=== PATIENT | male | born 1950 | race Caucasian/White ===

== ENCOUNTER → 2017-04-10 | Outpatient (CLI) | payer MEDICARE, OTHER ==
[~2017-04-10] MED LIST: APIX5TAB PO; ATOR10TA66 PO; DILT120T PO; ENAL5TAB PO; IBP200T; LORA-714 PO; LORA10TA7 PO; MONT10TA24 PO; SINUS; Sotalol Hcl PO; [UNRECOGNIZED DRUG - REMARK]
== END ==
LOC: CARD 07:27
PROVIDERS: ATTEND Physician Assistant
DX: I25.10 Atherosclerotic heart disease of native coronary artery without angina pectoris (principal); I10 Essential (primary) hypertension; E78.2 Mixed hyperlipidemia; I48.0 Paroxysmal atrial fibrillation
CPT/HCPCS: 93306

== ENCOUNTER 2017-04-26 15:09 | Inpatient (IN) | payer MEDICARE, OTHER ==
[~2017-04-26] VITALS: Ht 167.6 cm; Wt 113.5 kg
[2017-04-26] MEDS ORDERED: NS IV 500 ML 500 ML ONE (15:15)
[2017-04-26] MEDS ORDERED: ADENOSINE 6 MG/2 ML (ADENOCARD) VIAL IV ONE ×3 (15:15→15:30)
[2017-04-26] MEDS ORDERED: ASPIRIN 81 MG CHEW (CHILDREN'S ASA) PO ONE (15:15)
[2017-04-26] MEDS ORDERED: DILTIAZEM 25 MG/5 ML INJ (CARDIZEM) VIAL ONE (15:24)
[2017-04-26] MEDS ORDERED: SODIUM CHLORIDE (ADD-VANTAGE) 100 ML IV ONE (15:25)
[2017-04-26] MEDS ORDERED: DILTIAZEM 100 MG/VIAL (CARDIZEM) ADD-VANTAGE IV ONE (15:25)
[2017-04-26] MEDS ORDERED: DILTIAZEM DRIP 100 MG in SODIUM CHLORIDE (ADD-VANTAGE) 100 ML IV SCH (15:30)
[2017-04-26] MEDS ORDERED: DILTIAZEM 25 MG/5 ML INJ (CARDIZEM) VIAL IVP ONE (15:30)
[2017-04-26 15:49] LABS: BASOPHILS # (AUTO) 0.1 10^3/uL (0.0-0.1); BASOPHILS % (AUTO) 0 % (0-10); EOSINOPHILS # (AUTO) 0.3 10^3/uL (0.0-0.3); EOSINOPHILS % (AUTO) 3 % (0-10); LYMPHOCYTES # (AUTO) 2.7 X 10^3 (1.0-4.0); LYMPHOCYTES % (AUTO) 23 % (12-44); MEAN CORPUSCULAR HEMOGLOBIN 29 PG (25-34); MEAN CORPUSCULAR HGB CONC 33 G/DL (32-36); MEAN CORPUSCULAR VOLUME 87 FL (80-99); MEAN PLATELET VOLUME 10.4 FL (7.4-10.4); MONOCYTES % (AUTO) 9 % (0-12); NEUTROPHILS # (AUTO) 7.5 X 10^3 (1.8-7.8); NEUTROPHILS % (AUTO) 65 % (42-75); PLATELET COUNT 251 10^3/uL (130-400); RED BLOOD COUNT 5.58 10^6/uL (4.35-5.85); RED CELL DISTRIBUTION WIDTH 14.9 % (10.0-14.5); WHITE BLOOD COUNT 11.5 10^3/uL (4.3-11.0)
--- NOTE | 2017-04-26 15:49 | Diagnostic Imaging Report ---
EXAMINATION: Portable upright radiograph of the chest. INDICATION: Chest pain. FINDINGS: There is marked cardiomegaly. Indeterminate opacity in the left lung base could be artifactual from superimposition on this portable radiograph. The right lung is clear. There is no effusion or pneumothorax. The mediastinum and keyla appear unremarkable. IMPRESSION: Marked cardiomegaly. Indeterminate opacity along the left lower lobe could be superimposition artifact on this portable radiograph. Better evaluation could be obtained with PA and lateral views if needed. Dictated by: Dictated on workstation # [id number]
--- NOTE | 2017-04-26 16:01 | ED Chest Pain ---
General Chief Complaint: Cardiac/General Problems Stated Complaint: CHEST PAIN,SOA Nursing Triage Note: PT CO OF SOA FOR 4-5 DAYS AND C/P THIS AFTERNOON Nursing Sepsis Screen: No Definite Risk Source: patient Exam Limitations: no limitations History of Present Illness Time seen by provider: 15:11 Initial Comments This 66-year-old gentleman presents to emergency room with chest pain. He reports he occasionally has intermittent chest pain and shortness of air. Today however he has had a prolonged episode of pain in the chest radiating through to the back and dyspnea on exertion. He was extremely winded just going to the mailbox. He has a history of atrial flutter and has been evaluated by Dr. Layne. He also has had a heart catheterization in 2014 demonstrating mild coronary artery disease with 40-50 percent proximal stenosis of the LAD. He is noted to be tachycardic with a heart rate in the 160s on assessment. Patient reports compliance with his medications including Pradaxa. Allergies and Home Medications Allergies Coded Allergies: NKANo Known Allergies (Verified Allergy, Unknown, 12/13/08) Tetanus Vaccines & Toxoid (Verified Allergy, Unknown, 07/10/15) EDEMA Uncoded Allergies: IVP DYE FOR HEART CATHS (Allergy, Severe, HIVES, 07/10/15) WAS TREATED TODAY WITH BENADRYL AND SOLUMEDROL PRE CARDIAC CATH Home Medications Atorvastatin Calcium 10 Mg Tablet, 10 MG PO DAILY, (Reported) Dabigatran Etexilate Mesylate 75 Mg Capsule, 75 MG PO DAILY, (Reported) Diltiazem HCl 120 Mg Tab.er.24h, 120 MG PO DAILY, (Reported) Loratadine 10 Mg Tablet, 10 MG PO DAILY, (Reported) Montelukast Sodium 10 Mg Tablet, 10 MG PO HS, (Reported) [Sotalol Hcl] 80 MG TAB, 80 MG PO BID, #60 Ref 4 Prescribed by: JASVIR LAYNE on 07/13/15 1020 Review of Systems Constitutional: no symptoms reported EENTM: No Symptoms Reported Respiratory: See HPI Cardiovascular: See HPI Gastrointestinal: No Symptoms Reported Genitourinary: No Symptoms Reported Musculoskeletal: no symptoms reported Skin: no symptoms reported Psychiatric/Neurological: No Symptoms Reported Endocrine: No Symptoms Reported Past Ilcfpgk-Kvuvhl-Safbpd Hx Patient Social History Recent Foreign Travel: No Contact w/Someone Who Travel: No Recent Infectious Disease Expo: No Surgeries HX Surgeries: Yes (HEMORRHOIDS X3) Surgeries: Cardiac (cardiac catheter without intervention 2014) Respiratory Hx Respiratory Disorders: No Cardiovascular Hx Cardiac Disorders: Yes Cardiac Disorders: Atrial Fibrillation (atrial flutter on chronic anticoagulation), Coronary Artery Disease (mild coronary artery disease with nonobstructive disease by heart catheter 2014) Neurological Hx Neurological Disorders: No Reproductive System Hx Reproductive Disorders: No Genitourinary Hx Genitourinary Disorders: No Gastrointestinal Hx Gastrointestinal Disorders: No Musculoskeletal Hx Musculoskeletal Disorders: Yes (12/13/08-TRANSFER PROCESS FX.,LOWER BACKPAIN) Endocrine Hx Endocrine Disorders: No HEENT HX ENT Disorders: No Cancer Hx Cancer: No Psychosocial Hx Psychiatric Problems: No Integumentary HX Skin/Integumentary Disorder: No Blood Transfusions Hx Blood Disorders: No Physical Exam Vital Signs Vital Sign - Last 12Hours 04/26/17 15:10 Temp 97.1 Pulse 160 Resp 18 B/P (MAP) 162/122 Pulse Ox 86 O2 Delivery Room Air O2 Flow Rate 2.00 Capillary Refill : Less Than 3 Seconds General Appearance: No Apparent Distress, WD/WN, Obese HEENT: PERRL/EOMI, Normal ENT Inspection Neck: Normal Inspection, No JVD Respiratory: Lungs Clear, Normal Breath Sounds, No Accessory Muscle Use, No Respiratory Distress Cardiovascular: No Edema, No Murmur, Tachycardia Gastrointestinal: Normal Bowel Sounds, Non Tender, Soft Extremity: Normal Inspection, No Pedal Edema Neurologic/Psychiatric: Alert, Oriented x3, No Motor/Sensory Deficits, Normal Mood/Affect, educational consultant II-XII Norm as Tested Skin: Normal Color, Warm/Dry Progress/Results/Core Measures Results/Orders Lab Results Laboratory Tests Test 04/26/17 15:10 04/26/17 16:10 Range/Units White Blood Count 11.5 H 4.3-11.0 10^3/uL Red Blood Count 5.58 4.35-5.85 10^6/uL Hemoglobin 16.0 13.3-17.7 G/DL Hematocrit 48 40-54 % Mean Corpuscular Volume 87 80-99 FL Mean Corpuscular Hemoglobin 29 25-34 PG Mean Corpuscular Hemoglobin Concent 33 32-36 G/DL Red Cell Distribution Width 14.9 H 10.0-14.5 % Platelet Count 251 130-400 10^3/uL Mean Platelet Volume 10.4 7.4-10.4 FL Neutrophils (%) (Auto) 65 42-75 % Lymphocytes (%) (Auto) 23 12-44 % Monocytes (%) (Auto) 9 0-12 % Eosinophils (%) (Auto) 3 0-10 % Basophils (%) (Auto) 0 0-10 % Neutrophils # (Auto) 7.5 1.8-7.8 X 10^3 Lymphocytes # (Auto) 2.7 1.0-4.0 X 10^3 Monocytes # (Auto) 1.0 0.0-1.0 X 10^3 Eosinophils # (Auto) 0.3 0.0-0.3 10^3/uL Basophils # (Auto) 0.1 0.0-0.1 10^3/uL Prothrombin Time 18.0 H 12.2-14.7 SEC INR Comment 1.5 H 0.8-1.4 Activated Partial Thromboplast Time 47 H 24-35 SEC Sodium Level 139 135-145 MMOL/L Potassium Level 3.4 L 3.6-5.0 MMOL/L Chloride Level 102 98-107 MMOL/L Carbon Dioxide Level 25 21-32 MMOL/L Anion Gap 12 5-14 MMOL/L Blood Urea Nitrogen 25 H 7-18 MG/DL Creatinine 0.95 0.60-1.30 MG/DL Estimat Glomerular Filtration Rate > 60 BUN/Creatinine Ratio 26 Glucose Level 174 H 70-105 MG/DL Calcium Level 8.8 8.5-10.1 MG/DL Magnesium Level 1.7 L 1.8-2.4 MG/DL Total Bilirubin 0.5 0.1-1.0 MG/DL Aspartate Amino Transf (AST/SGOT) 37 H 5-34 U/L Alanine Aminotransferase (ALT/SGPT) 77 H 0-55 U/L Alkaline Phosphatase 83 40-136 U/L Myoglobin 76.8 10.0-92.0 NG/ML Troponin I < 0.30 <0.30 NG/ML Total Protein 6.0 L 6.4-8.2 GM/DL Albumin 3.5 3.2-4.5 GM/DL TSH Arab Testing 1.15 0.35-4.94 UIU/ML My Orders Orders - JUDE TOWNSEND MD Adenosine Injection (Adenocard Injection (04/26/17 15:30) Adenosine Injection (Adenocard Injection (04/26/17 15:30) Thyroid Analyzer (04/26/17 15:19) Diltiazem Injection (Cardizem Injection) (04/26/17 15:24) Diltiazem Injection (Cardizem Injection) (04/26/17 15:30) Sodium Chloride (Ad... W/Diltiazem Drip (04/26/17 15:30) Sodium Chloride (Add-Hudson) (Ns (Add-V (04/26/17 15:25) Diltiazem Drip (Cardizem Drip) (04/26/17 15:25) Medications Given in ED Current Medications Medications Dose Ordered Sig/Kailash Route Start Time Stop Time Status Last Admin Dose Admin Adenosine 6 mg ONCE ONCE IV 04/26/17 15:30 04/26/17 15:31 DC 04/26/17 15:23 6 MG Adenosine 12 mg ONCE ONCE IV 04/26/17 15:30 04/26/17 15:31 DC 04/26/17 15:26 12 MG Aspirin 324 mg ONCE ONCE PO 04/26/17 15:15 04/26/17 15:16 DC 04/26/17 15:30 324 MG Diltiazem HCl 10 mg ONCE ONCE IVP 04/26/17 15:30 04/26/17 15:32 DC 04/26/17 15:35 10 MG Sodium Chloride 500 ml @ ud STK-MED ONCE .ROUTE 04/26/17 15:15 04/26/17 15:21 DC 04/26/17 15:20 500 MLS/HR Vital Signs/I&O Vital Sign - Last 12Hours 04/26/17 04/26/17 04/26/17 15:10 15:10 15:36 Temp 97.1 Pulse 160 122 Resp 18 18 B/P (MAP) 162/122 136/108 Pulse Ox 86 86 97 O2 Delivery Room Air Nasal Cannula O2 Flow Rate 2.00 2.00 Blood Pressure Mean: 135 Progress Note #1: Time: 16:02 Progress Note Patient had a regular rhythm with a heart rate of 160 suspicious for SVT versus atrial flutter with 2 to one conduction. Adenosine 6 mg followed by adenosine 12 mg was administered. This unmasked the atrial flutter which became plainly evident on the EKGs. Cardizem drip was initiated. 500 mL of normal saline was administered an IV bolus as well. Progress Note #2: Time: 17:00 Progress Note Heart rate improved to the 80s with stable blood pressure on Cardizem drip. Patient feels better. ECG Initial ECG Impression Date: Apr 26, 2017 Initial ECG Impression Time: 15:16 Initial ECG Rate: 160 Initial ECG Rhythm: A Fib/Flutter Comment Narrow complex tachycardia with a consistent rate of 160. Probable atrial flutter with rapid ventricular rate (2:1 conduction). EKG : EKG Time: 15:26 Rate: 125 Rhythm: A Fib/Flutter Comment Atrial flutter with heart rate of 125. No ST elevation or depression. Atrial flutter was unmasked by adenosine 12 mg push. Diagnostic Imaging Diagonstic Imaging: Xray Plain Films/CT/US/NM/MRI: chest Comments Chest x-ray viewed by me and report reviewed. See report below: NAME: MARIXA UREÑA MED REC#: [id number] PT STATUS: REG ER : 1950 PHYSICIAN: MOISE VIRAMONTES APRN ADMIT DATE: 04/26/17/ER Draft Date of Exam:04/26/17 CHEST 1 VIEW, AP/PA ONLY EXAMINATION: Portable upright radiograph of the chest. INDICATION: Chest pain. FINDINGS: There is marked cardiomegaly. Indeterminate opacity in the left lung base could be artifactual from superimposition on this portable radiograph. The right lung is clear. There is no effusion or pneumothorax. The mediastinum and keyla appear unremarkable. IMPRESSION: Marked cardiomegaly. Indeterminate opacity along the left lower lobe could be superimposition artifact on this portable radiograph. Better evaluation could be obtained with PA and lateral views if needed. Dictated on workstation # [id number] Dict: 04/26/17 1540 Trans: 04/26/17 1548 [id number] Interpreted by: REED CHAUDHARI MD Departure Communication Time/Spoke to Admitting Phy: 17:[address] Nunez Time/Spoke to Consulting Physi: 16:58 Communication/Consulting Dr. Weiss Impression Impression: Primary Impression: Atrial flutter with rapid ventricular response Additional Impression: Chest pain Qualified Codes: R07.9 - Chest pain, unspecified Disposition: 09 ADMITTED INPATIENT Condition: Improved Decision to Admit Reason: Admit from ER (General) Decision to Admit/Date: Apr 26, 2017 Time/Decision to Admit Time: 15:16 Departure-Patient Inst. Referrals: JEANNE NUNEZ MD (PCP/Family) Primary Care Physician JUDE TOWNSEND MD Apr 26, 2017 16:01
[2017-04-26 16:05] LABS: INR 1.5 (0.8-1.4)
[2017-04-26] MEDS ORDERED: DABI75CA3 PO (16:12)
[2017-04-26 16:41] LABS: ALANINE AMINOTRANSFERASE 77 U/L (0-55); ALBUMIN 3.5 GM/DL (3.2-4.5); ANION GAP 12 MMOL/L (5-14); ASPARTATE AMINO TRANSFERASE 37 U/L (5-34); BILIRUBIN,TOTAL 0.5 MG/DL (0.1-1.0); BLOOD UREA NITROGEN 25 MG/DL (7-18); BUN/CREATININE RATIO 26; CALCIUM 8.8 MG/DL (8.5-10.1); CARBON DIOXIDE 25 MMOL/L (21-32); CHLORIDE 102 MMOL/L (98-107); CREATININE SERUM 0.95 MG/DL (0.60-1.30); GFR ESTIMATED > 60; GLUCOSE 174 MG/DL (70-105); MAGNESIUM 1.7 MG/DL (1.8-2.4); POTASSIUM 3.4 MMOL/L (3.6-5.0); SODIUM 139 MMOL/L (135-145)
[2017-04-26 17:01] LABS: MYOGLOBIN SERUM 76.8 NG/ML (10.0-92.0)
[2017-04-26] MEDS ORDERED: CATHETER FLUSH 10 ML SYR IV PRN (18:45)
[2017-04-26 19:00] VITALS: BP 98/67
[2017-04-26 19:30] VITALS: BP 99/79
[2017-04-26 20:00] VITALS: BP 110/76
[2017-04-26 21:00] VITALS: BP 96/64
[2017-04-26 22:00] VITALS: BP 103/67
[2017-04-26] MEDS: DABIGATRAN 150 MG (PRADAXA) CAPSULE PO SCH (22:30)
[2017-04-26] MEDS: NS IV 1000 ML 1,000 ML IV SCH (22:30)
[2017-04-26 23:00] VITALS: BP 123/82
[2017-04-27] VITALS (13 sets, daily range): BP systolic 95–136; BP diastolic 64–96
[2017-04-27] MEDS: SOTALOL 80 MG (BETAPACE) TAB PO SCH ×3 (00:12→22:02)
[2017-04-27] MEDS: DILTIAZEM DRIP 100 MG/NS 100 ML IV SCH ×4 (02:55→14:45)
[2017-04-27 03:39] LABS: BASOPHILS % (AUTO) 0 % (0-10); EOSINOPHILS # (AUTO) 0.2 10^3/uL (0.0-0.3); EOSINOPHILS % (AUTO) 2 % (0-10); LYMPHOCYTES # (AUTO) 2.1 X 10^3 (1.0-4.0); LYMPHOCYTES % (AUTO) 27 % (12-44); MEAN CORPUSCULAR HEMOGLOBIN 29 PG (25-34); MEAN CORPUSCULAR HGB CONC 33 G/DL (32-36); MEAN CORPUSCULAR VOLUME 88 FL (80-99); MEAN PLATELET VOLUME 10.1 FL (7.4-10.4); MONOCYTES # (AUTO) 0.5 X 10^3 (0.0-1.0); MONOCYTES % (AUTO) 7 % (0-12); NEUTROPHILS # (AUTO) 4.9 X 10^3 (1.8-7.8); NEUTROPHILS % (AUTO) 63 % (42-75); PLATELET COUNT 196 10^3/uL (130-400); RED BLOOD COUNT 4.81 10^6/uL (4.35-5.85); RED CELL DISTRIBUTION WIDTH 14.6 % (10.0-14.5); WHITE BLOOD COUNT 7.7 10^3/uL (4.3-11.0)
[2017-04-27 04:03] LABS: ANION GAP 10 MMOL/L (5-14); BLOOD UREA NITROGEN 28 MG/DL (7-18); BUN/CREATININE RATIO 34; CALCIUM 8.9 MG/DL (8.5-10.1); CARBON DIOXIDE 25 MMOL/L (21-32); CHLORIDE 103 MMOL/L (98-107); CREATININE SERUM 0.83 MG/DL (0.60-1.30); GFR ESTIMATED > 60; GLUCOSE 111 MG/DL (70-105); MAGNESIUM 1.8 MG/DL (1.8-2.4); POTASSIUM 3.9 MMOL/L (3.6-5.0); SODIUM 138 MMOL/L (135-145)
[2017-04-27 04:27] LABS: CHOLESTEROL 120 MG/DL (< 200); DIRECT LDL 75 MG/DL (1-129); TRIGLYCERIDES 93 MG/DL (<150); VLDL CHOLESTEROL 19 MG/DL (5-40)
[2017-04-27] MEDS: POTASSIUM CL 10MEQ/50ML IVPB 50 ML IV SCH (04:30)
[2017-04-27] MEDS: KCL 20 MEQ TAB (K-DUR) PO SCH (04:30)
[2017-04-27] MEDS: MAGNESIUM 1 GM/100 ML IVPB 100 ML IV SCH (04:30)
[2017-04-27] MEDS: NS IV 1000 ML 1,000 ML IV SCH ×2 (08:05→11:03)
--- NOTE | 2017-04-27 08:08 | History & Physicial ---
History of Present Illness History of Present Illness Reason for visit/HPI 66-year-old male admitted through the emergency room during the late afternoon of April 26, 2017 with shortness of breath primarily with also occasional chest discomfort. Apparently he was having difficulty even walking to his mailbox from his front porch which she usually has no problem at all. 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 Patient is on pradaxa as prescribed by cardiology. He did not notice that his heart rate was elevated during the afternoon of April 26, 2017. With the symptoms not improving he decided to proceed to via [facility] emergency department. Date of Admission Apr 26, 2017 at 17:52 Date Seen by Provider: Apr 27, 2017 Time Seen by Provider: 07:45 I consulted on this patient on 04/27/17 08:03 Attending Physician Oc Nunez MD Admitting Physician Oc Nunez MD Consult Allergies and Home Medications Allergies Coded Allergies: NKANo Known Allergies (Verified Allergy, Unknown, 12/13/08) Tetanus Vaccines and Toxoid (Verified Allergy, Unknown, 07/10/15) EDEMA Uncoded Allergies: IVP DYE FOR HEART CATHS (Allergy, Severe, HIVES, 07/10/15) WAS TREATED TODAY WITH BENADRYL AND SOLUMEDROL PRE CARDIAC CATH Home Medications Atorvastatin Calcium 10 Mg Tablet, 10 MG PO DAILY, (Reported) Dabigatran Etexilate Mesylate 150 Mg Capsule, 150 MG PO BID, (Reported) Enalapril Maleate 10 Mg Tablet, 10 MG PO DAILY, (Reported) Hydrochlorothiazide 25 Mg Tablet, 25 MG PO DAILY, (Reported) Loratadine 10 Mg Tablet, 10 MG PO DAILY, (Reported) Montelukast Sodium 10 Mg Tablet, 10 MG PO HS, (Reported) Naproxen Sodium 220 Mg Tablet, 220-440 MG PO Q8H PRN for PAIN-MILD, (Reported) Sotalol HCl 80 Mg Tablet, 80 MG PO BID, (Reported) Past Ivbrkhn-Wcbzwm-Ybkipc Hx Patient Social History Alcohol Use: Denies Use Recreational Drug Use: No Smoking Status: Never a Smoker Physical Abuse Screen: No Sexual Abuse: No Recent Foreign Travel: Yes ([place] FEBRUARY/MARCH ) Contact w/other who traveled: No Recent Hopitalizations: No Recent Infectious Disease Expo: No Seasonal Allergies Seasonal Allergies: No Surgeries HX Surgeries: Yes (HEMORRHOIDS X3) Surgeries: Cardiac (cardiac catheter without intervention 2014) Respiratory Hx Respiratory Disorders: No Cardiovascular Hx Cardiovascular Disorders: Yes Cardiac Disorders: Atrial Fibrillation (atrial flutter on chronic anticoagulation), Coronary Artery Disease (mild coronary artery disease with nonobstructive disease by heart catheter 2014) Neurological Hx Neurological Disorders: No Reproductive System Hx Reproductive Disorders: No Genitourinary Hx Genitourinary Disorders: No Gastrointestinal Hx Gastrointestinal Disorders: No Musculoskeletal Hx Musculoskeletal Disorders: Yes (12/13/08-TRANSFER PROCESS FX.,LOWER BACKPAIN) Endocrine Hx Endocrine Disorders: No HEENT HX ENT Disorders: No Cancer Hx Cancer: No Psychosocial Hx Psychiatric Problems: No Integumentary HX Skin/Integumentary Disorder: No Blood Transfusions Hx Blood Disorders: No Family Medical History Family Hx: Completed stroke 19 MOTHER Myocardial infarction 19 FATHER Constitutional: see HPI Physical Exam Vital Signs Vital Sign - Last 12Hours 04/26/17 15:10 Temp 97.1 Pulse 160 Resp 18 B/P (MAP) 162/122 Pulse Ox 86 O2 Delivery Room Air O2 Flow Rate 2.00 Capillary Refill : Less Than 3 Seconds General Appearance: Anxious (slight) Eyes: Bilateral Eye Normal Inspection HEENT: Normal ENT Inspection Neck: Supple Respiratory: Lungs Clear Cardiovascular: Other (rhythm appears to be regular currently in the rate of 88 ) Gastrointestinal: Soft Rectal: Deferred Back: Normal Inspection Extremity: Swelling (minimal at the ankle) Skin: Normal Color, Warm/Dry Comments NAME: MARIXA UREÑA MED REC#: [id number] PT STATUS: ADM IN : 1950 PHYSICIAN: MOISE VIRAMONTES APRN ADMIT DATE: 04/26/17/ICU Signed Date of Exam: 04/26/17 CHEST 1 VIEW, AP/PA ONLY EXAMINATION: Portable upright radiograph of the chest. INDICATION: Chest pain. FINDINGS: There is marked cardiomegaly. Indeterminate opacity in the left lung base could be artifactual from superimposition on this portable radiograph. The right lung is clear. There is no effusion or pneumothorax. The mediastinum and keyla appear unremarkable. IMPRESSION: Marked cardiomegaly. Indeterminate opacity along the left lower lobe could be superimposition artifact on this portable radiograph. Better evaluation could be obtained with PA and lateral views if needed. Dictated by: Dictated on workstation # [id number] Dict: 04/26/17 1540 Trans: 04/26/17 1845 Interpreted by: REED CHAUDHARI MD Electronically signed by: REED CHAUDHARI MD 04/26/17 1845 Assessment/Plan Assessment and Plan 1. Atrial flutter with rapid ventricular response on admission -patient to be admitted to intensive care unit for heart rate control with Cardizem drip -Cardiology consultation 2. Chest pain with history of coronary artery disease -troponin series ordered Problems: Admission Diagnosis 1. Atrial flutter with rapid ventricular response on admission 2. Chest pain with history of coronary artery disease Clinical Quality Measures DVT/VTE Risk/Contraindication: RFS Level Per Nursing on Admit: 0=No Risk/No VTE PPX OC NUNEZ MD Apr 27, 2017 08:08
--- NOTE | 2017-04-27 08:33 | Consultation-Cardiology ---
HPI-Cardiology Cardiology Consultation: Date of Consultation 04/27/17 Time Seen by Provider: 08:26 Date of Admission 04-26-17 Attending Physician Oc Dixon MD Admitting Physician Oc Dixon MD Consulting Physician Radha Weiss MD, [place] [facility] Primary die maker bench stamping: Dr Layne HPI: Chief Complaint: A-fib with RVR Mr. Ureña is a 66 year old male admitted to ICU 9 from the ED. He reports he has a h/o a-fib. His primary die maker bench stamping is Dr. Layne. He states over the course of the last 2 weeks he has been having episodes of palpitations which have been increasing in frequency and duration. He states he has been having dyspnea on exertion, which has been progressive. He states he can not even walk to his mailbox without feeling short of breath, which a month ago he could. He states he has been having chest pressure which radiates across his chest. It comes on with activity. He has shortness of breath with the episodes. No diaphoresis. The episodes resolve with rest. He reports yesterday he began to have dizziness and lightheadedness with exertion. No reports of syncope or near syncope. Chronic mild bilat LE edema which is unchanged. He reports he has CHLOE and wears CPAP. He is currently not reporting any chest discomfort. Review of Systems-Cardiology Review of Systems Constitutional: As described under HPI, No As described under HPI, No no symptoms reported, No chills, No fever, No lightheadedness Eyes: No As described under HPI, No no symptoms reported, No blindness, No blurred vision, No contact lenses, No drainage, No decreased acuity, No foreign body sensation, No pain, No vision change Ears/Nose/Throat: No As described under HPI, No no symptoms reported, No chronic hearing loss, No ear discharge, No ear pain, No nasal drainage, No ulcerations Respiratory: No no symptoms reported, As described under HPI, No As described under HPI, No cough, No orthopnea, No shortness of breath, No SOB with excertion Cardiovascular: No no symptoms reported, As described under HPI, No As described under HPI, No chest pain, No edema, No irregular heart rate, No lightheadedness, No palpitations Gastrointestinal: No no symptoms reported, No As described under HPI, No abdomen distended, No abdominal pain, No blood streaked bowels, No constipation , No diarrhea, No nausea, No vomiting, No stool coloration changes Genitourinary: No As described under HPI, No burning, No dysuria, No discharge , No frequency, No flank pain, No hematuria, No urgency Skin: No rash, No skin related problems, No ulcerations Psychiatric/Neurological: No anxiety, No depression, No focal weakness, No seizure, No syncope Hematologic: No bleeding abnormalities MUF-[id number]-Ocankd Hx Patient Social History Alcohol Use: Denies Use Recreational Drug Use: No Smoking Status: Never a Smoker Recent Foreign Travel: Yes ([place] ) Recent Infectious Disease Expo: No Hospitalization with Isolation: Denies Physical Abuse Screen: No Sexual Abuse: No Past Medical History PMH As described under Assessment. Family Medical History Family History: Completed stroke 19 MOTHER Myocardial infarction 19 FATHER Allergies and Home Medications Allergies Coded Allergies: NKANo Known Allergies (Verified Allergy, Unknown, 12/13/08) Tetanus Vaccines and Toxoid (Verified Allergy, Unknown, 07/10/15) EDEMA Uncoded Allergies: IVP DYE FOR HEART CATHS (Allergy, Severe, HIVES, 07/10/15) WAS TREATED TODAY WITH BENADRYL AND SOLUMEDROL PRE CARDIAC CATH Home Medications Atorvastatin Calcium 10 Mg Tablet, 10 MG PO DAILY, (Reported) Dabigatran Etexilate Mesylate 150 Mg Capsule, 150 MG PO BID, (Reported) Enalapril Maleate 10 Mg Tablet, 10 MG PO DAILY, (Reported) Hydrochlorothiazide 25 Mg Tablet, 25 MG PO DAILY, (Reported) Loratadine 10 Mg Tablet, 10 MG PO DAILY, (Reported) Montelukast Sodium 10 Mg Tablet, 10 MG PO HS, (Reported) Naproxen Sodium 220 Mg Tablet, 220-440 MG PO Q8H PRN for PAIN-MILD, (Reported) Sotalol HCl 80 Mg Tablet, 80 MG PO BID, (Reported) Physical Exam-Cardiology Physical Exam Vital Signs/I&O Vital Sign - Last 12Hours 04/26/17 04/26/17 04/27/17 04/27/17 22:00 23:00 00:00 00:00 Pulse 55 67 68 Resp 22 21 25 B/P (MAP) 103/67 123/82 119/78 Pulse Ox 96 94 94 94 O2 Delivery Room Air Room Air Room Air Room Air 04/27/17 04/27/17 04/27/17 04/27/17 01:00 01:00 02:00 03:00 Pulse 69 73 64 63 Resp 26 28 29 B/P (MAP) 116/80 106/64 112/79 Pulse Ox 94 95 93 O2 Delivery Room Air Room Air Room Air 04/27/17 04/27/17 04/27/17 04/27/17 04:00 04:00 05:00 06:00 Pulse 69 68 70 Resp 29 26 26 B/P (MAP) 95/80 136/94 133/93 Pulse Ox 96 95 93 96 O2 Delivery Room Air Room Air Room Air Room Air 04/27/17 04/27/17 04/27/17 04/27/17 07:00 07:00 08:00 08:53 Temp 98.6 Pulse 78 78 80 Resp 12 10 B/P (MAP) 131/77 125/96 Pulse Ox 96 96 O2 Delivery Room Air Room Air 04/27/17 09:00 Pulse 86 Resp 16 B/P (MAP) 136/93 Pulse Ox 97 O2 Delivery Room Air Intake and Output 04/27/17 00:00 Intake Total 150 ml Balance 150 ml Capillary Refill : Less Than 3 Seconds Constitutional: appears stated age, No apparent distress, well-developed, well- nourished HEENT: PERRL, No discharge, hearing is well preserved, oral hygience is good, No ulceration, No xanthelasmas are seen Neck: No carotid bruit, carotid pulses are 2 + bilaterally Respiratory: chest expansion is symmetric, chest is bilaterally symmetric, lungs clear to auscultation Cardiovascular: regular rate-rhythm, No JVD, S1 and S2 Gastrointestinal: No tender, soft, audible bowel sounds, No spleenomegaly Rectal: deferred Extremities: No clubbing, No cyanosis, No significant edema Neurologic/Psychiatric: alert, oriented x 3, power is 5/5 both on sides Skin: No rash, No ulcerations Data Review Labs Laboratory Tests 04/26/17 15:10: White Blood Count 11.5H, Red Blood Count 5.58, Hemoglobin 16.0, Hematocrit 48, Mean Corpuscular Volume 87, Mean Corpuscular Hemoglobin 29, Mean Corpuscular Hemoglobin Concent 33, Red Cell Distribution Width 14.9H, Platelet Count 251, Mean Platelet Volume 10.4, Neutrophils (%) (Auto) 65, Lymphocytes (%) (Auto) 23 , Monocytes (%) (Auto) 9, Eosinophils (%) (Auto) 3, Basophils (%) (Auto) 0, Neutrophils # (Auto) 7.5, Lymphocytes # (Auto) 2.7, Monocytes # (Auto) 1.0, Eosinophils # (Auto) 0.3, Basophils # (Auto) 0.1, Prothrombin Time 18.0H, INR Comment 1.5H, Activated Partial Thromboplast Time 47H 04/26/17 16:10: Sodium Level 139, Potassium Level 3.4L, Chloride Level 102, Carbon Dioxide Level 25, Anion Gap 12, Blood Urea Nitrogen 25H, Creatinine 0.95, Estimat Glomerular Filtration Rate > 60, BUN/Creatinine Ratio 26, Glucose Level 174H, Calcium Level 8.8, Magnesium Level 1.7L, Total Bilirubin 0.5, Aspartate Amino Transf (AST/SGOT) 37H, Alanine Aminotransferase (ALT/SGPT) 77H, Alkaline Phosphatase 83, Myoglobin 76.8, Troponin I < 0.30, Total Protein 6.0L, Albumin 3.5, TSH [place] Testing 1.15 04/27/17 03:04: White Blood Count 7.7, Red Blood Count 4.81, Hemoglobin 13.9, Hematocrit 42, Mean Corpuscular Volume 88, Mean Corpuscular Hemoglobin 29, Mean Corpuscular Hemoglobin Concent 33, Red Cell Distribution Width 14.6H, Platelet Count 196, Mean Platelet Volume 10.1, Neutrophils (%) (Auto) 63, Lymphocytes (%) (Auto) 27 , Monocytes (%) (Auto) 7, Eosinophils (%) (Auto) 2, Basophils (%) (Auto) 0, Neutrophils # (Auto) 4.9, Lymphocytes # (Auto) 2.1, Monocytes # (Auto) 0.5, Eosinophils # (Auto) 0.2, Basophils # (Auto) 0.0, Sodium Level 138, Potassium Level 3.9, Chloride Level 103, Carbon Dioxide Level 25, Anion Gap 10, Blood Urea Nitrogen 28H, Creatinine 0.83, Estimat Glomerular Filtration Rate > 60, BUN /Creatinine Ratio 34, Glucose Level 111H, Calcium Level 8.9, Magnesium Level 1.8 , Troponin I < 0.30, Phosphorus Level 4.0, Triglycerides Level 93, Cholesterol Level 120, LDL Cholesterol Direct 75, VLDL Cholesterol 19, HDL Cholesterol 32L 04/27/17 08:00: Troponin I < 0.30 Radiology NAME: MARIXA UREÑA [facility] REC#: [id number] PT STATUS: ADM IN : 1950 PHYSICIAN: MOISE VIRAMONTES APRN ADMIT DATE: 04/26/17/ICU Signed Date of Exam: 04/26/17 CHEST 1 VIEW, AP/PA ONLY EXAMINATION: Portable upright radiograph of the chest. INDICATION: Chest pain. FINDINGS: There is marked cardiomegaly. Indeterminate opacity in the left lung base could be artifactual from superimposition on this portable radiograph. The right lung is clear. There is no effusion or pneumothorax. The mediastinum and keyla appear unremarkable. IMPRESSION: Marked cardiomegaly. Indeterminate opacity along the left lower lobe could be superimposition artifact on this portable radiograph. Better evaluation could be obtained with PA and lateral views if needed. Dictated by: Dictated on workstation # [id number] Dict: 04/26/17 1540 Trans: 04/26/17 1845 Interpreted by: REED CHAUDHARI MD Electronically signed by: REED CHAUDHARI MD 04/26/17 1844 ECG Impression ECG Initial ECG Impression: Atrial Fibrillation w/RVR A/P-Cardiology Assessment/Admission Diagnosis New onset of symptoms of chest discomfort and exertional shortness of breath, probably multifactorial, see below Chest pain of undetermined etiology with associated dyspnea, progressive A-fib with RVR - h/o PAF - converted to SR with controlled rate Electrolyte abnormalities likely d/t chronic diuretic use Coronary artery disease, status post cardiac catheterization done in June 2015 showing 40-50 percent proximal LAD stenosis otherwise nonobstructive disease Paroxysmal atrial fibrillation/flutter, maintained on sotalol [id number] score is 2, yearly risk of stroke without oral anticoagulation is 2.2 percent. He is maintained on Pradaxa. Hypertension Peripheral edema Pulmonary hypertension, obstructive sleep apnea COPD/obstructive sleep apnea - CPAP tx Morbid obesity, BMI is 40 Seasonal allergy. Allergy to IV contrast, tetanus Discussion and Recomendations Paroxysmal a-fib with RVR which has now converted to SR with a controlled rate. H/O CAD per cardiac cath of 2014. Based on his symptoms, h/o and risk factors as listed above we advise further cardiac work up. We have discussed both invasive and non-invasive work up. He would like to discuss with Dr. Weiss. We will keep him NPO until he has made a decision. He reports he had an echocardiogram approx 2 weeks ago. We will review. Continue sotalol, CCB, statin, ASA and Pradaxa. Further recommendations will be based on his hospital course. We would like to thank Dr. Dixon for this consult. This consult is being scribed by Leeann Chamorro APRN on behalf of Dr. Weiss after discussion regarding plan of care. Clinical Quality Measures DVT/VTE Risk/Contraindication: RFS Level Per Nursing on Admit: 0=No Risk/No VTE PPX Physician Assessment Physician Assessment Lungs: good air entry; somewhat diminished a the bases Cor: reg Ext: no c/c/e A&R * As documented in our note above that I updated (italics) and as noted below * Increase sotalol and monitor serial QT intervals * Add long-acting dilt * Continue dabigatran stroke prophylaxis * Consider card cath for symptoms of increasing exertional shortness of breath and chest discomfort (in a setting of known CAD) * I discussed with him the rationale, procedure, risks, benefits, potential complications, and alternatives of card cath and possible ad hoc cor intervention. He understands and provides informed consent BENNY CHAMORRO MARINE GEOLOGIST Apr 27, 2017 08:33 RADHA WEISS MD [facility] Apr 27, 2017 09:46
[2017-04-27] MEDS: MONTELUKAST 10 MG (SINGULAIR) TAB PO SCH (08:49)
[2017-04-27] MEDS: ATORVASTATIN 10 MG (LIPITOR) TABLET PO SCH (08:49)
[2017-04-27] MEDS: ENALAPRIL 10 MG (VASOTEC) TAB PO SCH (08:49)
[2017-04-27] MEDS: DABIGATRAN 150 MG (PRADAXA) CAPSULE PO SCH ×3 (08:53→22:01)
[2017-04-27] MEDS ORDERED: HYDROCHLOROTHIAZIDE 25 MG (HCTZ) TAB PO SCH (09:00)
[2017-04-27] MEDS ORDERED: DILTIAZEM 180 MG (CARDIZEM CD) CAP PO NR (09:15)
[2017-04-27] MEDS ORDERED: DABI150C5 PO (09:18)
[2017-04-27] MEDS ORDERED: ENAL10TA PO (09:18)
[2017-04-27] MEDS ORDERED: SOTA80TA PO (09:18)
[2017-04-27] MEDS ORDERED: HYDR25TA4 PO (09:18)
[2017-04-27] MEDS ORDERED: NAPR220T66 PO (09:25)
[2017-04-27] MEDS ORDERED: ASPIRIN 325 MG (5 GR) TABLET PO NR (10:15)
--- NOTE | 2017-04-27 10:44 | Diagnostic Imaging Report ---
INDICATION: Dyspnea. TECHNIQUE: Single view chest 4:34 AM. CORRELATION STUDY: 04/26/2017 FINDINGS: Heart size is enlarged, mediastinum prominent. The findings are stable to perhaps slightly increased from prior study. Vasculature is somewhat obscured but appears generally stable. The lungs are clear with no consolidating infiltrate. There is no significant effusion or pneumothorax. IMPRESSION: Marked cardiac enlargement. Prominent mediastinum, stable to perhaps slightly increased. Features could be reflective of underlying cardiomyopathy or perhaps pericardial effusion. Vasculature however appears relatively stable. Dictated by: Dictated on workstation # [id number]
[2017-04-27] MEDS ORDERED: ASPIRIN 81 MG CHEW (CHILDREN'S ASA) PO NR (10:53)
[2017-04-28] VITALS (12 sets, daily range): BP systolic 93–117; BP diastolic 51–86
[2017-04-28] MEDS: NS IV 1000 ML 1,000 ML IV SCH ×2 (00:23→14:10)
[2017-04-28 03:44] LABS: BASOPHILS % (AUTO) 0 % (0-10); EOSINOPHILS # (AUTO) 0.3 10^3/uL (0.0-0.3); EOSINOPHILS % (AUTO) 3 % (0-10); LYMPHOCYTES # (AUTO) 1.9 X 10^3 (1.0-4.0); LYMPHOCYTES % (AUTO) 22 % (12-44); MEAN CORPUSCULAR HEMOGLOBIN 29 PG (25-34); MEAN CORPUSCULAR HGB CONC 33 G/DL (32-36); MEAN CORPUSCULAR VOLUME 88 FL (80-99); MONOCYTES # (AUTO) 0.5 X 10^3 (0.0-1.0); MONOCYTES % (AUTO) 6 % (0-12); NEUTROPHILS # (AUTO) 6.1 X 10^3 (1.8-7.8); NEUTROPHILS % (AUTO) 69 % (42-75); PLATELET COUNT 207 10^3/uL (130-400); RED BLOOD COUNT 4.64 10^6/uL (4.35-5.85); RED CELL DISTRIBUTION WIDTH 14.6 % (10.0-14.5); WHITE BLOOD COUNT 8.8 10^3/uL (4.3-11.0)
[2017-04-28 04:04] LABS: ANION GAP 13 MMOL/L (5-14); BLOOD UREA NITROGEN 21 MG/DL (7-18); BUN/CREATININE RATIO 27; CALCIUM 8.6 MG/DL (8.5-10.1); CARBON DIOXIDE 21 MMOL/L (21-32); CHLORIDE 105 MMOL/L (98-107); CREATININE SERUM 0.78 MG/DL (0.60-1.30); GFR ESTIMATED > 60; GLUCOSE 111 MG/DL (70-105); MAGNESIUM 1.7 MG/DL (1.8-2.4); PHOSPHORUS 3.2 MG/DL (2.3-4.7); POTASSIUM 3.9 MMOL/L (3.6-5.0); SODIUM 139 MMOL/L (135-145)
[2017-04-28] MEDS: MAGNESIUM 1 GM/100 ML IVPB 100 ML IV SCH (04:05)
[2017-04-28] MEDS: POTASSIUM CL 10MEQ/50ML IVPB 50 ML IV SCH (04:05)
[2017-04-28] MEDS: KCL 20 MEQ TAB (K-DUR) PO SCH (04:06)
[2017-04-28 04:28] LABS: THYROID STIMULATING HORMONE 1.43 UIU/ML (0.35-4.94)
--- NOTE | 2017-04-28 07:33 | Progress Note (SOAP) ---
Subjective Date Seen by Provider: Apr 28, 2017 Time Seen by Provider: 07:20 Subjective/Events-last exam No chest pain or palpitations overnight. Objective Exam Vital Signs Date Time Temp Pulse Resp B/P (MAP) Pulse Ox O2 Delivery O2 Flow Rate FiO2 04/28/17 06:00 98.8 50 16 113/74 93 Room Air 04/28/17 02:00 98.0 48 18 93/60 99 Room Air 04/28/17 01:00 44 04/27/17 21:00 96 Room Air 04/27/17 20:18 98.1 68 16 112/67 96 Room Air 04/27/17 19:00 57 04/27/17 16:35 97.8 52 16 99/68 99 Room Air 04/27/17 13:00 60 04/27/17 12:09 98.0 57 18 113/71 93 Room Air 04/27/17 09:00 86 16 136/93 97 Room Air 04/27/17 08:53 98.6 04/27/17 08:15 Room Air 04/27/17 08:00 80 10 125/96 96 Room Air I & O 04/28/17 07:00 Intake Total 2700 ml Balance 2700 ml Capillary Refill : Less Than 3 Seconds General Appearance: No Apparent Distress Neck: Supple Respiratory: Lungs Clear Cardiovascular: No Murmur, Other (rate controlled at 55 currently) Gastrointestinal: soft Skin: Normal Color Results Lab Laboratory Tests 04/27/17 08:00: Troponin I < 0.30 04/28/17 03:22: White Blood Count 8.8, Red Blood Count 4.64, Hemoglobin 13.4, Hematocrit 41, Mean Corpuscular Volume 88, Mean Corpuscular Hemoglobin 29, Mean Corpuscular Hemoglobin Concent 33, Red Cell Distribution Width 14.6H, Platelet Count 207, Mean Platelet Volume 10.0, Neutrophils (%) (Auto) 69, Lymphocytes (%) (Auto) 22 , Monocytes (%) (Auto) 6, Eosinophils (%) (Auto) 3, Basophils (%) (Auto) 0, Neutrophils # (Auto) 6.1, Lymphocytes # (Auto) 1.9, Monocytes # (Auto) 0.5, Eosinophils # (Auto) 0.3, Basophils # (Auto) 0.0, Sodium Level 139, Potassium Level 3.9, Chloride Level 105, Carbon Dioxide Level 21, Anion Gap 13, Blood Urea Nitrogen 21H, Creatinine 0.78, Estimat Glomerular Filtration Rate > 60, BUN /Creatinine Ratio 27, Glucose Level 111H, Calcium Level 8.6, Phosphorus Level 3.2, Magnesium Level 1.7L, Thyroid Stimulating Hormone (TSH) 1.43 Assessment/Plan Assessment/Plan Assess & Plan/Chief Complaint 1. Atrial flutter with rapid ventricular response on admission -patient to be admitted to intensive care unit for heart rate control with Cardizem drip -Cardiology consultation 04/28 Rate controlled and patient awaiting Cardiac cath this afternoon -Labs reviewed with patient today. 2. Chest pain with history of coronary artery disease -troponin series ordered Clinical Quality Measures DVT/VTE Risk/Contraindication: RFS Level Per Nursing on Admit: 0=No Risk/No VTE PPX JEANNE NUNEZ MD Apr 28, 2017 07:33
--- NOTE | 2017-04-28 08:42 | Progress Note-Cardiology ---
Cardiology SOAP Progress Note Subjective: Sitting up in bed. Reports he has continued to have episodes of chest tightness which have only lasted a few seconds. Feels SOB is better today. No c/o palpitations, syncope or near syncope. Objective: I&O/Vital Signs Vital Sign - Last 12Hours 04/28/17 04/28/17 04/28/17 04/28/17 06:00 07:00 08:00 09:46 Temp 98.8 97.2 Pulse 50 50 52 Resp 16 18 B/P (MAP) 113/74 117/77 Pulse Ox 93 96 96 O2 Delivery Room Air Room Air Room Air 04/28/17 11:33 Temp 96.3 Pulse 58 Resp 18 B/P (MAP) 108/72 Pulse Ox 96 O2 Delivery Room Air Intake and Output 04/28/17 00:00 Intake Total 360 ml Balance 360 ml Weight (Pounds): 250 Weight (Ounces): 2.0 Weight (Calculated Kilograms): 113.749245 Constitutional: appears stated age, No apparent distress, well-developed, well- nourished Respiratory: chest expansion is symmetric, chest is bilaterally symmetric, lungs clear to auscultation Cardiovascular: regular rate-rhythm, No JVD, S1 and S2 Gastrointestional: No tender, soft, audible bowel sounds, No spleenomegaly Extremities: No clubbing, No cyanosis, No significant edema Neurologic/Psychiatric: alert, oriented x 3, power is 5/5 both on sides Skin: No rash, No ulcerations Results/Procedures: Labs Laboratory Tests 04/28/17 03:22: White Blood Count 8.8, Red Blood Count 4.64, Hemoglobin 13.4, Hematocrit 41, Mean Corpuscular Volume 88, Mean Corpuscular Hemoglobin 29, Mean Corpuscular Hemoglobin Concent 33, Red Cell Distribution Width 14.6H, Platelet Count 207, Mean Platelet Volume 10.0, Neutrophils (%) (Auto) 69, Lymphocytes (%) (Auto) 22 , Monocytes (%) (Auto) 6, Eosinophils (%) (Auto) 3, Basophils (%) (Auto) 0, Neutrophils # (Auto) 6.1, Lymphocytes # (Auto) 1.9, Monocytes # (Auto) 0.5, Eosinophils # (Auto) 0.3, Basophils # (Auto) 0.0, Sodium Level 139, Potassium Level 3.9, Chloride Level 105, Carbon Dioxide Level 21, Anion Gap 13, Blood Urea Nitrogen 21H, Creatinine 0.78, Estimat Glomerular Filtration Rate > 60, BUN /Creatinine Ratio 27, Glucose Level 111H, Calcium Level 8.6, Phosphorus Level 3.2, Magnesium Level 1.7L, Thyroid Stimulating Hormone (TSH) 1.43 Laboratory Tests 04/26/17 16:10 04/27/17 03:04 04/28/17 03:22 Procedures EKG of 04-28-17: QTc 458, QT 512, SB 48 EKG of 04-27-17: QTc 448, QT 412, SR 71 A/P: Assessment: New onset of symptoms of chest discomfort and exertional shortness of breath, etiology unestablished Cardiac cath of 04/28/17 shows 40-50% LAD stenosis, no other CAD, unchanged form a study of June 2015; LVEF 50%; LVEDP 28 mmHg A-fib with RVR - h/o PAF - converted to SR Electrolyte abnormalities likely d/t chronic diuretic use, resolved Paroxysmal atrial fibrillation/flutter, maintained on sotalol; sotalol increased during this hospitalization [id number] score is 2, yearly risk of stroke without oral anticoagulation is 2.2 percent. He is maintained on Pradaxa. Hypertension Peripheral edema Pulmonary hypertension, obstructive sleep apnea COPD/obstructive sleep apnea - CPAP tx Morbid obesity, BMI is 40 Seasonal allergy. Allergy to IV contrast, tetanus Plan: Paroxysmal a-fib with RVR which has now converted to SR with a controlled rate. Continues to have episodes of chest discomfort with a h/o CAD - cardiac planned for later today Continue current medications Further recommendations following cardiac cath Hypomag - replace Physician Assessment Physician Assessment Lungs: good bilat air entry Cor: reg Ext: no c/c/e A&R * As documented in our note above that I updated (italics) and as noted below * Increased sotalol for a fib control; tolerated well * Continue stroke prophylaxis with Pradaxa * Outpatient f/u with Dr Layne * I spoke with Mr Menendez and answered his questions BENNY SERRANO HARBOR ENGINEER Apr 28, 2017 08:42 SHELLEY ALVARADO MD FACP FAC CCDS Apr 28, 2017 15:16
[2017-04-28] MEDS ORDERED: ASPIRIN 81 MG CHEW (CHILDREN'S ASA) PO SCH (09:00)
[2017-04-28] MEDS ORDERED: DILTIAZEM 180 MG (CARDIZEM CD) CAP PO SCH (09:00)
[2017-04-28] MEDS: ATORVASTATIN 10 MG (LIPITOR) TABLET PO SCH (09:26)
[2017-04-28] MEDS: SOTALOL 80 MG (BETAPACE) TAB PO SCH (09:26)
[2017-04-28] MEDS: ENALAPRIL 10 MG (VASOTEC) TAB PO SCH (09:26)
[2017-04-28] MEDS: MONTELUKAST 10 MG (SINGULAIR) TAB PO SCH (09:26)
[2017-04-28] MEDS: DABIGATRAN 150 MG (PRADAXA) CAPSULE PO SCH (09:28)
[2017-04-28] MEDS: DILTIAZEM DRIP 100 MG/NS 100 ML IV SCH ×2 (11:32)
[2017-04-28] MEDS ORDERED: NS IV 1000 ML 1,000 ML IV SCH ×2 (13:00→15:16)
[2017-04-28] MEDS ORDERED: diphenhydrAMINE 25 MG TAB (BENADRYL) PO SCH (13:00)
[2017-04-28] MEDS ORDERED: FAMOTIDINE 20 MG (PEPCID) TABLET PO SCH (13:00)
[2017-04-28] MEDS ORDERED: methylPREDNISolone 125 MG (Solu-MEDROL) VIAL IV SCH (13:00)
[2017-04-28] MEDS ORDERED: NS IV 1000 ML 1,000 ML ONE (13:02)
[2017-04-28] MEDS ORDERED: methylPREDNISolone 125 MG (Solu-MEDROL) VIAL ONE (13:38)
[2017-04-28] MEDS ORDERED: fentaNYL INJECTION 100 MCG/2 ML AMP ONE (13:38)
[2017-04-28] MEDS ORDERED: diphenhydrAMINE 50 MG/ML INJ (BENADRYL) ONE (13:38)
[2017-04-28] MEDS ORDERED: MIDAZOLAM 5 MG/5 ML (VERSED) VIAL ONE (13:38)
--- NOTE | 2017-04-28 15:18 | CARDIAC CATHETERIZATION ---
DATE OF SERVICE: 04/28/2017 PRIMARY PHYSICIAN: Dr. Noe Layne. HISTORY: The patient is a 66-year-old male with a history of coronary artery disease who was hospitalized with atrial fibrillation/flutter and symptoms of unstable angina. Cardiac catheterization was carried out today after having obtained an informed consent. PROCEDURE: He was brought to the cardiac catheterization laboratory in a fasting state. Right groin was prepared and draped in the usual sterile fashion. Lidocaine 1% local anesthesia. Modified Seldinger technique was used to advance a [place] sheath in the right femoral artery, [place] JL4, JR4 catheter, right coronary angiography, [place] pigtail catheter was used for left heart catheterization and left ventricular angiography. Pigtail was pulled back to the aortic arch and aortic arch angiography was performed. The catheter was removed. Angiography of the right femoral artery had been carried out at the beginning of the procedure through the sheath. At the end of the procedure, Mynx was used to achieve hemostasis. He tolerated the procedure well. HEMODYNAMICS: Left ventricular end-diastolic pressure following coronary angiography was 28 mmHg. There was no significant pressure gradient on pullback across the aortic valve. Ascending aortic pressure is 104/62 with a mean of 80 mmHg. CORONARY ANGIOGRAPHY: 1. Left main coronary artery appears short or nonexistent. There does not appear to be any significant left main coronary artery disease. 2. Left anterior descending artery has 40% to 50% proximal and mid vessel stenosis. 3. The left circumflex artery is large and dominant and does not exhibit significant stenosis. 4. Right coronary artery is small and nondominant and has mild plaques. LEFT VENTRICULAR ANGIOGRAPHY: Left ventricular angiography was carried out in the right anterior oblique projection. Global left ventricular systolic function appears well preserved. Left ventricular ejection fraction approximately 50%. There does not appear to be significant mitral regurgitation. There does not appear to be significant mitral regurgitation. AORTIC ARCH ANGIOGRAPHY: Aortic arch angiography did not indicate any significant thoracic aortic aneurysm or dissection. Aortic arch atherosclerosis and calcification is seen. CONCLUSION: 1. Angiographically mild coronary artery disease. 2. Well preserved global left ventricular systolic function with ejection fraction approximately 50%. 3. Elevated left ventricular end-diastolic pressure. 4. No significant mitral regurgitation. DISCUSSION AND RECOMMENDATIONS: Based on results of the study, it appears appropriate to continue a conservative regimen. Outpatient cardiology followup is advised. Job ID: [id number] DocumentID: [id number] Dictated Date: 04/28/2017 14:55:29 Cna Gna Date: 04/28/2017 15:17:58 Dictated By: SHELLEY ALVARADO MD, MA, FACP, FACC, MTDD
[2017-04-28] MEDS ORDERED: POTA10TA PO (15:24)
[2017-04-28] MEDS ORDERED: DILT360C26 PO (15:24)
[2017-04-28] MEDS ORDERED: SOTA120T PO (15:24)
[2017-04-28] MEDS ORDERED: PATIENT MAY USE OWN MEDS, ALL PO SCH (15:30)
== END 2017-04-28 18:35 | disposition home or self-care (01) | DRG 287 ==
LOC: EDUNIT# 15:09 → ER 15:11 → ICU 17:52
PROVIDERS: ADMIT Family Medicine; ATTEND Family Medicine
PROC: 4A023N7 Measurement of Cardiac Sampling and Pressure, Left Heart, Percutaneous Approach (ICD-10-PCS; principal; 2017-04-28)
PROC: B2111ZZ Fluoroscopy of Multiple Coronary Arteries using Low Osmolar Contrast (ICD-10-PCS; 2017-04-28)
PROC: B2151ZZ Fluoroscopy of Left Heart using Low Osmolar Contrast (ICD-10-PCS; 2017-04-28)
PROC: B3101ZZ Fluoroscopy of Thoracic Aorta using Low Osmolar Contrast (ICD-10-PCS; 2017-04-28)
DX: I48.92 Unspecified atrial flutter (principal); I48.0 Paroxysmal atrial fibrillation; R07.89 Other chest pain; Z68.41 Body mass index [BMI] 40.0-44.9, adult; I25.10 Atherosclerotic heart disease of native coronary artery without angina pectoris; J44.9 Chronic obstructive pulmonary disease, unspecified; E83.42 Hypomagnesemia; I10 Essential (primary) hypertension; G47.33 Obstructive sleep apnea (adult) (pediatric); R60.0 Localized edema; I27.2 Other secondary pulmonary hypertension; E87.8 Other disorders of electrolyte and fluid balance, not elsewhere classified; J30.2 Other seasonal allergic rhinitis; T50.2X5A Adverse effect of carbonic-anhydrase inhibitors, benzothiadiazides and other diuretics, initial encounter; E66.01 Morbid (severe) obesity due to excess calories; Z79.01 Long term (current) use of anticoagulants
CPT/HCPCS: 36221; 36415; 71010; 80048; 80053; 80061; 83735; 83874; 84100; 84443; 84484; 85025; 85610; 85730; 93005; 93041; 93306; 93458; 96365; 96366; 96375

== ENCOUNTER 2017-05-02 10:48 | Emergency (ER) | payer MEDICARE, OTHER ==
[~2017-05-02] VITALS: Ht 167.6 cm; Wt 110.7 kg
[~2017-05-02 10:48] MED LIST changes: +DABI150C5 PO; +DABI75CA3 PO; +DILT360C26 PO; +ENAL10TA PO; +HYDR25TA4 PO; +NAPR220T66 PO; +POTA10TA PO; +SOTA120T PO; +SOTA80TA PO
[2017-05-02 11:22] LABS: BASOPHILS % (AUTO) 0 % (0-10); EOSINOPHILS # (AUTO) 0.3 10^3/uL (0.0-0.3); EOSINOPHILS % (AUTO) 3 % (0-10); LYMPHOCYTES # (AUTO) 1.8 X 10^3 (1.0-4.0); LYMPHOCYTES % (AUTO) 17 % (12-44); MEAN CORPUSCULAR HEMOGLOBIN 29 PG (25-34); MEAN CORPUSCULAR HGB CONC 33 G/DL (32-36); MEAN CORPUSCULAR VOLUME 86 FL (80-99); MEAN PLATELET VOLUME 9.9 FL (7.4-10.4); MONOCYTES % (AUTO) 9 % (0-12); NEUTROPHILS # (AUTO) 7.9 X 10^3 (1.8-7.8); NEUTROPHILS % (AUTO) 72 % (42-75); PLATELET COUNT 246 10^3/uL (130-400); RED BLOOD COUNT 5.41 10^6/uL (4.35-5.85); RED CELL DISTRIBUTION WIDTH 14.9 % (10.0-14.5)
[2017-05-02 11:25] LABS: INR 1.4 (0.8-1.4); PROTHROMBIN TIME PATIENT 16.7 SEC (12.2-14.7)
--- NOTE | 2017-05-02 11:34 | ED Cardiac General ---
History of Present Illness General Chief Complaint: Chest Pain Stated Complaint: IRR HEART RATE/SOA Nursing Triage Note: ARRIVED VIA AMB TO ROOM 08. COMPLAINTS OF CHEST PAIN AND SOA SINCE HAVING HEART CATH ON MONDAY AND STATES HE STARTED COUGHING UP BLOOD AND HAVING A WHEEZE IN HIS LUNGS THEN ALSO. PT IS DIAPHORETIC. History of Present Illness Time seen by provider: 11:10 Initial Comments Patient presents with hemoptysis 2 days. States it was worse yesterday. He has had a cough for approximately 7 weeks and long-standing seasonal rhinitis. He sees Dr. Dixon for allergy injections and sees Dr. Jackson for recurrent cerumen impactions. He denies chest pain today does report slight SOA, but states it is not worse than baseline for him. He denies any pain or paresthesias in his upper or lower extremities. He was admitted on 04-26-17 for atrial fibrillation- flutter with RVR. He had a heart cath by Dr. Young on 04/28/17 and was discharged to home. He is on Pradaxa. He normally sees Dr. Layne, and presented to his office this morning for an appointment. The appointment had been changed and he had not been notified, office staff felt he was diaphoretic and referred him to the emergency department. Patient monitors his blood pressure at home 3-4 times daily. At 6 AM this morning was 146/99 at 9:15 this morning was 147/102, is very labile ranging from 86/62 as a low with most being in the 110-130s/70-90. Timing/Duration: 12-24 hours Severity: mild Activities at Onset: none Prior CP/Workup: cardiac cath Modifying Factors: improves with coughing NTG SL NETWORKING ADMINISTRATOR: No ASA po NETWORKING ADMINISTRATOR: No Associated Systoms: Cough (with hemoptysis), No Diaphoresis, No Fever/Chills, No Headaches, Loss of Appetite, Malaise, Shortness of Air, Weakness Allergies and Home Medications Allergies Coded Allergies: Tetanus Vaccines and Toxoid (Verified Allergy, Unknown, 07/10/15) EDEMA Uncoded Allergies: IVP DYE FOR HEART CATHS (Allergy, Severe, HIVES, 07/10/15) WAS TREATED TODAY WITH BENADRYL AND SOLUMEDROL PRE CARDIAC CATH Home Medications Atorvastatin Calcium 10 Mg Tablet, 10 MG PO DAILY, (Reported) Dabigatran Etexilate Mesylate 150 Mg Capsule, 150 MG PO BID, (Reported) Diltiazem HCl 360 Mg Cap.er.24h, 360 MG PO DAILY for 30 Days, #30 Ref 2 Prescribed by: SHELLEY ALVARADO on 04/28/174 Enalapril Maleate 10 Mg Tablet, 10 MG PO DAILY, (Reported) Hydrochlorothiazide 25 Mg Tablet, 25 MG PO DAILY, (Reported) Loratadine 10 Mg Tablet, 10 MG PO DAILY, (Reported) Montelukast Sodium 10 Mg Tablet, 10 MG PO HS, (Reported) Potassium Chloride 10 Meq Tablet.er, 10 MEQ PO DAILY, #30 Ref 3 Prescribed by: SHELLEY ALVARADO on 04/28/17 1524 Sotalol HCl 120 Mg Tablet, 120 MG PO BID, #60 Ref 2 Prescribed by: SHELLEY ALVARADO on 04/28/174 Review of Systems Constitutional: no symptoms reported, see HPI EENTM: See HPI, No Blurred Vision, No Double Vision, No Eye Pain, No Mouth Pain , No Mouth Swelling, Nose Congestion (mild, with postnasal drainage) Respiratory: See HPI, Cough (with trace pain, hemoptysis, no frothing) Cardiovascular: See HPI, Denies Edema, Irregular Heart Rate, Denies Palpitations, Denies Syncope Gastrointestinal: See HPI, Denies Constipated, Denies Diarrhea, Denies Difficulty Swallowing, Poor Appetite, Denies Poor Fluid Intake, Denies Vomiting Genitourinary: No Symptoms Reported, See HPI Musculoskeletal: no symptoms reported, see HPI Skin: no symptoms reported, see HPI Psychiatric/Neurological: No Symptoms Reported, See HPI Endocrine: No Symptoms Reported, See HPI Hematologic/Lymphatic: No Symptoms Reported, See HPI All Other Systems Reviewed Negative Unless Noted: Yes Past Amkdsmt-Havxjt-Zrjgmy Hx Patient Social History Alcohol Use: Denies Use Recreational Drug Use: No Smoking Status: Never a Smoker Recent Foreign Travel: No Contact w/Someone Who Travel: No Recent Infectious Disease Expo: No Recent Hopitalizations: No Seasonal Allergies Seasonal Allergies: No Surgeries HX Surgeries: Yes (HEMORRHOIDS X3) Surgeries: Cardiac Respiratory Hx Respiratory Disorders: No Cardiovascular Hx Cardiac Disorders: Yes Cardiac Disorders: Angina, Atrial Fibrillation, Coronary Artery Disease, Hypertension Neurological Hx Neurological Disorders: No Reproductive System Hx Reproductive Disorders: No Genitourinary Hx Genitourinary Disorders: No Gastrointestinal Hx Gastrointestinal Disorders: No Musculoskeletal Hx Musculoskeletal Disorders: Yes (12/13/08-TRANSFER PROCESS FX.,LOWER BACKPAIN) Endocrine Hx Endocrine Disorders: No HEENT HX ENT Disorders: No Cancer Hx Cancer: No Psychosocial Hx Psychiatric Problems: No Integumentary HX Skin/Integumentary Disorder: No Blood Transfusions Hx Blood Disorders: No Reviewed Nursing Assessment Reviewed/Agree w Nursing PMH: Yes Family Medical History Family Medial History: Completed stroke 19 MOTHER Myocardial infarction 19 FATHER Physical Exam Vital Signs Vital Sign - Last 12Hours 05/02/17 05/02/17 10:48 13:06 Temp 98.0 Pulse 51 Resp 16 B/P (MAP) 143/104 Pulse Ox 91 O2 Delivery Room Air Capillary Refill : Less Than 3 Seconds General Appearance: WD/WN, Obese, Other (no shortness of breath through exam and while answering questions.) HEENT: PERRL/EOMI, TMs Normal (mild amount of cerumen left ear), Normal ENT Inspection, Pharynx Normal, Other (trace clear postnasal drainage) Neck: Full Range of Motion, Normal Inspection, Non Tender, Supple Respiratory: Chest Non Tender, Lungs Clear, Normal Breath Sounds, No Accessory Muscle Use, No Respiratory Distress Cardiovascular: Regular Rate, Rhythm, No Edema, No JVD, No Murmur, Normal Peripheral Pulses Gastrointestinal: Normal Bowel Sounds, Non Tender, Abnormal Bowel Sounds ( hypoactive), Distended Extremity: Normal Capillary Refill, Normal Inspection, Normal Range of Motion, Non Tender, No Calf Tenderness, No Pedal Edema Neurologic/Psychiatric: Alert, Oriented x3, No Motor/Sensory Deficits, Normal Mood/Affect Skin: Normal Color, Warm/Dry, No Cyanosis, No Diaphoresis Lymphatic: No Adenopathy Progress/Results/Core Measures Results/Orders Lab Results Laboratory Tests Test 05/02/17 11:05 Range/Units White Blood Count 11.0 4.3-11.0 10^3/uL Red Blood Count 5.41 4.35-5.85 10^6/uL Hemoglobin 15.4 13.3-17.7 G/DL Hematocrit 47 40-54 % Mean Corpuscular Volume 86 80-99 FL Mean Corpuscular Hemoglobin 29 25-34 PG Mean Corpuscular Hemoglobin Concent 33 32-36 G/DL Red Cell Distribution Width 14.9 H 10.0-14.5 % Platelet Count 246 130-400 10^3/uL Mean Platelet Volume 9.9 7.4-10.4 FL Neutrophils (%) (Auto) 72 42-75 % Lymphocytes (%) (Auto) 17 12-44 % Monocytes (%) (Auto) 9 0-12 % Eosinophils (%) (Auto) 3 0-10 % Basophils (%) (Auto) 0 0-10 % Neutrophils # (Auto) 7.9 H 1.8-7.8 X 10^3 Lymphocytes # (Auto) 1.8 1.0-4.0 X 10^3 Monocytes # (Auto) 1.0 0.0-1.0 X 10^3 Eosinophils # (Auto) 0.3 0.0-0.3 10^3/uL Basophils # (Auto) 0.0 0.0-0.1 10^3/uL Prothrombin Time 16.7 H 12.2-14.7 SEC INR Comment 1.4 0.8-1.4 Activated Partial Thromboplast Time 47 H 24-35 SEC Sodium Level 138 135-145 MMOL/L Potassium Level 4.0 3.6-5.0 MMOL/L Chloride Level 102 98-107 MMOL/L Carbon Dioxide Level 24 21-32 MMOL/L Anion Gap 12 5-14 MMOL/L Blood Urea Nitrogen 17 7-18 MG/DL Creatinine 0.91 0.60-1.30 MG/DL Estimat Glomerular Filtration Rate > 60 BUN/Creatinine Ratio 19 Glucose Level 126 H 70-105 MG/DL Calcium Level 9.7 8.5-10.1 MG/DL Magnesium Level 2.1 1.8-2.4 MG/DL Total Bilirubin 1.2 H 0.1-1.0 MG/DL Aspartate Amino Transf (AST/SGOT) 28 5-34 U/L Alanine Aminotransferase (ALT/SGPT) 83 H 0-55 U/L Alkaline Phosphatase 82 40-136 U/L Myoglobin 95.5 H 10.0-92.0 NG/ML Troponin I < 0.30 <0.30 NG/ML B-Type Natriuretic Peptide 577.1 H <100.0 PG/ML Total Protein 6.8 6.4-8.2 GM/DL Albumin 3.8 3.2-4.5 GM/DL My Orders Orders - LEROY VILLARREAL BNP (05/02/17 11:57) Vital Signs/I&O Vital Sign - Last 12Hours 05/02/17 05/02/17 10:48 13:06 Temp 98.0 98.0 Pulse 51 49 Resp 16 16 B/P (MAP) 143/104 Pulse Ox 91 97 O2 Delivery Room Air Blood Pressure Mean: 117 Progress Note : Time: 11:10 Progress Note Initial evaluation completed, reviewed assessment and history with Dr. Joseph agreed with plan of care. Labs, EKG, chest x-ray to be completed. Reviewed Heart Cath summary: 1. Angiographically mild coronary artery disease. 2. Well preserved global left ventricular systolic function with ejection fraction approximately 50%. 3. Elevated left ventricular end-diastolic pressure. 4. No significant mitral regurgitation. DISCUSSION AND RECOMMENDATIONS: Based on results of the study, it appears appropriate to continue a conservative regimen. Outpatient cardiology followup is advised. 1200 reviewed labs EKG, chest x-ray and reevaluate patient, all essentially stable for normal. Added BNP to labs. Reviewed assessment, diagnostic studies and plan of care with Dr. Joseph, he agreed with this treatment plan and discharged home with follow-up. 1230 BNP 577 discussed findings with the patient agreed with plan for discharge to home, he would like to resume his walking at the gym. Discussed to start out very slowly and progressed back to his previous activity level. He understands precautions to return to emergency department. ECG Initial ECG Impression Date: May 02, 2017 Initial ECG Impression Time: 10:58 Initial ECG Rate: 61 Initial ECG Rhythm: Normal Sinus Initial ECG Intervals AK 176, QRS D1 10, QT 472, QTc 476. [place] P 75, QRS 71, T105. Initial ECG Impression: Normal Initial ECG Comparisson: Unchanged Comment Reviewed EKG with Dr. Joseph, concurred with interpretation Diagnostic Imaging Diagonstic Imaging: Xray Plain Films/CT/US/NM/MRI: chest Comments NAME: MARIXA UREÑA MED REC#: [id number] PT STATUS: REG ER : 1950 PHYSICIAN: AYDEN JOSEPH MD ADMIT DATE: 05/02/17/ER Draft Date of Exam:05/02/17 CHEST 1 VIEW, AP/PA ONLY Portable upright radiograph of the chest. INDICATION: Shortness of breath. COMPARISON: 04/27/2017. FINDINGS: The heart size is markedly enlarged. There is no active vascular congestion or edema. There is suggestion of minimal bibasilar atelectasis. Opacity in the left lung base is probably in part related to superimposition of soft tissues on this portable radiograph. No effusion or pneumothorax. The mediastinum and keyla appear unremarkable. IMPRESSION: Marked cardiomegaly with no overt edema. Suggestion of mild bibasilar atelectasis. Dictated on workstation # [id number] Dict: 05/02/17 1149 Trans: 05/02/17 1156 [id number] Interpreted by: REED CHAUDHARI MD Electronically signed by: Reviewed: Reviewed by Me Departure Impression Impression: Primary Impression: Atrial fibrillation Qualified Codes: I48.2 - Chronic atrial fibrillation Additional Impressions: Coronary artery disease Qualified Codes: I25.118 - Atherosclerotic heart disease of [place] coronary artery with other forms of angina pectoris Obesity (BMI 30-39.9) Hemoptysis, unspecified Disposition: HOME, SELF-CARE Condition: Stable Departure-Patient Inst. Decision time for Depature: 12:30 Referrals: JEANNE DIXON MD (PCP/Family) Primary Care Physician Patient Instructions: Atrial Fibrillation (DC), Angina (DC) Add. Discharge Instructions: Keep follow-up with Dr. Layne. Continue home medication and monitoring of blood pressure. Progress activity as tolerated. Maintain adequate hydration. Return to emergency department for increased productive cough with blood, frothy sputum, chest pain, increased shortness of breath, temperature greater than 101, swelling in hands or feet, or new problems. All discharge instructions reviewed with patient and/or family. Voiced understanding. Copy Copies To 1: JEANNE DIXON MD Copies To 2: JASVIR LAYNE MD, AMY ARNP May 02, 2017 11:34
[2017-05-02 11:35] LABS: ALANINE AMINOTRANSFERASE 83 U/L (0-55); ALBUMIN 3.8 GM/DL (3.2-4.5); ANION GAP 12 MMOL/L (5-14); ASPARTATE AMINO TRANSFERASE 28 U/L (5-34); BILIRUBIN,TOTAL 1.2 MG/DL (0.1-1.0); BLOOD UREA NITROGEN 17 MG/DL (7-18); BUN/CREATININE RATIO 19; CALCIUM 9.7 MG/DL (8.5-10.1); CARBON DIOXIDE 24 MMOL/L (21-32); CHLORIDE 102 MMOL/L (98-107); CREATININE SERUM 0.91 MG/DL (0.60-1.30); GFR ESTIMATED > 60; GLUCOSE 126 MG/DL (70-105); MAGNESIUM 2.1 MG/DL (1.8-2.4); SODIUM 138 MMOL/L (135-145); TOTAL PROTEIN 6.8 GM/DL (6.4-8.2)
[2017-05-02 11:42] LABS: MYOGLOBIN SERUM 95.5 NG/ML (10.0-92.0)
--- NOTE | 2017-05-02 11:56 | Diagnostic Imaging Report ---
Portable upright radiograph of the chest. INDICATION: Shortness of breath. COMPARISON: 04/27/2017. FINDINGS: The heart size is markedly enlarged. There is no active vascular congestion or edema. There is suggestion of minimal bibasilar atelectasis. Opacity in the left lung base is probably in part related to superimposition of soft tissues on this portable radiograph. No effusion or pneumothorax. The mediastinum and keyla appear unremarkable. IMPRESSION: Marked cardiomegaly with no overt edema. Suggestion of mild bibasilar atelectasis. Dictated by: Dictated on workstation # [id number]
[2017-05-02 13:06] VITALS: BP 109/71
== END 2017-05-02 13:06 | disposition home or self-care (01) ==
LOC: EDUNIT# 10:48 → ER 10:50
DX: I48.91 Unspecified atrial fibrillation (principal); I25.10 Atherosclerotic heart disease of native coronary artery without angina pectoris; E66.9 Obesity, unspecified; I10 Essential (primary) hypertension; Z79.01 Long term (current) use of anticoagulants; Z98.890 Other specified postprocedural states; Z86.69 Personal history of other diseases of the nervous system and sense organs; Z87.81 Personal history of (healed) traumatic fracture; Z68.39 Body mass index [BMI] 39.0-39.9, adult
CPT/HCPCS: 36415; 71010; 80053; 83735; 83874; 83880; 84484; 85025; 85610; 85730; 93041

== ENCOUNTER → 2017-05-03 | Outpatient (CLI) | payer MEDICARE, OTHER | LOC: LAB 09:46 | PROVIDERS: ATTEND Family Medicine | DX: R06.00 Dyspnea, unspecified (principal) | CPT/HCPCS: 36415; 85379 ==

== ENCOUNTER → 2018-02-07 | Outpatient (CLI) | payer MEDICARE, OTHER ==
--- NOTE | 2018-02-07 14:08 | Diagnostic Imaging Report ---
INDICATION: Right knee pain. TIME OF EXAM: 1:05 p.m. FINDINGS: Three views of the right knee demonstrate normal alignment. There is medial compartmental degenerative change with mild joint space narrowing and marginal spurring. Mild spurring of the tibial spines is also seen. No fracture, dislocation, or effusion is detected. IMPRESSION: Medial compartmental degenerative change. No acute bony abnormality is detected. Dictated by: Dictated on workstation # [id number]
== END ==
LOC: RAD 12:03
PROVIDERS: ATTEND Family Medicine
DX: M17.11 Unilateral primary osteoarthritis, right knee (principal)
CPT/HCPCS: 73562

== ENCOUNTER 2018-08-24 06:40 | Day surgery (SDC) | payer MEDICARE, OTHER ==
[2018-08-24] VITALS (17 sets, daily range): BP systolic 89–137; BP diastolic 56–87
[~2018-08-24] VITALS: Ht 170.2 cm; Wt 113.0 kg
[2018-08-24] MEDS ORDERED: NS IV 1000 ML 1,000 ML IV ONE (06:42)
[2018-08-24] MEDS ORDERED: NS IV 1000 ML 1,000 ML ONE (06:44)
[2018-08-24] MEDS ORDERED: HEParin (CATH LAB) 1,000 ML IV ONE (06:44)
[2018-08-24] MEDS ORDERED: LIDOCAINE 1% INJ 20 ML 20 ML VIAL ONE (06:44)
[2018-08-24] MEDS ORDERED: ceFAZolin 1,000 MG/10 ML (ANCEF) VIAL IV ONE (06:45)
[2018-08-24] MEDS ORDERED: ceFAZolin 1,000 MG/10 ML (ANCEF) VIAL ONE (06:45)
[2018-08-24] MEDS ORDERED: BACITRACIN INJECTION 50,000 UNIT, SODIUM CHLORIDE 0.9% IRRIGATIO 500 ML IR ONE ×2 (06:45)
[2018-08-24] MEDS ORDERED: POTA10TA36 PO (07:05)
[2018-08-24] MEDS ORDERED: DABI150C5 PO (07:05)
[2018-08-24] MEDS ORDERED: SOTA80TA PO (07:05)
[2018-08-24] MEDS ORDERED: NAPR220T66 PO (07:07)
[2018-08-24 07:18] LABS: HEMOGLOBIN 15.9 G/DL (13.3-17.7); RED BLOOD COUNT 5.56 10^6/uL (4.35-5.85); WHITE BLOOD COUNT 7.1 10^3/uL (4.3-11.0)
[2018-08-24 07:31] LABS: INR 1.1 (0.8-1.4); PROTHROMBIN TIME PATIENT 14.4 SEC (12.2-14.7)
[2018-08-24 07:38] LABS: ALANINE AMINOTRANSFERASE 41 U/L (0-55); ALBUMIN 4.2 GM/DL (3.2-4.5); ALKALINE PHOSPHATASE 106 U/L (40-136); BILIRUBIN,TOTAL 0.9 MG/DL (0.1-1.0); BUN/CREATININE RATIO 21; CALCIUM 9.8 MG/DL (8.5-10.1); CARBON DIOXIDE 27 MMOL/L (21-32); CHLORIDE 100 MMOL/L (98-107); CREATININE SERUM 1.03 MG/DL (0.60-1.30); GFR ESTIMATED > 60; GLUCOSE 119 MG/DL (70-105); POTASSIUM 3.9 MMOL/L (3.6-5.0); SODIUM 138 MMOL/L (135-145); TOTAL PROTEIN 7.3 GM/DL (6.4-8.2)
[2018-08-24] MEDS ORDERED: fentaNYL INJECTION 100 MCG/2 ML AMP ONE ×2 (08:26→09:29)
[2018-08-24] MEDS ORDERED: MIDAZOLAM 5 MG/5 ML (VERSED) VIAL ONE ×2 (08:26→09:29)
[2018-08-24] MEDS ORDERED: NS (IVPB) 50 ML ONE (08:26)
--- NOTE | 2018-08-24 09:23 | Cardiac Procedure Note-CS/ASA ---
Pre-Procedure Note Pre-Op Procedure Note H&P Reviewed The H&P was reviewed, patient examined and no changes noted. Date H&P Reviewed: Aug 24, 2018 Time H&P Reviewed: 09:23 Conscious Sedation Pre-Proced Time 09:23 ASA Score 3 For ASA 3 and 4: Consider anesthesia and medical clearance. Also, for patients with a history of failed moderate sedation consider anesthesia. Airway Lungs Heart ASA score ASA 1: a normal healthy patient ASA 2: a patient with a mild systemic disease (mid diabetes, controlled hypertension, obesity ASA 3: a patient with a severe systemic disease that limits activity (angina , COPD, prior Myocardial infarction) ASA 4: a patient with an incapacitating disease that is a constant threat to life (CHF, renal failure) ASA 5: a moribund patient not expected to survive 24 hrs. (ruptured aneurysm) ASA 6: a declared brain patient whose organs are being harvested. For emergent operations, add the letter E after the classification Mallampati Classification Grade 1 Sedation Plan Analgesia, Amnesia, Plan communicated to team members, Discussed options with patient/fam, Discussed risks with patient/fam The patient is an appropriate candidate to undergo the planned procedure, sedation, and anesthesia. The patient immediately re-assessed prior to indication. Miguel NAYAK MD Aug 24, 2018 9:23 am
[2018-08-24] MEDS ORDERED: proPOfol 200 MG/20 ML (DIPRIVAN) VIAL IV ONE (10:16)
[2018-08-24] MEDS ORDERED: NEO/POLY/BAC (NEOSPORIN) OINT 15 GM TUBE ONE (10:51)
[2018-08-24] MEDS ORDERED: NS IV 1000 ML 1,000 ML IV SCH ×2 (11:03→14:30)
--- NOTE | 2018-08-24 11:03 | Permanent Pacemaker Implant ---
Dual Chamber Pacemaker Implant PROCEDURE PHYSICIAN: Scarlett Bourgeois MD DUAL CHAMBER PACEMAKER IMPLANTATION: DATE OF PROCEDURE: 08/24/18 REFERRING PHYSICIAN: Dr. Layne ATTENDING PHYSICIAN: Dr. Bourgeois INDICATION: Severe sinus node dysfunction, complete AV block. PREOPERATIVE DIAGNOSIS: Severe sinus node dysfunction, complete AV block. POSTOPERATIVE DIAGNOSIS: Successful dual-chamber permanent pacemaker implantation. HISTORY: This is a 68-year-old gentleman who is a patient of Dr. Layne. He has history of possible paroxysmal atrial fibrillation and an implantable loop recorder was placed. The patient had a 12 second flutter waves with no ventricular beats due to complete AV block for 12 seconds. Dual-chamber permanent pacemaker was recommended. PROCEDURE PERFORMED: 1. Dual-chamber permanent pacemaker implantation. 2. Fluoroscopy. 3. Central venous access. ANESTHESIA: Local anesthesia, conscious sedation. COMPLICATIONS: None. ESTIMATED BLOOD LOSS:20 mL. SPECIMENS: None. ORAL ANTICOAGULATION: None. FLUOROSCOPY TIME: 6.3 minutes. FLUOROSCOPY DOSE: 96 mgy. CONTRAST DOSE: 0. PROCEDURE DETAILS: The patient is a 68 male and after all of the patients questions were answered, the patient was brought to the EP Lab. The patient's left chest was prepped and draped in sterile fashion. A 2 inch horizontal incision was made 1 cm below the clavicle and dissection carried down to the pectoralis fascia. Using the modified Seldinger technique and under fluoroscopy guidance, the anterior aspect of the left axillary vein was accessed 2 times. The J wires were secured to the drapes with a mosquito clamp. A 7-Ethiopian sheath was introduced over one of the J-wires. The RV lead was then inserted. The RV lead was directed across the tricuspid valve to the apical septal portion of the right ventricle. The position was checked in MAORI and ROSS views. The screw was deployed and the lead connected to the data programmer. Close sensing and pacing thresholds were obtained. Diaphragmatic pacing was ruled out. The lead was secured with 2-0 silk ties to the underlying muscle and fascia. Next, a 7-[place] sheath was introduced through the remaining J-wire. An atrial lead was then introduced and guided to the level of the right appendage. The screw was deployed and the lead was connected to the interrogator. Good sensing and pacing thresholds were obtained. Diaphragmatic pacing was ruled out. The leads were secured with 2-0 silk ties to the underlying muscle and fascia. The leads were connected to the device in a hermetic fashion. The device and leads were placed in the pocket. Aggressive irrigation with saline solution was done. The device was secured to the underlying muscle and fascia with a 2-0 silk tie. interrogation of the device revealed good integrity of all the leads and good connections. The wound was then closed using 2 layers. The first layer was interrupted 2-0 absorbable Vicryl suture. The last layer was a single subcuticular layer with 4- 0 Vicryl suture. Half inch Steri-Strips and a small dressing were then applied to the wound. The patient tolerated the procedure well and was returned to the recovery room in stable condition with stable vital signs. DEVICE INFORMATION: [employer] IPG [id number] TRACEY Deutsch DR MRI, model number W3 DR 01 , serial number [id number]. RA LEAD: Model number [id number], length 52, serial number BB [id number]. RV LEAD: Model number [id number], length 58, serial number [id number] in [id number] PER-OPERATIVE DEVICE INTERROGATION: RA. Capture threshold 0.4 V at 0.5 ms. Impedance 929 ohms. P wave 3.1-year-old. RV capture threshold 0.4 V at 0.5 ms. Impedance 1019. R-wave 4.8 mV. PLAN: The patient transferred to the ICU. We will continue with two more doses of IV antibiotics. We will check a chest x-ray and interrogate the device in the morning. The patient will continue on oral antibiotics for 5 days. Scarlett Bourgeois MD, RS, CCDS Cardiac Electrophysiology Miguel BOURGEOIS MD Aug 24, 2018 11:03
--- NOTE | 2018-08-24 11:08 | Discharge Inst-Post Device ---
Discharge Inst-Post Device Follow up/Plan Follow up with Dr Bourgeois's office for wound check in one week. EP follow up in three - four weeks. Heart Healthy Diet Do not lift arm on side of device placement above head for 4 weeks. Do not push and pull heavy objects for 4 weeks. Activity as tolerated. Leave dressing on until follow up at the office. Miguel BOURGEOIS MD Aug 24, 2018 11:08
--- NOTE | 2018-08-24 11:11 | Anesthesia-Procedure Note ---
Procedures/Interventions Procedure Start/Stop/Diagnosis Date of Procedure: Aug 24, 2018 Start Time: 10:20 Referring Physician: Christelle Preprocedural Diagnosis: Sinus Node Dysfuction Brief History Called to labor delivery rn for rescue sedation on pt not tolerating RN sedation with Versed/Fentanyl. on arrival pt had O2 per mask flowing and had received aprox 200 mcg Fent and 8 mg Versed. Propofol infusion started at 100 mcg/kg/min receiving a total of 150mg. Oral airway placed. ETCO2 VSS. Left pt in care of RN with report, pt spont opening eyes after procedure end. ASA3 Stop Time: 11:00 Postprocedural Diagnosis: Sinus Node Dysfuction JOSE J TANNER CRNA Aug 24, 2018 11:11
--- NOTE | 2018-08-24 11:11 | Cardiology Discharge Summary ---
Diagnosis/Chief Complaint Date of Admission 08/24/2018 Date of Discharge 08/25/2018 Admission Diagnosis Third degree AV block, severe sinus node dysfunction, 12 second pause. Final/Discharge Diagnosis Status post-successful dual-chamber permanent pacemaker implantation. Chief Complaint/HPI Chief Complaint/HPI This is a 68-year-old gentleman who is a patient of Dr. Layne. He has history of possible paroxysmal atrial fibrillation and an implantable loop recorder was placed. The patient had a 12 second flutter waves with no ventricular beats due to complete AV block for 12 seconds. Dual-chamber permanent pacemaker was recommended. Discharge Summary Procedures Dual-chamber permanent pacemaker implantation. Discharge Physical Examination Stable Hospital Course Stable Pending Labs Discussion & Recommendations Discussion Wound check in one week. EP follow-up in 2-3 weeks. Atrial flutter ablation in 4-6 weeks. Follow up appt.: Wound check in one week, EP follow-up in 2-3 weeks. Dicharge Diet: No Restrictions Activity as Tolerated: Yes Home Medications Reviewed patient Home Medication Reconciliation performed by pharmacy medication reconciliations centrifugal chiller technician and/or nursing. Patients Allergies have been reviewed. Discharge Home Medications: Reviewed and agree with Discharge Medication list on patient's Discharge Instruction sheet Condition at discharge Stable. Instructions to patient/family Follow up with Dr Bourgeois's office for wound check in one week. EP follow up in three - four weeks. Miguel BOURGEOIS MD Aug 24, 2018 11:11
[2018-08-24] MEDS ORDERED: PATIENT MAY USE OWN MEDS, ALL PO SCH (11:15)
--- NOTE | 2018-08-24 12:02 | Diagnostic Imaging Report ---
INDICATION: Post pacemaker placement.. TECHNIQUE: Single view chest 11:23 AM. CORRELATION STUDY: 05/02/2017 FINDINGS: Left-sided pacemaker has been placed. Loop recorder device over the cardiac apex. Cardiac enlargement perhaps slightly increased. There is presence of pulmonary vascular congestion and perihilar edema, adversely changed. Limited depth of inspiration. No appreciable pneumothorax. IMPRESSION: 1. A left-sided pacemaker. 2. Cardiac enlargement with pulmonary vascular congestion and perihilar edema. Dictated by: Dictated on workstation # [id number]
[2018-08-24] MEDS: ceFAZolin INJECTION 1,000 MG in NS (IVPB) 50 ML IV SCH ×2 (14:52→21:53)
[2018-08-24] MEDS: SOTALOL 80 MG (BETAPACE) TAB PO SCH (19:44)
[2018-08-24] MEDS: DABIGATRAN 150 MG (PRADAXA) CAPSULE PO SCH (19:44)
[2018-08-24] MEDS ORDERED: NON-FORMULARY MEDICATION 1 EA EA (Dabigatran Etexilate Mesylate (Pradaxa) 150 MG) PO SCH (21:00)
[2018-08-24] MEDS ORDERED: NON-FORMULARY MEDICATION 1 EA EA (Sotalol HCl (Sotalol) 80 MG) PO SCH (21:00)
[2018-08-25] VITALS (7 sets, daily range): BP systolic 80–123; BP diastolic 66–85
[2018-08-25 03:52] LABS: HEMOGLOBIN 15.2 G/DL (13.3-17.7); RED BLOOD COUNT 5.37 10^6/uL (4.35-5.85); RED CELL DISTRIBUTION WIDTH 14.9 % (10.0-14.5); WHITE BLOOD COUNT 7.9 10^3/uL (4.3-11.0)
[2018-08-25 04:08] LABS: ALANINE AMINOTRANSFERASE 33 U/L (0-55); ALBUMIN 3.7 GM/DL (3.2-4.5); ALKALINE PHOSPHATASE 94 U/L (40-136); BILIRUBIN,TOTAL 0.8 MG/DL (0.1-1.0); BUN/CREATININE RATIO 25; CALCIUM 9.1 MG/DL (8.5-10.1); CARBON DIOXIDE 20 MMOL/L (21-32); CHLORIDE 105 MMOL/L (98-107); CREATININE SERUM 0.87 MG/DL (0.60-1.30); GFR ESTIMATED > 60; GLUCOSE 139 MG/DL (70-105); POTASSIUM 4.1 MMOL/L (3.6-5.0); SODIUM 137 MMOL/L (135-145); TOTAL PROTEIN 6.4 GM/DL (6.4-8.2)
[2018-08-25] MEDS: ceFAZolin INJECTION 1,000 MG in NS (IVPB) 50 ML IV SCH (06:08)
[2018-08-25] MEDS: SOTALOL 80 MG (BETAPACE) TAB PO SCH (09:48)
[2018-08-25] MEDS: DABIGATRAN 150 MG (PRADAXA) CAPSULE PO SCH (09:48)
[2018-08-25] MEDS ORDERED: DILTIAZEM INJECTION 125 MG in NS (IVPB) 100 ML IV SCH (11:30)
[2018-08-25] MEDS ORDERED: DILTIAZEM 25 MG/5 ML INJ (CARDIZEM) VIAL IVP ONE (11:30)
--- NOTE | 2018-08-25 11:39 | Cardiology Progress Note ---
Subjective Date Seen by Provider: Aug 25, 2018 Time Seen by Provider: 11:34 Subjective/Events-last exam Patient is sitting in a chair. He denied any chest pain. Has been tachycardic. No palpitation. Review of Systems General: No Chills, No Night Sweats, No Fatigue, No Malaise, No Appetite, No Other HEENT: No Head Aches, No Visual Changes, No Eye Pain, No Ear Pain, No Dysphasia , No Sinus Congestion, No Post Nasal Drip, No Sore Throat, No Other Pulmonary: No Dyspnea, No Cough, No Pleuritic Chest Pain, No Other Cardiovascular: No: Chest Pain, Palpitations, Orthopnea, Paroxysmal Noc. Dyspnea, Edema, Lt Headedness, Other Objective-Cardiology Exam Last Set of Vital Signs Vital Signs 08/25/18 08/25/18 08:00 12:00 Temp 98.0 Pulse 84 Resp 11 B/P (MAP) 107/67 (80) Pulse Ox 99 O2 Delivery Room Air Capillary Refill : Less Than 3 Seconds I&O Intake and Output 08/25/18 00:00 Intake Total 2760 ml Output Total 750 ml Balance 2010 ml Intake Oral 700 ml IV Total 2060 ml Output Urine Total 750 ml Daily Weight Change No General: Alert, Oriented X3, Cooperative HEENT: Atraumatic, PERRLA Neck: Supple, No JVD, No Thyromegaly Lungs: Clear to Auscultation, Normal Air Movement Heart: Normal S1, Normal S2, No Murmurs, Other (Irregular) Abdomen: Normal Bowel Sounds, Soft, No Tenderness, No Hepatosplenomegaly, No Masses Extremities: No Clubbing, No Cyanosis, No Edema, Normal Pulses, No Tenderness/ Swelling Skin: No Rashes, No Breakdown, No Significant Lesion Neuro: Normal Gait, Normal Speech, Strength at 5/5 X4 Ext, Normal Tone, Sensation Intact Psych/Mental Status: Mental Status NL, Mood NL Results Lab Laboratory Tests 08/25/18 03:16 A/P-Cardiology Admission Diagnosis Paroxysmal atrial fibrillation Paroxysmal atrial flutter Sick sinus syndrome Coronary artery disease Hypertension Assessment/Plan Paroxysmal atrial fibrillation/flutter, maintained on sotalol which was decreased to 80 mg twice daily due to borderline QT prolongation. Was noted to have multiple pauses and had a pacemaker implanted yesterday. Currently tachycardic, I will add Cardizem and evaluate tolerance and response. Status post dual-chamber pacemaker implantation with no complication, done by Dr. Bourgeois. Continue to monitor Coronary artery disease, status post cardiac catheterization done April 28, 2017 revealing LAD with 40-50 percent proximal and mid vessel stenosis, nonobstructive disease. Continue to monitor. Chest pain nonspecific etiology, no further episodes were reported. Continue to monitor Dizziness, lightheadedness, mainly orthostatic, questionable related to his bradycardia with a paroxysmal atrial flutter, continue to monitor [id number] score is 2, yearly risk of stroke without oral anticoagulation is 2.2 percent. He is maintained on Pradaxa. Hypertension, controlled. Continue to monitor blood pressure/heart rate. Peripheral edema-discussed limiting salt and fluid. Discussed weight loss. Continue Lasix as needed. Pulmonary hypertension, obstructive sleep apnea. Last 2-D echocardiogram March 2017 revealed EF 50-60 percent. Mildly dilated left atrium. PA pressure 10-15 mmHg. Significant improvement compared to 2015 2-D echocardiogram. COPD/obstructive sleep apnea, maintained on C Pap machine. Patient has not been using machine recently. Discussed importance of compliance Dyspnea on exertion, secondary to his comorbid condition. No change from baseline. Continue to monitor Morbid obesity, BMI is 41, patient was educated on weight loss. Seasonal allergy. Allergy to IV contrast, tetanus Nonobstructive carotid artery stenosis-most recent carotid duplex done April 2017. I will reevaluate carotid duplex today. Addendum on August 25, 2018 1330 Patient was started on Cardizem drip, heart rate became better. I will switch him to Cardizem CD 120 and discharge him home and follow-up as an outpatient Clinical Quality Measures DVT/VTE Risk/Contraindication: Risk Factor Score Per Nursin RFS Level Per Nursing on Admit: 4+=Very High JASVIR MELGOZA MD Aug 25, 2018 11:39
[2018-08-25] MEDS ORDERED: DILT120C82 PO (13:24)
[2018-08-25] MEDS ORDERED: DILTIAZEM 120 MG (CARDIZEM CD) CAP PO SCH (13:30)
[2018-08-25] MEDS ORDERED: MONTELUKAST 10 MG (SINGULAIR) TAB PO SCH (21:00)
[2018-08-26] MEDS ORDERED: KCL 10 MEQ TAB (MICRO K) PO SCH (07:00)
[2018-08-26] MEDS ORDERED: HYDROCHLOROTHIAZIDE 25 MG (HCTZ) TAB PO SCH (09:00)
[2018-08-26] MEDS ORDERED: ENALAPRIL 10 MG (VASOTEC) TAB PO SCH (09:00)
[2018-08-26] MEDS ORDERED: ATORVASTATIN 10 MG (LIPITOR) TABLET PO SCH (09:00)
[2018-08-26] MEDS ORDERED: LORATADINE (CLARITIN) 10 MG TAB PO SCH (09:00)
== END 2018-08-25 16:05 | disposition home or self-care (01) ==
LOC: CATH 06:40 → ICU 11:27 → CATH 08-25 16:05
PROVIDERS: ATTEND Internal Medicine Interventional Cardiology
DX: I48.0 Paroxysmal atrial fibrillation (principal); I48.3 Typical atrial flutter; I49.5 Sick sinus syndrome; I25.10 Atherosclerotic heart disease of native coronary artery without angina pectoris; I10 Essential (primary) hypertension; G47.33 Obstructive sleep apnea (adult) (pediatric); J44.9 Chronic obstructive pulmonary disease, unspecified; E66.01 Morbid (severe) obesity due to excess calories; J30.2 Other seasonal allergic rhinitis; Z68.41 Body mass index [BMI] 40.0-44.9, adult; I27.20 Pulmonary hypertension, unspecified; Z79.899 Other long term (current) drug therapy
CPT/HCPCS: 33208; 36415; 71045; 80053; 85027; 85610; 85730; 87081; 93005

== ENCOUNTER → 2018-09-26 | Outpatient (CLI) | payer MEDICARE, OTHER ==
[~2018-09-26] MED LIST changes: +DILT120C82 PO; +POTA10TA36 PO
== END | disposition home or self-care (01) ==
LOC: PREOP 05:36
PROVIDERS: ATTEND Internal Medicine Interventional Cardiology
DX: Z01.818 Encounter for other preprocedural examination (principal)

== ENCOUNTER → 2018-10-29 | Outpatient (CLI) | payer MEDICARE | END | disposition home or self-care (01) | LOC: PREOP 06:25 | PROVIDERS: ATTEND Internal Medicine Interventional Cardiology | DX: Z01.818 Encounter for other preprocedural examination (principal) ==

== ENCOUNTER → 2018-12-05 | Outpatient (CLI) | payer MEDICARE ==
[~2018-12-05] MED LIST changes: +FURO40TA4 PO
== END | disposition home or self-care (01) ==
LOC: PREOP 05:33
PROVIDERS: ATTEND Internal Medicine Interventional Cardiology
DX: Z01.818 Encounter for other preprocedural examination (principal)

== ENCOUNTER 2018-12-10 07:02 | Day surgery (SDC) | payer MEDICARE, OTHER ==
[2018-12-10] VITALS (8 sets, daily range): BP systolic 93–148; BP diastolic 61–98
[~2018-12-10] VITALS: Ht 170.2 cm; Wt 113.0 kg
[2018-12-10] MEDS ORDERED: HEParin 1000 UNIT/ML (10ML VIAL) FOR BOLUS ONE (07:03)
[2018-12-10] MEDS ORDERED: LIDOCAINE 1% INJ 20 ML 20 ML VIAL ONE (07:03)
[2018-12-10] MEDS ORDERED: NS IV 1000 ML 3,000 ML ONE (07:03)
[2018-12-10] MEDS ORDERED: NS IV 1000 ML 1,000 ML IV SCH ×2 (07:05→09:42)
[2018-12-10] MEDS ORDERED: ISOPROTERENOL 0.2 MG/100 ML D5W IV ONE (07:15)
[2018-12-10 07:26] LABS: HEMOGLOBIN 15.2 G/DL (13.3-17.7); MEAN PLATELET VOLUME 9.7 FL (7.4-10.4); RED CELL DISTRIBUTION WIDTH 14.5 % (10.0-14.5); WHITE BLOOD COUNT 6.3 10^3/uL (4.3-11.0)
[2018-12-10] MEDS ORDERED: ONDANSETRON 4 MG/2 ML (SDV) Z0FRAN ONE (07:32)
[2018-12-10] MEDS ORDERED: proPOfol 200 MG/20 ML (DIPRIVAN) VIAL IV ONE (07:32)
[2018-12-10] MEDS ORDERED: LIDOCAINE 2% 20 ML (XYLOCAINE) VIAL ONE (07:32)
[2018-12-10] MEDS ORDERED: MIDAZOLAM 2 MG/2 ML (VERSED) VIAL ONE (07:32)
[2018-12-10] MEDS ORDERED: SEVOFLURANE (ULTANE) 15 ML INHAL SOLN ONE ×2 (07:32→10:00)
[2018-12-10] MEDS ORDERED: DEXAMETHASONE 10 MG/ML (DECADRON) 1 ML VIAL ONE (07:32)
[2018-12-10 07:38] LABS: INR 1.1 (0.8-1.4); PROTHROMBIN TIME PATIENT 13.9 SEC (12.2-14.7)
[2018-12-10 07:46] LABS: ALANINE AMINOTRANSFERASE 42 U/L (0-55); ALBUMIN 3.9 GM/DL (3.2-4.5); ALKALINE PHOSPHATASE 102 U/L (40-136); BILIRUBIN,TOTAL 0.5 MG/DL (0.1-1.0); BUN/CREATININE RATIO 18; CALCIUM 9.4 MG/DL (8.5-10.1); CARBON DIOXIDE 25 MMOL/L (21-32); CHLORIDE 102 MMOL/L (98-107); CREATININE SERUM 0.94 MG/DL (0.60-1.30); GFR ESTIMATED > 60; GLUCOSE 143 MG/DL (70-105); POTASSIUM 3.8 MMOL/L (3.6-5.0); SODIUM 137 MMOL/L (135-145); TOTAL PROTEIN 6.7 GM/DL (6.4-8.2)
--- NOTE | 2018-12-10 09:41 | Electrophysiology Procedure ---
EP Procedure DATE OF SERVICE:12/10/18 REFERRING PAPER BALING MACHINE OPERATOR: Noe Layne MD CARDIAC ASSISTANT DIRECTOR: Scarlett Bourgeois MD INDICATION: Typical atrial flutter. PREOPERATIVE DIAGNOSIS: Typical atrial flutter. POSTOPERATIVE DIAGNOSES: Successful typical atrial flutter ablation. HISTORY: This is a 68 year old patient of Dr Layne who has typical atrial flutter. He also has a dual chamber permanent pacemaker. The patient is planned for comprehensive EP study and ablation. PROCEDURE PERFORMED: 1. Comprehensive EP study with induction. 2. Fluoroscopy. 3. CS pacing. 4. Drug infusion. 5. Ablation of typical atrial flutter. 6. Comprehensive 3D mapping with the carto system. COMPLICATION: None. ESTIMATED BLOOD LOSS: 10 mL. CONTRAST USED: None. FLUOROSCOPY TIME: 12.6 minutes. FLUOROSCOPY DOSE: 631 mgy. SPECIMENS: None. ANESTHESIA: Done by our anesthesia colleagues. ANTICOAGULATION: On Pradaxa. PROCEDURE IN DETAIL: After informed consent was taken, the patient was brought to the EP lab. Anesthesia was provided by our anesthesia colleagues. The patient was draped and prepped in the usual sterile fashion. The patient presented to the EP lab in sinus rhythm. Access was gained in the right femoral vein with a 6-Togolese and an 8-Togolese sheath. Left access in left femoral vein was gained with 5-Togolese and 6-Togolese sheath respectively. High right atrial catheter was an ablation catheter, right ventricular catheter was placed, his catheter and the CS catheter were also placed. A comprehensive EP study was done including a CS pacing. Typical atrial flutter was not induced with rapid atrial pacing with and without Isuprel infusion. A 3D electroanatomic mapping was donewith the carto system. EP study did not demonstrate Dual AV josee physiology. Prolonged HV interval was noted. Ablation was performed in the cavotricuspid isthmus.CS pacing and pacing from the ablation catheter at different positions on the lateral side of the ablation line were used to verify bidirectional block. We then waited for 30 minutes and rechecked and confirmed bidirectional block.Isuprel was given post-procedure, however, we could not induce atrial flutter.The patienttolerated the procedure well and did not have any complication. The patientleft the lab in sinus rhythm. Total ablation time was 6 minutes and 25 seconds. MEASUREMENTS/EP STUDY: AH interval 51 ms, HV interval 89 ms, AH interval 1005, AZ interval 56 ms, QRS duration 69 ms, QT interval 299 ms. Pre-ablation: AV Wenckebach at pacing cycle length 450 ms, Retrograde Wenckebach when pacing at 550 ms. Atrial ERP was 600/240 ms. Post-ablation: AV Wenckebach was pacing at 390 ms Atrial ERP was 600/260 ms. PLAN: The patient will be observed overnight and will be discharged home tomorrow with precise followup instructions. Scarlett Bourgeois MD, RS, CCDS Cardiac Electrophysiology Miguel BOURGEOIS MD Dec 10, 2018 09:41
--- NOTE | 2018-12-10 09:41 | Cardiac Procedure Note-CS/ASA ---
Pre-Procedure Note Pre-Op Procedure Note H&P Reviewed The H&P was reviewed, patient examined and no changes noted. Date H&P Reviewed: Dec 10, 2018 Time H&P Reviewed: 07:30 Conscious Sedation Pre-Proced Time 07:30 ASA Score 3 For ASA 3 and 4: Consider anesthesia and medical clearance. Also, for patients with a history of failed moderate sedation consider anesthesia. Airway Lungs Heart ASA score ASA 1: a normal healthy patient ASA 2: a patient with a mild systemic disease (mid diabetes, controlled hypertension, obesity ASA 3: a patient with a severe systemic disease that limits activity (angina , COPD, prior Myocardial infarction) ASA 4: a patient with an incapacitating disease that is a constant threat to life (CHF, renal failure) ASA 5: a moribund patient not expected to survive 24 hrs. (ruptured aneurysm) ASA 6: a declared brain- patient whose organs are being harvested. For emergent operations, add the letter E after the classification Mallampati Classification Grade 1 Sedation Plan Analgesia, Amnesia, Plan communicated to team members, Discussed options with patient/fam, Discussed risks with patient/fam The patient is an appropriate candidate to undergo the planned procedure, sedation, and anesthesia. The patient immediately re-assessed prior to indication. Miguel NAYAK MD Dec 10, 2018 09:41
[2018-12-10] MEDS ORDERED: PATIENT MAY USE OWN MEDS, ALL PO SCH (09:45)
--- NOTE | 2018-12-10 09:54 | Discharge Inst-Post CATH ---
Discharge Inst-CATH/EP Post Cardiac Cath/EP D/C Inst Follow Up/Plan Dr Layne for Cardiology. Dr Bourgeois for EP in three to four weeks. CARDIAC CATH DISCHARGE INSTRUCTIONS *Hold Metformin for 48 hours post heart cath. ACTIVITY * Go Home directly and rest. * Limit activity of the leg (or wrist if it was used) for 7 days including aerobics, swimming, jogging, bicycling, etc. * Restrict stair-climbing for 7 days if possible, if not, climb up with your non -cath leg, then bring together on the same step. * Avoid lifting, pushing, pulling or excessive movement of the affected extremity for 7 days. * Customary sexual activity may be resumed after 2 days-use caution not to use a position that strains or causes pain to the affected extremity. * No driving for 24 hours. * NO SMOKING. * Avoid straining for bowel movements for 7 days. * Gentle walking on level ground is allowed. * Returning to work will depend on the type of procedure and the results. Your doctor will discuss this with you. CALL YOUR DOCTOR FOR ANY OF THE FOLLOWING: *If bleeding from the puncture site occurs- Apply gentle pressure to site with clean cloth and call your doctor or EMS. * If a knot or lump forms under the skin, increases in size, or causes pain. * If bruising appears to be worsening or moving further down your leg instead of disappearing. * Temperature above 101 F. CARE OF YOUR GROIN INCISION; * Bruising or purple discoloration of the skin near the puncture site is common. * You may shower only, no bathtub bathing for 5 days. Be careful to avoid slipping as your leg may feel stiff. * If a closure device was used on your femoral artery, please see the attached guide regarding care of the device and your leg. * Leave the dressing on, until removed by office staff. CARE OF YOUR WRIST INCISION; * Bruising or purple discoloration of the skin near the puncture site is common. * You may shower. * DO NOT submerge wrist. * Leave dressing on, until removed by office staff.. Miguel BOURGEOIS MD Dec 10, 2018 09:54
--- NOTE | 2018-12-10 13:11 | Anesthesia-General Post-Op ---
General Patient Condition Mental Status/LOC: Same as Preop Cardiovascular: Satisfactory Nausea/Vomiting: Absent Respiratory: Satisfactory Pain: Controlled Complications: Absent Post Op Complications Complications None Follow Up Care/Instructions Patient Instructions None needed. Anesthesia/Patient Condition Patient Condition Patient is doing well, no complaints, stable vital signs, no apparent adverse anesthesia problems. No complications reported per nursing. SANTIAGO YOUNG CRNA Dec 10, 2018 13:11
--- NOTE | 2018-12-10 13:41 | NUR ---
1120- PT. IN CU12 WITH [employer] TEST TECHNICIAN AT BEDSIDE. REPORT GIVEN TO THIS RN AT THIS TIME. PT. DENIES NEEDS. GROIN SITE ASSESSED BILAT. SMALL AMOUNT BLOOD NOTED ON R-GROIN DRESSING. PT. DENIES TENDERNESS ON PALPATION. NS WITH 50 ML REMAINING INFUSING KVO. PT. PLACED ON MONITOR ET ORIENTED TO CALL LIGHT ET ROOM 1140- REPORT GIVEN TO MALA KENNEDY.
[2018-12-10] MEDS ORDERED: FURO20TA4 PO (14:25)
[2018-12-10] MEDS ORDERED: DILT120C53 PO (14:25)
[2018-12-10] MEDS ORDERED: ATOR10TA PO (14:25)
[2018-12-10] MEDS ORDERED: NAPR220T66 PO (14:27)
[2018-12-10] MEDS ORDERED: IBUP-30 PO (14:27)
--- NOTE | 2018-12-10 14:28 | NUR ---
HAD A LIST FAXED OVER FROM THE [facility], PATIENT ALSO HAD HIS BOTTLES WITH HIM. HE VERIFIED HOW HE TAKES EACH MEDICATION. THE [facility] FILLED: 11-09-18 LIPITOR 10MG DAILY #30 11-09-18 SOTALOL 80MG BID #60 11-09-18 SINGULAIR 10MG HS #30 11-09-18 PRADAXA 150MG BID #60 11-09-18 CARTIA XT 120MG BID #60 11-09-18 POTASSIUM CHLORIDE 10MEQ DAILY #30 11-08-18 LORATADINE 10MG DAILY #30 11-08-18 FUROSEMIDE 20MG DAILY #30 10-16-18 AMLODIPINE 5MG #30 (STATES THIS WAS STOPPED) 09-03-18 ENALAPRIL 10MG DAILY #90 09-03-19 HCTZ 25MG DAILY #90 HE STATES HE ALSO ALTERNATES BETWEEN IBU AND ALEVE OTC PRN PAIN.
[2018-12-10] MEDS ORDERED: NON-FORMULARY MEDICATION 1 EA EA (Ibuprofen (Advil) 400 MG) PO PRN (16:45)
[2018-12-10] MEDS ORDERED: NON-FORMULARY MEDICATION 1 EA EA (Naproxen Sodium (Aleve) 440 MG) PO PRN (16:45)
[2018-12-10] MEDS ORDERED: NON-FORMULARY MEDICATION 1 EA EA (Dabigatran Etexilate Mesylate (Pradaxa) 150 MG) PO SCH (21:00)
[2018-12-10] MEDS ORDERED: DILTIAZEM 120 MG (CARDIZEM CD) CAP PO SCH (21:00)
[2018-12-10] MEDS ORDERED: NON-FORMULARY MEDICATION 1 EA EA (Sotalol HCl (Sotalol) 80 MG) PO SCH (21:00)
[2018-12-10] MEDS ORDERED: NON-FORMULARY MEDICATION 1 EA EA (Diltiazem HCl (Cartia Xt) 120 MG) PO SCH (21:00)
[2018-12-10] MEDS ORDERED: MONTELUKAST 10 MG (SINGULAIR) TAB PO SCH (21:00)
[2018-12-10] MEDS ORDERED: DABIGATRAN 150 MG (PRADAXA) CAPSULE PO SCH (21:00)
[2018-12-10] MEDS ORDERED: SOTALOL 80 MG (BETAPACE) TAB PO SCH (21:00)
[2018-12-11] VITALS: BP 104/65
[2018-12-11 04:00] VITALS: BP 108/64
[2018-12-11 04:25] LABS: HEMOGLOBIN 13.2 G/DL (13.3-17.7); MEAN PLATELET VOLUME 10.1 FL (7.4-10.4); RED CELL DISTRIBUTION WIDTH 14.1 % (10.0-14.5)
[2018-12-11 04:42] LABS: BUN/CREATININE RATIO 21; CALCIUM 8.7 MG/DL (8.5-10.1); CARBON DIOXIDE 21 MMOL/L (21-32); CHLORIDE 102 MMOL/L (98-107); GFR ESTIMATED > 60; GLUCOSE 224 MG/DL (70-105); POTASSIUM 4.4 MMOL/L (3.6-5.0); SODIUM 133 MMOL/L (135-145)
--- NOTE | 2018-12-11 06:56 | Cardiology Progress Note ---
Subjective Date Seen by Provider: Dec 11, 2018 Time Seen by Provider: 06:55 Subjective/Events-last exam patient is sitting in bed, feeling better, denied and chest pain or shortness of breath Review of Systems General: No Chills, No Night Sweats, No Fatigue, No Malaise, No Appetite, No Other HEENT: No Head Aches, No Visual Changes, No Eye Pain, No Ear Pain, No Dysphasia , No Sinus Congestion, No Post Nasal Drip, No Sore Throat, No Other Pulmonary: No Dyspnea, No Cough, No Pleuritic Chest Pain, No Other Cardiovascular: No: Chest Pain, Palpitations, Orthopnea, Paroxysmal Noc. Dyspnea, Edema, Lt Headedness, Other Objective-Cardiology Exam Last Set of Vital Signs Vital Signs 12/10/18 12/11/18 15:00 04:00 Temp 98.4 Pulse 61 Resp 20 B/P (MAP) 108/64 (79) Pulse Ox 96 O2 Delivery Room Air O2 Flow Rate 3.00 Capillary Refill : Less Than 3 Seconds General: Alert, Oriented X3, Cooperative HEENT: Atraumatic, PERRLA Neck: Supple, No JVD, No Thyromegaly Lungs: Clear to Auscultation, Normal Air Movement Heart: Regular Rate, Normal S1, Normal S2, No Murmurs Abdomen: Normal Bowel Sounds, Soft, No Tenderness, No Hepatosplenomegaly, No Masses Extremities: No Clubbing, No Cyanosis, No Edema, Normal Pulses, No Tenderness/ Swelling Skin: No Rashes, No Breakdown, No Significant Lesion Neuro: Normal Gait, Normal Speech, Strength at 5/5 X4 Ext, Normal Tone, Sensation Intact Psych/Mental Status: Mental Status NL, Mood NL Results Lab Laboratory Tests 12/10/18 07:17 12/11/18 04:15 A/P-Cardiology Admission Diagnosis Paroxysmal atrial flutter Hypertension COPD Assessment/Plan Atrial flutter, status post ablation, doing better Hypertension, controlled, continue to monitor COPD. Stable. Continue to monitor as an outpatient, rowing is healed well. Will discharge home JASVIR MELGOZA MD Dec 11, 2018 06:56
[2018-12-11] MEDS ORDERED: KCL 10 MEQ TAB (MICRO K) PO SCH (07:00)
[2018-12-11] MEDS ORDERED: NON-FORMULARY MEDICATION 1 EA EA (Potassium Chloride 10 MEQ) PO SCH (09:00)
[2018-12-11] MEDS ORDERED: ENALAPRIL 10 MG (VASOTEC) TAB PO SCH (09:00)
[2018-12-11] MEDS ORDERED: NON-FORMULARY MEDICATION 1 EA EA (Hydrochlorothiazide 25 MG) PO SCH (09:00)
[2018-12-11] MEDS ORDERED: FUROSEMIDE 20 MG (LASIX) TAB PO SCH (09:00)
[2018-12-11] MEDS ORDERED: HYDROCHLOROTHIAZIDE 25 MG (HCTZ) TAB PO SCH (09:00)
[2018-12-11] MEDS ORDERED: ATORVASTATIN 10 MG (LIPITOR) TABLET PO SCH (09:00)
[2018-12-11] MEDS ORDERED: LORATADINE (CLARITIN) 10 MG TAB PO SCH (09:00)
== END 2018-12-11 08:15 | disposition home or self-care (01) ==
LOC: CATH 07:02 → ICU 11:48 → CATH 12-11 08:15
PROVIDERS: ATTEND Internal Medicine Interventional Cardiology
DX: I48.3 Typical atrial flutter (principal); Z11.2 Encounter for screening for other bacterial diseases; I10 Essential (primary) hypertension; J44.9 Chronic obstructive pulmonary disease, unspecified; Z79.899 Other long term (current) drug therapy; Z88.7 Allergy status to serum and vaccine; I48.0 Paroxysmal atrial fibrillation; E78.5 Hyperlipidemia, unspecified; Z95.0 Presence of cardiac pacemaker
CPT/HCPCS: 36415; 80048; 80053; 85027; 85610; 85730; 87081; 93005; 93613; 93623; 93653

== ENCOUNTER 2019-01-02 06:43 | Day surgery (SDC) | payer MEDICARE, OTHER ==
[~2019-01-02] VITALS: Ht 170.2 cm; Wt 115.7 kg
[2019-01-02] VITALS (10 sets, daily range): BP systolic 118–134; BP diastolic 78–104
[~2019-01-02 06:43] MED LIST changes: +ATOR10TA PO; +DILT120C53 PO; +FURO20TA4 PO; +IBUP-30 PO
--- OUTSIDE RECORDS SUMMARY | 2019-01-02 06:48 | XMS REPORT | Continuity of Care Document ---
Author Organization Unknown Address Unknown Allergies Active Description Code Type Severity Reaction Onset Reported/Identified Relationship to Patient Clinical Status Yes NKANo Known Allergies NKA Miscellaneous Allergy Unknown N/A 12/13/2008 Yes IVP DYE FOR HEART CATHS IVP DYE FOR HEART CATHS Severe HIVES 07/10/2015 Yes Tetanus Vaccines Toxoid [id number] Drug Allergy Unknown N/A 07/10/2015 Yes Tetanus Vaccines and Toxoid [id number] Drug Allergy Unknown N/A 2018 Medications There is no data. Problems Date Dx Coded Attending Type Code Diagnosis Diagnosed By 08/24/1201 MAYRA BAILEY, JEANNE Odonnell Ot M17.11 UNILATERAL PRIMARY OSTEOARTHRITIS, RIGHT 06/17/2015 IRVIN MACIAS MD Ot V72.84 06/17/2015 IRVIN MACIAS MD Ot 211.3 BENIGN NEOPLASM LG BOWEL 06/17/2015 IRVIN MACIAS MD Ot 455.0 INT HEMORRHOID W/O COMPL 06/17/2015 IRVIN MACIAS MD Ot 455.3 EXT HEMORRHOID W/O COMPL 06/17/2015 IRVIN MACIAS MD, Ot V76.51 SCREEN MAL NEOP-COLON 07/13/2015 JASVIR MELGOZA MD, Ot E66.01 MORBID (SEVERE) OBESITY DUE TO EXCESS CA 07/13/2015 JASVIR MELGOZA MD Ot I10 ESSENTIAL (PRIMARY) HYPERTENSION 07/13/2015 JASVIR MELGOZA MD, Ot I25.10 ATHSCL HEART DISEASE OF [place] CORONARY 07/13/2015 JASVIR MELGOZA MD, Ot I27.2 OTHER SECONDARY PULMONARY HYPERTENSION 07/13/2015 JASVIR MELGOZA MD, Ot I47.2 VENTRICULAR TACHYCARDIA 07/13/2015 JASVIR MELGOZA MD, Ot I48.0 PAROXYSMAL ATRIAL FIBRILLATION 07/13/2015 JASVIR MELGOZA MD, Ot J44.9 CHRONIC OBSTRUCTIVE PULMONARY DISEASE, U 07/13/2015 ABAD MD, BASHAR J Ot R06.02 SHORTNESS OF BREATH 07/13/2015 ABAD BAILEY, JASVIR Odonnell Ot Z23 ENCOUNTER FOR IMMUNIZATION 07/13/2015 JASVIR MELGOZA MD, Ot Z68.37 BODY MASS INDEX (BMI) 37.0-37.9, ADULT 07/16/2015 JASVIR MELGOZA MD Ot G47.33 OBSTRUCTIVE SLEEP APNEA (ADULT) (PEDIATR 07/16/2015 JASVIR MELGOZA MD Ot I10 ESSENTIAL (PRIMARY) HYPERTENSION 07/21/2015 JEANNE NUNEZ MD, Ot I10 08/29/2015 LEONORA VENTURA Ot G47.33 OBSTRUCTIVE SLEEP APNEA (ADULT) (PEDIATR 09/24/2015 JASVIR MELGOZA MD Ot E78.5 09/24/2015 JASVIR MELGOZA MD Ot I10 09/24/2015 JASVIR MELGOZA MD Ot I25.10 09/24/2015 JASVIR MELGOZA MD Ot I48.3 10/16/2015 ANGUS MARINELLI DO Ot E66.9 10/16/2015 ANGUS MARINELLI DO Ot I10 10/16/2015 ANGUS MARINELLI DO Ot I48.3 04/11/2017 LEONORA VENTURA Ot E78.2 MIXED HYPERLIPIDEMIA 04/11/2017 LEONORA VENTURA Ot I10 ESSENTIAL (PRIMARY) HYPERTENSION 04/11/2017 LEONORA VENTURA Ot I25.10 ATHSCL HEART DISEASE OF [place] CORONARY 04/11/2017 LEONORA VENTURA Ot I48.0 PAROXYSMAL ATRIAL FIBRILLATION 04/28/2017 JEANNE NUNEZ MD Ot E66.01 MORBID (SEVERE) OBESITY DUE TO EXCESS CA 04/28/2017 JEANNE NUNEZ MD Ot E87.8 OTH DISORDERS OF ELECTROLYTE AND FLUID B 04/28/2017 JEANNE NUNEZ MD, Ot G47.33 OBSTRUCTIVE SLEEP APNEA (ADULT) (PEDIATR 04/28/2017 JEANNE NUNEZ MD Ot I10 ESSENTIAL (PRIMARY) HYPERTENSION 04/28/2017 JEANNE NUNEZ MD Ot I25.10 ATHSCL HEART DISEASE OF [place] CORONARY 04/28/2017 MAYRA MD, JEANNE J Ot I27.2 OTHER SECONDARY PULMONARY HYPERTENSION 04/28/2017 JEANNE NUNEZ MD, Ot I48.0 PAROXYSMAL ATRIAL FIBRILLATION 04/28/2017 JEANNE NUNEZ MD, Ot I48.92 UNSPECIFIED ATRIAL FLUTTER 04/28/2017 JEANNE NUNEZ MD, Ot J30.2 OTHER SEASONAL ALLERGIC RHINITIS 04/28/2017 JEANNE NUNEZ MD, Ot J44.9 CHRONIC OBSTRUCTIVE PULMONARY DISEASE, U 04/28/2017 JEANNE NUNEZ MD, Ot R07.89 OTHER CHEST PAIN 04/28/2017 JEANNE NUNEZ MD, Ot R60.0 LOCALIZED EDEMA 04/28/2017 JEANNE NUNEZ MD, Ot T50.2X5A ADVRS EFF OF CRBNC-ANHYDR INHIBTR, BENZO 04/28/2017 JEANNE NUNEZ MD, Ot Z68.39 BODY MASS INDEX (BMI) 39.0-39.9, ADULT 04/28/2017 JEANNE NUNEZ MD, Ot Z79.01 THREAD GRINDER TOOL (CURRENT) USE OF ANTICOAGULANT 04/28/2017 JEANNE NUNEZ MD, Ot E66.01 MORBID (SEVERE) OBESITY DUE TO EXCESS CA 04/28/2017 JEANNE NUNEZ MD, Ot E87.8 OTH DISORDERS OF ELECTROLYTE AND FLUID B 04/28/2017 JEANNE NUNEZ MD, Ot G47.33 OBSTRUCTIVE SLEEP APNEA (ADULT) (PEDIATR 04/28/2017 JEANNE NUNEZ MD, Ot I10 ESSENTIAL (PRIMARY) HYPERTENSION 04/28/2017 JEANNE NUNEZ MD, Ot I25.10 ATHSCL HEART DISEASE OF [place] CORONARY 04/28/2017 JEANNE NUNEZ MD, Ot I27.2 OTHER SECONDARY PULMONARY HYPERTENSION 04/28/2017 JEANNE NUNEZ MD, Ot I48.0 PAROXYSMAL ATRIAL FIBRILLATION 04/28/2017 JEANNE NUNEZ MD, Ot I48.92 UNSPECIFIED ATRIAL FLUTTER 04/28/2017 JEANNE NUNEZ MD, Ot J30.2 OTHER SEASONAL ALLERGIC RHINITIS 04/28/2017 JEANNE NUNEZ MD, Ot J44.9 CHRONIC OBSTRUCTIVE PULMONARY DISEASE, U 04/28/2017 JEANNE NUNEZ MD, Ot R07.89 OTHER CHEST PAIN 04/28/2017 JEANNE NUNEZ MD, Ot R60.0 LOCALIZED EDEMA 04/28/2017 JEANNE NUNEZ MD, Ot T50.2X5A ADVRS EFF OF CRBNC-ANHYDR INHIBTR, BENZO 04/28/2017 JEANNE NUNZE MD, Ot Z68.39 BODY MASS INDEX (BMI) 39.0-39.9, ADULT 04/28/2017 JEANNE NUNEZ MD, Ot Z79.01 THREAD GRINDER TOOL (CURRENT) USE OF ANTICOAGULANT 04/28/2017 JEANNE NUNEZ MD, Ot E66.01 MORBID (SEVERE) OBESITY DUE TO EXCESS CA 04/28/2017 JEANNE NUNEZ MD, Ot E87.8 OTH DISORDERS OF ELECTROLYTE AND FLUID B 04/28/2017 JEANNE NUNEZ MD, Ot G47.33 OBSTRUCTIVE SLEEP APNEA (ADULT) (PEDIATR 04/28/2017 JEANNE NUNEZ MD, Ot I10 ESSENTIAL (PRIMARY) HYPERTENSION 04/28/2017 JEANNE NUNEZ MD, Ot I25.10 ATHSCL HEART DISEASE OF [place] CORONARY 04/28/2017 JEANNE NUNEZ MD, Ot I27.2 OTHER SECONDARY PULMONARY HYPERTENSION 04/28/2017 JEANNE NUNEZ MD, Ot I48.0 PAROXYSMAL ATRIAL FIBRILLATION 04/28/2017 JEANNE NUNEZ MD, Ot I48.92 UNSPECIFIED ATRIAL FLUTTER 04/28/2017 JEANNE NUNEZ MD, Ot J30.2 OTHER SEASONAL ALLERGIC RHINITIS 04/28/2017 JEANNE NUNEZ MD, Ot J44.9 CHRONIC OBSTRUCTIVE PULMONARY DISEASE, U 04/28/2017 JEANNE NUNEZ MD, Ot R07.89 OTHER CHEST PAIN 04/28/2017 JEANNE NUNEZ MD, Ot R60.0 LOCALIZED EDEMA 04/28/2017 JEANNE NUNEZ MD, Ot T50.2X5A ADVRS EFF OF CRBNC-ANHYDR INHIBTR, BENZO 04/28/2017 JEANNE NUNEZ MD, Ot Z68.39 BODY MASS INDEX (BMI) 39.0-39.9, ADULT 04/28/2017 JEANNE NUNEZ MD, Ot Z79.01 THREAD GRINDER TOOL (CURRENT) USE OF ANTICOAGULANT 04/28/2017 JEANNE NUNEZ MD, Ot E66.01 MORBID (SEVERE) OBESITY DUE TO EXCESS CA 04/28/2017 JEANNE NUNEZ MD, Ot E83.42 HYPOMAGNESEMIA 04/28/2017 JEANNE NUNEZ MD, Ot E87.8 OT DISORDERS OF ELECTROLYTE AND FLUID B 04/28/2017 JEANNE NUNEZ MD, Ot G47.33 OBSTRUCTIVE SLEEP APNEA (ADULT) (PEDIATR 04/28/2017 JEANNE NUNEZ MD, Ot I10 ESSENTIAL (PRIMARY) HYPERTENSION 04/28/2017 JEANNE NUNEZ MD, Ot I25.10 ATHSCL HEART DISEASE OF [place] CORONARY 04/28/2017 JEANNE NUNEZ MD, Ot I27.2 OTHER SECONDARY PULMONARY HYPERTENSION 04/28/2017 JEANNE NUNEZ MD, Ot I48.0 PAROXYSMAL ATRIAL FIBRILLATION 04/28/2017 JEANNE NUNEZ MD, Ot I48.92 UNSPECIFIED ATRIAL FLUTTER 04/28/2017 JEANNE NUNEZ MD, Ot J30.2 OTHER SEASONAL ALLERGIC RHINITIS 04/28/2017 JEANNE NUNEZ MD, Ot J44.9 CHRONIC OBSTRUCTIVE PULMONARY DISEASE, U 04/28/2017 JEANNE NUNEZ MD, Ot R07.89 OTHER CHEST PAIN 04/28/2017 JEANNE NUNEZ MD, Ot R60.0 LOCALIZED EDEMA 04/28/2017 JEANNE NUNEZ MD, Ot T50.2X5A ADVRS EFF OF CRBNC-ANHYDR INHIBTR, BENZO 04/28/2017 JEANNE NUNEZ MD, Ot Z68.41 BODY MASS INDEX (BMI) 40.0-44.9, ADULT 04/28/2017 JEANNE NUNEZ MD, Ot Z79.01 THREAD GRINDER TOOL (CURRENT) USE OF ANTICOAGULANT 05/02/2017 IRVIN MACIAS MD Ot V72.84 EXAM PRE-OPERATIVE NOS 05/02/2017 JEANNE NUNEZ MD, Ot I10 ESSENTIAL (PRIMARY) HYPERTENSION 05/02/2017 JASVIR MELGOZA MD, Ot E78.5 HYPERLIPIDEMIA, UNSPECIFIED 05/02/2017 JASVIR MELGOZA MD, Ot I10 ESSENTIAL (PRIMARY) HYPERTENSION 05/02/2017 JASVIR MELGOZA MD, Ot I25.10 ATHSCL HEART DISEASE OF [place] CORONARY 05/02/2017 JASVIR MELGOZA MD, Ot I48.3 TYPICAL ATRIAL FLUTTER 05/02/2017 JASVIR MELGOZA MD Ot E78.5 HYPERLIPIDEMIA, UNSPECIFIED 05/02/2017 JASVIR MELGOZA MD Ot I10 ESSENTIAL (PRIMARY) HYPERTENSION 05/02/2017 JASVIR MELGOZA MD Ot I25.10 ATHSCL HEART DISEASE OF [place] CORONARY 05/02/2017 JASVIR MELGOZA MD Ot I48.3 TYPICAL ATRIAL FLUTTER 05/02/2017 JASVIR MELGOZA MD Ot E78.5 HYPERLIPIDEMIA, UNSPECIFIED 05/02/2017 JASVIR MELGOZA MD Ot I10 ESSENTIAL (PRIMARY) HYPERTENSION 05/02/2017 JASVIR MELGOZA MD Ot I25.10 ATHSCL HEART DISEASE OF [place] CORONARY 05/02/2017 JASVIR MELGOZA MD Ot I48.3 TYPICAL ATRIAL FLUTTER 05/02/2017 ANGUS MARINELLI DO Ot E66.9 OBESITY, UNSPECIFIED 05/02/2017 ANGUS MARINELLI DO Ot I10 ESSENTIAL (PRIMARY) HYPERTENSION 05/02/2017 ANGUS MARINELLI DO Ot I48.3 TYPICAL ATRIAL FLUTTER 05/02/2017 LEONORA VENTURA Ot E78.2 MIXED HYPERLIPIDEMIA 05/02/2017 LEONORA VENTURA Ot I10 ESSENTIAL (PRIMARY) HYPERTENSION 05/02/2017 LEONORA VENTURA Ot I25.10 ATHSCL HEART DISEASE OF [place] CORONARY 05/02/2017 LEONORA VENTURA Ot I48.0 PAROXYSMAL ATRIAL FIBRILLATION 05/02/2017 LEROY VILLARREAL Ot E66.9 OBESITY, UNSPECIFIED 05/02/2017 LEROY VILLARREAL Ot I10 ESSENTIAL (PRIMARY) HYPERTENSION 05/02/2017 LEROY VILLARREAL Ot I25.10 ATHSCL HEART DISEASE OF [place] CORONARY 05/02/2017 LEROY VILLARREAL Ot I48.91 UNSPECIFIED ATRIAL FIBRILLATION 05/02/2017 LEROY VILLARREAL Ot Z68.39 BODY MASS INDEX (BMI) 39.0-39.9, ADULT 05/02/2017 LEROY VILLARREAL Ot Z79.01 THREAD GRINDER TOOL (CURRENT) USE OF ANTICOAGULANT 05/02/2017 LEROY VILLARREAL Ot Z86.69 PERSONAL HISTORY OF DIS OF THE NERVOUS S 05/02/2017 PHIL, LEROY FURNITURE ASSEMBLER Ot Z87.81 PERSONAL HISTORY OF (HEALED) TRAUMATIC F 05/02/2017 PHIL, LEROY FURNITURE ASSEMBLER Ot Z98.890 OTHER SPECIFIED POSTPROCEDURAL STATES 05/03/2017 MAYRA BAILEY, JEANNE Odonnell Ot R06.00 DYSPNEA, UNSPECIFIED 05/04/2017 LEONORA VENTURA Ot E78.2 MIXED HYPERLIPIDEMIA 05/04/2017 LEONORA VENTURA Ot I10 ESSENTIAL (PRIMARY) HYPERTENSION 05/04/2017 LEONORA VENTURA Ot I25.10 ATHSCL HEART DISEASE OF [place] CORONARY 05/04/2017 LEONORA VENTURA Ot I48.0 PAROXYSMAL ATRIAL FIBRILLATION 05/08/2017 PHIL, LEROY FURNITURE ASSEMBLER Ot E66.9 OBESITY, UNSPECIFIED 05/08/2017 PHIL, LEROY FURNITURE ASSEMBLER Ot I10 ESSENTIAL (PRIMARY) HYPERTENSION 05/08/2017 PHIL, LEROY FURNITURE ASSEMBLER Ot I25.10 ATHSCL HEART DISEASE OF [place] CORONARY 05/08/2017 PHIL, LEROY FURNITURE ASSEMBLER Ot I48.91 UNSPECIFIED ATRIAL FIBRILLATION 05/08/2017 PHIL, LEROY FURNITURE ASSEMBLER Ot Z68.39 BODY MASS INDEX (BMI) 39.0-39.9, ADULT 05/08/2017 PHIL, LEROY FURNITURE ASSEMBLER Ot Z79.01 FDC (CURRENT) USE OF ANTICOAGULANT 05/08/2017 PHIL, LEROY FURNITURE ASSEMBLER Ot Z86.69 PERSONAL HISTORY OF DIS OF THE NERVOUS S 05/08/2017 PHIL, LEROY FURNITURE ASSEMBLER Ot Z87.81 PERSONAL HISTORY OF (HEALED) TRAUMATIC F 05/08/2017 PHIL, LEROY FURNITURE ASSEMBLER Ot Z98.890 OTHER SPECIFIED POSTPROCEDURAL STATES 05/20/2017 PHIL, LEROY FURNITURE ASSEMBLER Ot E66.9 OBESITY, UNSPECIFIED 05/20/2017 PHIL, LEROY FURNITURE ASSEMBLER Ot I10 ESSENTIAL (PRIMARY) HYPERTENSION 05/20/2017 PHIL, LEROY FURNITURE ASSEMBLER Ot I25.10 ATHSCL HEART DISEASE OF [place] CORONARY 05/20/2017 PHIL, LEROY FURNITURE ASSEMBLER Ot I48.91 UNSPECIFIED ATRIAL FIBRILLATION 05/20/2017 PHIL, LEROY FURNITURE ASSEMBLER Ot Z68.39 BODY MASS INDEX (BMI) 39.0-39.9, ADULT 05/20/2017 PHIL, LEROY FURNITURE ASSEMBLER Ot Z79.01 THREAD GRINDER TOOL (CURRENT) USE OF ANTICOAGULANT 05/20/2017 LEROY VILLARREALP Ot Z86.69 PERSONAL HISTORY OF DIS OF THE NERVOUS S 05/20/2017 LEROY VILLARREALP Ot Z87.81 PERSONAL HISTORY OF (HEALED) TRAUMATIC F 05/20/2017 LERYO VILLARREALP Ot Z98.890 OTHER SPECIFIED POSTPROCEDURAL STATES 05/24/2017 MAYRA BAILEY, JEANNE Odonnell Ot R06.00 DYSPNEA, UNSPECIFIED 11/28/2017 GILBERTO BAILEY, IRVIN Ot V72.84 EXAM PRE-OPERATIVE NOS 11/28/2017 JEANNE NUNEZ MD Ot I10 ESSENTIAL (PRIMARY) HYPERTENSION 11/28/2017 JASVIR MELGOZA MD Ot E78.5 HYPERLIPIDEMIA, UNSPECIFIED 11/28/2017 JASVIR MELGOZA MD Ot I10 ESSENTIAL (PRIMARY) HYPERTENSION 11/28/2017 JASVIR MELGOZA MD Ot I25.10 ATHSCL HEART DISEASE OF [place] CORONARY 11/28/2017 JASVIR MELGOZA MD Ot I48.3 TYPICAL ATRIAL FLUTTER 11/28/2017 JASVIR MELGOZA MD Ot E78.5 HYPERLIPIDEMIA, UNSPECIFIED 11/28/2017 JASVIR MELGOZA MD Ot I10 ESSENTIAL (PRIMARY) HYPERTENSION 11/28/2017 JASVIR MELGOZA MD Ot I25.10 ATHSCL HEART DISEASE OF [place] CORONARY 11/28/2017 JASVIR MELGOZA MD Ot I48.3 TYPICAL ATRIAL FLUTTER 11/28/2017 JASVIR MELGOZA MD Ot E78.5 HYPERLIPIDEMIA, UNSPECIFIED 11/28/2017 JASVIR MELGOZA MD Ot I10 ESSENTIAL (PRIMARY) HYPERTENSION 11/28/2017 JASVIR MELGOZA MD Ot I25.10 ATHSCL HEART DISEASE OF [place] CORONARY 11/28/2017 JASVIR MELGOZA MD Ot I48.3 TYPICAL ATRIAL FLUTTER 11/28/2017 ANGUS MARINELLI DO Ot E66.9 OBESITY, UNSPECIFIED 11/28/2017 ANGUS MARINELLI DO Ot I10 ESSENTIAL (PRIMARY) HYPERTENSION 11/28/2017 ANGUS MARINELLI DO Ot I48.3 TYPICAL ATRIAL FLUTTER 11/28/2017 LEONORA VENTURA Ot E78.2 MIXED HYPERLIPIDEMIA 11/28/2017 LEONORA VENTURA Ot I10 ESSENTIAL (PRIMARY) HYPERTENSION 11/28/2017 LEONORA VENTURA Ot I25.10 ATHSCL HEART DISEASE OF [place] CORONARY 11/28/2017 LEONORA VENTURA Ot I48.0 PAROXYSMAL ATRIAL FIBRILLATION 11/28/2017 JEANNE NUNEZ MD Ot R06.00 DYSPNEA, UNSPECIFIED 11/29/2017 JASVIR MELGOZA MD Ot E66.01 MORBID (SEVERE) OBESITY DUE TO EXCESS CA 11/29/2017 JASVIR MELGOZA MD Ot E78.5 HYPERLIPIDEMIA, UNSPECIFIED 11/29/2017 JASVIR MELGOZA MD Ot G47.33 OBSTRUCTIVE SLEEP APNEA (ADULT) (PEDIATR 11/29/2017 JASVIR MELGOZA MD Ot I10 ESSENTIAL (PRIMARY) HYPERTENSION 11/29/2017 JASVIR MELGOZA MD Ot I25.10 ATHSCL HEART DISEASE OF [place] CORONARY 11/29/2017 JASVIR MELGOZA MD Ot I27.20 PULMONARY HYPERTENSION, UNSPECIFIED 11/29/2017 JASVIR MELGOZA MD Ot I48.0 PAROXYSMAL ATRIAL FIBRILLATION 11/29/2017 JASVIR MELGOZA MD Ot I49.5 SICK SINUS SYNDROME 11/29/2017 JASVIR MELGOZA MD Ot I73.9 PERIPHERAL VASCULAR DISEASE, UNSPECIFIED 11/29/2017 JASVIR MELGOZA MD Ot J44.9 CHRONIC OBSTRUCTIVE PULMONARY DISEASE, U 11/29/2017 JASVIR MELGOZA MD Ot N40.0 BENIGN PROSTATIC HYPERPLASIA WITHOUT LOW 11/29/2017 JASVIR MELGOZA MD Ot R00.1 BRADYCARDIA, UNSPECIFIED 11/29/2017 JASVIR MELGOZA MD Ot Z68.38 BODY MASS INDEX (BMI) 38.0-38.9, ADULT 11/29/2017 JASVIR MELGOZA MD Ot Z79.899 OTHER FDC (CURRENT) DRUG THERAPY 11/29/2017 JASVIR MELGOZA MD Ot Z88.7 ALLERGY STATUS TO SERUM AND VACCINE STAT 11/29/2017 JASVIR MELGOZA MD Ot Z91.041 RADIOGRAPHIC DYE ALLERGY STATUS 12/04/2017 JASVIR MELGOZA MD Ot E66.01 MORBID (SEVERE) OBESITY DUE TO EXCESS CA 12/04/2017 JASVIR MELGOZA MD Ot E78.5 HYPERLIPIDEMIA, UNSPECIFIED 12/04/2017 JASVIR MELGOZA MD Ot G47.33 OBSTRUCTIVE SLEEP APNEA (ADULT) (PEDIATR 12/04/2017 JASVIR MELGOZA MD Ot I10 ESSENTIAL (PRIMARY) HYPERTENSION 12/04/2017 JASVIR MELGOZA MD Ot I25.10 ATHSCL HEART DISEASE OF [place] CORONARY 12/04/2017 JASVIR MELGOZA MD Ot I27.20 PULMONARY HYPERTENSION, UNSPECIFIED 12/04/2017 JASVIR MELGOZA MD Ot I48.0 PAROXYSMAL ATRIAL FIBRILLATION 12/04/2017 JASVIR MELGOZA MD Ot I49.5 SICK SINUS SYNDROME 12/04/2017 JASVIR MELGOZA MD Ot I73.9 PERIPHERAL VASCULAR DISEASE, UNSPECIFIED 12/04/2017 JASVIR MELGOZA MD Ot J44.9 CHRONIC OBSTRUCTIVE PULMONARY DISEASE, U 12/04/2017 JASVIR MELGOZA MD Ot N40.0 BENIGN PROSTATIC HYPERPLASIA WITHOUT LOW 12/04/2017 JASVIR MELGOZA MD Ot R00.1 BRADYCARDIA, UNSPECIFIED 12/04/2017 JASVIR MELGOZA MD Ot Z68.38 BODY MASS INDEX (BMI) 38.0-38.9, ADULT 12/04/2017 JASVIR MELGOZA MD Ot Z79.899 OTHER FDC (CURRENT) DRUG THERAPY 12/04/2017 JASVIR MELGOZA MD Ot Z88.7 ALLERGY STATUS TO SERUM AND VACCINE STAT 12/04/2017 JASVIR MELGOZA MD Ot Z91.041 RADIOGRAPHIC DYE ALLERGY STATUS 02/08/2018 JEANNE NUNEZ MD Ot M17.11 UNILATERAL PRIMARY OSTEOARTHRITIS, RIGHT 02/08/2018 JEANNE NUNEZ MD Ot M17.11 UNILATERAL PRIMARY OSTEOARTHRITIS, RIGHT 02/26/2018 JEANNE NUNEZ MD Ot M17.11 UNILATERAL PRIMARY OSTEOARTHRITIS, RIGHT 02/27/2018 JEANNE NUNEZ MD Ot M17.11 UNILATERAL PRIMARY OSTEOARTHRITIS, RIGHT 03/16/2018 JEANNE NUNEZ MD, Ot M17.11 UNILATERAL PRIMARY OSTEOARTHRITIS, RIGHT 03/21/2018 JEANNE NUNEZ MD, Ot M17.11 UNILATERAL PRIMARY OSTEOARTHRITIS, RIGHT 08/25/2018 Miguel NAYAK MD Ot E66.01 MORBID (SEVERE) OBESITY DUE TO EXCESS CA 08/25/2018 Miguel NAYAK MD Ot G47.33 OBSTRUCTIVE SLEEP APNEA (ADULT) (PEDIATR 08/25/2018 Miguel NAYAK MD Ot I10 ESSENTIAL (PRIMARY) HYPERTENSION 08/25/2018 Miguel NAYAK MD Ot I25.10 ATHSCL HEART DISEASE OF [place] CORONARY 08/25/2018 Miguel NAYAK MD Ot I27.20 PULMONARY HYPERTENSION, UNSPECIFIED 08/25/2018 Miguel NAYAK MD Ot I48.0 PAROXYSMAL ATRIAL FIBRILLATION 08/25/2018 Miguel NAYAK MD Ot I48.3 TYPICAL ATRIAL FLUTTER 08/25/2018 Miguel NAYAK MD Ot I49.5 SICK SINUS SYNDROME 08/25/2018 Miguel NAYAK MD Ot J30.2 OTHER SEASONAL ALLERGIC RHINITIS 08/25/2018 Miguel NAYAK MD Ot J44.9 CHRONIC OBSTRUCTIVE PULMONARY DISEASE, U 08/25/2018 Miguel NAYAK MD Ot Z68.41 BODY MASS INDEX (BMI) 40.0-44.9, ADULT 08/25/2018 Miguel NAYAK MD Ot Z79.899 OTHER FDC (CURRENT) DRUG THERAPY 08/28/2018 Miguel NAYAK MD Ot E66.01 MORBID (SEVERE) OBESITY DUE TO EXCESS CA 08/28/2018 Miguel NAYAK MD Ot G47.33 OBSTRUCTIVE SLEEP APNEA (ADULT) (PEDIATR 08/28/2018 Miguel ANYAK MD Ot I10 ESSENTIAL (PRIMARY) HYPERTENSION 08/28/2018 Miguel NAYAK MD Ot I25.10 ATHSCL HEART DISEASE OF [place] CORONARY 08/28/2018 Miguel NAYAK MD Ot I27.20 PULMONARY HYPERTENSION, UNSPECIFIED 08/28/2018 Miguel NAYAK MD Ot I48.0 PAROXYSMAL ATRIAL FIBRILLATION 08/28/2018 Miguel NAYAK MD Ot I48.3 TYPICAL ATRIAL FLUTTER 08/28/2018 Miguel NAYAK MD Ot I49.5 SICK SINUS SYNDROME 08/28/2018 Miguel NAYAK MD Ot J30.2 OTHER SEASONAL ALLERGIC RHINITIS 08/28/2018 MALINI BAILEY, Miguel CUELLO Ot J44.9 CHRONIC OBSTRUCTIVE PULMONARY DISEASE, U 08/28/2018 MALINI BAILEY, Miguel CUELLO Ot Z68.41 BODY MASS INDEX (BMI) 40.0-44.9, ADULT 08/28/2018 Miguel NAYAK MD Ot Z79.899 OTHER FDC (CURRENT) DRUG THERAPY 09/27/2018 Miguel NAYAK MD Ot Z01.818 ENCOUNTER FOR OTHER PREPROCEDURAL EXAMIN 10/30/2018 Miguel NAYAK MD Ot Z01.818 ENCOUNTER FOR OTHER PREPROCEDURAL EXAMIN 11/01/2018 Miguel NAYAK MD Ot Z01.818 ENCOUNTER FOR OTHER PREPROCEDURAL EXAMIN 12/06/2018 Miguel NAYAK MD Ot Z01.818 ENCOUNTER FOR OTHER PREPROCEDURAL EXAMIN 12/10/2018 GILBERTO BAILEY, IRVIN Ot V72.84 EXAM PRE-OPERATIVE NOS 12/10/2018 MAYRA BAILEY, JEANNE Odonnell Ot I10 ESSENTIAL (PRIMARY) HYPERTENSION 12/10/2018 JASVIR MELGOZA MD Ot E78.5 HYPERLIPIDEMIA, UNSPECIFIED 12/10/2018 JASVIR MELGOZA MD Ot I10 ESSENTIAL (PRIMARY) HYPERTENSION 12/10/2018 JASVIR MELGOZA MD Ot I25.10 ATHSCL HEART DISEASE OF [place] CORONARY 12/10/2018 JASVIR MELGOZA MD Ot I48.3 TYPICAL ATRIAL FLUTTER 12/10/2018 JASVIR MELGOZA MD Ot E78.5 HYPERLIPIDEMIA, UNSPECIFIED 12/10/2018 JASVIR MELGOZA MD Ot I10 ESSENTIAL (PRIMARY) HYPERTENSION 12/10/2018 JASVIR MELGOZA MD Ot I25.10 ATHSCL HEART DISEASE OF [place] CORONARY 12/10/2018 JASVIR MELGOZA MD Ot I48.3 TYPICAL ATRIAL FLUTTER 12/10/2018 JASVIR MELGOZA MD Ot E78.5 HYPERLIPIDEMIA, UNSPECIFIED 12/10/2018 JASVIR MELGOZA MD Ot I10 ESSENTIAL (PRIMARY) HYPERTENSION 12/10/2018 JASVIR MELGOZA MD Ot I25.10 ATHSCL HEART DISEASE OF [place] CORONARY 12/10/2018 ABAD BAILEY, JASVIR Odonnell Ot I48.3 TYPICAL ATRIAL FLUTTER 12/10/2018 ANGUS MARINELLI DO Ot E66.9 OBESITY, UNSPECIFIED 12/10/2018 ANGUS MARINELLI DO Ot I10 ESSENTIAL (PRIMARY) HYPERTENSION 12/10/2018 ANGUS MARINELLI DO Ot I48.3 TYPICAL ATRIAL FLUTTER 12/10/2018 LEONORA VENTURA Ot E78.2 MIXED HYPERLIPIDEMIA 12/10/2018 LEONORA VENTURA Ot I10 ESSENTIAL (PRIMARY) HYPERTENSION 12/10/2018 LEONORA VENTURA Ot I25.10 ATHSCL HEART DISEASE OF [place] CORONARY 12/10/2018 LEONORA VENTURA Ot I48.0 PAROXYSMAL ATRIAL FIBRILLATION 12/10/2018 MAYRA BAILEY, JEANNE Odonnell Ot R06.00 DYSPNEA, UNSPECIFIED 12/10/2018 JEANNE NUNEZ MD Ot M17.11 UNILATERAL PRIMARY OSTEOARTHRITIS, RIGHT 12/10/2018 Miguel NAYAK MD Ot Z01.818 ENCOUNTER FOR OTHER PREPROCEDURAL EXAMIN 12/10/2018 Miguel NAYAK MD Ot Z01.818 ENCOUNTER FOR OTHER PREPROCEDURAL EXAMIN 12/10/2018 Miguel NAYAK MD Ot Z01.818 ENCOUNTER FOR OTHER PREPROCEDURAL EXAMIN 12/12/2018 Miguel NAYAK MD Ot E78.5 HYPERLIPIDEMIA, UNSPECIFIED 12/12/2018 Miguel NAYAK MD Ot I10 ESSENTIAL (PRIMARY) HYPERTENSION 12/12/2018 Miguel NAYAK MD Ot I48.0 PAROXYSMAL ATRIAL FIBRILLATION 12/12/2018 Miguel NAYAK MD Ot I48.3 TYPICAL ATRIAL FLUTTER 12/12/2018 Miguel NAYAK MD Ot J44.9 CHRONIC OBSTRUCTIVE PULMONARY DISEASE, U 12/12/2018 Miguel NAYAK MD Ot Z11.2 ENCOUNTER FOR SCREENING FOR OTHER BACTER 12/12/2018 Miguel NAYAK MD Ot Z79.899 OTHER THREAD GRINDER TOOL (CURRENT) DRUG THERAPY 12/12/2018 Miguel NAYAK MD, Ot Z88.7 ALLERGY STATUS TO SERUM AND VACCINE STAT 12/12/2018 Miguel NAYAK MD Ot Z95.0 PRESENCE OF CARDIAC PACEMAKER 12/16/2018 Miguel NAYAK MD, Ot E78.5 HYPERLIPIDEMIA, UNSPECIFIED 12/16/2018 Miguel NAYAK MD Ot I10 ESSENTIAL (PRIMARY) HYPERTENSION 12/16/2018 Miguel NAYAK MD Ot I48.0 PAROXYSMAL ATRIAL FIBRILLATION 12/16/2018 Miguel NAYAK MD, Ot I48.3 TYPICAL ATRIAL FLUTTER 12/16/2018 Miguel NAYAK MD, Ot J44.9 CHRONIC OBSTRUCTIVE PULMONARY DISEASE, U 12/16/2018 Miguel NAYAK MD, Ot Z11.2 ENCOUNTER FOR SCREENING FOR OTHER BACTER 12/16/2018 Miguel NAYAK MD, Ot Z79.899 OTHER THREAD GRINDER TOOL (CURRENT) DRUG THERAPY 12/16/2018 Miguel NAYAK MD, Ot Z88.7 ALLERGY STATUS TO SERUM AND VACCINE STAT 12/16/2018 Miguel NAYAK MD Ot Z95.0 PRESENCE OF CARDIAC PACEMAKER Procedures Code Description Performed By Performed On [id number] MEASURE OF CARDIAC SAMPL PRESSURE, L H 07/10/2015 [id number] FLUOROSCOPY OF MULT COR ART USING L OSM 07/10/2015 [id number] FLUOROSCOPY OF LEFT HEART USING LOW OSMO 07/10/2015 [id number] MEASURE OF CARDIAC SAMPL PRESSURE, L H 04/28/2017 [id number] FLUOROSCOPY OF MULT COR ART USING L OSM 04/28/2017 [id number] FLUOROSCOPY OF LEFT HEART USING LOW OSMO 04/28/2017 [id number] FLUOROSCOPY OF THORACIC AORTA USING LOW 04/28/2017 Results Test Result Range Complete blood count (CBC) with automated white blood cell (WBC) differential - 04/26/17 15:10 Blood leukocytes automated count (number/volume) 11.5 10*3/uL 4.3-11.0 Blood erythrocytes automated count (number/volume) 5.58 10*6/uL 4.35-5.85 Venous blood hemoglobin measurement (mass/volume) 16.0 g/dL 13.3-17.7 Blood hematocrit (volume fraction) 48 % 40-54 Automated erythrocyte mean corpuscular volume 87 [foz_us] 80-99 Automated erythrocyte mean corpuscular hemoglobin (mass per erythrocyte) 29 pg 25-34 Automated erythrocyte mean corpuscular hemoglobin concentration measurement ( mass/volume) 33 g/dL 32-36 Automated erythrocyte distribution width ratio 14.9 % 10.0-14.5 Automated blood platelet count (count/volume) 251 10*3/uL 130-400 Automated blood platelet mean volume measurement 10.4 [foz_us] 7.4-10.4 Automated blood neutrophils/100 leukocytes 65 % 42-75 Automated blood lymphocytes/100 leukocytes 23 % 12-44 Blood monocytes/100 leukocytes 9 % 0-12 Automated blood eosinophils/100 leukocytes 3 % 0-10 Automated blood basophils/100 leukocytes 0 % 0-10 Blood neutrophils automated count (number/volume) 7.5 10*3 1.8-7.8 Blood lymphocytes automated count (number/volume) 2.7 10*3 1.0-4.0 Blood monocytes automated count (number/volume) 1.0 10*3 0.0-1.0 Automated eosinophil count 0.3 10*3/uL 0.0-0.3 Automated blood basophil count (count/volume) 0.1 10*3/uL 0.0-0.1 PT panel in platelet poor plasma by coagulation assay - 04/26/17 15:10 Prothrombin time (PT) in platelet poor plasma by coagulation assay 18.0 s 12.2-14.7 INR in platelet poor plasma or blood by coagulation assay 1.5 0.8-1.4 Activated partial thromboplastin time (aPTT) in platelet poor plasma bycoagulation assay - 04/26/17 15:10 Activated partial thromboplastin time (aPTT) in platelet poor plasma bycoagulation assay 47 s 24-35 Comprehensive metabolic panel - 04/26/17 16:10 Serum or plasma sodium measurement (moles/volume) 139 mmol/L 135-145 Serum or plasma potassium measurement (moles/volume) 3.4 mmol/L 3.6-5.0 Serum or plasma chloride measurement (moles/volume) 102 mmol/L 98-107 Carbon dioxide 25 mmol/L 21-32 Serum or plasma anion gap determination (moles/volume) 12 mmol/L 5-14 Serum or plasma urea nitrogen measurement (mass/volume) 25 mg/dL 7-18 Serum or plasma creatinine measurement (mass/volume) 0.95 mg/dL 0.60-1.30 Serum or plasma urea nitrogen/creatinine mass ratio 26 NRG Serum or plasma creatinine measurement with calculation of estimated glomerular filtration rate > NRG Serum or plasma glucose measurement (mass/volume) 174 mg/dL 70-105 Serum or plasma calcium measurement (mass/volume) 8.8 mg/dL 8.5-10.1 Serum or plasma total bilirubin measurement (mass/volume) 0.5 mg/dL 0.1-1.0 Serum or plasma alkaline phosphatase measurement (enzymatic activity/volume) 83 U/L 40-136 Serum or plasma aspartate aminotransferase measurement (enzymatic activity/ volume) 37 U/L 5-34 Serum or plasma alanine aminotransferase measurement (enzymatic activity/volume ) 77 U/L 0-55 Serum or plasma protein measurement (mass/volume) 6.0 g/dL 6.4-8.2 Serum or plasma albumin measurement (mass/volume) 3.5 g/dL 3.2-4.5 Magnesium - 04/26/17 16:10 Magnesium 1.7 mg/dL 1.8-2.4 Serum or plasma troponin i.cardiac measurement (mass/volume) - 04/26/17 16:10 Serum or plasma troponin i.cardiac measurement (mass/volume) < ng/ mL <0.30 Myoglobin, serum - 04/26/17 16:10 Myoglobin, serum 76.8 ng/mL 10.0-92.0 Serum or plasma thyrotropin measurement by detection limit <=0.05 miu/l (units/ volume) - 04/26/17 16:10 Serum or plasma thyrotropin measurement by detection limit <=0.05 miu/l (units/ volume) 1.15 u[iU]/mL 0.35-4.94 Complete blood count (CBC) with automated white blood cell (WBC) differential - 04/27/17 03:04 Blood leukocytes automated count (number/volume) 7.7 10*3/uL 4.3-11.0 Blood erythrocytes automated count (number/volume) 4.81 10*6/uL 4.35-5.85 Venous blood hemoglobin measurement (mass/volume) 13.9 g/dL 13.3-17.7 Blood hematocrit (volume fraction) 42 % 40-54 Automated erythrocyte mean corpuscular volume 88 [foz_us] 80-99 Automated erythrocyte mean corpuscular hemoglobin (mass per erythrocyte) 29 pg 25-34 Automated erythrocyte mean corpuscular hemoglobin concentration measurement ( mass/volume) 33 g/dL 32-36 Automated erythrocyte distribution width ratio 14.6 % 10.0-14.5 Automated blood platelet count (count/volume) 196 10*3/uL 130-400 Automated blood platelet mean volume measurement 10.1 [foz_us] 7.4-10.4 Automated blood neutrophils/100 leukocytes 63 % 42-75 Automated blood lymphocytes/100 leukocytes 27 % 12-44 Blood monocytes/100 leukocytes 7 % 0-12 Automated blood eosinophils/100 leukocytes 2 % 0-10 Automated blood basophils/100 leukocytes 0 % 0-10 Blood neutrophils automated count (number/volume) 4.9 10*3 1.8-7.8 Blood lymphocytes automated count (number/volume) 2.1 10*3 1.0-4.0 Blood monocytes automated count (number/volume) 0.5 10*3 0.0-1.0 Automated eosinophil count 0.2 10*3/uL 0.0-0.3 Automated blood basophil count (count/volume) 0.0 10*3/uL 0.0-0.1 Whole blood basic metabolic panel - 04/27/17 03:04 Serum or plasma sodium measurement (moles/volume) 138 mmol/L 135-145 Serum or plasma potassium measurement (moles/volume) 3.9 mmol/L 3.6-5.0 Serum or plasma chloride measurement (moles/volume) 103 mmol/L 98-107 Carbon dioxide 25 mmol/L 21-32 Serum or plasma anion gap determination (moles/volume) 10 mmol/L 5-14 Serum or plasma urea nitrogen measurement (mass/volume) 28 mg/dL 7-18 Serum or plasma creatinine measurement (mass/volume) 0.83 mg/dL 0.60-1.30 Serum or plasma urea nitrogen/creatinine mass ratio 34 NRG Serum or plasma creatinine measurement with calculation of estimated glomerular filtration rate > NRG Serum or plasma glucose measurement (mass/volume) 111 mg/dL 70-105 Serum or plasma calcium measurement (mass/volume) 8.9 mg/dL 8.5-10.1 Serum or plasma phosphate measurement (mass/volume) - 04/27/17 03:04 Serum or plasma phosphate measurement (mass/volume) 4.0 mg/dL 2.3-4.7 Magnesium - 04/27/17 03:04 Magnesium 1.8 mg/dL 1.8-2.4 Serum or plasma troponin i.cardiac measurement (mass/volume) - 04/27/17 03:04 Serum or plasma troponin i.cardiac measurement (mass/volume) < ng/ mL <0.30 Lipid 1996 panel - 04/27/17 03:04 Serum or plasma triglyceride measurement (mass/volume) 93 mg/dL <150 Serum or plasma cholesterol measurement (mass/volume) 120 mg/dL < 200 Serum or plasma cholesterol in HDL measurement (mass/volume) 32 mg/ dL 40-60 Cholesterol in LDL [mass/volume] in serum or plasma by direct assay 75 mg/dL 1-129 Serum or plasma cholesterol in VLDL measurement (mass/volume) 19 mg/ dL 5-40 Serum or plasma troponin i.cardiac measurement (mass/volume) - 04/27/17 08:00 Serum or plasma troponin i.cardiac measurement (mass/volume) < ng/ mL <0.30 Complete blood count (CBC) with automated white blood cell (WBC) differential - 04/28/17 03:22 Blood leukocytes automated count (number/volume) 8.8 10*3/uL 4.3-11.0 Blood erythrocytes automated count (number/volume) 4.64 10*6/uL 4.35-5.85 Venous blood hemoglobin measurement (mass/volume) 13.4 g/dL 13.3-17.7 Blood hematocrit (volume fraction) 41 % 40-54 Automated erythrocyte mean corpuscular volume 88 [foz_us] 80-99 Automated erythrocyte mean corpuscular hemoglobin (mass per erythrocyte) 29 pg 25-34 Automated erythrocyte mean corpuscular hemoglobin concentration measurement ( mass/volume) 33 g/dL 32-36 Automated erythrocyte distribution width ratio 14.6 % 10.0-14.5 Automated blood platelet count (count/volume) 207 10*3/uL 130-400 Automated blood platelet mean volume measurement 10.0 [foz_us] 7.4-10.4 Automated blood neutrophils/100 leukocytes 69 % 42-75 Automated blood lymphocytes/100 leukocytes 22 % 12-44 Blood monocytes/100 leukocytes 6 % 0-12 Automated blood eosinophils/100 leukocytes 3 % 0-10 Automated blood basophils/100 leukocytes 0 % 0-10 Blood neutrophils automated count (number/volume) 6.1 10*3 1.8-7.8 Blood lymphocytes automated count (number/volume) 1.9 10*3 1.0-4.0 Blood monocytes automated count (number/volume) 0.5 10*3 0.0-1.0 Automated eosinophil count 0.3 10*3/uL 0.0-0.3 Automated blood basophil count (count/volume) 0.0 10*3/uL 0.0-0.1 Whole blood basic metabolic panel - 04/28/17 03:22 Serum or plasma sodium measurement (moles/volume) 139 mmol/L 135-145 Serum or plasma potassium measurement (moles/volume) 3.9 mmol/L 3.6-5.0 Serum or plasma chloride measurement (moles/volume) 105 mmol/L 98-107 Carbon dioxide 21 mmol/L 21-32 Serum or plasma anion gap determination (moles/volume) 13 mmol/L 5-14 Serum or plasma urea nitrogen measurement (mass/volume) 21 mg/dL 7-18 Serum or plasma creatinine measurement (mass/volume) 0.78 mg/dL 0.60-1.30 Serum or plasma urea nitrogen/creatinine mass ratio 27 NRG Serum or plasma creatinine measurement with calculation of estimated glomerular filtration rate > NRG Serum or plasma glucose measurement (mass/volume) 111 mg/dL 70-105 Serum or plasma calcium measurement (mass/volume) 8.6 mg/dL 8.5-10.1 Serum or plasma phosphate measurement (mass/volume) - 04/28/17 03:22 Serum or plasma phosphate measurement (mass/volume) 3.2 mg/dL 2.3-4.7 Magnesium - 04/28/17 03:22 Magnesium 1.7 mg/dL 1.8-2.4 THYROID STIMULATING HORMONE - 04/28/17 03:22 THYROID STIMULATING HORMONE 1.43 u[iU]/mL 0.35-4.94 Comprehensive metabolic panel - 05/02/17 11:05 Serum or plasma sodium measurement (moles/volume) 138 mmol/L 135-145 Serum or plasma potassium measurement (moles/volume) 4.0 mmol/L 3.6-5.0 Serum or plasma chloride measurement (moles/volume) 102 mmol/L 98-107 Carbon dioxide 24 mmol/L 21-32 Serum or plasma anion gap determination (moles/volume) 12 mmol/L 5-14 Serum or plasma urea nitrogen measurement (mass/volume) 17 mg/dL 7-18 Serum or plasma creatinine measurement (mass/volume) 0.91 mg/dL 0.60-1.30 Serum or plasma urea nitrogen/creatinine mass ratio 19 NRG Serum or plasma creatinine measurement with calculation of estimated glomerular filtration rate > NRG Serum or plasma glucose measurement (mass/volume) 126 mg/dL 70-105 Serum or plasma calcium measurement (mass/volume) 9.7 mg/dL 8.5-10.1 Serum or plasma total bilirubin measurement (mass/volume) 1.2 mg/dL 0.1-1.0 Serum or plasma alkaline phosphatase measurement (enzymatic activity/volume) 82 U/L 40-136 Serum or plasma aspartate aminotransferase measurement (enzymatic activity/ volume) 28 U/L 5-34 Serum or plasma alanine aminotransferase measurement (enzymatic activity/volume ) 83 U/L 0-55 Serum or plasma protein measurement (mass/volume) 6.8 g/dL 6.4-8.2 Serum or plasma albumin measurement (mass/volume) 3.8 g/dL 3.2-4.5 Magnesium - 05/02/17 11:05 Magnesium 2.1 mg/dL 1.8-2.4 PT panel in platelet poor plasma by coagulation assay - 05/02/17 11:05 Prothrombin time (PT) in platelet poor plasma by coagulation assay 16.7 s 12.2-14.7 INR in platelet poor plasma or blood by coagulation assay 1.4 0.8-1.4 Activated partial thromboplastin time (aPTT) in platelet poor plasma bycoagulation assay - 05/02/17 11:05 Activated partial thromboplastin time (aPTT) in platelet poor plasma bycoagulation assay 47 s 24-35 Complete blood count (CBC) with automated white blood cell (WBC) differential - 05/02/17 11:05 Blood leukocytes automated count (number/volume) 11.0 10*3/uL 4.3-11.0 Blood erythrocytes automated count (number/volume) 5.41 10*6/uL 4.35-5.85 Venous blood hemoglobin measurement (mass/volume) 15.4 g/dL 13.3-17.7 Blood hematocrit (volume fraction) 47 % 40-54 Automated erythrocyte mean corpuscular volume 86 [foz_us] 80-99 Automated erythrocyte mean corpuscular hemoglobin (mass per erythrocyte) 29 pg 25-34 Automated erythrocyte mean corpuscular hemoglobin concentration measurement ( mass/volume) 33 g/dL 32-36 Automated erythrocyte distribution width ratio 14.9 % 10.0-14.5 Automated blood platelet count (count/volume) 246 10*3/uL 130-400 Automated blood platelet mean volume measurement 9.9 [foz_us] 7.4-10.4 Automated blood neutrophils/100 leukocytes 72 % 42-75 Automated blood lymphocytes/100 leukocytes 17 % 12-44 Blood monocytes/100 leukocytes 9 % 0-12 Automated blood eosinophils/100 leukocytes 3 % 0-10 Automated blood basophils/100 leukocytes 0 % 0-10 Blood neutrophils automated count (number/volume) 7.9 10*3 1.8-7.8 Blood lymphocytes automated count (number/volume) 1.8 10*3 1.0-4.0 Blood monocytes automated count (number/volume) 1.0 10*3 0.0-1.0 Automated eosinophil count 0.3 10*3/uL 0.0-0.3 Automated blood basophil count (count/volume) 0.0 10*3/uL 0.0-0.1 Serum or plasma troponin i.cardiac measurement (mass/volume) - 05/02/17 11:05 Serum or plasma troponin i.cardiac measurement (mass/volume) < ng/ mL <0.30 Myoglobin, serum - 05/02/17 11:05 Myoglobin, serum 95.5 ng/mL 10.0-92.0 Serum or plasma lithium measurement (moles/volume) - 05/02/17 11:05 BNP level 577.1 pg/mL <100.0 Fibrin D-dimer FEU measurement in platelet poor plasma (mass/volume) - 09:53 Fibrin D-dimer FEU measurement in platelet poor plasma (mass/volume) 0.29 ug/mL 0.00-0.49 Automated blood complete blood count (hemogram) panel - 08/24/18 07:10 Blood leukocytes automated count (number/volume) 7.1 10*3/uL 4.3-11.0 Blood erythrocytes automated count (number/volume) 5.56 10*6/uL 4.35-5.85 Venous blood hemoglobin measurement (mass/volume) 15.9 g/dL 13.3-17.7 Blood hematocrit (volume fraction) 47 % 40-54 Automated erythrocyte mean corpuscular volume 85 [foz_us] 80-99 Automated erythrocyte mean corpuscular hemoglobin (mass per erythrocyte) 29 pg 25-34 Automated erythrocyte mean corpuscular hemoglobin concentration measurement ( mass/volume) 34 g/dL 32-36 Automated erythrocyte distribution width ratio 15.0 % 10.0-14.5 Automated blood platelet count (count/volume) 237 10*3/uL 130-400 Automated blood platelet mean volume measurement 10.0 [foz_us] 7.4-10.4 PT panel in platelet poor plasma by coagulation assay - 08/24/18 07:10 Prothrombin time (PT) in platelet poor plasma by coagulation assay 14.4 s 12.2-14.7 INR in platelet poor plasma or blood by coagulation assay 1.1 0.8-1.4 Activated partial thromboplastin time (aPTT) in platelet poor plasma bycoagulation assay - 08/24/18 07:10 Activated partial thromboplastin time (aPTT) in platelet poor plasma bycoagulation assay 36 s 24-35 Comprehensive metabolic panel - 08/24/18 07:10 Serum or plasma sodium measurement (moles/volume) 138 mmol/L 135-145 Serum or plasma potassium measurement (moles/volume) 3.9 mmol/L 3.6-5.0 Serum or plasma chloride measurement (moles/volume) 100 mmol/L 98-107 Carbon dioxide 27 mmol/L 21-32 Serum or plasma anion gap determination (moles/volume) 11 mmol/L 5-14 Serum or plasma urea nitrogen measurement (mass/volume) 22 mg/dL 7-18 Serum or plasma creatinine measurement (mass/volume) 1.03 mg/dL 0.60-1.30 Serum or plasma urea nitrogen/creatinine mass ratio 21 NRG Serum or plasma creatinine measurement with calculation of estimated glomerular filtration rate > NRG Serum or plasma glucose measurement (mass/volume) 119 mg/dL 70-105 Serum or plasma calcium measurement (mass/volume) 9.8 mg/dL 8.5-10.1 Serum or plasma total bilirubin measurement (mass/volume) 0.9 mg/dL 0.1-1.0 Serum or plasma alkaline phosphatase measurement (enzymatic activity/volume) 106 U/L 40-136 Serum or plasma aspartate aminotransferase measurement (enzymatic activity/ volume) 26 U/L 5-34 Serum or plasma alanine aminotransferase measurement (enzymatic activity/volume ) 41 U/L 0-55 Serum or plasma protein measurement (mass/volume) 7.3 g/dL 6.4-8.2 Serum or plasma albumin measurement (mass/volume) 4.2 g/dL 3.2-4.5 CALCIUM CORRECTED 9.6 mg/dL 8.5-10.1 Methicillin resistant Staphylococcus aureus (MRSA) screening culture - 07:10 Methicillin resistant Staphylococcus aureus (MRSA) screening culture NEG NRG Automated blood complete blood count (hemogram) panel - 08/25/18 03:16 Blood leukocytes automated count (number/volume) 7.9 10*3/uL 4.3-11.0 Blood erythrocytes automated count (number/volume) 5.37 10*6/uL 4.35-5.85 Venous blood hemoglobin measurement (mass/volume) 15.2 g/dL 13.3-17.7 Blood hematocrit (volume fraction) 46 % 40-54 Automated erythrocyte mean corpuscular volume 86 [foz_us] 80-99 Automated erythrocyte mean corpuscular hemoglobin (mass per erythrocyte) 28 pg 25-34 Automated erythrocyte mean corpuscular hemoglobin concentration measurement ( mass/volume) 33 g/dL 32-36 Automated erythrocyte distribution width ratio 14.9 % 10.0-14.5 Automated blood platelet count (count/volume) 191 10*3/uL 130-400 Automated blood platelet mean volume measurement 10.0 [foz_us] 7.4-10.4 Comprehensive metabolic panel - 08/25/18 03:16 Serum or plasma sodium measurement (moles/volume) 137 mmol/L 135-145 Serum or plasma potassium measurement (moles/volume) 4.1 mmol/L 3.6-5.0 Serum or plasma chloride measurement (moles/volume) 105 mmol/L 98-107 Carbon dioxide 20 mmol/L 21-32 Serum or plasma anion gap determination (moles/volume) 12 mmol/L 5-14 Serum or plasma urea nitrogen measurement (mass/volume) 22 mg/dL 7-18 Serum or plasma creatinine measurement (mass/volume) 0.87 mg/dL 0.60-1.30 Serum or plasma urea nitrogen/creatinine mass ratio 25 NRG Serum or plasma creatinine measurement with calculation of estimated glomerular filtration rate > NRG Serum or plasma glucose measurement (mass/volume) 139 mg/dL 70-105 Serum or plasma calcium measurement (mass/volume) 9.1 mg/dL 8.5-10.1 Serum or plasma total bilirubin measurement (mass/volume) 0.8 mg/dL 0.1-1.0 Serum or plasma alkaline phosphatase measurement (enzymatic activity/volume) 94 U/L 40-136 Serum or plasma aspartate aminotransferase measurement (enzymatic activity/ volume) 21 U/L 5-34 Serum or plasma alanine aminotransferase measurement (enzymatic activity/volume ) 33 U/L 0-55 Serum or plasma protein measurement (mass/volume) 6.4 g/dL 6.4-8.2 Serum or plasma albumin measurement (mass/volume) 3.7 g/dL 3.2-4.5 CALCIUM CORRECTED 9.3 mg/dL 8.5-10.1 Automated blood complete blood count (hemogram) panel - 12/10/18 07:17 Blood leukocytes automated count (number/volume) 6.3 10*3/uL 4.3-11.0 Blood erythrocytes automated count (number/volume) 5.38 10*6/uL 4.35-5.85 Venous blood hemoglobin measurement (mass/volume) 15.2 g/dL 13.3-17.7 Blood hematocrit (volume fraction) 45 % 40-54 Automated erythrocyte mean corpuscular volume 84 [foz_us] 80-99 Automated erythrocyte mean corpuscular hemoglobin (mass per erythrocyte) 28 pg 25-34 Automated erythrocyte mean corpuscular hemoglobin concentration measurement ( mass/volume) 34 g/dL 32-36 Automated erythrocyte distribution width ratio 14.5 % 10.0-14.5 Automated blood platelet count (count/volume) 230 10*3/uL 130-400 Automated blood platelet mean volume measurement 9.7 [foz_us] 7.4-10.4 PT panel in platelet poor plasma by coagulation assay - 12/10/18 07:17 Prothrombin time (PT) in platelet poor plasma by coagulation assay 13.9 s 12.2-14.7 INR in platelet poor plasma or blood by coagulation assay 1.1 0.8-1.4 Activated partial thromboplastin time (aPTT) in platelet poor plasma bycoagulation assay - 12/10/18 07:17 Activated partial thromboplastin time (aPTT) in platelet poor plasma bycoagulation assay 34 s 24-35 Comprehensive metabolic panel - 12/10/18 07:17 Serum or plasma sodium measurement (moles/volume) 137 mmol/L 135-145 Serum or plasma potassium measurement (moles/volume) 3.8 mmol/L 3.6-5.0 Serum or plasma chloride measurement (moles/volume) 102 mmol/L 98-107 Carbon dioxide 25 mmol/L 21-32 Serum or plasma anion gap determination (moles/volume) 10 mmol/L 5-14 Serum or plasma urea nitrogen measurement (mass/volume) 17 mg/dL 7-18 Serum or plasma creatinine measurement (mass/volume) 0.94 mg/dL 0.60-1.30 Serum or plasma urea nitrogen/creatinine mass ratio 18 NRG Serum or plasma creatinine measurement with calculation of estimated glomerular filtration rate > NRG Serum or plasma glucose measurement (mass/volume) 143 mg/dL 70-105 Serum or plasma calcium measurement (mass/volume) 9.4 mg/dL 8.5-10.1 Serum or plasma total bilirubin measurement (mass/volume) 0.5 mg/dL 0.1-1.0 Serum or plasma alkaline phosphatase measurement (enzymatic activity/volume) 102 U/L 40-136 Serum or plasma aspartate aminotransferase measurement (enzymatic activity/ volume) 33 U/L 5-34 Serum or plasma alanine aminotransferase measurement (enzymatic activity/volume ) 42 U/L 0-55 Serum or plasma protein measurement (mass/volume) 6.7 g/dL 6.4-8.2 Serum or plasma albumin measurement (mass/volume) 3.9 g/dL 3.2-4.5 CALCIUM CORRECTED 9.5 mg/dL 8.5-10.1 Methicillin resistant Staphylococcus aureus (MRSA) screening culture - 07:17 Methicillin resistant Staphylococcus aureus (MRSA) screening culture NEG NRG Automated blood complete blood count (hemogram) panel - 12/11/18 04:15 Blood leukocytes automated count (number/volume) 11.0 10*3/uL 4.3-11.0 Blood erythrocytes automated count (number/volume) 4.74 10*6/uL 4.35-5.85 Venous blood hemoglobin measurement (mass/volume) 13.2 g/dL 13.3-17.7 Blood hematocrit (volume fraction) 40 % 40-54 Automated erythrocyte mean corpuscular volume 84 [foz_us] 80-99 Automated erythrocyte mean corpuscular hemoglobin (mass per erythrocyte) 28 pg 25-34 Automated erythrocyte mean corpuscular hemoglobin concentration measurement ( mass/volume) 33 g/dL 32-36 Automated erythrocyte distribution width ratio 14.1 % 10.0-14.5 Automated blood platelet count (count/volume) 182 10*3/uL 130-400 Automated blood platelet mean volume measurement 10.1 [foz_us] 7.4-10.4 Whole blood basic metabolic panel - 12/11/18 04:15 Serum or plasma sodium measurement (moles/volume) 133 mmol/L 135-145 Serum or plasma potassium measurement (moles/volume) 4.4 mmol/L 3.6-5.0 Serum or plasma chloride measurement (moles/volume) 102 mmol/L 98-107 Carbon dioxide 21 mmol/L 21-32 Serum or plasma anion gap determination (moles/volume) 10 mmol/L 5-14 Serum or plasma urea nitrogen measurement (mass/volume) 23 mg/dL 7-18 Serum or plasma creatinine measurement (mass/volume) 1.10 mg/dL 0.60-1.30 Serum or plasma urea nitrogen/creatinine mass ratio 21 NRG Serum or plasma creatinine measurement with calculation of estimated glomerular filtration rate > NRG Serum or plasma glucose measurement (mass/volume) 224 mg/dL 70-105 Serum or plasma calcium measurement (mass/volume) 8.7 mg/dL 8.5-10.1 Encounters ACCT No. Visit Date/Time Discharge Status Pt. Type Provider Facility Loc./Unit Complaint [id number] 12/10/2018 07:02:00 12/11/2018 08:15:00 DIS Outpatient Miguel NAYAK MD [facility] CATH TYPICAL ATRIAL FLUTTER [id number] 12/05/2018 05:33:00 12/05/2018 23:59:59 CLS Outpatient Miguel NAYAK MD [facility] PREOP ATRIAL FLUTTER [id number] 10/29/2018 06:25:00 10/29/2018 23:59:59 CLS Outpatient Miguel NAYAK MD [facility] PREOP ATRIAL FLUTTER [id number] 09/26/2018 05:36:00 09/26/2018 23:59:59 CLS Outpatient Miguel NAYAK MD [facility] PREOP TYPICAL ATRIAL FLUTTER [id number] 08/24/2018 06:40:00 08/25/2018 16:05:00 DIS Outpatient Miguel NAYAK MD [facility] CATH SEVERE SINUS NODE DYSFUCTION,>10 SECOND PAUSE [id number] 03/21/2018 09:37:00 03/21/2018 12:02:00 DIS Outpatient JEANNE NUNEZ MD [facility] REHAB R KNEE MEDIAL COMPARTMENT DJD [id number] 02/07/2018 12:03:00 02/07/2018 23:59:59 CLS Outpatient JEANNE NUNEZ MD [facility] RAD R KNEE PAIN [id number] 11/29/2017 07:29:00 11/29/2017 11:51:00 DIS Outpatient JASVIR MELGOZA MD [facility] CATH DIZZINESS [id number] 05/03/2017 09:46:00 05/03/2017 23:59:59 CLS Outpatient JEANNE NUNEZ MD [facility] LAB DYSPNEA [id number] 05/02/2017 10:50:00 05/02/2017 13:06:00 DIS Emergency [employer] [facility] ER IRR HEART RATE/SOA [id number] 04/26/2017 17:52:00 04/28/2017 18:35:00 DIS Inpatient JEANNE NUNEZ MD [facility] ICU A-FLUTTER W/RUR,CHEST PAIN [id number] 04/10/2017 07:27:00 04/10/2017 23:59:59 CLS Outpatient LEONORA VENTURA [facility] CARD I25.10 I10 E78.2 I48.0 [id number] 09/23/2015 11:08:00 09/23/2015 23:59:59 CLS Outpatient ANGUS MARINELLI DO [facility] RT ADRIAL FLUTTER,HTN, DYSPNEA [id number] 08/28/2015 20:00:00 08/29/2015 07:07:00 DIS Outpatient LEONORA VENTURA [facility] SLEEP SNORING [id number] 07/15/2015 20:00:00 07/16/2015 05:55:00 DIS Outpatient JASVIR MELGOZA MD [facility] SLEEP AFIB,HTN [id number] 07/08/2015 12:21:00 07/08/2015 23:59:59 CLS Outpatient JASVIR MELGOZA MD [facility] CARD ATRIAL FLUTTER,HTN,HLP [id number] 07/06/2015 12:41:00 07/06/2015 23:59:59 CLS Outpatient JASVIR MELGOZA MD [facility] CARD ATRIAL FLUTTER,HTN,HLP, CAD [id number] 07/06/2015 12:35:00 07/06/2015 23:59:59 CLS Outpatient JASVIR MELGOZA MD [facility] CARD AFIB,CAD,HTN,HLP [id number] 06/29/2015 08:52:00 06/29/2015 23:59:59 CLS Outpatient JEANNE NUNEZ MD [facility] CARD HYPERTENSION [id number] 06/17/2015 08:36:00 06/17/2015 13:30:00 DIS Outpatient IRVIN MACIAS MD [facility] SDC SCREENING [id number] 06/15/2015 05:40:00 06/15/2015 23:59:59 CLS Outpatient IRVIN MACIAS MD [facility] PREOP SCREENING [id number] 01/02/2019 06:43:00 ACT Outpatient JASVIR MELGOZA MD [facility] CATH A FLUTTER [id number] 07/10/2015 16:02:00 ACT Inpatient JASVIR MELGOZA MD [facility] CSD NSVT,CAD,AFLUTTER
[2019-01-02] MEDS ORDERED: NS IV 1000 ML 1,000 ML ONE (06:59)
[2019-01-02] MEDS ORDERED: LIDOCAINE 2% VISCOUS 15 ML UDC PO ONE (07:00)
[2019-01-02] MEDS ORDERED: NS IV 1000 ML 1,000 ML IV SCH (07:00)
[2019-01-02 07:27] LABS: HEMOGLOBIN 15.6 G/DL (13.3-17.7); MEAN PLATELET VOLUME 9.7 FL (7.4-10.4); RED CELL DISTRIBUTION WIDTH 14.9 % (10.0-14.5); WHITE BLOOD COUNT 6.8 10^3/uL (4.3-11.0)
[2019-01-02 07:38] LABS: INR 1.2 (0.8-1.4); PROTHROMBIN TIME PATIENT 15.4 SEC (12.2-14.7)
[2019-01-02 07:45] LABS: ALANINE AMINOTRANSFERASE 52 U/L (0-55); ALBUMIN 3.9 GM/DL (3.2-4.5); ALKALINE PHOSPHATASE 117 U/L (40-136); BILIRUBIN,TOTAL 0.8 MG/DL (0.1-1.0); BUN/CREATININE RATIO 17; CALCIUM 9.7 MG/DL (8.5-10.1); CARBON DIOXIDE 25 MMOL/L (21-32); CHLORIDE 104 MMOL/L (98-107); CHOLESTEROL 149 MG/DL (< 200); CREATININE SERUM 1.01 MG/DL (0.60-1.30); GFR ESTIMATED > 60; GLUCOSE 142 MG/DL (70-105); HDL CHOLESTEROL 32 MG/DL (40-60); POTASSIUM 4.1 MMOL/L (3.6-5.0); SODIUM 139 MMOL/L (135-145); TOTAL PROTEIN 6.6 GM/DL (6.4-8.2); TRIGLYCERIDES 247 MG/DL (<150); VLDL CHOLESTEROL 49 MG/DL (5-40)
[2019-01-02] MEDS ORDERED: proPOfol 200 MG/20 ML (DIPRIVAN) VIAL IV ONE (08:13)
[2019-01-02] MEDS ORDERED: MIDAZOLAM 2 MG/2 ML (VERSED) VIAL ONE (08:13)
--- NOTE | 2019-01-02 08:33 | Cardiac Procedure Note-CS/ASA ---
Pre-Procedure Note Pre-Op Procedure Note H&P Reviewed The H&P was reviewed, patient examined and no changes noted. Date H&P Reviewed: Jan 02, 2019 Time H&P Reviewed: 08:32 Conscious Sedation Pre-Proced Time 08:32 ASA Score 3 For ASA 3 and 4: Consider anesthesia and medical clearance. Also, for patients with a history of failed moderate sedation consider anesthesia. Airway Lungs Heart ASA score ASA 1: a normal healthy patient ASA 2: a patient with a mild systemic disease (mid diabetes, controlled hypertension, obesity x ASA 3: a patient with a severe systemic disease that limits activity (angina , COPD, prior Myocardial infarction) ASA 4: a patient with an incapacitating disease that is a constant threat to life (CHF, renal failure) ASA 5: a moribund patient not expected to survive 24 hrs. (ruptured aneurysm) ASA 6: a declared brain- patient whose organs are being harvested. For emergent operations, add the letter E after the classification Mallampati Classification Grade 3 Sedation Plan Analgesia, Amnesia, Plan communicated to team members, Discussed options with patient/fam, Discussed risks with patient/fam The patient is an appropriate candidate to undergo the planned procedure, sedation, and anesthesia. The patient immediately re-assessed prior to indication. JASVIR MELGOZA MD Jan 02, 2019 08:33
--- NOTE | 2019-01-02 08:53 | Anesthesia-General Post-Op ---
MAC Patient Condition Mental Status/LOC: Same as Preop Post Op Complications Complications None Follow Up Care/Instructions Patient Instructions None needed. Anesthesiology Discharge Order Discharge Order Patient is doing well, no complaints, stable vital signs, no apparent adverse anesthesia problems. No complications reported per nursing. POP COFFEY CRNA Jan 02, 2019 08:53
--- NOTE | 2019-01-02 08:53 | Anesthesia-Procedure Note ---
Procedures/Interventions Procedure Start/Stop/Diagnosis Date of Procedure: Jan 02, 2019 Start Time: 08:35 Stop Time: 08:47 JUSTIN/Cardioversion Anesthesia Type: mac ASA Class: 3 Medications propofol 40 mg IV Monitors and Equipment: BP Cuff - Left, Continuous EKG, End Tidal CO2, IV, Pulse Oximeter, V Lead EKG POP COFFEY CRNA Jan 02, 2019 08:53
--- NOTE | 2019-01-02 08:58 | Cardioversion ---
Cardioversion PROCEDURE PHYSICIAN: Jasvir Layne DATE OF PROCEDURE: 01/02/19 DIRECT EXTERNAL ELECTRICAL CARDIOVERSION: Indications: Atrial Flutter with rapid ventricular rate Preoperative diagnoses: Atrial Flutter with rapid ventricular rate Postoperative diagnosis: Sinus rhythm, Successful Electrical Cardioversion History: 68 years old gentleman with paroxysmal atrial fibrillation/flutter, had ablation , return to the office with increasing shortness of breath, noted to be back in atrial flutter with variable response. Anesthesia: By Anesthesia services Complications: None Specimen: None Contrast: 0 Flouroscopy: none Procedure Details: The patient was brought the orthodontic laboratory technician after informed consent was taken, all the risks and complications were explained including the risk of stroke. Electrical cardioversion was carried out with anesthesia support with propofol. 200 joules of synchronized shock was delivered through external patches which promptly restored sinus rhythm. The patient tolerated the procedure well. Conclusions: Successful electrical cardioversion with no complication Final Diagnosis: Paroxysmal atrial flutter Chronic atrial fibrillation Hypertension Hyperlipidemia JASVIR LAYNE MD Jan 02, 2019 08:58
--- NOTE | 2019-01-02 09:09 | Diagnostic Imaging Report ---
EXAMINATION: Portable erect AP chest at 725h. INDICATION: Preop no chest complaints. There is a better inspiratory effort on this study than on the prior exam of 08/24/2018. Allowing for this technical factor the heart is enlarged but stable. The lungs are clear although the left retrocardiac region is not well penetrated. There is no sign of failure, pneumonia or a pleural effusion. Mediastinum is not widened. The osseous structures are intact. The left-sided pacemaker and the loop recorder device seen on the prior study are again visualized and no different. IMPRESSION: There is cardiomegaly but there is no evidence for an acute cardiopulmonary abnormality. Dictated by: Dictated on workstation # [id number]
[2019-01-02] MEDS ORDERED: NON-FORMULARY MEDICATION 1 EA EA (Diltiazem HCl (Cartia Xt) 120 MG) PO SCH (21:00)
[2019-01-02] MEDS ORDERED: NON-FORMULARY MEDICATION 1 EA EA (Dabigatran Etexilate Mesylate (Pradaxa) 150 MG) PO SCH (21:00)
[2019-01-02] MEDS ORDERED: NON-FORMULARY MEDICATION 1 EA EA (Sotalol HCl (Sotalol) 80 MG) PO SCH (21:00)
== END 2019-01-02 10:07 | disposition home or self-care (01) ==
LOC: CATH 06:43
PROVIDERS: ATTEND Internal Medicine Cardiovascular Disease
DX: I48.92 Unspecified atrial flutter (principal); I48.2 Chronic atrial fibrillation; I10 Essential (primary) hypertension; E78.5 Hyperlipidemia, unspecified; I25.10 Atherosclerotic heart disease of native coronary artery without angina pectoris; N40.0 Benign prostatic hyperplasia without lower urinary tract symptoms; I49.5 Sick sinus syndrome; J44.9 Chronic obstructive pulmonary disease, unspecified; G47.33 Obstructive sleep apnea (adult) (pediatric); Z79.899 Other long term (current) drug therapy; Z88.7 Allergy status to serum and vaccine; Z95.0 Presence of cardiac pacemaker; E66.01 Morbid (severe) obesity due to excess calories; I65.29 Occlusion and stenosis of unspecified carotid artery; Z68.41 Body mass index [BMI] 40.0-44.9, adult; Z91.041 Radiographic dye allergy status
CPT/HCPCS: 36415; 71045; 80053; 80061; 85027; 85610; 85730; 87081; 90471; 92960; 93005

== ENCOUNTER 2019-01-08 15:13 | Inpatient (IN) | payer MEDICARE, OTHER ==
[~2019-01-08] VITALS: Ht 170.2 cm; Wt 115.2 kg
[2019-01-08 16:22] LABS: BASOPHILS % (AUTO) 1 % (0-10); EOSINOPHILS # (AUTO) 0.2 10^3/uL (0.0-0.3); EOSINOPHILS % (AUTO) 4 % (0-10); HEMATOCRIT 45 % (40-54); HEMOGLOBIN 14.7 G/DL (13.3-17.7); LYMPHOCYTES # (AUTO) 1.7 X 10^3 (1.0-4.0); LYMPHOCYTES % (AUTO) 29 % (12-44); MEAN CORPUSCULAR HEMOGLOBIN 28 PG (25-34); MEAN CORPUSCULAR HGB CONC 33 G/DL (32-36); MEAN CORPUSCULAR VOLUME 84 FL (80-99); MEAN PLATELET VOLUME 9.8 FL (7.4-10.4); MONOCYTES # (AUTO) 0.5 X 10^3 (0.0-1.0); MONOCYTES % (AUTO) 9 % (0-12); NEUTROPHILS # (AUTO) 3.4 X 10^3 (1.8-7.8); NEUTROPHILS % (AUTO) 58 % (42-75); PLATELET COUNT 201 10^3/uL (130-400); RED CELL DISTRIBUTION WIDTH 14.8 % (10.0-14.5); WHITE BLOOD COUNT 5.8 10^3/uL (4.3-11.0)
[2019-01-08 16:38] LABS: INR 1.3 (0.8-1.4)
[2019-01-08 16:42] LABS: ALANINE AMINOTRANSFERASE 51 U/L (0-55); ALBUMIN 3.7 GM/DL (3.2-4.5); ALKALINE PHOSPHATASE 94 U/L (40-136); BILIRUBIN,TOTAL 0.6 MG/DL (0.1-1.0); BUN/CREATININE RATIO 15; CALCIUM 9.5 MG/DL (8.5-10.1); CARBON DIOXIDE 28 MMOL/L (21-32); CHLORIDE 101 MMOL/L (98-107); CREATININE SERUM 1.01 MG/DL (0.60-1.30); GFR ESTIMATED > 60; GLUCOSE 149 MG/DL (70-105); MAGNESIUM 1.9 MG/DL (1.8-2.4); POTASSIUM 3.9 MMOL/L (3.6-5.0); SODIUM 138 MMOL/L (135-145); TOTAL PROTEIN 6.3 GM/DL (6.4-8.2)
--- NOTE | 2019-01-08 16:44 | Diagnostic Imaging Report ---
INDICATION: Irregular heartbeat. Frontal chest obtained at 04:26 p.m. and compared to 01/02/2019. There is cardiomegaly. There is a pacemaker device in place which is unchanged compared to the prior study. There is no focal infiltrate, pneumothorax, or pleural fluid. IMPRESSION: Cardiomegaly with unchanged pacemaker device. No acute infiltrate, pneumothorax, or pleural fluid. Dictated by: Dictated on workstation # [id number]
--- NOTE | 2019-01-08 16:48 | ED Cardiac General ---
History of Present Illness General Chief Complaint: Cardiac/General Problems Stated Complaint: IRR HEART RATE Nursing Triage Note: Pt sent to ED from Dr. Layne's office. Pt reports heart rate was 120 at the office and pt was told to come to the ED. Pt c/o SOB for 3-4 days. Pt reports having a pacemaker that was out of rhythm on Mon and pt was shocked at that time. Source: patient Exam Limitations: no limitations History of Present Illness Date Seen by Provider: Jan 08, 2019 Time Seen by Provider: 15:31 Initial Comments Here with report of fast heart rate intermittently over the last few days. Apparently had heart rate 120s in the office today. Heart rate currently in the 60s. Denies chest pain or breathing problems. 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er.24h, 120 MG PO BID, (Reported) Enalapril Maleate 10 Mg Tablet, 10 MG PO DAILY, (Reported) Furosemide 20 Mg Tablet, 20 MG PO DAILY, (Reported) Hydrochlorothiazide 25 Mg Tablet, 25 MG PO DAILY, (Reported) Ibuprofen 200 Mg Tablet, 400 MG PO TID PRN for PAIN-MILD, (Reported) Loratadine 10 Mg Tablet, 10 MG PO DAILY, (Reported) Montelukast Sodium 10 Mg Tablet, 10 MG PO HS, (Reported) Naproxen Sodium 220 Mg Tablet, 440 MG PO Q8H PRN for PAIN-MILD, (Reported) Potassium Chloride 10 Meq Tab.er.prt, 10 MEQ PO DAILY, (Reported) Sotalol HCl 80 Mg Tablet, 80 MG PO BID, (Reported) Patient Home Medication List Home Medication List Reviewed: Yes Review of Systems Review of Systems Constitutional: see HPI; No chills, No fever EENTM: No Symptoms Reported Respiratory: No Symptoms Reported Cardiovascular: See HPI; Denies Chest Pain; Irregular Heart Rate; Denies Lightheadedness; Palpitations Gastrointestinal: No Symptoms Reported Genitourinary: No Symptoms Reported All Other Systems Reviewed Negative Unless Noted: Yes Past [id number]-[id number]-Cszrzd Hx Past Med/Social Hx: Reviewed Nursing Past Med/Soc Hx Patient Social History Alcohol Use: Denies Use Recreational Drug Use: No 2nd Hand Smoke Exposure: No Recent Foreign Travel: No Contact w/Someone Who Travel: No Recent Infectious Disease Expo: No Recent Hopitalizations: No Physical Abuse: No Sexual Abuse: No Immunizations Up To Date Date of Pneumonia Vaccine: Jul 02, 2018 Date of Influenza Vaccine: Jul 11, 2018 Seasonal Allergies Seasonal Allergies: No Past Medical History Surgeries: Yes (HEMORRHOIDS X3, EP STUDY WITH ABLATION) Cardiac, Pacemaker Respiratory: No Currently Using CPAP: Yes Currently Using BIPAP: No Cardiac: Yes (A-FIB) Angina, Atrial Fibrillation, Coronary Artery Disease, Hypertension Neurological: No Reproductive Disorders: No Genitourinary: No Prostate Problems Gastrointestinal: Yes Irritable Bowel Musculoskeletal: No Endocrine: No HEENT: No Loss of Vision: Denies Hearing Impairment: Denies Cancer: No Psychosocial: Yes Anxiety Integumentary: No Blood Disorders: No Family Medical History Reviewed Nursing Family Hx Completed stroke 19 MOTHER Myocardial infarction 19 FATHER Physical Exam Vital Signs Vital Signs - First Documented 01/08/19 15:15 Temp 97.6 Pulse 109 Resp 16 B/P (MAP) 118/95 (103) Pulse Ox 98 O2 Delivery Room Air Capillary Refill : Less Than 3 Seconds Height, Weight, BMI Height: 5'7.00" Weight: 254lbs. 0.0oz. 115.928083hb; 39.9 BMI Method:Stated General Appearance: No Apparent Distress, WD/WN HEENT: PERRL/EOMI, Pharynx Normal Neck: Non Tender, Supple Respiratory: Lungs Clear, Normal Breath Sounds Cardiovascular: No Murmur, Irregularly Irregular Gastrointestinal: Non Tender, Soft Extremity: Normal Range of Motion, Non Tender Neurologic/Psychiatric: Alert, Oriented x3 Skin: Normal Color, Warm/Dry Progress/Results/Core Measures Results/Orders Lab Results Laboratory Tests Test 01/08/19 16:10 Range/Units White Blood Count 5.8 4.3-11.0 10^3/uL Red Blood Count 5.28 4.35-5.85 10^6/uL Hemoglobin 14.7 13.3-17.7 G/DL Hematocrit 45 40-54 % Mean Corpuscular Volume 84 80-99 FL Mean Corpuscular Hemoglobin 28 25-34 PG Mean Corpuscular Hemoglobin Concent 33 32-36 G/DL Red Cell Distribution Width 14.8 H 10.0-14.5 % Platelet Count 201 130-400 10^3/uL Mean Platelet Volume 9.8 7.4-10.4 FL Neutrophils (%) (Auto) 58 42-75 % Lymphocytes (%) (Auto) 29 12-44 % Monocytes (%) (Auto) 9 0-12 % Eosinophils (%) (Auto) 4 0-10 % Basophils (%) (Auto) 1 0-10 % Neutrophils # (Auto) 3.4 1.8-7.8 X 10^3 Lymphocytes # (Auto) 1.7 1.0-4.0 X 10^3 Monocytes # (Auto) 0.5 0.0-1.0 X 10^3 Eosinophils # (Auto) 0.2 0.0-0.3 10^3/uL Basophils # (Auto) 0.0 0.0-0.1 10^3/uL Prothrombin Time 17.0 H 12.2-14.7 SEC INR Comment 1.3 0.8-1.4 Activated Partial Thromboplast Time 46 H 24-35 SEC Sodium Level 138 135-145 MMOL/L Potassium Level 3.9 3.6-5.0 MMOL/L Chloride Level 101 98-107 MMOL/L Carbon Dioxide Level 28 21-32 MMOL/L Anion Gap 9 5-14 MMOL/L Blood Urea Nitrogen 15 7-18 MG/DL Creatinine 1.01 0.60-1.30 MG/DL Estimat Glomerular Filtration Rate > 60 BUN/Creatinine Ratio 15 Glucose Level 149 H 70-105 MG/DL Calcium Level 9.5 8.5-10.1 MG/DL Corrected Calcium 9.7 8.5-10.1 MG/DL Magnesium Level 1.9 1.8-2.4 MG/DL Total Bilirubin 0.6 0.1-1.0 MG/DL Aspartate Amino Transf (AST/SGOT) 37 H 5-34 U/L Alanine Aminotransferase (ALT/SGPT) 51 0-55 U/L Alkaline Phosphatase 94 40-136 U/L Myoglobin 57.8 10.0-92.0 NG/ML Troponin I 0.129 H <0.028 NG/ML Total Protein 6.3 L 6.4-8.2 GM/DL Albumin 3.7 3.2-4.5 GM/DL My Orders Orders - AYDEN JOSEPH MD Cbc With Automated Diff (01/08/19 15:30) Magnesium (01/08/19 15:30) Chest 1 View, Ap/Pa Only (01/08/19 15:30) Ekg Tracing (01/08/19 15:30) Cardiac Profile 1 (01/08/19 15:30) Comprehensive Metabolic Panel (01/08/19 15:30) Myoglobin Serum (01/08/19 15:30) Protime With Inr (01/08/19 15:30) Partial Thromboplastin Time (01/08/19 15:30) O2 (01/08/19 15:30) Monitor-Rhythm Ecg Trace Only (01/08/19 15:30) Lipid Panel (01/09/19 06:00) Ed Iv/Invasive Line Start (01/08/19 15:30) Vital Signs/I&O 01/08/19 15:15 Temp 97.6 Pulse 109 Resp 16 B/P (MAP) 118/95 (103) Pulse Ox 98 O2 Delivery Room Air Blood Pressure Mean: 103 Progress Progress Note : Progress Note Seen and evaluated. Labs, EKG and chest x-ray ordered. We will make contact with Dr. Layne for further instructions. Monitor patient. 1708: I spoke with Dr. Layne and he will admit the patient. Medical floor on telemetry. Observation status. Patient agrees with plan. Initial ECG Impression Date: Jan 08, 2019 Initial ECG Impression Time: 15:22 Initial ECG Rate: 63 Initial ECG Rhythm: A Fib/Flutter Comment Atrial flutter with normal rate. No evidence of ST elevation VA. Similar to previous but slower rate to 01/02/19. Interpreted by me. Diagnostic Imaging Diagonstic Imaging: Xray Plain Films/CT/US/NM/MRI: chest Comments NAME: MARIXA UREÑA MED REC#: [id number] PT STATUS: REG ER : 1950 PHYSICIAN: AYDEN JOSEPH MD ADMIT DATE: 01/08/19/ER Signed Date of Exam: 01/08/19 CHEST 1 VIEW, AP/PA ONLY INDICATION: Irregular heartbeat. Frontal chest obtained at 04:26 p.m. and compared to 01/02/2019. There is cardiomegaly. There is a pacemaker device in place which is unchanged compared to the prior study. There is no focal infiltrate, pneumothorax, or pleural fluid. IMPRESSION: Cardiomegaly with unchanged pacemaker device. No acute infiltrate, pneumothorax, or pleural fluid. Dictated by: Dictated on workstation # [id number] Dict: 01/08/19 1637 Trans: 01/08/19 1644 Interpreted by: CUBA ANDERSON MD Electronically signed by: CUBA ANDERSON MD 01/08/19 1644 Departure Communication (Admissions) Time/Spoke to Admitting Phy: 17:08 Impression Primary Impression: Atrial flutter Qualified Codes: I48.4 - Atypical atrial flutter Disposition: ADMITTED INPATIENT Condition: Stable Admissions Decision to Admit Reason: Admit from ER (General) Decision to Admit/Date: Jan 08, 2019 Time/Decision to Admit Time: 17:08 Departure-Patient Inst. Referrals: JEANNE NUNEZ MD (PCP/Family) Primary Care Physician AYDEN JOSEPH MD Jan 08, 2019 16:48
--- NOTE | 2019-01-08 17:05 | NUR ---
Dr. Layne in room with pt.
--- NOTE | 2019-01-08 17:26 | Cardiology History & Physical ---
HPI-Cardiology Cardiology Consultation Date of Consultation 01/08/19 Date of Admission Time Seen by Provider: 17:22 Indication: atrial fibrillation HPI 68 years old gentleman with history of paroxysmal atrial fibrillation, underwent ablation recently, underwent cardioversion last week, still back in atrial fibrillation with increasing shortness of breath, his pacemaker interrogation showed multiple episode of atrial fibrillation without ventricular response, he called our office with a heart rate around 100 2120, shortness of breath with minimal exertion. No syncope or near syncopal episode. Patient was sent to the emergency room, upon my evaluation he was noted to be in atrial fibrillation PMH-Cardiology Immunizations Up To Date Date of Pneumonia Vaccine: Jul 02, 2018 Date of Influenza Vaccine: Jul 11, 2018 Seasonal Allergies Seasonal Allergies: No Surgeries Yes (HEMORRHOIDS X3, EP STUDY WITH ABLATION) Rectal Respiratory No Cardiovascular Yes (A-FIB) Atrial Fibrillation, High Cholesterol, Hypertension, Valvular Heart Disease Neurological No Reproductive System Hx Reproductive Disorders: No Genitourinary No Prostate Problems Gastrointestinal Yes Irritable Bowel Musculoskeletal No Endocrine No HEENT No Loss of Vision: Denies Hearing Impairment: Denies Cancer No Psychosocial Yes Anxiety Integumentary No Blood Transfusions No Other PMHx PMHx is discussed below Social History Patient Social History Employed/Student: retired Alcohol Use: Denies Use Recreational Drug Use: No Dip or chew tobacco?: No Recent Foreign Travel: No Contact w/other who traveled: No Recent Infectious Disease Expo: No Family Hx Family History: Completed stroke 19 MOTHER Myocardial infarction 19 FATHER ROS-Cardiology Review of Systems General: No Chills, No Night Sweats; Fatigue, Malaise; No Appetite HEENT: No Head Aches, No Visual Changes, No Eye Pain, No Ear Pain, No Dysphasia , No Sinus Congestion, No Post Nasal Drip, No Sore Throat Pulmonary: Dyspnea; No Cough, No Pleuritic Chest Pain Cardiovascular: Palpitations; No: Chest Pain, Orthopnea, Paroxysmal Noc. Dyspnea, Edema, Lt Headedness Gastrointestinal: No: Nausea, Vomiting, Abdominal Pain, Diarrhea, Constipation , Melena, Hematochezia Genitourinary: No Dysuria, No Frequency, No Incontinence, No Hematuria, No Retention Musculoskeletal: No: neck pain, shoulder pain, arm pain, back pain, hand pain, leg pain, foot pain Neurological: No: Weakness, Numbness, Incoordination, Change in speech, Confusion, Seizures Home Medications & Allergies Allergies: Coded Allergies: Tetanus Vaccines and Toxoid (Verified Allergy, Unknown, 11/01/18) EDEMA Uncoded Allergies: IVP DYE FOR HEART CATHS (Allergy, Severe, HIVES, 07/10/15) WAS TREATED TODAY WITH BENADRYL AND SOLUMEDROL PRE CARDIAC CATH Home Medication List Reviewed: Yes Exam-Cardiology Vital Signs Vital Signs Date Time Temp Pulse Resp B/P (MAP) Pulse Ox O2 Delivery O2 Flow Rate FiO2 01/08/19 15:15 97.6 109 16 118/95 (103) 98 Room Air Exam General Appearance: Alert, Oriented X3, Cooperative, No Acute Distress HEENT: Atraumatic, PERRLA Respiratory: Clear to Auscultation, Normal Air Movement Cardiovascular: Normal S1, Normal S2, No Murmurs, Other (atrial fibrillation was rapid ventricular) Abdominal: Normal Bowel Sounds, Soft, No Tenderness, No Hepatosplenomegaly, No Masses Extremities: No Clubbing, No Cyanosis, No Edema, Normal Pulses, No Tenderness/ Swelling Skin: No Rashes, No Breakdown, No Significant Lesion Neuro: Normal Gait, Normal Speech, Strength at 5/5 X4 Ext, Normal Tone, Sensation Intact Psych/Mental Status: Mental Status NL, Mood NL Results Labs Labs Laboratory Tests 01/08/19 16:10: White Blood Count 5.8, Red Blood Count 5.28, Hemoglobin 14.7, Hematocrit 45, Mean Corpuscular Volume 84, Mean Corpuscular Hemoglobin 28, Mean Corpuscular Hemoglobin Concent 33, Red Cell Distribution Width 14.8H, Platelet Count 201, Mean Platelet Volume 9.8, Neutrophils (%) (Auto) 58, Lymphocytes (%) (Auto) 29, Monocytes (%) (Auto) 9, Eosinophils (%) (Auto) 4, Basophils (%) (Auto) 1, Neutrophils # (Auto) 3.4, Lymphocytes # (Auto) 1.7, Monocytes # (Auto) 0.5, Eosinophils # (Auto) 0.2, Basophils # (Auto) 0.0, Prothrombin Time 17.0H, INR Comment 1.3, Activated Partial Thromboplast Time 46H, Sodium Level 138, Potassium Level 3.9, Chloride Level 101, Carbon Dioxide Level 28, Anion Gap 9, Blood Urea Nitrogen 15, Creatinine 1.01, Estimat Glomerular Filtration Rate > 60 , BUN/Creatinine Ratio 15, Glucose Level 149H, Calcium Level 9.5, Corrected Calcium 9.7, Magnesium Level 1.9, Total Bilirubin 0.6, Aspartate Amino Transf ( AST/SGOT) 37H, Alanine Aminotransferase (ALT/SGPT) 51, Alkaline Phosphatase 94, Myoglobin 57.8, Troponin I 0.129H, Total Protein 6.3L, Albumin 3.7 A/P-Cardiology Admission Diagnosis Paroxysmal atrial fibrillation Palpitation Shortness of breath Hypertension Admission Status: Observation Assessment/Plan Paroxysmal atrial fibrillation/flutter underwent typical atrial flutter ablation , underwent electrical cardioversion last week, back in atrial fibrillation. I will increase sotalol 220 mg twice a day and monitor tolerance and response. Next Shortness of breath, probably increasing pulmonary edema and tachycardia. Monitor his response to sotalol, restart home medication Sick sinus syndrome, paroxysmal atrial fibrillation/flutter, history of permanent pacemaker implantation in July [address] Bourgeois next Coronary artery disease, history of cardiac catheterization showed mild disease nonobstructive disease 40-50 percent LAD stenosis done in April 2017 Dizziness and lightheadedness with mild orthostatic changes Chronic anticoagulation with Pradaxa Hypertension, controlled, restart home medication monitor Peripheral edema, continue with diuretics COPD/obstructive sleep apnea uses C Pap machine Pulmonary hypertension secondary to COPD and sleep apnea. Continue to monitor next Morbid obesity, BMI 39, we discussed weight loss and exercise Allergy to IV contrast and tetanus Mild carotid stenosis, ultrasound done in June 2018. Continue to monitor Clinical Quality Measures AMI/AHF: ASA po Prior to arrival: No JASVIR MELGOZA MD Jan 08, 2019 17:26
[2019-01-08] MEDS ORDERED: CATHETER FLUSH 10 ML SYR IV PRN (17:45)
[2019-01-08] MEDS: FUROSEMIDE 40 MG/4 ML INJ (LASIX) IVP SCH (19:11)
--- NOTE | 2019-01-08 19:32 | NUR ---
MARIXA UREÑA admitted to room 417-1, with an admitting diagnosis of A FIB, on 01/08/19 from [place] via , accompanied by STAFF.MARIXA UREÑA introduced to surroundings, call light, bed controls, phone, TV, temperature control, lights, meal times, smoking policy, visitor policy, side rail policy, bathrooms and showers. Patient Rights given to patient in the handbook. MARIXA UREÑA verbalizes understanding that [facility] is not responsible for the loss or damage to any personal effects or valuables that are kept in the patients posession during their hospitalization.
[2019-01-08 20:00] VITALS: BP 122/77
[2019-01-08] MEDS: CATHETER FLUSH 10 ML SYR IV SCH (20:15)
[2019-01-08] MEDS: DABIGATRAN 150 MG (PRADAXA) CAPSULE PO SCH (20:15)
[2019-01-08] MEDS: SOTALOL 80 MG (BETAPACE) TAB PO SCH (20:15)
[2019-01-08] MEDS: ATORVASTATIN 10 MG (LIPITOR) TABLET PO SCH (20:15)
[2019-01-09 00:10] VITALS: BP 100/64
[2019-01-09 04:15] VITALS: BP 117/85
[2019-01-09] MEDS: KCL 20 MEQ TAB (K-DUR) PO SCH (06:14)
[2019-01-09] MEDS: FUROSEMIDE 40 MG/4 ML INJ (LASIX) IVP SCH ×2 (06:14→16:28)
[2019-01-09] MEDS: CATHETER FLUSH 10 ML SYR IV SCH ×3 (06:15→20:44)
[2019-01-09 07:01] LABS: HEMOGLOBIN 16.2 G/DL (13.3-17.7); MEAN PLATELET VOLUME 9.9 FL (7.4-10.4); RED CELL DISTRIBUTION WIDTH 15.2 % (10.0-14.5); WHITE BLOOD COUNT 6.6 10^3/uL (4.3-11.0)
[2019-01-09 07:16] LABS: BUN/CREATININE RATIO 21; CALCIUM 9.9 MG/DL (8.5-10.1); CARBON DIOXIDE 25 MMOL/L (21-32); CHLORIDE 102 MMOL/L (98-107); CHOLESTEROL 158 MG/DL (< 200); CREATININE SERUM 1.05 MG/DL (0.60-1.30); GFR ESTIMATED > 60; GLUCOSE 135 MG/DL (70-105); HDL CHOLESTEROL 33 MG/DL (40-60); MAGNESIUM 2.3 MG/DL (1.8-2.4); POTASSIUM 3.9 MMOL/L (3.6-5.0); SODIUM 139 MMOL/L (135-145); TRIGLYCERIDES 237 MG/DL (<150); VLDL CHOLESTEROL 47 MG/DL (5-40)
[2019-01-09 08:00] VITALS: BP 112/80
[2019-01-09] MEDS: SOTALOL 80 MG (BETAPACE) TAB PO SCH ×2 (08:48→20:42)
[2019-01-09] MEDS: DILTIAZEM 180 MG (CARDIZEM CD) CAP PO SCH (08:48)
[2019-01-09] MEDS: DABIGATRAN 150 MG (PRADAXA) CAPSULE PO SCH ×2 (08:48→20:41)
[2019-01-09] MEDS: HYDROCHLOROTHIAZIDE 25 MG (HCTZ) TAB PO SCH (08:48)
--- NOTE | 2019-01-09 08:58 | Cardiology Progress Note ---
Subjective Date Seen by Provider: Jan 09, 2019 Time Seen by Provider: 08:56 Subjective/Events-last exam Patient sitting up in bed, reports dyspnea significantly improved. Denies any chest pain. Objective-Cardiology Exam Last Set of Vital Signs Vital Signs 01/09/19 08:00 Temp 98.1 Pulse 59 Resp 20 B/P (MAP) 112/80 (91) Pulse Ox 96 O2 Delivery Room Air Capillary Refill : Less Than 3 Seconds I&O Intake and Output 01/09/19 00:00 Intake Total 220 ml Balance 220 ml Intake Oral 220 ml # Voids 5 Daily Weight Change No No General: Alert, Oriented X3, Cooperative, No Acute Distress HEENT: Atraumatic, PERRLA Lungs: Clear to Auscultation, Normal Air Movement Heart: Normal S1, Normal S2, No Murmurs, Other (atrial fibrillation/flutter) Abdomen: Normal Bowel Sounds, Soft, No Tenderness, No Hepatosplenomegaly, No Masses Extremities: No Clubbing, No Cyanosis, No Edema, Normal Pulses, No Tenderness/ Swelling Skin: No Rashes, No Breakdown, No Significant Lesion Neuro: Normal Gait, Normal Speech, Strength at 5/5 X4 Ext, Normal Tone, Sensation Intact Psych/Mental Status: Mental Status NL, Mood NL Results Lab Laboratory Tests 01/08/19 16:10 01/09/19 06:35 A/P-Cardiology Admission Diagnosis Paroxysmal atrial fibrillation Palpitation Shortness of breath Hypertension Assessment/Plan Paroxysmal atrial fibrillation/flutter underwent typical atrial flutter ablation , underwent electrical cardioversion last week, back in atrial fibrillation. Sotalol was increased to 120 mg twice a day, continue to monitor. Shortness of breath, probably increasing pulmonary edema and tachycardia. Patient reports improvement today. Sick sinus syndrome, paroxysmal atrial fibrillation/flutter, history of permanent pacemaker implantation in July [address] Bourgeois Coronary artery disease, history of cardiac catheterization showed mild disease nonobstructive disease 40-50 percent LAD stenosis done in April 2017 Dizziness and lightheadedness with mild orthostatic changes Chronic anticoagulation with Pradaxa Hypertension, controlled, continue to monitor. Peripheral edema, continue with diuretics COPD/obstructive sleep apnea uses C Pap machine Pulmonary hypertension secondary to COPD and sleep apnea. Continue to monitor next Morbid obesity, BMI 39, we discussed weight loss and exercise Allergy to IV contrast and tetanus Mild carotid stenosis, ultrasound done in June 2018. Continue to monitor Clinical Quality Measures AMI/AHF: ASA po Prior to arrival: No DVT/VTE Risk/Contraindication: Risk Factor Score Per Nursin RFS Level Per Nursing on Admit: 3=High LEONORA GALVEZ Jan 09, 2019 08:58
[2019-01-09] MEDS ORDERED: POTA10TA10 PO (09:30)
[2019-01-09] MEDS ORDERED: ATOR10TA66 PO (09:30)
[2019-01-09] MEDS ORDERED: DILT180C54 PO (09:32)
--- NOTE | 2019-01-09 09:37 | NUR ---
SPOKE WITH THE PATIENT ABOUT HIS MEDICATIONS. WE WENT OVER THE EXT MED HX AND HE VERIFIED HOW HE TAKES EACH MEDICATION.
--- NOTE | 2019-01-09 10:49 | Electrophysiology Consultation ---
HPI-Cardiology Cardiology Consultation: Date of Consultation 01/09/19 Date of Admission Attending Physician Noe Layne MD Admitting Physician Oc Dixon MD Consulting Physician Miguel BOURGEOIS MD HPI: Time Seen by a Provider: 09:15 Chief Complaint: Atrial fibrillation with rapid ventricular rate. This is a 68-year-old gentleman who is a patient of Dr. Layne'jo. He has history of paroxysmal atrial fibrillation. He was referred previously to cardiac electrophysiology for a long pauses and typical atrial flutter. Dual- chamber permanent pacemaker was implanted on 08/07/2018. He subsequently had typical atrial flutter ablation on 12/10/2018 which was successful. However he presented back with atrial fibrillation with rapid ventricular rate and cardioversion was performed by Dr. Layne on 01/02/2019. The patient was already on diltiazem 180 mg every day, sotalol 80 mg twice a day and Pradaxa. He presents again with atrial fibrillation with rapid ventricular rate. Review of Systems-Cardiology Review of Systems Constitutional: As described under HPI; No As described under HPI, No no symptoms reported, No chills, No fever, No lightheadedness Eyes: No As described under HPI, No no symptoms reported, No blindness, No blurred vision, No contact lenses, No drainage, No decreased acuity, No foreign body sensation, No pain, No vision change Ears/Nose/Throat: No As described under HPI, No no symptoms reported, No chronic hearing loss, No ear discharge, No ear pain, No nasal drainage, No ulcerations Respiratory: No no symptoms reported; As described under HPI; No As described under HPI, No cough, No orthopnea, No shortness of breath, No SOB with excertion Cardiovascular: No no symptoms reported; As described under HPI; No As described under HPI, No chest pain, No edema; irregular heart rate; No lightheadedness; palpitations Gastrointestinal: No no symptoms reported, No As described under HPI, No abdomen distended, No abdominal pain, No blood streaked bowels, No constipation , No diarrhea, No nausea, No vomiting, No stool coloration changes Genitourinary: No As described under HPI, No burning, No dysuria, No discharge , No frequency, No flank pain, No hematuria, No urgency Skin: No rash, No skin related problems, No ulcerations Psychiatric/Neurological: No anxiety, No depression, No seizure, No focal weakness, No syncope Hematologic: No bleeding abnormalities All Other Systems Reviewed Negative Unless Noted: Yes [id number] Hx Patient Social History Employed/Student: retired Alcohol Use: Denies Use Recreational Drug Use: No 2nd Hand Smoke Exposure: No Recent Foreign Travel: Yes (JULY 2018) Recent Infectious Disease Expo: No Hospitalization with Isolation: Denies Immunizations Up To Date Date of Pneumonia Vaccine: Aug 10, 2018 Date of Influenza Vaccine: Jul 11, 2018 Past Medical History PMH As described under Assessment. Family Medical History Family History: Completed stroke 19 MOTHER Myocardial infarction 19 FATHER Allergies and Home Medications Allergies Coded Allergies: Tetanus Vaccines and Toxoid (Verified Allergy, Unknown, 11/01/18) EDEMA Uncoded Allergies: IVP DYE FOR HEART CATHS (Allergy, Severe, HIVES, 07/10/15) WAS TREATED TODAY WITH BENADRYL AND SOLUMEDROL PRE CARDIAC CATH Home Medications Atorvastatin Calcium 10 Mg Tablet, 10 MG PO DAILY, (Reported) Dabigatran Etexilate Mesylate 150 Mg Capsule, 150 MG PO BID, (Reported) Diltiazem HCl 180 Mg Cap.er.24h, 180 MG PO DAILY, (Reported) Enalapril Maleate 10 Mg Tablet, 10 MG PO DAILY, (Reported) Furosemide 20 Mg Tablet, 20 MG PO DAILY, (Reported) Hydrochlorothiazide 25 Mg Tablet, 25 MG PO DAILY, (Reported) Ibuprofen 200 Mg Tablet, 400 MG PO TID PRN for PAIN-MILD, (Reported) Loratadine 10 Mg Tablet, 10 MG PO DAILY, (Reported) Montelukast Sodium 10 Mg Tablet, 10 MG PO HS, (Reported) Naproxen Sodium 220 Mg Tablet, 440 MG PO Q8H PRN for PAIN-MILD, (Reported) Potassium Chloride 10 Meq Tablet.er, 10 MEQ PO DAILY, (Reported) Sotalol HCl 80 Mg Tablet, 80 MG PO BID, (Reported) Patient Home Medication List Home Medication List Reviewed: Yes Physical Exam-Cardiology Physical Exam Vital Signs/I&O 01/09/19 01/09/19 01/09/19 01/09/19 00:10 04:09 04:15 07:00 Temp 96.0 97.7 Pulse 64 70 67 96 Resp 18 18 B/P (MAP) 100/64 (76) 117/85 (96) Pulse Ox 95 97 O2 Delivery Room Air Room Air 01/09/19 08:00 Temp 98.1 Pulse 59 Resp 20 B/P (MAP) 112/80 (91) Pulse Ox 96 O2 Delivery Room Air 01/09/19 00:00 Intake Total 220 ml Balance 220 ml Capillary Refill : Less Than 3 Seconds Constitutional: appears stated age, AAO x 3; No apparent distress; well- developed, well-nourished HEENT: PERRL; No normal ENT inspection, No TMs normal, No pharynx normal, No scleral icterus (R), No scleral icterus (L), No pale conjunctivae (R), No pale conjunctivae (L), No photophobia, No TM abnormal (R), No TM abnormal (L), No pharyngeal erythema, No tonsillar exudate, No other, No discharge, No EOMI; hearing is well preserved; No hard of hearing; oral hygience is good; No ulceration, No xanthelasmas are seen Neck: No non-tender, No full range of motion, No supple, No normal inspection, No carotid bruit, No limited range of motion, No lymphadenopathy (R), No lymphadenopathy (L), No tender lateral, No tender midline, No thyromegaly, No other; carotid pulses are 2 + bilaterally; No with good upstrokes Respiratory: No accessory muscle use, No respiratory distress, No chest tender , No chest expansion is symmetric; chest is bilaterally symmetric; No lungs clear to percussion; lungs clear to auscultation; No crackles, No rhonchi, No rales, No stridor, No wheezing, No pleural rub, No other Cardiovascular: No regular rate-rhythm; irregularly irregular; No extra beats, No parasternal heave is noted, No JVD, No edema, No bradycardia; tachycardia; No point of maximal impulse, No cardiac thrills are palpable; S1 and S2; No gallop/S3, No gallop/S4, No diastolic murmur, No systolic murmur, No friction rub, No click, No other Gastrointestinal: No tender, No soft, No round, No distended, No pulsatile mass , No organomegaly, No guarding, No rebound, No tenderness, No hernia, No mass, No audible bowel sounds, No abnormal bowel sounds, No abdominal bruits, No spleenomegaly, No other Rectal: deferred Extremities: No normal range of motion, No non-tender, No normal inspection, No pedal edema, No calf tenderness, No normal capillary refill, No pelvis stable , No calf tenderness, No inflammation, No pedal edema, No slow capillary refill , No swelling, No other, No abrasion, No clubbing, No cyanosis, No ecchymosis, No laceration, No no lower extremity edema bilateral, No significant edema, No tenderness, No wound Neurologic/Psychiatric: no motor/sensory deficits, alert, normal mood/affect, oriented x 3, power is 5/5 both on sides Skin: No normal color, No warm/dry, No cyanosis, No cool, No diaphoresis, No damp, No ecchymosis, No jaundice, No mottled, No pallor, No rash, No tattoos/ piercings, No ulcerations, No rash on exposed areas, No ulcerations on exposed areas, No other Data Review Labs Laboratory Tests 01/08/19 16:10: White Blood Count 5.8, Red Blood Count 5.28, Hemoglobin 14.7, Hematocrit 45, Mean Corpuscular Volume 84, Mean Corpuscular Hemoglobin 28, Mean Corpuscular Hemoglobin Concent 33, Red Cell Distribution Width 14.8H, Platelet Count 201, Mean Platelet Volume 9.8, Neutrophils (%) (Auto) 58, Lymphocytes (%) (Auto) 29, Monocytes (%) (Auto) 9, Eosinophils (%) (Auto) 4, Basophils (%) (Auto) 1, Neutrophils # (Auto) 3.4, Lymphocytes # (Auto) 1.7, Monocytes # (Auto) 0.5, Eosinophils # (Auto) 0.2, Basophils # (Auto) 0.0, Prothrombin Time 17.0H, INR Comment 1.3, Activated Partial Thromboplast Time 46H, Sodium Level 138, Potassium Level 3.9, Chloride Level 101, Carbon Dioxide Level 28, Anion Gap 9, Blood Urea Nitrogen 15, Creatinine 1.01, Estimat Glomerular Filtration Rate > 60 , BUN/Creatinine Ratio 15, Glucose Level 149H, Calcium Level 9.5, Corrected Calcium 9.7, Magnesium Level 1.9, Total Bilirubin 0.6, Aspartate Amino Transf ( AST/SGOT) 37H, Alanine Aminotransferase (ALT/SGPT) 51, Alkaline Phosphatase 94, Myoglobin 57.8, Troponin I 0.129H, Total Protein 6.3L, Albumin 3.7 01/09/19 06:35: White Blood Count 6.6, Red Blood Count 5.76, Hemoglobin 16.2, Hematocrit 48, Mean Corpuscular Volume 84, Mean Corpuscular Hemoglobin 28, Mean Corpuscular Hemoglobin Concent 34, Red Cell Distribution Width 15.2H, Platelet Count 209, Mean Platelet Volume 9.9, Sodium Level 139, Potassium Level 3.9, Chloride Level 102, Carbon Dioxide Level 25, Anion Gap 12, Blood Urea Nitrogen 22H, Creatinine 1.05, Estimat Glomerular Filtration Rate > 60, BUN/Creatinine Ratio 21, Glucose Level 135H, Calcium Level 9.9, Magnesium Level 2.3, B-Type Natriuretic Peptide 98.6, Triglycerides Level 237H, Cholesterol Level 158, LDL Cholesterol Direct 88 , VLDL Cholesterol 47H, HDL Cholesterol 33L ECG Impression ECG Initial ECG Impression: Atrial Fibrillation w/RVR A/P-Cardiology Assessment/Admission Diagnosis Persistent atrial fibrillation with RVR, Typical atrial flutter status post successful ablation, Sinus node dysfunction, status post permanent pacemaker implantation 08/24/2018 Plan I discussed at length with the patient. I agree with Dr. Layne to increase sotalol to 120 mg twice a day. We will control heart rate with diltiazem. The patient will continue oral anticoagulation therapy. He will need to stay in the hospital for at least 1 or 2 days more detail his dose of sotalol is increased and there is no prolongation of QT interval. He will then be discharged to follow-up with me in the office on Monday. If he still in atrial fibrillation, we'll schedule cardioversion next . The patient has failed antiarrhythmic therapy and therefore has class I indication for atrial fibrillation ablation. We will arrange for atrial fibrillation ablation in the near future. Thank you for your consultation. Please call me if you have any questions. Scarlett Bourgeois MD, FACP, FACC, FSCAI, FHRS, CCDS Interventional Cardiology Cardiac Electrophysiology Vascular Medicine and Endovascular Interventions Clinical Quality Measures AMI/AHF: ASA po Prior to arrival: No DVT/VTE Risk/Contraindication: Risk Factor Score Per Nursin RFS Level Per Nursing on Admit: 3=High Miguel BOURGEOIS MD Jan 09, 2019 10:49
--- NOTE | 2019-01-09 11:26 | Cardiology Progress Note ---
Subjective Date Seen by Provider: Jan 09, 2019 Time Seen by Provider: 11:25 Subjective/Events-last exam patient is feeling better, breathing better, appreciated Dr. Bourgeois's input Review of Systems General: No Chills, No Night Sweats, No Fatigue, No Malaise, No Appetite, No Other HEENT: No Head Aches, No Visual Changes, No Eye Pain, No Ear Pain, No Dysphasia , No Sinus Congestion, No Post Nasal Drip, No Sore Throat, No Other Pulmonary: Dyspnea; No Cough, No Pleuritic Chest Pain, No Other Cardiovascular: No: Chest Pain, Palpitations, Orthopnea, Paroxysmal Noc. Dyspnea, Edema, Lt Headedness, Other Objective-Cardiology Exam Last Set of Vital Signs Vital Signs 01/09/19 08:00 Temp 98.1 Pulse 59 Resp 20 B/P (MAP) 112/80 (91) Pulse Ox 96 O2 Delivery Room Air Capillary Refill : Less Than 3 Seconds I&O Intake and Output 01/09/19 00:00 Intake Total 220 ml Balance 220 ml Intake Oral 220 ml # Voids 5 Daily Weight Change No No General: Alert, Oriented X3, Cooperative, No Acute Distress HEENT: Atraumatic, PERRLA Lungs: Clear to Auscultation, Normal Air Movement Heart: Normal S1, Normal S2, No Murmurs, Other (atrial fibrillation/flutter) Abdomen: Normal Bowel Sounds, Soft, No Tenderness, No Hepatosplenomegaly, No Masses Extremities: No Clubbing, No Cyanosis, No Edema, Normal Pulses, No Tenderness/ Swelling Skin: No Rashes, No Breakdown, No Significant Lesion Neuro: Normal Gait, Normal Speech, Strength at 5/5 X4 Ext, Normal Tone, Sensation Intact Psych/Mental Status: Mental Status NL, Mood NL Results Lab Laboratory Tests 01/08/19 16:10 01/09/19 06:35 A/P-Cardiology Admission Diagnosis Paroxysmal atrial fibrillation Palpitation Shortness of breath Hypertension Assessment/Plan Paroxysmal atrial fibrillation/flutter underwent typical atrial flutter ablation , underwent electrical cardioversion last week, back in atrial fibrillation. Sotalol was increased to 120 mg twice a day, consider another electrical cardioversion prior to discharge after loading with sotalol, managed by Dr. Bourgeois Shortness of breath, probably increasing pulmonary edema and tachycardia. Patient reports improvement today. Sick sinus syndrome, paroxysmal atrial fibrillation/flutter, history of permanent pacemaker implantation in July [address] Bourgeois Coronary artery disease, history of cardiac catheterization showed mild disease nonobstructive disease 40-50 percent LAD stenosis done in April 2017 Dizziness and lightheadedness with mild orthostatic changes Chronic anticoagulation with Pradaxa Hypertension, controlled, continue to monitor. Peripheral edema, continue with diuretics COPD/obstructive sleep apnea uses C Pap machine Pulmonary hypertension secondary to COPD and sleep apnea. Continue to monitor next Morbid obesity, BMI 39, we discussed weight loss and exercise Allergy to IV contrast and tetanus Mild carotid stenosis, ultrasound done in June 2018. Continue to monitor Clinical Quality Measures AMI/AHF: ASA po Prior to arrival: No DVT/VTE Risk/Contraindication: Risk Factor Score Per Nursin RFS Level Per Nursing on Admit: 3=High JASVIR MELGOZA MD Jan 09, 2019 11:26
[2019-01-09 12:00] VITALS: BP 109/71
[2019-01-09] MEDS: ACETAMINOPHEN 500 MG TAB (TYLENOL) PO PRN (13:42)
[2019-01-09 16:00] VITALS: BP 110/76
[2019-01-09 20:00] VITALS: BP 122/79
[2019-01-09] MEDS: ATORVASTATIN 10 MG (LIPITOR) TABLET PO SCH (20:42)
[2019-01-10 00:20] VITALS: BP 104/63
[2019-01-10 04:00] VITALS: BP 112/68
[2019-01-10] MEDS: KCL 20 MEQ TAB (K-DUR) PO SCH (06:11)
[2019-01-10] MEDS: FUROSEMIDE 40 MG/4 ML INJ (LASIX) IVP SCH ×2 (06:11→16:47)
[2019-01-10] MEDS: CATHETER FLUSH 10 ML SYR IV SCH ×3 (06:12→20:48)
[2019-01-10 08:00] VITALS: BP 122/70
[2019-01-10] MEDS: DILTIAZEM 180 MG (CARDIZEM CD) CAP PO SCH (08:45)
[2019-01-10] MEDS: HYDROCHLOROTHIAZIDE 25 MG (HCTZ) TAB PO SCH (08:45)
[2019-01-10] MEDS: SOTALOL 80 MG (BETAPACE) TAB PO SCH ×2 (08:45→20:44)
[2019-01-10] MEDS: DABIGATRAN 150 MG (PRADAXA) CAPSULE PO SCH ×2 (08:45→20:44)
[2019-01-10 12:00] VITALS: BP 127/80
--- NOTE | 2019-01-10 13:37 | Cardiology Progress Note ---
Cardiology SOAP Progress Note Subjective: No cardiac complaints. Objective: I&O/Vital Signs 01/10/19 01/10/19 01/10/19 01/10/19 04:00 07:00 08:00 08:00 Temp 97.8 98.2 Pulse 74 89 88 Resp 21 18 B/P (MAP) 112/68 (83) 122/70 (87) Pulse Ox 96 94 95 O2 Delivery Room Air Room Air Room Air 01/10/19 01/10/19 12:00 13:00 Temp 99.2 Pulse 121 89 Resp 20 B/P (MAP) 127/80 (96) Pulse Ox 96 O2 Delivery Room Air 01/10/19 00:00 Intake Total 1300 ml Balance 1300 ml Weight (Pounds): 254 Weight (Ounces): 0.0 Weight (Calculated Kilograms): 115.681330 Constitutional: appears stated age, AAO x 3; No apparent distress; well- developed, well-nourished Respiratory: No accessory muscle use, No respiratory distress, No chest tender , No chest expansion is symmetric; chest is bilaterally symmetric; No lungs clear to percussion; lungs clear to auscultation; No crackles, No rhonchi, No rales, No stridor, No wheezing, No pleural rub, No other Cardiovascular: No regular rate-rhythm; irregularly irregular; No extra beats, No parasternal heave is noted, No JVD, No edema, No bradycardia; tachycardia; No point of maximal impulse, No cardiac thrills are palpable; S1 and S2; No gallop/S3, No gallop/S4, No diastolic murmur, No systolic murmur, No friction rub, No click, No other Gastrointestional: No tender, No soft, No round, No distended, No pulsatile mass, No organomegaly, No guarding, No rebound, No tenderness, No hernia, No mass, No audible bowel sounds, No abnormal bowel sounds, No abdominal bruits, No spleenomegaly, No other Extremities: No normal range of motion, No non-tender, No normal inspection, No pedal edema, No calf tenderness, No normal capillary refill, No pelvis stable , No calf tenderness, No inflammation, No pedal edema, No slow capillary refill , No swelling, No other, No abrasion, No clubbing, No cyanosis, No ecchymosis, No laceration, No no lower extremity edema bilateral, No significant edema, No tenderness, No wound Neurologic/Psychiatric: no motor/sensory deficits, alert, normal mood/affect, oriented x 3, power is 5/5 both on sides Skin: No normal color, No warm/dry, No cyanosis, No cool, No diaphoresis, No damp, No ecchymosis, No jaundice, No mottled, No pallor, No rash, No tattoos/ piercings, No ulcerations, No rash on exposed areas, No ulcerations on exposed areas, No other A/P: Assessment/Dx: Persistent atrial fibrillation with RVR, Typical atrial flutter status post successful ablation, Sinus node dysfunction, status post permanent pacemaker implantation 08/24/2018 Plan: I discussed at length with the patient. Sotalol 120 mg twice a day. QTc interval on the most recent EKG is 473 ms. We'll continue EKGs 2 hours after each dose of sotalol for tonight and tomorrow morning. Likely discharge tomorrow morning. He will then be discharged to follow-up with me in the office on Monday. If he still in atrial fibrillation, we'll schedule cardioversion next . The patient has failed antiarrhythmic therapy and therefore has class I indication for atrial fibrillation ablation. We will arrange for atrial fibrillation ablation in the near future. Thank you for your consultation. Please call me if you have any questions. Scarlett Bourgeois MD, FACP, FACC, FSCAI, FHRS, CCDS Interventional Cardiology Cardiac Electrophysiology Vascular Medicine and Endovascular Interventions Clinical Quality Measures AMI/AHF: ASA po Prior to arrival: Miguel Lloyd MD Jan 10, 2019 13:37
[2019-01-10 15:47] VITALS: BP 113/83
[2019-01-10] MEDS: ACETAMINOPHEN 500 MG TAB (TYLENOL) PO PRN (16:55)
[2019-01-10 19:48] VITALS: BP 122/70
[2019-01-10] MEDS: ATORVASTATIN 10 MG (LIPITOR) TABLET PO SCH (20:44)
[2019-01-11 00:05] VITALS: BP 121/64
[2019-01-11 04:48] VITALS: BP 113/72
[2019-01-11] MEDS: KCL 20 MEQ TAB (K-DUR) PO SCH (05:34)
[2019-01-11] MEDS: CATHETER FLUSH 10 ML SYR IV SCH (05:34)
[2019-01-11] MEDS: FUROSEMIDE 40 MG/4 ML INJ (LASIX) IVP SCH (05:34)
[2019-01-11 08:00] VITALS: BP 120/65
[2019-01-11] MEDS: DABIGATRAN 150 MG (PRADAXA) CAPSULE PO SCH (08:09)
[2019-01-11] MEDS: HYDROCHLOROTHIAZIDE 25 MG (HCTZ) TAB PO SCH (08:09)
[2019-01-11] MEDS: DILTIAZEM 180 MG (CARDIZEM CD) CAP PO SCH (08:09)
[2019-01-11] MEDS: SOTALOL 80 MG (BETAPACE) TAB PO SCH (08:09)
--- NOTE | 2019-01-11 11:30 | Cardiology Discharge Summary ---
Diagnosis/Chief Complaint Date of Admission Jan 09, 2019 at 8:40 am Date of Discharge 01/11/2019 Admission Diagnosis Atrial fibrillation with rapid ventricular rate Final/Discharge Diagnosis Persistent Atrial fibrillation Chief Complaint/HPI Chief Complaint/HPI This is a 68-year-old gentleman who is a patient of Dr. Layne's. He has history of paroxysmal atrial fibrillation. He was referred previously to cardiac electrophysiology for a long pauses and typical atrial flutter. Dual- chamber permanent pacemaker was implanted on 08/07/2018. He subsequently had typical atrial flutter ablation on 12/10/2018 which was successful. However he presented back with atrial fibrillation with rapid ventricular rate and cardioversion was performed by Dr. Layne on 01/02/2019. The patient was already on diltiazem 180 mg every day, sotalol 80 mg twice a day and Pradaxa. He presents again with atrial fibrillation with rapid ventricular rate. Discharge Summary Procedures None. Discharge Physical Examination Normal cardiovascular and respiratory examination. Hospital Course Was the Problem List Reviewed?: Yes Patient presented with atrial fibrillation with rapid ventricular rate. He was continued on diltiazem. His dose of sotalol was increased from 80 mg twice a day to 120 mg twice a day. EKGs were done 2 hours after each dose of sotalol 120 mg. QTc interval was 470 ms. No significant increase in QTc interval was noted. He will continue the pradaxa. Discussion & Recommendations Discussion Discharge instructions discussed at length with the patient. He will continue on higher dose of sotalol which is 120 mg twice a day. I will see him next Monday. If he continues to be in atrial fibrillation we'll schedule for cardioversion next . I also briefly discussed about atrial fibrillation ablation. However due to moderate dilatation of the left atrium, duration of atrial fibrillation and other comorbidities , we may consider modest success with atrial fibrillation ablation. Discharge took over 30 minutes to complete. Follow up appt.: Dr. Bourgeois next Monday. Dr. Layne on previously scheduled appointment. Dicharge Diet: Cardiac Diet Activity as Tolerated: Yes Home Medications Reviewed patient Home Medication Reconciliation performed by pharmacy medication reconciliations lighting technician and/or nursing. Patients Allergies have been reviewed. Discharge Home Medications: Reviewed and agree with Discharge Medication list on patient's Discharge Instruction sheet Condition at discharge Stable. Instructions to patient/family Discussed at length with the patient. Clinical Quality Measures AMI/AHF: ASA po Prior to arrival: No DVT/VTE Risk/Contraindication: Risk Factor Score Per Nursin RFS Level Per Nursing on Admit: 3=High Miguel BOURGEOIS MD Jan 11, 2019 11:29
[2019-01-11] MEDS ORDERED: Sotalol Hcl PO (11:31)
[2019-01-11 11:50] VITALS: BP 120/65
--- NOTE | 2019-01-11 11:50 | NUR ---
MARIXA UREÑA demonstrates understanding of discharge instructions and accurately returns instructions upon questioning. Copy of Post-Discharge Instructions and Medication Discharge Instructions given to PT. MARIXA UREÑA is able to manage continuing needs after discharge. Patients belongings returned to PT. Skin dry and intact; no breakdown noted. Patient discharged from [facility] on 01/11/19 at 1150. MARIXA UREÑA left floor via WHEELCHAIR, accompanied by STAFF.
== END 2019-01-11 11:50 | disposition home or self-care (01) | DRG 309 ==
LOC: EDUNIT# 15:13 → ER 15:16 → 4TH 17:09 → OBSVTOIN 01-09 08:40 → 4TH 01-10 12:39
PROVIDERS: ADMIT Internal Medicine Cardiovascular Disease; ATTEND Internal Medicine Cardiovascular Disease
DX: I48.0 Paroxysmal atrial fibrillation (principal); I48.4 Atypical atrial flutter; I38 Endocarditis, valve unspecified; J81.1 Chronic pulmonary edema; E78.00 Pure hypercholesterolemia, unspecified; I10 Essential (primary) hypertension; K58.9 Irritable bowel syndrome, unspecified; F41.9 Anxiety disorder, unspecified; R06.02 Shortness of breath; R00.2 Palpitations; I49.5 Sick sinus syndrome; I25.10 Atherosclerotic heart disease of native coronary artery without angina pectoris; J44.9 Chronic obstructive pulmonary disease, unspecified; G47.33 Obstructive sleep apnea (adult) (pediatric); I27.20 Pulmonary hypertension, unspecified; E66.01 Morbid (severe) obesity due to excess calories; Z68.39 Body mass index [BMI] 39.0-39.9, adult; I65.23 Occlusion and stenosis of bilateral carotid arteries; Z95.0 Presence of cardiac pacemaker; Z91.041 Radiographic dye allergy status; Z79.01 Long term (current) use of anticoagulants; Z88.7 Allergy status to serum and vaccine
CPT/HCPCS: 36415; 71045; 80048; 80053; 80061; 83735; 83874; 83880; 84484; 85025; 85027; 85610; 85730; 93005; 93041; G0378

== ENCOUNTER → 2019-01-17 | Day surgery (SDC) | payer MEDICARE, OTHER ==
[~2019-01-17] VITALS: Ht 170.2 cm; Wt 115.7 kg
[2019-01-17] VITALS (10 sets, daily range): BP systolic 88–123; BP diastolic 60–81
[~2019-01-17] MED LIST changes: +CATHETER FLUSH 10 ML SYR IV PRN; +DILT180C54 PO; +NS IV 1000 ML 1,000 ML IV SCH; +NS IV 1000 ML 1,000 ML ONE; +POTA10TA10 PO; +proPOfol 200 MG/20 ML (DIPRIVAN) VIAL IV ONE
--- OUTSIDE RECORDS SUMMARY | 2019-01-17 08:17 | XMS REPORT | Continuity of Care Document ---
Author Organization Unknown Address Unknown Allergies Active Description Code Type Severity Reaction Onset Reported/Identified Relationship to Patient Clinical Status Yes NKANo Known Allergies NKA Miscellaneous Allergy Unknown N/A 12/13/2008 Yes IVP DYE FOR HEART CATHS IVP DYE FOR HEART CATHS Severe HIVES 07/10/2015 Yes Tetanus Vaccines Toxoid [id number] Drug Allergy Unknown N/A 07/10/2015 Yes Tetanus Vaccines and Toxoid [id number] Drug Allergy Unknown N/A 2018 Medications There [...] MD, Ot I25.10 ATHSCL HEART DISEASE OF [place] CORONARY 07/13/2015 JASVIR MELGOZA MD, Ot I27.2 [...] VENTURA Ot I25.10 ATHSCL HEART DISEASE OF [place] CORONARY 04/11/2017 LEONORA VENTURA Ot I48.0 PAROXYSMAL [...] MD Ot I25.10 ATHSCL HEART DISEASE OF [place] CORONARY 04/28/2017 MAYRA MD, JEANNE J Ot [...] ADULT 04/28/2017 JEANNE NUNEZ MD, Ot 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 04/28/2017 JEANNE NUNEZ MD, Ot E66.01 MORBID (SEVERE) OBESITY DUE TO EXCESS CA 04/28/2017 JEANNE NUNEZ MD, Ot E87.8 OTH DISORDERS OF ELECTROLYTE AND FLUID B 04/28/2017 JEANNE NUNEZ MD, Ot G47.33 OBSTRUCTIVE SLEEP APNEA (ADULT) (PEDIATR 04/28/2017 JEANNE NUNEZ MD, Ot I10 ESSENTIAL (PRIMARY) HYPERTENSION 04/28/2017 JEANNE NUNEZ MD, Ot I25.10 ATHSCL HEART DISEASE OF [place] CORONARY 04/28/2017 JEANNE NUNEZ MD, Ot I27.2 [...] ADULT 04/28/2017 JEANNE NUNEZ MD, Ot 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 04/28/2017 JEANNE NUNEZ MD, Ot E66.01 MORBID (SEVERE) OBESITY DUE TO EXCESS CA 04/28/2017 JEANNE NUNEZ MD, Ot E87.8 OTH DISORDERS OF ELECTROLYTE AND FLUID B 04/28/2017 JEANNE NUNEZ MD, Ot G47.33 OBSTRUCTIVE SLEEP APNEA (ADULT) (PEDIATR 04/28/2017 JEANNE NUNEZ MD, Ot I10 ESSENTIAL (PRIMARY) HYPERTENSION 04/28/2017 JEANNE NUNEZ MD, Ot I25.10 ATHSCL HEART DISEASE OF [place] CORONARY 04/28/2017 JEANNE NUNEZ MD, Ot I27.2 [...] ADULT 04/28/2017 JEANNE NUNEZ MD, Ot 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 04/28/2017 JEANNE NUNEZ [...] MD, Ot I25.10 ATHSCL HEART DISEASE OF [place] CORONARY 04/28/2017 JEANNE NUNEZ MD, Ot I27.2 [...] ADULT 04/28/2017 JEANNE NUNEZ MD, Ot 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 05/02/2017 IRVIN MACIAS MD Ot V72.84 EXAM PRE-OPERATIVE NOS 05/02/2017 JEANNE NUNEZ MD, Ot I10 ESSENTIAL (PRIMARY) HYPERTENSION 05/02/2017 JASVIR MELGOZA MD, Ot E78.5 HYPERLIPIDEMIA, UNSPECIFIED 05/02/2017 JASVIR MELGOZA MD, Ot I10 ESSENTIAL (PRIMARY) HYPERTENSION 05/02/2017 JASVIR MELGOZA MD, Ot I25.10 ATHSCL HEART DISEASE OF [place] CORONARY 05/02/2017 JASVIR MELGOZA MD, Ot I48.3 TYPICAL ATRIAL FLUTTER 05/02/2017 JASVIR MELGOZA MD Ot E78.5 HYPERLIPIDEMIA, UNSPECIFIED 05/02/2017 JASVIR MELGOZA MD Ot I10 ESSENTIAL (PRIMARY) HYPERTENSION 05/02/2017 JASVIR MELGOZA MD Ot I25.10 ATHSCL HEART DISEASE OF [place] CORONARY 05/02/2017 JASVIR MELGOZA MD Ot I48.3 TYPICAL ATRIAL FLUTTER 05/02/2017 JASVIR MELGOZA MD Ot E78.5 HYPERLIPIDEMIA, UNSPECIFIED 05/02/2017 JASVIR MELGOZA MD Ot I10 ESSENTIAL (PRIMARY) HYPERTENSION 05/02/2017 JASVIR MELGOZA MD Ot I25.10 ATHSCL HEART DISEASE OF [place] CORONARY 05/02/2017 JASVIR MELGOZA MD Ot I48.3 TYPICAL ATRIAL FLUTTER 05/02/2017 ANGUS MARINELLI DO Ot E66.9 OBESITY, UNSPECIFIED 05/02/2017 ANGUS MARINELLI DO Ot I10 ESSENTIAL (PRIMARY) HYPERTENSION 05/02/2017 ANGUS MARINELLI DO Ot I48.3 TYPICAL ATRIAL FLUTTER 05/02/2017 LEONORA VENTURA Ot E78.2 MIXED HYPERLIPIDEMIA 05/02/2017 LEONORA VENTURA Ot I10 ESSENTIAL (PRIMARY) HYPERTENSION 05/02/2017 LEONORA VENTURA Ot I25.10 ATHSCL HEART DISEASE OF [place] CORONARY 05/02/2017 LEONORA VENTURA Ot I48.0 PAROXYSMAL ATRIAL FIBRILLATION 05/02/2017 LEROY VILLARREAL Ot E66.9 OBESITY, UNSPECIFIED 05/02/2017 LEROY VILLARREAL Ot I10 ESSENTIAL (PRIMARY) HYPERTENSION 05/02/2017 LEROY VILLARREAL Ot I25.10 ATHSCL HEART DISEASE OF [place] CORONARY 05/02/2017 LEROY VILLARREAL Ot I48.91 UNSPECIFIED ATRIAL FIBRILLATION 05/02/2017 LEROY VILLARREAL Ot Z68.39 BODY MASS INDEX (BMI) 39.0-39.9, ADULT 05/02/2017 LEROY VILLARREAL Ot 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 05/02/2017 LEROY VILLARREAL Ot Z86.69 PERSONAL HISTORY OF DIS OF THE NERVOUS S 05/02/2017 PHIL, LEROY BOTTLE WASHER MACHINE Ot Z87.81 PERSONAL HISTORY OF (HEALED) TRAUMATIC F 05/02/2017 PHIL, LEROY BOTTLE WASHER MACHINE Ot Z98.890 OTHER SPECIFIED POSTPROCEDURAL STATES 05/03/2017 MAYRA BAILEY, JEANNE Odonnell Ot R06.00 DYSPNEA, UNSPECIFIED 05/04/2017 LEONORA VENTURA Ot E78.2 MIXED HYPERLIPIDEMIA 05/04/2017 LEONORA VENTURA Ot I10 ESSENTIAL (PRIMARY) HYPERTENSION 05/04/2017 LEONORA VENTURA Ot I25.10 ATHSCL HEART DISEASE OF [place] CORONARY 05/04/2017 LEONORA VENTURA Ot I48.0 PAROXYSMAL ATRIAL FIBRILLATION 05/08/2017 PHIL, LEROY BOTTLE WASHER MACHINE Ot E66.9 OBESITY, UNSPECIFIED 05/08/2017 PHIL, LEROY BOTTLE WASHER MACHINE Ot I10 ESSENTIAL (PRIMARY) HYPERTENSION 05/08/2017 PHIL, LEROY BOTTLE WASHER MACHINE Ot I25.10 ATHSCL HEART DISEASE OF [place] CORONARY 05/08/2017 PHIL, LEROY BOTTLE WASHER MACHINE Ot I48.91 UNSPECIFIED ATRIAL FIBRILLATION 05/08/2017 PHIL, LEROY BOTTLE WASHER MACHINE Ot Z68.39 BODY MASS INDEX (BMI) 39.0-39.9, ADULT 05/08/2017 PHIL, LEROY BOTTLE WASHER MACHINE Ot Z79.01 MCC (CURRENT) USE OF ANTICOAGULANT 05/08/2017 PHIL, LEROY BOTTLE WASHER MACHINE Ot Z86.69 PERSONAL HISTORY OF DIS OF THE NERVOUS S 05/08/2017 PHIL, LEROY BOTTLE WASHER MACHINE Ot Z87.81 PERSONAL HISTORY OF (HEALED) TRAUMATIC F 05/08/2017 PHIL, LEROY BOTTLE WASHER MACHINE Ot Z98.890 OTHER SPECIFIED POSTPROCEDURAL STATES 05/20/2017 PHIL, LEROY BOTTLE WASHER MACHINE Ot E66.9 OBESITY, UNSPECIFIED 05/20/2017 PHIL, LEROY BOTTLE WASHER MACHINE Ot I10 ESSENTIAL (PRIMARY) HYPERTENSION 05/20/2017 PHIL, LEROY BOTTLE WASHER MACHINE Ot I25.10 ATHSCL HEART DISEASE OF [place] CORONARY 05/20/2017 PHIL, LEROY BOTTLE WASHER MACHINE Ot I48.91 UNSPECIFIED ATRIAL FIBRILLATION 05/20/2017 PHIL, LEROY BOTTLE WASHER MACHINE Ot Z68.39 BODY MASS INDEX (BMI) 39.0-39.9, ADULT 05/20/2017 PHIL, LEROY BOTTLE WASHER MACHINE Ot 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 05/20/2017 LEROY VILLARREALP Ot Z86.69 PERSONAL HISTORY OF DIS OF THE NERVOUS S 05/20/2017 LEROY VILLARREALP Ot Z87.81 PERSONAL HISTORY OF (HEALED) TRAUMATIC F 05/20/2017 LEROY VILLARREALP Ot Z98.890 OTHER SPECIFIED POSTPROCEDURAL STATES 05/24/2017 MAYRA BAILEY, JEANNE Odonnell Ot R06.00 DYSPNEA, UNSPECIFIED 11/28/2017 GILBERTO BAILEY, IRVIN Ot V72.84 EXAM PRE-OPERATIVE NOS 11/28/2017 JEANNE NUNEZ MD Ot I10 ESSENTIAL (PRIMARY) HYPERTENSION 11/28/2017 JASVIR MELGOZA MD Ot E78.5 HYPERLIPIDEMIA, UNSPECIFIED 11/28/2017 JASVIR MELGOZA MD Ot I10 ESSENTIAL (PRIMARY) HYPERTENSION 11/28/2017 JASVIR MELGOZA MD Ot I25.10 ATHSCL HEART DISEASE OF [place] CORONARY 11/28/2017 JASVIR MELGOZA MD Ot I48.3 TYPICAL ATRIAL FLUTTER 11/28/2017 JASVIR MELGOZA MD Ot E78.5 HYPERLIPIDEMIA, UNSPECIFIED 11/28/2017 JASVIR MELGOZA MD Ot I10 ESSENTIAL (PRIMARY) HYPERTENSION 11/28/2017 JASVIR MELGOZA MD Ot I25.10 ATHSCL HEART DISEASE OF [place] CORONARY 11/28/2017 JASVIR MELGOZA MD Ot I48.3 TYPICAL ATRIAL FLUTTER 11/28/2017 JASVIR MELGOZA MD Ot E78.5 HYPERLIPIDEMIA, UNSPECIFIED 11/28/2017 JASVIR MELGOZA MD Ot I10 ESSENTIAL (PRIMARY) HYPERTENSION 11/28/2017 JASVIR MELGOZA MD Ot I25.10 ATHSCL HEART DISEASE OF [place] CORONARY 11/28/2017 JASVIR MELGOZA MD Ot I48.3 TYPICAL ATRIAL FLUTTER 11/28/2017 ANGUS MARINELLI DO Ot E66.9 OBESITY, UNSPECIFIED 11/28/2017 ANGUS MARINELLI DO Ot I10 ESSENTIAL (PRIMARY) HYPERTENSION 11/28/2017 ANGUS MARINELLI DO Ot I48.3 TYPICAL ATRIAL FLUTTER 11/28/2017 LEONORA VENTURA Ot E78.2 MIXED HYPERLIPIDEMIA 11/28/2017 LEONORA VENTURA Ot I10 ESSENTIAL (PRIMARY) HYPERTENSION 11/28/2017 LEONORA VENTURA Ot I25.10 ATHSCL HEART DISEASE OF [place] CORONARY 11/28/2017 LEONORA VENTURA Ot I48.0 PAROXYSMAL [...] MD Ot I25.10 ATHSCL HEART DISEASE OF [place] CORONARY 11/29/2017 JASVIR MELGOZA MD Ot I27.20 [...] 11/29/2017 JASVIR MELGOZA MD Ot Z79.899 OTHER MCC (CURRENT) DRUG THERAPY 11/29/2017 JASVIR MELGOZA MD [...] MD Ot I25.10 ATHSCL HEART DISEASE OF [place] CORONARY 12/04/2017 JASVIR MELGOZA MD Ot I27.20 [...] 12/04/2017 JASVIR MELGOZA MD Ot Z79.899 OTHER MCC (CURRENT) DRUG THERAPY 12/04/2017 JASVIR MELGOZA MD [...] MD Ot I25.10 ATHSCL HEART DISEASE OF [place] CORONARY 08/25/2018 Miguel NAYAK MD Ot I27.20 [...] 08/25/2018 Miguel NAYAK MD Ot Z79.899 OTHER MCC (CURRENT) DRUG THERAPY 08/28/2018 Miguel NAYAK MD Ot E66.01 MORBID (SEVERE) OBESITY DUE TO EXCESS CA 08/28/2018 Miguel NAYAK MD Ot G47.33 OBSTRUCTIVE SLEEP APNEA (ADULT) (PEDIATR 08/28/2018 Miguel NAYAK MD Ot I10 ESSENTIAL (PRIMARY) HYPERTENSION 08/28/2018 Miguel NAYAK MD Ot I25.10 ATHSCL HEART DISEASE OF [place] CORONARY 08/28/2018 Miguel NAYAK MD Ot I27.20 [...] 08/28/2018 Miguel NAYAK MD Ot Z79.899 OTHER MCC (CURRENT) DRUG THERAPY 09/27/2018 Miguel NAYAK MD [...] MD Ot I25.10 ATHSCL HEART DISEASE OF [place] CORONARY 12/10/2018 JASVIR MELGOZA MD Ot I48.3 TYPICAL ATRIAL FLUTTER 12/10/2018 JASVIR MELGOZA MD Ot E78.5 HYPERLIPIDEMIA, UNSPECIFIED 12/10/2018 JASVIR MELGOZA MD Ot I10 ESSENTIAL (PRIMARY) HYPERTENSION 12/10/2018 JASVIR MELGOZA MD Ot I25.10 ATHSCL HEART DISEASE OF [place] CORONARY 12/10/2018 JASVIR MELGOZA MD Ot I48.3 TYPICAL ATRIAL FLUTTER 12/10/2018 JASVIR MELGOZA MD Ot E78.5 HYPERLIPIDEMIA, UNSPECIFIED 12/10/2018 JASVIR MELGOZA MD Ot I10 ESSENTIAL (PRIMARY) HYPERTENSION 12/10/2018 JASVIR MELGOZA MD Ot I25.10 ATHSCL HEART DISEASE OF [place] CORONARY 12/10/2018 ABAD BAILEY, JASVIR Odonnell Ot I48.3 TYPICAL ATRIAL FLUTTER 12/10/2018 ANGUS MARINELLI DO Ot E66.9 OBESITY, UNSPECIFIED 12/10/2018 ANGUS MARINELLI DO Ot I10 ESSENTIAL (PRIMARY) HYPERTENSION 12/10/2018 ANGUS MARINELLI DO Ot I48.3 TYPICAL ATRIAL FLUTTER 12/10/2018 LEONORA VENTURA Ot E78.2 MIXED HYPERLIPIDEMIA 12/10/2018 LEONORA VENTURA Ot I10 ESSENTIAL (PRIMARY) HYPERTENSION 12/10/2018 LEONORA VENTURA Ot I25.10 ATHSCL HEART DISEASE OF [place] CORONARY 12/10/2018 LEONORA VENTURA Ot I48.0 PAROXYSMAL ATRIAL FIBRILLATION 12/10/2018 MAYRA BAILEY, JEANNE Odonnell Ot R06.00 DYSPNEA, UNSPECIFIED 12/10/2018 JEANNE NUNEZ MD Ot M17.11 UNILATERAL PRIMARY OSTEOARTHRITIS, RIGHT 12/10/2018 Miguel NAYAK MD Ot Z01.818 ENCOUNTER FOR OTHER PREPROCEDURAL EXAMIN 12/10/2018 Miguel NAYAK MD Ot Z01.818 ENCOUNTER FOR OTHER PREPROCEDURAL EXAMIN 12/10/2018 Miguel NAYAK MD Ot Z01.818 ENCOUNTER FOR OTHER PREPROCEDURAL EXAMIN 12/11/2018 Miguel NAYAK MD Ot E78.5 HYPERLIPIDEMIA, UNSPECIFIED 12/11/2018 Miguel NAYAK MD Ot I10 ESSENTIAL (PRIMARY) HYPERTENSION 12/11/2018 Miguel NAYAK MD Ot I48.0 PAROXYSMAL ATRIAL FIBRILLATION 12/11/2018 Miguel NAYAK MD Ot I48.3 TYPICAL ATRIAL FLUTTER 12/11/2018 Miguel NAYAK MD Ot J44.9 CHRONIC OBSTRUCTIVE PULMONARY DISEASE, U 12/11/2018 Mgiuel NAYAK MD Ot Z11.2 ENCOUNTER FOR SCREENING FOR OTHER BACTER 12/11/2018 Miguel NAYAK MD Ot Z79.899 OTHER PRODUCT DIRECTOR (CURRENT) DRUG THERAPY 12/11/2018 Miguel NAYAK MD Ot Z88.7 ALLERGY STATUS TO SERUM AND VACCINE STAT 12/11/2018 Miguel NAYAK MD Ot Z95.0 PRESENCE OF CARDIAC PACEMAKER 12/12/2018 Miguel NAYAK MD Ot E78.5 HYPERLIPIDEMIA, [...] 12/12/2018 Miguel NAYAK MD Ot Z79.899 OTHER PRODUCT DIRECTOR (CURRENT) DRUG THERAPY 12/12/2018 Miguel NAYAK MD Ot Z88.7 ALLERGY STATUS TO SERUM AND VACCINE STAT 12/12/2018 Miguel NAYAK MD Ot Z95.0 PRESENCE OF CARDIAC PACEMAKER 12/16/2018 Miguel NAYAK MD Ot E78.5 HYPERLIPIDEMIA, UNSPECIFIED 12/16/2018 Miguel NAYAK MD Ot I10 ESSENTIAL (PRIMARY) HYPERTENSION 12/16/2018 Miguel NAYAK MD Ot I48.0 PAROXYSMAL ATRIAL FIBRILLATION 12/16/2018 Miguel NAYAK MD Ot I48.3 TYPICAL ATRIAL FLUTTER 12/16/2018 Miguel NAYAK MD Ot J44.9 CHRONIC OBSTRUCTIVE PULMONARY DISEASE, U 12/16/2018 Miguel NAYAK MD Ot Z11.2 ENCOUNTER FOR SCREENING FOR OTHER BACTER 12/16/2018 Miguel NAYAK MD Ot Z79.899 OTHER PRODUCT DIRECTOR (CURRENT) DRUG THERAPY 12/16/2018 Miguel NAYAK MD Ot Z88.7 ALLERGY STATUS TO SERUM AND VACCINE STAT 12/16/2018 Miguel NAYAK MD Ot Z95.0 PRESENCE OF CARDIAC PACEMAKER 01/03/2019 JASVIR MELGOZA MD Ot E66.01 MORBID (SEVERE) OBESITY DUE TO EXCESS CA 01/03/2019 JASVIR MELGOZA MD Ot E78.5 HYPERLIPIDEMIA, UNSPECIFIED 01/03/2019 JASVIR MELGOZA MD Ot G47.33 OBSTRUCTIVE SLEEP APNEA (ADULT) (PEDIATR 01/03/2019 JASVIR MELGOZA MD Ot I10 ESSENTIAL (PRIMARY) HYPERTENSION 01/03/2019 JASVIR MELGOZA MD Ot I25.10 ATHSCL HEART DISEASE OF [place] CORONARY 01/03/2019 JASVIR MELGOZA MD Ot I48.2 CHRONIC ATRIAL FIBRILLATION 01/03/2019 JASVIR MELGOZA MD Ot I48.92 UNSPECIFIED ATRIAL FLUTTER 01/03/2019 JASVIR MELGOZA MD Ot I49.5 SICK SINUS SYNDROME 01/03/2019 JASVIR MELGOZA MD Ot I65.29 OCCLUSION AND STENOSIS OF UNSPECIFIED CA 01/03/2019 JASVIR MELGOZA MD Ot J44.9 CHRONIC OBSTRUCTIVE PULMONARY DISEASE, U 01/03/2019 JASVIR MELGOZA MD Ot N40.0 BENIGN PROSTATIC HYPERPLASIA WITHOUT LOW 01/03/2019 JASVIR MELGOZA MD Ot Z68.41 BODY MASS INDEX (BMI) 40.0-44.9, ADULT 01/03/2019 JASVIR MELGOZA MD Ot Z79.899 OTHER PRODUCT DIRECTOR (CURRENT) DRUG THERAPY 01/03/2019 JASVIR MELGOZA MD Ot Z88.7 ALLERGY STATUS TO SERUM AND VACCINE STAT 01/03/2019 JASVIR MELGOZA MD Ot Z91.041 RADIOGRAPHIC DYE ALLERGY STATUS 01/03/2019 JASVIR MELGOZA MD Ot Z95.0 PRESENCE OF CARDIAC PACEMAKER 01/03/2019 JASVIR MELGOZA MD Ot E66.01 MORBID (SEVERE) OBESITY DUE TO EXCESS CA 01/03/2019 JASVIR MELGOZA MD Ot E78.5 HYPERLIPIDEMIA, UNSPECIFIED 01/03/2019 JASVIR MELGOZA MD Ot G47.33 OBSTRUCTIVE SLEEP APNEA (ADULT) (PEDIATR 01/03/2019 JASVIR MELGOZA MD Ot I10 ESSENTIAL (PRIMARY) HYPERTENSION 01/03/2019 JASVIR MELGOZA MD Ot I25.10 ATHSCL HEART DISEASE OF [place] CORONARY 01/03/2019 JASVIR MELGOZA MD Ot I48.2 CHRONIC ATRIAL FIBRILLATION 01/03/2019 JASVIR MELGOZA MD Ot I48.92 UNSPECIFIED ATRIAL FLUTTER 01/03/2019 JASVIR MELGOZA MD Ot I49.5 SICK SINUS SYNDROME 01/03/2019 JASVIR MELGOZA MD Ot I65.29 OCCLUSION AND STENOSIS OF UNSPECIFIED CA 01/03/2019 JASVIR MELGOZA MD Ot J44.9 CHRONIC OBSTRUCTIVE PULMONARY DISEASE, U 01/03/2019 JASVIR MELGOZA MD Ot N40.0 BENIGN PROSTATIC HYPERPLASIA WITHOUT LOW 01/03/2019 JASVIR MELGOZA MD Ot Z68.41 BODY MASS INDEX (BMI) 40.0-44.9, ADULT 01/03/2019 JASVIR MELGOZA MD Ot Z79.899 OTHER PRODUCT DIRECTOR (CURRENT) DRUG THERAPY 01/03/2019 JASVIR MELGOZA MD Ot Z88.7 ALLERGY STATUS TO SERUM AND VACCINE STAT 01/03/2019 JASVIR MELGOZA MD Ot Z91.041 RADIOGRAPHIC DYE ALLERGY STATUS 01/03/2019 JASVIR MELGOZA MD Ot Z95.0 PRESENCE OF CARDIAC PACEMAKER 01/08/2019 JASVIR MELGOZA MD Ot E66.01 MORBID (SEVERE) OBESITY DUE TO EXCESS CA 01/08/2019 JASVIR MELGOZA MD Ot E78.00 PURE HYPERCHOLESTEROLEMIA, UNSPECIFIED 01/08/2019 JASVIR MELGOZA MD Ot F41.9 ANXIETY DISORDER, UNSPECIFIED 01/08/2019 JASVIR MELGOZA MD Ot G47.33 OBSTRUCTIVE SLEEP APNEA (ADULT) (PEDIATR 01/08/2019 JASVIR MELGOZA MD Ot I10 ESSENTIAL (PRIMARY) HYPERTENSION 01/08/2019 JASVIR MELGOZA MD Ot I25.10 ATHSCL HEART DISEASE OF [place] CORONARY 01/08/2019 JASVIR MELGOZA MD Ot I27.20 PULMONARY HYPERTENSION, UNSPECIFIED 01/08/2019 JASVIR MELGOZA MD Ot I38 ENDOCARDITIS, VALVE UNSPECIFIED 01/08/2019 JASVIR MELGOZA MD Ot I48.0 PAROXYSMAL ATRIAL FIBRILLATION 01/08/2019 JASVIR MELGOZA MD Ot I48.4 ATYPICAL ATRIAL FLUTTER 01/08/2019 JASVIR MELGOZA MD Ot I49.5 SICK SINUS SYNDROME 01/08/2019 JASVIR MELGOZA MD Ot 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 01/08/2019 JASVIR MELGOZA MD, Ot J44.9 CHRONIC OBSTRUCTIVE PULMONARY DISEASE, U 01/08/2019 JASVIR MELGOZA MD, Ot J81.1 CHRONIC PULMONARY EDEMA 01/08/2019 JASVIR MELGOZA MD, Ot K58.9 IRRITABLE BOWEL SYNDROME WITHOUT DIARRHE 01/08/2019 JASVIR MELGOZA MD Ot R00.2 PALPITATIONS 01/08/2019 JASVIR MELGOZA MD, Ot R06.02 SHORTNESS OF BREATH 01/08/2019 JASVIR MELGOZA MD, Ot Z68.39 BODY MASS INDEX (BMI) 39.0-39.9, ADULT 01/08/2019 JASVIR MELGOZA MD, Ot 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 01/08/2019 JASVIR MELGOZA MD, Ot Z88.7 ALLERGY STATUS TO SERUM AND VACCINE STAT 01/08/2019 JASVIR MELGOZA MD Ot Z91.041 RADIOGRAPHIC DYE ALLERGY STATUS 01/08/2019 JASVIR MELGOZA MD Ot Z95.0 PRESENCE OF CARDIAC PACEMAKER 01/11/2019 Miguel NAYAK MD Ot E78.5 HYPERLIPIDEMIA, UNSPECIFIED 01/11/2019 Miguel NAYAK MD Ot I10 ESSENTIAL (PRIMARY) HYPERTENSION 01/11/2019 Miguel NAYAK MD Ot I48.0 PAROXYSMAL ATRIAL FIBRILLATION 01/11/2019 Miguel NAYAK MD Ot I48.3 TYPICAL ATRIAL FLUTTER 01/11/2019 Miguel NAYAK MD Ot J44.9 CHRONIC OBSTRUCTIVE PULMONARY DISEASE, U 01/11/2019 Miguel NAYAK MD Ot Z11.2 ENCOUNTER FOR SCREENING FOR OTHER BACTER 01/11/2019 Miguel NAYAK MD Ot Z79.899 OTHER MCC (CURRENT) DRUG THERAPY 01/11/2019 Miguel NAYAK MD Ot Z88.7 ALLERGY STATUS TO SERUM AND VACCINE STAT 01/11/2019 Miguel NAYAK MD Ot Z95.0 PRESENCE OF CARDIAC PACEMAKER 01/11/2019 JASVIR MELGOZA MD Ot E66.01 MORBID (SEVERE) OBESITY DUE TO EXCESS CA 01/11/2019 JASVIR MELGOZA MD Ot E78.00 PURE HYPERCHOLESTEROLEMIA, UNSPECIFIED 01/11/2019 JASVIR MELGOZA MD Ot F41.9 ANXIETY DISORDER, UNSPECIFIED 01/11/2019 JASVIR MELGOZA MD Ot G47.33 OBSTRUCTIVE SLEEP APNEA (ADULT) (PEDIATR 01/11/2019 JASVIR MELGOZA MD Ot I10 ESSENTIAL (PRIMARY) HYPERTENSION 01/11/2019 JASVIR MELGOZA MD Ot I25.10 ATHSCL HEART DISEASE OF [place] CORONARY 01/11/2019 JASVIR MELGOZA MD Ot I27.20 PULMONARY HYPERTENSION, UNSPECIFIED 01/11/2019 JASVIR MELGOZA MD Ot I38 ENDOCARDITIS, VALVE UNSPECIFIED 01/11/2019 JASVIR MELGOZA MD Ot I48.0 PAROXYSMAL ATRIAL FIBRILLATION 01/11/2019 JASVIR MELGOZA MD Ot I48.4 ATYPICAL ATRIAL FLUTTER 01/11/2019 JASVIR MELGOZA MD Ot I49.5 SICK SINUS SYNDROME 01/11/2019 JASVIR MELGOZA MD Ot 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 01/11/2019 JASVIR MELGOZA MD, Ot J44.9 CHRONIC OBSTRUCTIVE PULMONARY DISEASE, U 01/11/2019 JASVIR MELGOZA MD Ot J81.1 CHRONIC PULMONARY EDEMA 01/11/2019 JASVIR MELGOZA MD Ot K58.9 IRRITABLE BOWEL SYNDROME WITHOUT DIARRHE 01/11/2019 JASVIR MELGOZA MD Ot R00.2 PALPITATIONS 01/11/2019 JASVIR MELGOZA MD Ot R06.02 SHORTNESS OF BREATH 01/11/2019 JASVIR MELGOZA MD Ot Z68.39 BODY MASS INDEX (BMI) 39.0-39.9, ADULT 01/11/2019 JASVIR MELGOZA MD Ot 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 01/11/2019 JASVIR MELGOZA MD Ot Z88.7 ALLERGY STATUS TO SERUM AND VACCINE STAT 01/11/2019 JASVIR MELGOZA MD Ot Z91.041 RADIOGRAPHIC DYE ALLERGY STATUS 01/11/2019 JASVIR MELGOZA MD Ot Z95.0 PRESENCE OF CARDIAC PACEMAKER 01/16/2019 JASVIR MELGOZA MD Ot E66.01 MORBID (SEVERE) OBESITY DUE TO EXCESS CA 01/16/2019 JASVIR MELGOZA MD Ot E78.00 PURE HYPERCHOLESTEROLEMIA, UNSPECIFIED 01/16/2019 JASVIR MELGOZA MD Ot F41.9 ANXIETY DISORDER, UNSPECIFIED 01/16/2019 JASVIR MELGOZA MD Ot G47.33 OBSTRUCTIVE SLEEP APNEA (ADULT) (PEDIATR 01/16/2019 JASVIR MELGOZA MD Ot I10 ESSENTIAL (PRIMARY) HYPERTENSION 01/16/2019 JASVIR MELGOZA MD Ot I25.10 ATHSCL HEART DISEASE OF [place] CORONARY 01/16/2019 JASVIR MELGOZA MD Ot I27.20 PULMONARY HYPERTENSION, UNSPECIFIED 01/16/2019 JASVIR MELGOZA MD Ot I38 ENDOCARDITIS, VALVE UNSPECIFIED 01/16/2019 JASVIR MELGOZA MD Ot I48.0 PAROXYSMAL ATRIAL FIBRILLATION 01/16/2019 JASVIR MELGOZA MD Ot I48.4 ATYPICAL ATRIAL FLUTTER 01/16/2019 JASVIR MELGOZA MD Ot I49.5 SICK SINUS SYNDROME 01/16/2019 JASVIR MELGOZA MD Ot 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 01/16/2019 JASVIR MELGOZA MD Ot J44.9 CHRONIC OBSTRUCTIVE PULMONARY DISEASE, U 01/16/2019 JASVIR MELGOZA MD, Ot J81.1 CHRONIC PULMONARY EDEMA 01/16/2019 JASVIR MELGOZA MD Ot K58.9 IRRITABLE BOWEL SYNDROME WITHOUT DIARRHE 01/16/2019 JASVIR MELGOZA MD Ot R00.2 PALPITATIONS 01/16/2019 JASVIR MELGOZA MD Ot R06.02 SHORTNESS OF BREATH 01/16/2019 JASVIR MELGOZA MD Ot Z68.39 BODY MASS INDEX (BMI) 39.0-39.9, ADULT 01/16/2019 JASVIR MELGOZA MD Ot 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 01/16/2019 JASVIR MELGOZA MD Ot Z88.7 ALLERGY STATUS TO SERUM AND VACCINE STAT 01/16/2019 JASVIR MELGOZA MD Ot Z91.041 RADIOGRAPHIC DYE ALLERGY STATUS 01/16/2019 JASVIR MELGOZA MD Ot Z95.0 PRESENCE OF CARDIAC PACEMAKER Procedures Code Description Performed By Performed On [id number] MEASURE OF CARDIAC SAMPL PRESSURE, L H 07/10/2015 [id number] FLUOROSCOPY OF MULT COR ART USING L OSM 07/10/2015 [id number] FLUOROSCOPY OF LEFT HEART USING LOW OSMO 07/10/2015 [id number] MEASURE OF CARDIAC SAMPL PRESSURE, L H 04/28/2017 [id number] FLUOROSCOPY OF MULT COR ART USING L OSM 04/28/2017 [id number] FLUOROSCOPY OF LEFT HEART USING LOW OSMO 04/28/2017 [id number] FLUOROSCOPY OF THORACIC AORTA USING LOW 04/28/2017 [...] resistant Staphylococcus aureus (MRSA) screening culture NEG NR Automated blood complete blood count (hemogram) panel [...] plasma calcium measurement (mass/volume) 8.7 mg/dL 8.5-10.1 Automated blood complete blood count (hemogram) panel - 01/02/19 07:16 Blood leukocytes automated count (number/volume) 6.8 10*3/uL 4.3-11.0 Blood erythrocytes automated count (number/volume) 5.44 10*6/uL 4.35-5.85 Venous blood hemoglobin measurement (mass/volume) 15.6 g/dL 13.3-17.7 Blood hematocrit (volume fraction) 46 % 40-54 Automated erythrocyte mean corpuscular volume 84 [foz_us] 80-99 Automated erythrocyte mean corpuscular hemoglobin (mass per erythrocyte) 29 pg 25-34 Automated erythrocyte mean corpuscular hemoglobin concentration measurement ( mass/volume) 34 g/dL 32-36 Automated erythrocyte distribution width ratio 14.9 % 10.0-14.5 Automated blood platelet count (count/volume) 217 10*3/uL 130-400 Automated blood platelet mean volume measurement 9.7 [foz_us] 7.4-10.4 PT panel in platelet poor plasma by coagulation assay - 01/02/19 07:16 Prothrombin time (PT) in platelet poor plasma by coagulation assay 15.4 s 12.2-14.7 INR in platelet poor plasma or blood by coagulation assay 1.2 0.8-1.4 Activated partial thromboplastin time (aPTT) in platelet poor plasma bycoagulation assay - 01/02/19 07:16 Activated partial thromboplastin time (aPTT) in platelet poor plasma bycoagulation assay 41 s 24-35 Comprehensive metabolic panel - 01/02/19 07:16 Serum or plasma sodium measurement (moles/volume) 139 mmol/L 135-145 Serum or plasma potassium measurement (moles/volume) 4.1 mmol/L 3.6-5.0 Serum or plasma chloride measurement (moles/volume) 104 mmol/L 98-107 Carbon dioxide 25 mmol/L 21-32 Serum or plasma anion gap determination (moles/volume) 10 mmol/L 5-14 Serum or plasma urea nitrogen measurement (mass/volume) 17 mg/dL 7-18 Serum or plasma creatinine measurement (mass/volume) 1.01 mg/dL 0.60-1.30 Serum or plasma urea nitrogen/creatinine mass ratio 17 NRG Serum or plasma creatinine measurement with calculation of estimated glomerular filtration rate > NRG Serum or plasma glucose measurement (mass/volume) 142 mg/dL 70-105 Serum or plasma calcium measurement (mass/volume) 9.7 mg/dL 8.5-10.1 Serum or plasma total bilirubin measurement (mass/volume) 0.8 mg/dL 0.1-1.0 Serum or plasma alkaline phosphatase measurement (enzymatic activity/volume) 117 U/L 40-136 Serum or plasma aspartate aminotransferase measurement (enzymatic activity/ volume) 34 U/L 5-34 Serum or plasma alanine aminotransferase measurement (enzymatic activity/volume ) 52 U/L 0-55 Serum or plasma protein measurement (mass/volume) 6.6 g/dL 6.4-8.2 Serum or plasma albumin measurement (mass/volume) 3.9 g/dL 3.2-4.5 CALCIUM CORRECTED 9.8 mg/dL 8.5-10.1 Lipid 1996 panel - 01/02/19 07:16 Serum or plasma triglyceride measurement (mass/volume) 247 mg/dL <150 Serum or plasma cholesterol measurement (mass/volume) 149 mg/dL < 200 Serum or plasma cholesterol in HDL measurement (mass/volume) 32 mg/ dL 40-60 Cholesterol in LDL [mass/volume] in serum or plasma by direct assay 82 mg/dL 1-129 Serum or plasma cholesterol in VLDL measurement (mass/volume) 49 mg/ dL 5-40 Methicillin resistant Staphylococcus aureus (MRSA) screening culture - 07:16 Methicillin resistant Staphylococcus aureus (MRSA) screening culture NEG NRG Complete blood count (CBC) with automated white blood cell (WBC) differential - 01/08/19 16:10 Blood leukocytes automated count (number/volume) 5.8 10*3/uL 4.3-11.0 Blood erythrocytes automated count (number/volume) 5.28 10*6/uL 4.35-5.85 Venous blood hemoglobin measurement (mass/volume) 14.7 g/dL 13.3-17.7 Blood hematocrit (volume fraction) 45 % 40-54 Automated erythrocyte mean corpuscular volume 84 [foz_us] 80-99 Automated erythrocyte mean corpuscular hemoglobin (mass per erythrocyte) 28 pg 25-34 Automated erythrocyte mean corpuscular hemoglobin concentration measurement ( mass/volume) 33 g/dL 32-36 Automated erythrocyte distribution width ratio 14.8 % 10.0-14.5 Automated blood platelet count (count/volume) 201 10*3/uL 130-400 Automated blood platelet mean volume measurement 9.8 [foz_us] 7.4-10.4 Automated blood neutrophils/100 leukocytes 58 % 42-75 Automated blood lymphocytes/100 leukocytes 29 % 12-44 Blood monocytes/100 leukocytes 9 % 0-12 Automated blood eosinophils/100 leukocytes 4 % 0-10 Automated blood basophils/100 leukocytes 1 % 0-10 Blood neutrophils automated count (number/volume) 3.4 10*3 1.8-7.8 Blood lymphocytes automated count (number/volume) 1.7 10*3 1.0-4.0 Blood monocytes automated count (number/volume) 0.5 10*3 0.0-1.0 Automated eosinophil count 0.2 10*3/uL 0.0-0.3 Automated blood basophil count (count/volume) 0.0 10*3/uL 0.0-0.1 PT panel in platelet poor plasma by coagulation assay - 01/08/19 16:10 Prothrombin time (PT) in platelet poor plasma by coagulation assay 17.0 s 12.2-14.7 INR in platelet poor plasma or blood by coagulation assay 1.3 0.8-1.4 Activated partial thromboplastin time (aPTT) in platelet poor plasma bycoagulation assay - 01/08/19 16:10 Activated partial thromboplastin time (aPTT) in platelet poor plasma bycoagulation assay 46 s 24-35 Comprehensive metabolic panel - 01/08/19 16:10 Serum or plasma sodium measurement (moles/volume) 138 mmol/L 135-145 Serum or plasma potassium measurement (moles/volume) 3.9 mmol/L 3.6-5.0 Serum or plasma chloride measurement (moles/volume) 101 mmol/L 98-107 Carbon dioxide 28 mmol/L 21-32 Serum or plasma anion gap determination (moles/volume) 9 mmol/L 5-14 Serum or plasma urea nitrogen measurement (mass/volume) 15 mg/dL 7-18 Serum or plasma creatinine measurement (mass/volume) 1.01 mg/dL 0.60-1.30 Serum or plasma urea nitrogen/creatinine mass ratio 15 NRG Serum or plasma creatinine measurement with calculation of estimated glomerular filtration rate > NRG Serum or plasma glucose measurement (mass/volume) 149 mg/dL 70-105 Serum or plasma calcium measurement (mass/volume) 9.5 mg/dL 8.5-10.1 Serum or plasma total bilirubin measurement (mass/volume) 0.6 mg/dL 0.1-1.0 Serum or plasma alkaline phosphatase measurement (enzymatic activity/volume) 94 U/L 40-136 Serum or plasma aspartate aminotransferase measurement (enzymatic activity/ volume) 37 U/L 5-34 Serum or plasma alanine aminotransferase measurement (enzymatic activity/volume ) 51 U/L 0-55 Serum or plasma protein measurement (mass/volume) 6.3 g/dL 6.4-8.2 Serum or plasma albumin measurement (mass/volume) 3.7 g/dL 3.2-4.5 CALCIUM CORRECTED 9.7 mg/dL 8.5-10.1 Magnesium - 01/08/19 16:10 Magnesium 1.9 mg/dL 1.8-2.4 Serum or plasma troponin i.cardiac measurement (mass/volume) - 01/08/19 16:10 Serum or plasma troponin i.cardiac measurement (mass/volume) 0.129 ng/mL <0.028 Myoglobin, serum - 01/08/19 16:10 Myoglobin, serum 57.8 ng/mL 10.0-92.0 Automated blood complete blood count (hemogram) panel - 01/09/19 06:35 Blood leukocytes automated count (number/volume) 6.6 10*3/uL 4.3-11.0 Blood erythrocytes automated count (number/volume) 5.76 10*6/uL 4.35-5.85 Venous blood hemoglobin measurement (mass/volume) 16.2 g/dL 13.3-17.7 Blood hematocrit (volume fraction) 48 % 40-54 Automated erythrocyte mean corpuscular volume 84 [foz_us] 80-99 Automated erythrocyte mean corpuscular hemoglobin (mass per erythrocyte) 28 pg 25-34 Automated erythrocyte mean corpuscular hemoglobin concentration measurement ( mass/volume) 34 g/dL 32-36 Automated erythrocyte distribution width ratio 15.2 % 10.0-14.5 Automated blood platelet count (count/volume) 209 10*3/uL 130-400 Automated blood platelet mean volume measurement 9.9 [foz_us] 7.4-10.4 Whole blood basic metabolic panel - 01/09/19 06:35 Serum or plasma sodium measurement (moles/volume) 139 mmol/L 135-145 Serum or plasma potassium measurement (moles/volume) 3.9 mmol/L 3.6-5.0 Serum or plasma chloride measurement (moles/volume) 102 mmol/L 98-107 Carbon dioxide 25 mmol/L 21-32 Serum or plasma anion gap determination (moles/volume) 12 mmol/L 5-14 Serum or plasma urea nitrogen measurement (mass/volume) 22 mg/dL 7-18 Serum or plasma creatinine measurement (mass/volume) 1.05 mg/dL 0.60-1.30 Serum or plasma urea nitrogen/creatinine mass ratio 21 NRG Serum or plasma creatinine measurement with calculation of estimated glomerular filtration rate > NRG Serum or plasma glucose measurement (mass/volume) 135 mg/dL 70-105 Serum or plasma calcium measurement (mass/volume) 9.9 mg/dL 8.5-10.1 Magnesium - 01/09/19 06:35 Magnesium 2.3 mg/dL 1.8-2.4 Lipid 1996 panel - 01/09/19 06:35 Serum or plasma triglyceride measurement (mass/volume) 237 mg/dL <150 Serum or plasma cholesterol measurement (mass/volume) 158 mg/dL < 200 Serum or plasma cholesterol in HDL measurement (mass/volume) 33 mg/ dL 40-60 Cholesterol in LDL [mass/volume] in serum or plasma by direct assay 88 mg/dL 1-129 Serum or plasma cholesterol in VLDL measurement (mass/volume) 47 mg/ dL 5-40 Serum or plasma lithium measurement (moles/volume) - 01/09/19 06:35 BNP level 98.6 pg/mL <100.0 Encounters ACCT No. Visit Date/Time Discharge Status Pt. Type Provider Facility Loc./Unit Complaint [id number] 01/09/2019 08:40:00 01/11/2019 11:50:00 DIS Outpatient JASVIR MELGOZA MD [facility] 4TH AFIB [id number] 01/02/2019 06:43:00 01/02/2019 10:07:00 DIS Outpatient JASVIR MELGOZA MD [facility] CATH A FLUTTER [id number] 12/10/2018 07:02:00 12/11/2018 08:15:00 DIS Outpatient Miguel NAYAK MD [facility] CATH TYPICAL ATRIAL FLUTTER [id number] 12/05/2018 05:33:00 12/05/2018 23:59:59 CLS Outpatient Miguel NAYAK MD [facility] PREOP ATRIAL FLUTTER [id number] 10/29/2018 06:25:00 10/29/2018 23:59:59 CLS Outpatient Miguel NAYAK MD [facility] PREOP ATRIAL FLUTTER [id number] 09/26/2018 05:36:00 09/26/2018 23:59:59 CLS Outpatient Miguel NAYAK MD [facility] PREOP TYPICAL ATRIAL FLUTTER [id number] 08/24/2018 06:40:00 08/25/2018 16:05:00 DIS Outpatient Miguel NAYAK MD [facility] SEVERE SINUS NODE DYSFUCTION,>10 SECOND PAUSE [id number] 03/21/2018 09:37:00 03/21/2018 12:02:00 DIS Outpatient JEANNE NUNEZ MD [facility] REHAB R KNEE MEDIAL COMPARTMENT DJD [id number] 02/07/2018 12:03:00 02/07/2018 23:59:59 CLS Outpatient JEANNE NUNEZ MD [facility] RAD R KNEE PAIN [id number] 11/29/2017 07:29:00 11/29/2017 11:51:00 DIS Outpatient JASVIR MELGOZA MD [facility] CATH DIZZINESS [id number] 05/03/2017 09:46:00 05/03/2017 23:59:59 CLS Outpatient JEANNE NUNEZ MD [facility] LAB DYSPNEA [id number] 05/02/2017 10:50:00 05/02/2017 13:06:00 DIS Emergency LEROY VILLARREAL [facility] ER IRR HEART RATE/SOA [id number] 04/26/2017 17:52:00 04/28/2017 18:35:00 DIS Inpatient JEANNE NUNEZ MD [facility] ICU A-FLUTTER W/RUR,CHEST PAIN [id number] 04/10/2017 07:27:00 04/10/2017 23:59:59 CLS Outpatient LEONORA VENTURA [facility] CARD I25.10 I10 E78.2 I48.0 [id number] 09/23/2015 11:08:00 09/23/2015 23:59:59 CLS Outpatient ANGUS MARINELLI DO [facility] RT ADRIAL FLUTTER,HTN, DYSPNEA [id number] 08/28/2015 20:00:00 08/29/2015 07:07:00 DIS Outpatient LEONORA VENTURA [facility] SLEEP SNORING [id number] 07/15/2015 20:00:00 07/16/2015 05:55:00 DIS Outpatient JASVIR MELGOZA MD [facility] SLEEP AFIB,HTN [id number] 07/08/2015 12:21:00 07/08/2015 23:59:59 CLS Outpatient JASVIR MELGOZA MD [facility] CARD ATRIAL FLUTTER,HTN,HLP [id number] 07/06/2015 12:41:00 07/06/2015 23:59:59 CLS Outpatient JASVIR MELGOZA MD [facility] CARD ATRIAL FLUTTER,HTN,HLP, CAD [id number] 07/06/2015 12:35:00 07/06/2015 23:59:59 CLS Outpatient JASVIR MELGOZA MD [facility] CARD AFIB,CAD,HTN,HLP [id number] 06/29/2015 08:52:00 06/29/2015 23:59:59 CLS Outpatient JEANNE NUNEZ MD [facility] CARD HYPERTENSION [id number] 06/17/2015 08:36:00 06/17/2015 13:30:00 DIS Outpatient IRVIN MACIAS MD [facility] SDC SCREENING [id number] 06/15/2015 05:40:00 06/15/2015 23:59:59 CLS Outpatient IRVIN MACIAS MD [facility] PREOP SCREENING [id number] 01/17/2019 08:04:00 ACT Outpatient Miguel NAYAK MD [facility] CATH SYMPTOMATIC AFIB [id number] 07/10/2015 16:02:00 ACT Inpatient ABAD BAILEY, JASVIR Odonnell [facility] CSD NSVT,CAD,AFLUTTER
--- NOTE | 2019-01-17 10:03 | Anesthesia-Procedure Note ---
Procedures/Interventions Procedure Start/Stop/Diagnosis Date of Procedure: Jan 17, 2019 Start Time: 09:39 Referring Physician: Christelle Preprocedural Diagnosis: Atrial Fib/Flutter Brief History Called to blood bank laboratory technician for scheduled cardioversion. NPO status verified. ASA 3. Brief hx obtained from pt and RN. All standard monitors applied. O2 per NC at 4lpm. Pt received a total of 70mg Propofol in increments. Cardioversion completed without incident. VSS. Opening eyes to command at end of procedure. Report and care left to RN Stop Time: 09:54 Postprocedural Diagnosis: JOSE J Gillespie CRNA Jan 17, 2019 10:03
--- NOTE | 2019-01-17 10:19 | Cardioversion ---
Cardioversion PROCEDURE PHYSICIAN: Scarlett Bourgeois MD DATE OF PROCEDURE: 01/17/19 DIRECT EXTERNAL ELECTRICAL CARDIOVERSION: Indications: Atrial Fibrillation Preoperative diagnoses: Atrial Fibrillation Postoperative diagnosis: Atrial paced rhythm, Successful Electrical Cardioversion History: This is a 68-year-old gentleman with previous history of typical atrial flutter status post ablation. He also had high degree AV block requiring a permanent pacemaker. Paroxysmal atrial fibrillation not responding to sotalol 80 mg twice a day. His sotalol was increased to 120 mg twice a day last week. Plan for electrical cardioversion today Anesthesia: By Anesthesia services Complications: None Specimen: None Contrast: 0 Flouroscopy: none Procedure Details: The patient was brought the label designer after informed consent was taken, all the risks and complications were explained including the risk of stroke. Electrical cardioversion was carried out with anesthesia support with propofol. 200 joules of synchronized shock was delivered through external patches which promptly restored atrial paced rhythm. The patient tolerated the procedure well. Conclusions: 1.Successful Cardioversion. 2.Continue oral anticoagulation and sotalol. 3.Follow up in office on previously given appointment. Scarlett Bourgeois MD, RS, CCDS Cardiac Electrophysiology Miguel BOURGEOIS MD Jan 17, 2019 10:19 am
--- NOTE | 2019-01-17 11:45 | NUR ---
iv dc'd, cath intact on removal. has called for ride. dc via [place], fully alert, denies when offered drink or snack. will call for own follow up appt
--- NOTE | 2019-01-17 13:50 | Anesthesia-General Post-Op ---
MAC Patient Condition Mental Status/LOC: Same as Preop Cardiovascular: Satisfactory Nausea/Vomiting: Absent Respiratory: Satisfactory Pain: Controlled Complications: Absent Post Op Complications Complications None Follow Up Care/Instructions Patient Instructions None needed. Anesthesiology Discharge Order Discharge Order Patient is doing well, no complaints, stable vital signs, no apparent adverse anesthesia problems. No complications reported per nursing. JOSE J TANNER CRNA Jan 17, 2019 13:50
== END | disposition home or self-care (01) ==
LOC: CATH 08:04
PROVIDERS: ATTEND Internal Medicine Interventional Cardiology
DX: I48.0 Paroxysmal atrial fibrillation (principal); I49.5 Sick sinus syndrome; I25.10 Atherosclerotic heart disease of native coronary artery without angina pectoris; I10 Essential (primary) hypertension; I27.20 Pulmonary hypertension, unspecified; E78.00 Pure hypercholesterolemia, unspecified; F41.9 Anxiety disorder, unspecified; J44.9 Chronic obstructive pulmonary disease, unspecified; N40.0 Benign prostatic hyperplasia without lower urinary tract symptoms; G47.33 Obstructive sleep apnea (adult) (pediatric); E66.01 Morbid (severe) obesity due to excess calories; Z68.39 Body mass index [BMI] 39.0-39.9, adult; Z95.0 Presence of cardiac pacemaker; Z79.01 Long term (current) use of anticoagulants; Z79.899 Other long term (current) drug therapy
CPT/HCPCS: 92960; 93005

== ENCOUNTER 2019-02-07 14:43 | Inpatient (IN) | payer MEDICARE, OTHER ==
[~2019-02-07] VITALS: Ht 170.2 cm; Wt 113.4 kg
[~2019-02-07 14:43] MED LIST changes: -CATHETER FLUSH 10 ML SYR IV PRN; -NS IV 1000 ML 1,000 ML IV SCH; -NS IV 1000 ML 1,000 ML ONE; -SOTA80TA PO; +STL80T PO; -proPOfol 200 MG/20 ML (DIPRIVAN) VIAL IV ONE
[2019-02-08] VITALS (10 sets, daily range): BP systolic 94–122; BP diastolic 61–85
--- OUTSIDE RECORDS SUMMARY | 2019-02-08 07:52 | XMS REPORT | Continuity of Care Document ---
Author Organization Unknown Address Unknown Allergies Active Description Code Type Severity Reaction Onset Reported/Identified Relationship to Patient Clinical Status Yes NKANo Known Allergies NKA Miscellaneous Allergy Unknown N/A 12/13/2008 Yes IVP DYE FOR HEART CATHS IVP DYE FOR HEART CATHS Severe HIVES 07/10/2015 Yes Tetanus Vaccines Toxoid [id number] Drug Allergy Unknown N/A 07/10/2015 Yes Tetanus Vaccines and Toxoid [id number] Drug Allergy Unknown N/A 2018 Medications There [...] MD, Ot I25.10 ATHSCL HEART DISEASE OF [place] CORONARY 07/13/2015 JASVIR MELGOZA MD, Ot [...] VENTURA Ot I25.10 ATHSCL HEART DISEASE OF [place] CORONARY 04/11/2017 LEONORA VENTURA Ot I48.0 [...] MD Ot I25.10 ATHSCL HEART DISEASE OF [place] CORONARY 04/28/2017 MAYRA MD, JEANNE J [...] ADULT 04/28/2017 JEANNE NUNEZ MD, Ot Z79.01 [facility] (CURRENT) USE OF ANTICOAGULANT 04/28/2017 JEANNE NUNEZ MD, Ot E66.01 MORBID (SEVERE) OBESITY DUE TO EXCESS CA 04/28/2017 JEANNE NUNEZ MD, Ot E87.8 OTH DISORDERS OF ELECTROLYTE AND FLUID B 04/28/2017 JEANNE NUNEZ MD, Ot G47.33 OBSTRUCTIVE SLEEP APNEA (ADULT) (PEDIATR 04/28/2017 JEANNE NUNEZ MD, Ot I10 ESSENTIAL (PRIMARY) HYPERTENSION 04/28/2017 JEANNE NUNEZ MD, Ot I25.10 ATHSCL HEART DISEASE OF [place] CORONARY 04/28/2017 JEANNE NUNEZ MD, Ot [...] ADULT 04/28/2017 JEANNE NUNEZ MD, Ot Z79.01 [facility] (CURRENT) USE OF ANTICOAGULANT 04/28/2017 JEANNE NUNEZ MD, Ot E66.01 MORBID (SEVERE) OBESITY DUE TO EXCESS CA 04/28/2017 JEANNE NUNEZ MD, Ot E87.8 OTH DISORDERS OF ELECTROLYTE AND FLUID B 04/28/2017 JEANNE NUNEZ MD, Ot G47.33 OBSTRUCTIVE SLEEP APNEA (ADULT) (PEDIATR 04/28/2017 JEANNE NUNEZ MD, Ot I10 ESSENTIAL (PRIMARY) HYPERTENSION 04/28/2017 JEANNE NUNEZ MD, Ot I25.10 ATHSCL HEART DISEASE OF [place] CORONARY 04/28/2017 JEANNE NUNEZ MD, Ot [...] ADULT 04/28/2017 JEANNE NUNEZ MD, Ot Z79.01 [facility] (CURRENT) USE OF ANTICOAGULANT 04/28/2017 JEANNE NUNEZ [...] MD, Ot I25.10 ATHSCL HEART DISEASE OF [place] CORONARY 04/28/2017 JEANNE NUNEZ MD, Ot [...] ADULT 04/28/2017 JEANNE NUNEZ MD, Ot Z79.01 [facility] (CURRENT) USE OF ANTICOAGULANT 05/02/2017 IRVIN MACIAS MD Ot V72.84 EXAM PRE-OPERATIVE NOS 05/02/2017 JEANNE NUNEZ MD, Ot I10 ESSENTIAL (PRIMARY) HYPERTENSION 05/02/2017 JASVIR MELGOZA MD, Ot E78.5 HYPERLIPIDEMIA, UNSPECIFIED 05/02/2017 JASVIR MELGOZA MD, Ot I10 ESSENTIAL (PRIMARY) HYPERTENSION 05/02/2017 JASVIR MELGOZA MD, Ot I25.10 ATHSCL HEART DISEASE OF [place] CORONARY 05/02/2017 JASVIR MELGOZA MD, Ot I48.3 TYPICAL ATRIAL FLUTTER 05/02/2017 JASVIR MELGOZA MD Ot E78.5 HYPERLIPIDEMIA, UNSPECIFIED 05/02/2017 JASVIR MELGOZA MD Ot I10 ESSENTIAL (PRIMARY) HYPERTENSION 05/02/2017 JASVIR MELGOZA MD Ot I25.10 ATHSCL HEART DISEASE OF [place] CORONARY 05/02/2017 JASVIR MELGOZA MD Ot I48.3 TYPICAL ATRIAL FLUTTER 05/02/2017 JASVIR MELGOZA MD Ot E78.5 HYPERLIPIDEMIA, UNSPECIFIED 05/02/2017 JASVIR MELGOZA MD Ot I10 ESSENTIAL (PRIMARY) HYPERTENSION 05/02/2017 JASVIR MELGOZA MD Ot I25.10 ATHSCL HEART DISEASE OF [place] CORONARY 05/02/2017 JASVIR MELGOZA MD Ot I48.3 TYPICAL ATRIAL FLUTTER 05/02/2017 ANGUS MARINELLI DO Ot E66.9 OBESITY, UNSPECIFIED 05/02/2017 ANGUS MARINELLI DO Ot I10 ESSENTIAL (PRIMARY) HYPERTENSION 05/02/2017 ANGUS MARINELLI DO Ot I48.3 TYPICAL ATRIAL FLUTTER 05/02/2017 LEONORA VENTURA Ot E78.2 MIXED HYPERLIPIDEMIA 05/02/2017 LEONORA VENTURA Ot I10 ESSENTIAL (PRIMARY) HYPERTENSION 05/02/2017 LEONORA VENTURA Ot I25.10 ATHSCL HEART DISEASE OF [place] CORONARY 05/02/2017 LEONORA VENTURA Ot I48.0 PAROXYSMAL ATRIAL FIBRILLATION 05/02/2017 LEROY VILLARREAL Ot E66.9 OBESITY, UNSPECIFIED 05/02/2017 LEROY VILLARREAL Ot I10 ESSENTIAL (PRIMARY) HYPERTENSION 05/02/2017 LEROY VILLARREAL Ot I25.10 ATHSCL HEART DISEASE OF [place] CORONARY 05/02/2017 LEROY VILLARREAL Ot I48.91 UNSPECIFIED ATRIAL FIBRILLATION 05/02/2017 LEROY VILLARREAL Ot Z68.39 BODY MASS INDEX (BMI) 39.0-39.9, ADULT 05/02/2017 LEROY VILLARREAL Ot Z79.01 [facility] (CURRENT) USE OF ANTICOAGULANT 05/02/2017 LEROY VILLARREAL Ot Z86.69 PERSONAL HISTORY OF DIS OF THE NERVOUS S 05/02/2017 PHIL, [facility] [employer] OPERATOR Ot Z87.81 PERSONAL HISTORY OF (HEALED) TRAUMATIC F 05/02/2017 PHIL, [employer] [employer] [facility] OPERATOR Ot Z98.890 OTHER SPECIFIED POSTPROCEDURAL STATES 05/03/2017 MAYRA BAILEY, JEANNE Odonnell Ot R06.00 DYSPNEA, UNSPECIFIED 05/04/2017 LEONORA VENTURA Ot E78.2 MIXED HYPERLIPIDEMIA 05/04/2017 LEONORA VENTURA Ot I10 ESSENTIAL (PRIMARY) HYPERTENSION 05/04/2017 LEONORA VENTURA Ot I25.10 ATHSCL HEART DISEASE OF [place] CORONARY 05/04/2017 LEONORA VENTURA Ot I48.0 PAROXYSMAL ATRIAL FIBRILLATION 05/08/2017 PHIL, [facility] [employer] [facility] OPERATOR Ot E66.9 OBESITY, UNSPECIFIED 05/08/2017 PHIL, [facility] [employer] [facility] OPERATOR Ot I10 ESSENTIAL (PRIMARY) HYPERTENSION 05/08/2017 PHIL, [facility] [employer] [facility] OPERATOR Ot I25.10 ATHSCL HEART DISEASE OF [place] CORONARY 05/08/2017 PHIL, [facility] [employer] [facility] OPERATOR Ot I48.91 UNSPECIFIED ATRIAL FIBRILLATION 05/08/2017 PHIL, [facility] [employer] [facility] OPERATOR Ot Z68.39 BODY MASS INDEX (BMI) 39.0-39.9, ADULT 05/08/2017 PHIL, [facility] [employer] [facility] OPERATOR Ot Z79.01 [facility] (CURRENT) USE OF ANTICOAGULANT 05/08/2017 PHIL, [facility] [employer] [facility] OPERATOR Ot Z86.69 PERSONAL HISTORY OF DIS OF THE NERVOUS S 05/08/2017 PHIL, [facility] [employer] [facility] OPERATOR Ot Z87.81 PERSONAL HISTORY OF (HEALED) TRAUMATIC F 05/08/2017 PHIL, [facility] [employer] [facility] OPERATOR Ot Z98.890 OTHER SPECIFIED POSTPROCEDURAL STATES 05/20/2017 PHIL, [facility] [employer] [facility] OPERATOR Ot E66.9 OBESITY, UNSPECIFIED 05/20/2017 PHIL, [facility] [employer] [facility] OPERATOR Ot I10 ESSENTIAL (PRIMARY) HYPERTENSION 05/20/2017 PHIL, [facility] [employer] [facility] OPERATOR Ot I25.10 ATHSCL HEART DISEASE OF [place] CORONARY 05/20/2017 PHIL, [facility] [employer] [facility] OPERATOR Ot I48.91 UNSPECIFIED ATRIAL FIBRILLATION 05/20/2017 PHIL, [facility] [employer] [facility] OPERATOR Ot Z68.39 BODY MASS INDEX (BMI) 39.0-39.9, ADULT 05/20/2017 PHIL, [facility] [employer] [facility] OPERATOR Ot Z79.01 [facility] (CURRENT) USE OF ANTICOAGULANT 05/20/2017 LEROY VILLARREALP [...] MD Ot I25.10 ATHSCL HEART DISEASE OF [place] CORONARY 11/28/2017 JASVIR MELGOZA MD Ot I48.3 TYPICAL ATRIAL FLUTTER 11/28/2017 JASVIR MELGOZA MD Ot E78.5 HYPERLIPIDEMIA, UNSPECIFIED 11/28/2017 JASVIR MELGOZA MD Ot I10 ESSENTIAL (PRIMARY) HYPERTENSION 11/28/2017 JASVIR MELGOZA MD Ot I25.10 ATHSCL HEART DISEASE OF [place] CORONARY 11/28/2017 JASVIR MELGOZA MD Ot I48.3 TYPICAL ATRIAL FLUTTER 11/28/2017 JASVIR MELGOZA MD Ot E78.5 HYPERLIPIDEMIA, UNSPECIFIED 11/28/2017 JASVIR MELGOZA MD Ot I10 ESSENTIAL (PRIMARY) HYPERTENSION 11/28/2017 JASVIR MELGOZA MD Ot I25.10 ATHSCL HEART DISEASE OF [place] CORONARY 11/28/2017 JASVIR MELGOZA MD Ot I48.3 TYPICAL ATRIAL FLUTTER 11/28/2017 ANGUS MARINELLI DO Ot E66.9 OBESITY, UNSPECIFIED 11/28/2017 ANGUS MARINELLI DO Ot I10 ESSENTIAL (PRIMARY) HYPERTENSION 11/28/2017 ANGUS MARINELLI DO Ot I48.3 TYPICAL ATRIAL FLUTTER 11/28/2017 LEONORA VENTURA Ot E78.2 MIXED HYPERLIPIDEMIA 11/28/2017 LEONORA VENTURA Ot I10 ESSENTIAL (PRIMARY) HYPERTENSION 11/28/2017 LEONORA VENTURA Ot I25.10 ATHSCL HEART DISEASE OF [place] CORONARY 11/28/2017 LEONORA VENTURA Ot I48.0 [...] MD Ot I25.10 ATHSCL HEART DISEASE OF [place] CORONARY 11/29/2017 JASVIR MELGOZA MD Ot [...] 11/29/2017 JASVIR MELGOZA MD Ot Z79.899 OTHER [facility] (CURRENT) DRUG THERAPY 11/29/2017 JASVIR MELGOZA MD [...] MD Ot I25.10 ATHSCL HEART DISEASE OF [place] CORONARY 12/04/2017 JASVIR MELGOZA MD Ot [...] 12/04/2017 JASVIR MELGOZA MD Ot Z79.899 [facility] (CURRENT) DRUG THERAPY 12/04/2017 JASVIR MELGOZA MD [...] MD Ot I25.10 ATHSCL HEART DISEASE OF [place] CORONARY 08/25/2018 Miguel NAYAK MD Ot I27.20 PULMONARY HYPERTENSION, UNSPECIFIED 08/25/2018 Miguel NAYAK MD Ot I48.0 PAROXYSMAL ATRIAL FIBRILLATION 08/25/2018 Miguel NAYAK MD Ot I48.3 TYPICAL ATRIAL FLUTTER 08/25/2018 Miguel NAYAK MD Ot I49.5 SICK SINUS SYNDROME 08/25/2018 Miguel NAYAK MD Ot J30.2 OTHER SEASONAL ALLERGIC RHINITIS 08/25/2018 Migule NAYAK MD Ot J44.9 CHRONIC OBSTRUCTIVE PULMONARY DISEASE, U 08/25/2018 Miguel NAYAK MD Ot Z68.41 BODY MASS INDEX (BMI) 40.0-44.9, ADULT 08/25/2018 Miguel NAYAK MD Ot Z79.899 OTHER [facility] (CURRENT) DRUG THERAPY 08/28/2018 Miguel NAYAK MD Ot E66.01 MORBID (SEVERE) OBESITY DUE TO EXCESS CA 08/28/2018 Miguel NAYAK MD Ot G47.33 OBSTRUCTIVE SLEEP APNEA (ADULT) (PEDIATR 08/28/2018 Miguel NAYAK MD Ot I10 ESSENTIAL (PRIMARY) HYPERTENSION 08/28/2018 Miguel NAYAK MD Ot I25.10 ATHSCL HEART DISEASE OF [place] CORONARY 08/28/2018 Miugel NAYAK MD Ot I27.20 PULMONARY HYPERTENSION, UNSPECIFIED [...] 08/28/2018 Miguel NAYAK MD Ot Z79.899 OTHER [facility] (CURRENT) DRUG THERAPY 09/27/2018 Miguel NAYAK MD Ot Z01.818 ENCOUNTER FOR OTHER PREPROCEDURAL EXAMIN 10/30/2018 Miguel NAYAK MD Ot Z01.818 ENCOUNTER FOR OTHER PREPROCEDURAL EXAMIN 11/01/2018 Miguel NAYAK MD Ot Z01.818 ENCOUNTER FOR OTHER PREPROCEDURAL EXAMIN 12/06/2018 Miguel NAYAK MD Ot Z01.818 ENCOUNTER FOR OTHER PREPROCEDURAL EXAMIN 12/10/2018 GILBERTO BAILEY, IRVIN Ot V72.84 EXAM PRE-OPERATIVE NOS 12/10/2018 MAYRA BAIELY, JEANNE Odonnell Ot I10 ESSENTIAL (PRIMARY) HYPERTENSION 12/10/2018 JASVIR MELGOZA MD Ot E78.5 HYPERLIPIDEMIA, UNSPECIFIED 12/10/2018 JASVIR MELGOZA MD Ot I10 ESSENTIAL (PRIMARY) HYPERTENSION 12/10/2018 JASVIR MELGOZA MD Ot I25.10 ATHSCL HEART DISEASE OF [place] CORONARY 12/10/2018 JASVIR MELGOZA MD Ot I48.3 TYPICAL ATRIAL FLUTTER 12/10/2018 JASVIR MELGOZA MD Ot E78.5 HYPERLIPIDEMIA, UNSPECIFIED 12/10/2018 JASVIR MELGOZA MD Ot I10 ESSENTIAL (PRIMARY) HYPERTENSION 12/10/2018 JASVIR MELGOZA MD Ot I25.10 ATHSCL HEART DISEASE OF [place] CORONARY 12/10/2018 JASVIR MELGOZA MD Ot I48.3 TYPICAL ATRIAL FLUTTER 12/10/2018 JASVIR MELGOZA MD Ot E78.5 HYPERLIPIDEMIA, UNSPECIFIED 12/10/2018 JASVIR MELGOZA MD Ot I10 ESSENTIAL (PRIMARY) HYPERTENSION 12/10/2018 JASVIR MELGOZA MD Ot I25.10 ATHSCL HEART DISEASE OF [place] CORONARY 12/10/2018 ABAD BAILEY, JASVIR Odonnell Ot I48.3 TYPICAL ATRIAL FLUTTER 12/10/2018 ANGUS MARINELLI DO Ot E66.9 OBESITY, UNSPECIFIED 12/10/2018 ANGUS MARINELLI DO Ot I10 ESSENTIAL (PRIMARY) HYPERTENSION 12/10/2018 ANGUS MARINELLI DO Ot I48.3 TYPICAL ATRIAL FLUTTER 12/10/2018 LEONORA VENTURA Ot E78.2 MIXED HYPERLIPIDEMIA 12/10/2018 LEONORA VENTURA Ot I10 ESSENTIAL (PRIMARY) HYPERTENSION 12/10/2018 LEONORA VENTURA Ot I25.10 ATHSCL HEART DISEASE OF [place] CORONARY 12/10/2018 LEONORA VENTURA Ot I48.0 [...] J44.9 CHRONIC OBSTRUCTIVE PULMONARY DISEASE, U 12/11/2018 Miguel NAYAK MD Ot Z11.2 ENCOUNTER FOR SCREENING FOR OTHER BACTER 12/11/2018 Miguel NAYAK MD Ot Z79.899 OTHER [facility] (CURRENT) DRUG THERAPY 12/11/2018 Miguel NAYAK MD [...] 12/12/2018 Miguel NAYAK MD Ot Z79.899 OTHER [facility] (CURRENT) DRUG THERAPY 12/12/2018 Miguel NAYAK MD [...] 12/16/2018 Miguel NAYAK MD Ot Z79.899 OTHER [facility] (CURRENT) DRUG THERAPY 12/16/2018 Miguel NAYAK MD [...] MD Ot I25.10 ATHSCL HEART DISEASE OF [place] CORONARY 01/03/2019 JASVIR MELGOZA MD Ot I48.2 [...] 01/03/2019 JASVIR MELGOZA MD Ot Z79.899 OTHER [facility] (CURRENT) DRUG THERAPY 01/03/2019 JASVIR MELGOZA MD [...] MD Ot I25.10 ATHSCL HEART DISEASE OF [place] CORONARY 01/03/2019 JASVIR MELGOZA MD Ot I48.2 CHRONIC ATRIAL FIBRILLATION 01/03/2019 JASVIR MELGOZA MD Ot I48.92 UNSPECIFIED ATRIAL FLUTTER 01/03/2019 JASVIR MELGOZA MD Ot I49.5 SICK SINUS SYNDROME 01/03/2019 JASVIR MELGOZA MD Ot I65.29 OCCLUSION AND STENOSIS OF UNSPECIFIED CA 01/03/2019 JASVIR MELGOZA MD Ot J44.9 CHRONIC OBSTRUCTIVE PULMONARY DISEASE, U 01/03/2019 JASVIR MELGOZA MD Ot N40.0 BENIGN PROSTATIC HYPERPLASIA WITHOUT LOW 01/03/2019 AJSVIR MELGOZA MD Ot Z68.41 BODY MASS INDEX (BMI) 40.0-44.9, ADULT 01/03/2019 JASVIR MELGOZA MD Ot Z79.899 OTHER [facility] (CURRENT) DRUG THERAPY 01/03/2019 JASVIR MELGOZA MD [...] MD Ot I25.10 ATHSCL HEART DISEASE OF [place] CORONARY 01/08/2019 JASVIR MELGOZA MD Ot I27.20 [...] ADULT 01/08/2019 JASVIR MELGOZA MD, Ot Z79.01 [facility] (CURRENT) USE OF ANTICOAGULANT 01/08/2019 JASVIR MELGOZA [...] 01/11/2019 Miguel NAYAK MD Ot Z79.899 OTHER [facility] (CURRENT) DRUG THERAPY 01/11/2019 Miguel NAYAK MD [...] MD Ot I25.10 ATHSCL HEART DISEASE OF [place] CORONARY 01/11/2019 JASVIR MELGOZA MD Ot I27.20 [...] ADULT 01/11/2019 JASVIR MELGOZA MD Ot Z79.01 [facility] (CURRENT) USE OF ANTICOAGULANT 01/11/2019 JASVIR MELGOZA [...] MD Ot I25.10 ATHSCL HEART DISEASE OF [place] CORONARY 01/16/2019 JASVIR MELGOZA MD Ot I27.20 [...] OBSTRUCTIVE PULMONARY DISEASE, U 01/16/2019 JASVIR MELGOZA MD Ot J81.1 CHRONIC PULMONARY EDEMA 01/16/2019 JASVIR MELGOZA MD Ot K58.9 IRRITABLE BOWEL SYNDROME WITHOUT DIARRHE 01/16/2019 JASVIR MELGOZA MD Ot R00.2 PALPITATIONS 01/16/2019 JASVIR MELGOZA MD Ot R06.02 SHORTNESS OF BREATH 01/16/2019 JASVIR MELGOZA MD Ot Z68.39 BODY MASS INDEX (BMI) 39.0-39.9, ADULT 01/16/2019 JASVIR MELGOZA MD Ot Z79.01 [facility] (CURRENT) USE OF ANTICOAGULANT 01/16/2019 JASVIR MELGOZA MD Ot Z88.7 ALLERGY STATUS TO SERUM AND VACCINE STAT 01/16/2019 JASVIR MELGOZA MD Ot Z91.041 RADIOGRAPHIC DYE ALLERGY STATUS 01/16/2019 JASVIR MELGOZA MD Ot Z95.0 PRESENCE OF CARDIAC PACEMAKER 01/18/2019 Miguel NAYAK MD Ot E66.01 MORBID (SEVERE) OBESITY DUE TO EXCESS CA 01/18/2019 Miguel NAYAK MD Ot E78.00 PURE HYPERCHOLESTEROLEMIA, UNSPECIFIED 01/18/2019 Miguel NAYAK MD Ot F41.9 ANXIETY DISORDER, UNSPECIFIED 01/18/2019 Miguel NAYAK MD Ot G47.33 OBSTRUCTIVE SLEEP APNEA (ADULT) (PEDIATR 01/18/2019 Miguel NAYAK MD Ot I10 ESSENTIAL (PRIMARY) HYPERTENSION 01/18/2019 Miguel NAYAK MD Ot I25.10 ATHSCL HEART DISEASE OF [place] CORONARY 01/18/2019 Miguel NAYAK MD Ot I27.20 PULMONARY HYPERTENSION, UNSPECIFIED 01/18/2019 Miguel NAYAK MD Ot I48.0 PAROXYSMAL ATRIAL FIBRILLATION 01/18/2019 Miguel NAYAK MD Ot I49.5 SICK SINUS SYNDROME 01/18/2019 Miguel NAYAK MD Ot J44.9 CHRONIC OBSTRUCTIVE PULMONARY DISEASE, U 01/18/2019 Miguel NAYAK MD Ot Z68.39 BODY MASS INDEX (BMI) 39.0-39.9, ADULT 01/18/2019 Miguel NAYAK MD Ot Z79.01 [facility] (CURRENT) USE OF ANTICOAGULANT 01/18/2019 Miguel NAYAK MD Ot Z95.0 PRESENCE OF CARDIAC PACEMAKER 01/21/2019 Miguel NAYAK MD Ot E66.01 MORBID (SEVERE) OBESITY DUE TO EXCESS CA 01/21/2019 Miguel NAYAK MD Ot E78.00 PURE HYPERCHOLESTEROLEMIA, UNSPECIFIED 01/21/2019 Miguel NAYAK MD Ot F41.9 ANXIETY DISORDER, UNSPECIFIED 01/21/2019 Miguel NAYAK MD Ot G47.33 OBSTRUCTIVE SLEEP APNEA (ADULT) (PEDIATR 01/21/2019 Miguel NAYAK MD Ot I10 ESSENTIAL (PRIMARY) HYPERTENSION 01/21/2019 Miguel NAYAK MD Ot I25.10 ATHSCL HEART DISEASE OF [place] CORONARY 01/21/2019 Miguel NAYAK MD Ot I27.20 PULMONARY HYPERTENSION, UNSPECIFIED 01/21/2019 Miguel NAYAK MD Ot I48.0 PAROXYSMAL ATRIAL FIBRILLATION 01/21/2019 Miguel NAYAK MD Ot I49.5 SICK SINUS SYNDROME 01/21/2019 Miguel NAYAK MD, Ot J44.9 CHRONIC OBSTRUCTIVE PULMONARY DISEASE, U 01/21/2019 Miguel NAYAK MD, Ot N40.0 BENIGN PROSTATIC HYPERPLASIA WITHOUT LOW 01/21/2019 Miguel NAYAK MD, Ot Z68.39 BODY MASS INDEX (BMI) 39.0-39.9, ADULT 01/21/2019 Miguel NAYAK MD Ot Z79.01 [facility] (CURRENT) USE OF ANTICOAGULANT 01/21/2019 Miguel NAYAK MD, Ot Z79.899 OTHER [facility] (CURRENT) DRUG THERAPY 01/21/2019 Miguel NAYAK MD Ot Z95.0 PRESENCE OF CARDIAC PACEMAKER 02/06/2019 Miguel NAYAK MD Ot E66.01 MORBID (SEVERE) OBESITY DUE TO EXCESS CA 02/06/2019 Miguel NAYAK MD Ot E78.00 PURE HYPERCHOLESTEROLEMIA, UNSPECIFIED 02/06/2019 Miguel NAYAK MD Ot F41.9 ANXIETY DISORDER, UNSPECIFIED 02/06/2019 Miguel NAYAK MD Ot G47.33 OBSTRUCTIVE SLEEP APNEA (ADULT) (PEDIATR 02/06/2019 Miguel NAYAK MD Ot I10 ESSENTIAL (PRIMARY) HYPERTENSION 02/06/2019 Miguel NAYAK MD Ot I25.10 ATHSCL HEART DISEASE OF [place] CORONARY 02/06/2019 Miguel NAYAK MD Ot I27.20 PULMONARY HYPERTENSION, UNSPECIFIED 02/06/2019 Miguel NAYAK MD Ot I48.0 PAROXYSMAL ATRIAL FIBRILLATION 02/06/2019 Miguel NAYAK MD Ot I49.5 SICK SINUS SYNDROME 02/06/2019 Miguel NAYAK MD Ot J44.9 CHRONIC OBSTRUCTIVE PULMONARY DISEASE, U 02/06/2019 Miguel NAYAK MD Ot N40.0 BENIGN PROSTATIC HYPERPLASIA WITHOUT LOW 02/06/2019 Miguel NAYAK MD Ot Z68.39 BODY MASS INDEX (BMI) 39.0-39.9, ADULT 02/06/2019 Miguel NAYAK MD, Ot Z79.01 [facility] (CURRENT) USE OF ANTICOAGULANT 02/06/2019 Miguel NAYAK MD, Ot Z79.899 OTHER [facility] (CURRENT) DRUG THERAPY 02/06/2019 Miguel NAYAK MD, Ot Z95.0 PRESENCE OF CARDIAC PACEMAKER Procedures Code Description Performed By Performed On [id number] MEASURE OF CARDIAC SAMPL PRESSURE, L H 07/10/2015 [id number] FLUOROSCOPY OF MULT COR ART USING L OSM 07/10/2015 [id number] FLUOROSCOPY OF LEFT HEART USING LOW OSMO 07/10/2015 [id number] MEASURE OF CARDIAC SAMPL PRESSURE, L H 04/28/2017 [id number] FLUOROSCOPY OF MULT COR ART USING L OSM 04/28/2017 [id number] FLUOROSCOPY OF LEFT HEART USING LOW OSMO 04/28/2017 [id number] FLUOROSCOPY OF THORACIC AORTA USING LOW 04/28/2017 [...] 102 mmol/L 98-107 Carbon dioxide 24 mmol/L -32 Serum or plasma anion gap determination (moles/volume) [...] resistant Staphylococcus aureus (MRSA) screening culture NEG [facility] Automated blood complete blood count (hemogram) panel [...] Status Pt. Type Provider Facility Loc./Unit Complaint [id number] 01/17/2019 08:04:00 01/17/2019 23:59:59 CLS Outpatient Miguel NAYAK MD Via [facility] SYMPTOMATIC AFIB [id number] 01/09/2019 08:40:00 01/11/2019 11:50:00 DIS Inpatient JASVIR MELGOZA MD Via [facility] 4TH AFIB [id number] 01/02/2019 06:43:00 01/02/2019 10:07:00 DIS Outpatient JASVIR MELGOZA MD [facility] CATH A FLUTTER [id number] 12/10/2018 07:02:00 12/11/2018 08:15:00 DIS Outpatient Miguel NAYAK MD [facility] TYPICAL ATRIAL FLUTTER [id number] 12/05/2018 05:33:00 12/05/2018 23:59:59 CLS Outpatient Miguel NAYAK MD [facility] PREOP ATRIAL FLUTTER [id number] 10/29/2018 06:25:00 10/29/2018 23:59:59 CLS Outpatient Miguel NAYAK MD [facility] PREOP ATRIAL FLUTTER [id number] 09/26/2018 05:36:00 09/26/2018 23:59:59 CLS Outpatient Miguel NAYAK MD [facility] PREOP TYPICAL ATRIAL FLUTTER [id number] 08/24/2018 06:40:00 08/25/2018 16:05:00 DIS Outpatient Miguel NAYAK MD Via [facility] SEVERE SINUS NODE DYSFUCTION,>10 SECOND PAUSE [id number] 03/21/2018 09:37:00 03/21/2018 12:02:00 DIS Outpatient JEANNE NUNEZ MD [facility] REHAB R KNEE MEDIAL COMPARTMENT DJD [id number] 02/07/2018 12:03:00 02/07/2018 23:59:59 CLS Outpatient JEANNE NUNEZ MD [facility] RAD R KNEE PAIN [id number] 11/29/2017 07:29:00 11/29/2017 11:51:00 DIS Outpatient JASVIR MELGOZA MD [facility] CATH DIZZINESS [id number] 05/03/2017 09:46:00 05/03/2017 23:59:59 CLS Outpatient JEANNE NUNEZ MD [facility] LAB DYSPNEA [id number] 05/02/2017 10:50:00 05/02/2017 13:06:00 DIS Emergency PHILLEROYP Via [facility] ER IRR HEART RATE/SOA [id number] 04/26/2017 17:52:00 04/28/2017 18:35:00 DIS Inpatient JEANNE NUNEZ MD [facility] ICU A-FLUTTER W/RUR,CHEST PAIN [id number] 04/10/2017 07:27:00 04/10/2017 23:59:59 CLS Outpatient LEONORA VENTURA [facility] CARD I25.10 I10 E78.2 I48.0 [id number] 09/23/2015 11:08:00 09/23/2015 23:59:59 CLS Outpatient ANGUS MARINELLI DO Via [facility] RT ADRIAL FLUTTER,HTN, DYSPNEA [id number] 08/28/2015 20:00:00 08/29/2015 07:07:00 DIS Outpatient LEONORA VENTURA [facility] SLEEP SNORING [id number] 07/15/2015 20:00:00 07/16/2015 05:55:00 DIS Outpatient JASVIR MELGOZA MD [facility] SLEEP AFIB,HTN [id number] 07/08/2015 12:21:00 07/08/2015 23:59:59 CLS Outpatient JASVIR MELGOZA MD [facility] CARD ATRIAL FLUTTER,HTN,HLP [id number] 07/06/2015 12:41:00 07/06/2015 23:59:59 CLS Outpatient JASVIR MELGOZA MD [facility] CARD ATRIAL FLUTTER,HTN,HLP, CAD [id number] 07/06/2015 12:35:00 07/06/2015 23:59:59 CLS Outpatient JASVIR MELGOZA MD [facility] CARD AFIB,CAD,HTN,HLP [id number] 06/29/2015 08:52:00 06/29/2015 23:59:59 CLS Outpatient JEANNE NUNEZ MD [facility] CARD HYPERTENSION [id number] 06/17/2015 08:36:00 06/17/2015 13:30:00 DIS Outpatient IRVIN MACIAS MD [facility] SDC SCREENING [id number] 06/15/2015 05:40:00 06/15/2015 23:59:59 CLS Outpatient IRVIN MACIAS MD [facility] PREOP SCREENING [id number] 07/10/2015 16:02:00 ACT Inpatient JASVIR MELGOZA MD [facility] CSD NSVT,CAD,AFLUTTER
[2019-02-08 08:09] LABS: BASOPHILS % (AUTO) 0 % (0-10); EOSINOPHILS # (AUTO) 0.2 10^3/uL (0.0-0.3); EOSINOPHILS % (AUTO) 3 % (0-10); HEMATOCRIT 45 % (40-54); HEMOGLOBIN 15.5 G/DL (13.3-17.7); LYMPHOCYTES # (AUTO) 2.1 X 10^3 (1.0-4.0); LYMPHOCYTES % (AUTO) 29 % (12-44); MEAN CORPUSCULAR HEMOGLOBIN 28 PG (25-34); MEAN CORPUSCULAR HGB CONC 34 G/DL (32-36); MEAN CORPUSCULAR VOLUME 80 FL (80-99); MEAN PLATELET VOLUME 9.3 FL (7.4-10.4); MONOCYTES # (AUTO) 0.7 X 10^3 (0.0-1.0); MONOCYTES % (AUTO) 10 % (0-12); NEUTROPHILS # (AUTO) 4.2 X 10^3 (1.8-7.8); NEUTROPHILS % (AUTO) 58 % (42-75); PLATELET COUNT 253 10^3/uL (130-400); RED CELL DISTRIBUTION WIDTH 14.5 % (10.0-14.5); WHITE BLOOD COUNT 7.3 10^3/uL (4.3-11.0)
[2019-02-08 08:29] LABS: ALANINE AMINOTRANSFERASE 69 U/L (0-55); ALBUMIN 3.9 GM/DL (3.2-4.5); ALKALINE PHOSPHATASE 111 U/L (40-136); BILIRUBIN,TOTAL 0.6 MG/DL (0.1-1.0); BUN/CREATININE RATIO 22; CALCIUM 9.6 MG/DL (8.5-10.1); CARBON DIOXIDE 21 MMOL/L (21-32); CHLORIDE 101 MMOL/L (98-107); CREATININE SERUM 1.02 MG/DL (0.60-1.30); GFR ESTIMATED > 60; GLUCOSE 134 MG/DL (70-105); POTASSIUM 4.1 MMOL/L (3.6-5.0); SODIUM 135 MMOL/L (135-145); TOTAL PROTEIN 6.6 GM/DL (6.4-8.2)
--- NOTE | 2019-02-08 08:45 | NUR ---
Received a call from Rosanne KENNEDY to begin tikosyn per Dr. Bourgeois. reviewed labs and recommended starting tikosyn 500 mcg po bid based on scr 1.04 (estimated crcl greater than 60). reviewed home Meds patient has listed sotalol and hydrochlorothiazide. Per RN discussion with patient off sotalol, also informed her that hydrochlorothiazide is contraindicated and should not be continued. also recommended ekg 2hrs post dose to monitor QTc and adjust dose if elevated per manufacture recommendations.
[2019-02-08] MEDS ORDERED: DOFETILIDE 125 MCG (TIKOSYN) CAPSULE PO SCH (09:00)
[2019-02-08] MEDS ORDERED: ALLERGY SHOTS INJ (10:29)
[2019-02-08] MEDS ORDERED: [UNRECOGNIZED DRUG - OTHER] PO (10:36)
--- NOTE | 2019-02-08 10:36 | NUR ---
SPOKE WITH THE PATIENT ABOUT HIS MEDICATIONS. WE WENT OVER THE EXT MED HX AND HE VERIFIED HOW HE TAKES THEM. HE STATES THE ONLY THING THAT HAS CHANGED WAS THEY STOPPED THE SOTALOL AND STARTED HIM ON A NEW MEDICATION TWICE DAILY THAT WAS VERY EXPENSIVE, HE RECEIVED A TWO WEEK SUPPLY SAMPLES FROM THE OFFICE BUT HE DOES NOT REMEMBER THE NAME OF THE MEDICATION. HE ALSO STATES THEY ARE CHANGING HIM TO A NEW MEDICATION AGAIN DURING THIS VISIT BECAUSE OF THE SOW OF THE SAMPLE MED. I HAVE LEFT A MESSAGE WITH DR. NAYAK'S OFFICE TO GET THE NAME OF THAT SAMPLE MED FOR RECORD PURPOSES AND WILL UPDATE THE MED REC WHEN THEY RETURN MY CALL. Addendum: 02/08/19 at 1204 by JOLLY JIM [facility] RECEIVED A CALL BACK FROM DR NAYAK'S OFFICE AT THIS TIME AND SHE VERIFIED THEY HAD GIVEN THE PATIENT MULTAQ 400MG BID SAMPLES. UPDATED THE MED REC ACCORDINGLY.
--- NOTE | 2019-02-08 11:10 | History & Physicial-Cardiolgy ---
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 Layne. The patient has history of typical atrial flutter status post ablation. He also had high degree AV block therefore had a dual-chamber permanent pacemaker implantation and of last year. The patient continued to have atypical atrial flutter/fibrillation which was refractory to high dose of sotalol. Therefore I switched to multaq however the patient cannot afford multaq. Patient cannot afford amiodarone as well. Class IC antiarrhythmic therapy are contraindicated. The only option is dofetilide. He's been admitted for dofetilide loading. Review of Systems-Cardiology Review of Systems Constitutional: As described under HPI; No As described under HPI, No no symptoms reported, No chills, No fever, No lightheadedness Eyes: No As described under HPI, No no symptoms reported, No blindness, No blurred vision, No contact lenses, No drainage, No decreased acuity, No foreign body sensation, No pain, No vision change Ears/Nose/Throat: No As described under HPI, No no symptoms reported, No chronic hearing loss, No ear discharge, No ear pain, No nasal drainage, No ulcerations Respiratory: No no symptoms reported; As described under HPI; No As described under HPI, No cough, No orthopnea, No shortness of breath, No SOB with excertion Cardiovascular: No no symptoms reported; As described under HPI; No As described under HPI, No chest pain, No edema, No irregular heart rate, No lightheadedness, No palpitations Gastrointestinal: No no symptoms reported, No As described under HPI, No abdomen distended, No abdominal pain, No blood streaked bowels, No constipation, No diarrhea, No nausea, No vomiting, No stool coloration changes Genitourinary: No As described under HPI, No burning, No dysuria, No discharge, No frequency, No flank pain, No hematuria, No urgency Skin: No rash, No skin related problems, No ulcerations Psychiatric/Neurological: No anxiety, No depression, No seizure, No focal weakness, No syncope Hematologic: No bleeding abnormalities APH-Ntonlp-Xbujxv Hx Patient Social History Alcohol Use: Denies Use Recreational Drug Use: No 2nd Hand Smoke Exposure: No Recent Foreign Travel: Yes Recent Infectious Disease Expo: No Physical Abuse Screen: No Sexual Abuse: No Immunizations Up To Date Date of Pneumonia Vaccine: Aug 10, 2018 Date of Influenza Vaccine: Jul 11, 2018 Past Medical History PMH As described under Assessment. Family Medical History Family History: Completed stroke 19 MOTHER Myocardial infarction 19 FATHER Allergies and Home Medications Allergies Coded Allergies: Tetanus Vaccines and Toxoid (Verified Allergy, Unknown, 11/01/18) EDEMA Uncoded Allergies: IVP DYE FOR HEART CATHS (Allergy, Severe, HIVES, 07/10/15) WAS TREATED TODAY WITH BENADRYL AND SOLUMEDROL PRE CARDIAC CATH Home Medications Atorvastatin Calcium 10 Mg Tablet, 10 MG PO DAILY, (Reported) Dabigatran Etexilate Mesylate 150 Mg Capsule, 150 MG PO BID, (Reported) Diltiazem HCl 180 Mg Cap.er.24h, 180 MG PO DAILY, (Reported) Enalapril Maleate 10 Mg Tablet, 10 MG PO DAILY, (Reported) Furosemide 20 Mg Tablet, 20 MG PO DAILY, (Reported) Hydrochlorothiazide 25 Mg Tablet, 25 MG PO DAILY, (Reported) Ibuprofen 200 Mg Tablet, 400 MG PO TID PRN for PAIN-MILD, (Reported) Loratadine 10 Mg Tablet, 10 MG PO DAILY PRN for ALLERGIES, (Reported) Montelukast Sodium 10 Mg Tablet, 10 MG PO HS, (Reported) Naproxen Sodium 220 Mg Tablet, 440 MG PO Q8H PRN for PAIN-MILD, (Reported) Potassium Chloride 10 Meq Tablet.er, 10 MEQ PO DAILY, (Reported) [Allergy Shots] , INJ UD PRN for ALLERGIES, (Reported) [Sample Med] , PO BID, (Reported) REPLACED SOTALOL Patient Home Medication List Home Medication List Reviewed: Yes Physical Exam-Cardiology Physical Exam Vital Signs/I&O 02/08/19 02/08/19 02/08/19 02/08/19 07:50 07:51 08:00 08:15 Pulse 83 80 76 85 B/P (MAP) 107/74 (85) 122/85 (97) 117/70 (86) O2 Delivery Room Air Room Air Room Air 5/17/02/08/19 02/08/19 02/08/19 08:28 08:30 08:30 08:45 Temp 97.5 Pulse 83 95 101 Resp 19 B/P (MAP) 117/70 104/78 (87) 94/61 (72) O2 Delivery Room Air Room Air Room Air Room Air 02/08/19 02/08/19 02/08/19 09:00 09:00 10:00 Pulse 98 76 B/P (MAP) 94/74 (81) 107/69 (82) O2 Delivery Room Air Room Air Room Air Capillary Refill : Constitutional: appears stated age; No apparent distress; well-developed, well- nourished HEENT: PERRL; No discharge; hearing is well preserved, oral hygience is good; No ulceration, No xanthelasmas are seen Neck: No carotid bruit; carotid pulses are 2 + bilaterally Respiratory: No accessory muscle use, No respiratory distress, No chest tender, No chest expansion is symmetric; chest is bilaterally symmetric; No lungs clear to percussion; lungs clear to auscultation; No crackles, No rhonchi, No rales, No stridor, No wheezing, No pleural rub, No other Cardiovascular: irregularly irregular, S1 and S2 Gastrointestinal: No tender, No soft, No round, No distended, No pulsatile mass, No organomegaly, No guarding, No rebound, No tenderness, No hernia, No mass, No audible bowel sounds, No abnormal bowel sounds, No abdominal bruits, No spleenomegaly, No other Rectal: deferred Extremities: No normal range of motion, No non-tender, No normal inspection, No pedal edema, No calf tenderness, No normal capillary refill, No pelvis stable, No calf tenderness, No inflammation, No pedal edema, No slow capillary refill, No swelling, No other, No abrasion, No clubbing, No cyanosis, No ecchymosis, No laceration, No no lower extremity edema bilateral, No significant edema, No tenderness, No wound Neurologic/Psychiatric: no motor/sensory deficits, alert, normal mood/affect, oriented x 3, power is 5/5 both on sides Skin: No rash, No ulcerations Data Review Labs Laboratory Tests 02/08/19 08:03: White Blood Count 7.3, Red Blood Count 5.63, Hemoglobin 15.5, Hematocrit 45, Mean Corpuscular Volume 80, Mean Corpuscular Hemoglobin 28, Mean Corpuscular Hemoglobin Concent 34, Red Cell Distribution Width 14.5, Platelet Count 253, Mean Platelet Volume 9.3, Neutrophils (%) (Auto) 58, Lymphocytes (%) (Auto) 29, Monocytes (%) (Auto) 10, Eosinophils (%) (Auto) 3, Basophils (%) (Auto) 0, Neutrophils # (Auto) 4.2, Lymphocytes # (Auto) 2.1, Monocytes # (Auto) 0.7, Eosinophils # (Auto) 0.2, Basophils # (Auto) 0.0, Sodium Level 135, Potassium Level 4.1, Chloride Level 101, Carbon Dioxide Level 21, Anion Gap 13, Blood Urea Nitrogen 22H, Creatinine 1.02, Estimat Glomerular Filtration Rate > 60, BUN/Creatinine Ratio 22, Glucose Level 134H, Calcium Level 9.6, Corrected Calcium 9.7, Total Bilirubin 0.6, Aspartate Amino Transf (AST/SGOT) 40H, Alanine Aminotransferase (ALT/SGPT) 69H, Alkaline Phosphatase 111, Total Protein 6.6, Albumin 3.9 ECG Impression ECG Comment Atypical Atrial flutter A/P-Cardiology Assessment/Admission Diagnosis Persistent atypical atrial flutter/atrial fibrillation Admission Status: Inpatient Order (span 2 midnights) Reason for Inpatient Admission: dofetilide loading requires atleast 2 midnights Plan Continue Cardizem and oral anticoagulation. Get all labs and based on creatinine/GFR, start dofetilide loading. EKG before and 2 hours after dofetilide dose. Decrease the dose if QTC over 500 ms. Clinical Quality Measures DVT/VTE Risk/Contraindication: Risk Factor Score Per Nursin RFS Level Per Nursing on Admit: 4+=Very High Miguel BOURGEOIS MD February 08, 2019 11:10
--- NOTE | 2019-02-08 11:20 | NUR ---
Pastoral care visit.
[2019-02-08] MEDS ORDERED: DRON400T2 PO (12:02)
[2019-02-08] MEDS ORDERED: NON-FORMULARY MEDICATION 1 EA EA (Naproxen Sodium (Aleve) 440 MG) PO PRN (12:15)
[2019-02-08] MEDS ORDERED: NON-FORMULARY MEDICATION 1 EA EA (Ibuprofen (Advil) 400 MG) PO PRN (12:15)
[2019-02-08] MEDS ORDERED: LORATADINE (CLARITIN) 10 MG TAB PO PRN (12:15)
[2019-02-08] MEDS ORDERED: PATIENT MAY USE OWN MEDS, ALL MC SCH (12:45)
[2019-02-08] MEDS ORDERED: IBUPROFEN TABLET 200 MG TAB PO PRN (13:15)
[2019-02-08] MEDS ORDERED: DRONEDARONE TABLET 400 MG TABLET PO SCH (21:00)
[2019-02-08] MEDS ORDERED: NON-FORMULARY MEDICATION 1 EA EA (Dabigatran Etexilate Mesylate (Pradaxa) 150 MG) PO SCH (21:00)
[2019-02-08] MEDS: MONTELUKAST 10 MG (SINGULAIR) TAB PO SCH (21:05)
[2019-02-08] MEDS: DABIGATRAN 150 MG (PRADAXA) CAPSULE PO SCH (21:05)
[2019-02-08] MEDS: DOFETILIDE 125 MCG (TIKOSYN) CAPSULE PO SCH (21:06)
[2019-02-09] VITALS: BP 119/96
[2019-02-09 04:00] VITALS: BP 106/61
[2019-02-09 08:00] VITALS: BP 107/62
[2019-02-09] MEDS ORDERED: NON-FORMULARY MEDICATION 1 EA EA (Diltiazem HCl (Cartia Xt) 180 MG) PO SCH (09:00)
[2019-02-09] MEDS: FUROSEMIDE 20 MG (LASIX) TAB PO SCH (09:01)
[2019-02-09] MEDS: DOFETILIDE 125 MCG (TIKOSYN) CAPSULE PO SCH ×2 (09:01→21:20)
[2019-02-09] MEDS: DILTIAZEM 180 MG (CARDIZEM CD) CAP PO SCH (09:03)
[2019-02-09] MEDS: ATORVASTATIN 10 MG (LIPITOR) TABLET PO SCH (09:03)
[2019-02-09] MEDS: KCL 10 MEQ TAB (MICRO K) PO SCH (09:04)
[2019-02-09] MEDS: ENALAPRIL 10 MG (VASOTEC) TAB PO SCH (09:04)
[2019-02-09] MEDS: DABIGATRAN 150 MG (PRADAXA) CAPSULE PO SCH ×2 (09:05→21:21)
[2019-02-09 12:55] VITALS: BP 92/67
--- NOTE | 2019-02-09 14:17 | Progress Note-Cardiology ---
Cardiology SOAP Progress Note Subjective: No cp or palp or syncope or shortness of breath at rest Objective: I&O/Vital Signs 02/09/19 02/09/19 02/09/19 02/09/19 04:00 04:00 07:00 08:00 Temp 98.4 97.7 Pulse 85 62 79 Resp 20 B/P (MAP) 106/61 (76) 107/62 (77) Pulse Ox 94 O2 Delivery Room Air Room Air Room Air 02/09/19 02/09/19 02/09/19 02/09/19 08:25 08:35 12:45 12:54 Pulse 68 O2 Delivery Room Air Room Air Room Air 02/09/19 12:55 Temp 98.7 Pulse 74 Resp 18 B/P (MAP) 92/67 (75) Pulse Ox 95 O2 Delivery Room Air 02/09/19 00:00 Intake Total 900 ml Balance 900 ml Weight (Pounds): 252 Weight (Ounces): 6.0 Weight (Calculated Kilograms): 114.480982 Constitutional: appears stated age, AAO x 3; No apparent distress; well- developed, well-nourished Respiratory: chest is bilaterally symmetric, lungs clear to auscultation Cardiovascular: regular rate-rhythm, S1 and S2, systolic murmur (soft TINA at card base) Gastrointestional: No tender; soft; No guarding, No rebound; audible bowel sounds Extremities: No clubbing, No cyanosis, No significant edema Neurologic/Psychiatric: alert, normal mood/affect, oriented x 3, power is 5/5 both on sides Skin: No rash on exposed areas, No ulcerations on exposed areas Results/Procedures: Labs Laboratory Tests 02/08/19 08:03 A/P: Assessment: Recurrent atrial fib/flutter, has failed ablation and multiple antiarrhythmics. Currently on dofetilide that was initiated on 02/08/19. Tolerating well (QTc on 02/08 442 ms and on 02/09 is 457 ms) Sick sinus syndrome: paroxysmal atrial fibrillation/flutter, s/p permanent pacemaker implantation in July 2018, followed by Dr. Bourgeois Coronary artery disease, Mild disease nonobstructive disease: 40-50 percent LAD in April 2017 Chronic anticoagulation with dabigatran Hypertension Obesity with obesity-hypovent and CHLOE, treated with CPAP Pulmonary hypertension secondary to COPD and sleep apne Mild carotid stenosis on u/s of Jun 2018 Plan: * Continue dofetilide * Monitor rhythm and QTc * I reviewed his records in detail, interviewed him, examined him, and answered his questions SHELLEY ALVARADO MD FACP FAC CCDS February 09, 2019 14:17
[2019-02-09 16:13] VITALS: BP 113/76
[2019-02-09 20:00] VITALS: BP 117/78
[2019-02-09] MEDS: MONTELUKAST 10 MG (SINGULAIR) TAB PO SCH (21:22)
[2019-02-10 00:10] VITALS: BP 96/52
[2019-02-10 04:00] VITALS: BP 104/57
[2019-02-10] MEDS: KCL 10 MEQ TAB (MICRO K) PO SCH (06:11)
[2019-02-10] MEDS: DABIGATRAN 150 MG (PRADAXA) CAPSULE PO SCH (09:04)
[2019-02-10] MEDS: DILTIAZEM 180 MG (CARDIZEM CD) CAP PO SCH (09:05)
[2019-02-10] MEDS: ATORVASTATIN 10 MG (LIPITOR) TABLET PO SCH (09:05)
[2019-02-10] MEDS: FUROSEMIDE 20 MG (LASIX) TAB PO SCH (09:05)
[2019-02-10] MEDS: ENALAPRIL 10 MG (VASOTEC) TAB PO SCH (09:05)
--- NOTE | 2019-02-10 11:36 | Progress Note-Cardiology ---
Cardiology SOAP Progress Note Subjective: No cp or palp or syncope or shortness of breath Feels well and wishes to go home Objective: I&O/Vital Signs 02/10/19 02/10/19 02/10/19 02/10/19 00:10 00:10 01:00 04:00 Temp 97.2 97.6 Pulse 91 64 71 Resp 18 20 B/P (MAP) 96/52 (67) 104/57 (73) Pulse Ox 92 95 O2 Delivery Room Air Room Air Room Air 02/10/19 02/10/19 02/10/19 02/10/19 07:00 07:31 08:00 09:00 Temp 97.0 Pulse 109 88 B/P (MAP) O2 Delivery Room Air Room Air Room Air 02/10/19 00:00 Intake Total 750 ml Output Total 400 ml Balance 350 ml Weight (Pounds): 250 Weight (Ounces): 6.0 Weight (Calculated Kilograms): 113.726133 Constitutional: appears stated age, AAO x 3; No apparent distress; well- developed, well-nourished Respiratory: chest is bilaterally symmetric, lungs clear to auscultation Cardiovascular: regular rate-rhythm, S1 and S2, systolic murmur (soft TINA at card base) Gastrointestional: No tender; soft; No guarding, No rebound; audible bowel sounds Extremities: No clubbing, No cyanosis, No significant edema Neurologic/Psychiatric: alert, normal mood/affect, oriented x 3, power is 5/5 both on sides Skin: No rash on exposed areas, No ulcerations on exposed areas A/P: Assessment: Recurrent atrial fib/flutter, has failed ablation and multiple antiarrhythmics. Dofetilide initiated on 02/08/19, last dose on 02/09/19 at 2120, stopped because of QT prolongation. Amiodarone 200 bid being initiated Sick sinus syndrome: paroxysmal atrial fibrillation/flutter, s/p permanent pacemaker implantation in July 2018, followed by Dr. Bourgeois Coronary artery disease, Mild disease nonobstructive disease: 40-50 percent LAD in April 2017 Chronic anticoagulation with dabigatran Hypertension Obesity with obesity-hypovent and CHLOE, treated with CPAP Pulmonary hypertension secondary to COPD and sleep apnea Mild carotid stenosis on u/s of Jun 2018 Plan: * Pt in and out of A Fib. When in A fib, T wave difficult to discern; computer reads QTc as greater than 500 ms when in A Fib (although, in one or two leads that T is discernible, it seems less than 450 msec). I [address] Dr Bourgeois, his EP, on the phone. Dr Bourgeois advises d/c Tikosyn and initiation of amiodarone 200 bid; because it has been more than 12 hours after the last dose of Tikosyn that has since been discontinued and because there has been no arrhythmia other that paroxysmal atrial fib/flutter, it appears reasonable to discharge, per pt request. Outpt f/u is recommended with Margaret Bourgeois and SHELLEY Najera MD FACP FACC CCDS February 10, 2019 11:36
--- NOTE | 2019-02-10 11:42 | Cardiology Discharge Summary ---
Diagnosis/Chief Complaint Date of Admission 02/08/19 Date of Discharge 02/10/19 Final/Discharge Diagnosis Recurrent atrial fib/flutter, has failed ablation and multiple antiarrhythmics. Dofetilide initiated on 02/08/19, last dose on 02/09/19 at 2120, stopped because of QT prolongation. Amiodarone 200 bid being initiated Sick sinus syndrome: paroxysmal atrial fibrillation/flutter, s/p permanent pacemaker implantation in July 2018, followed by Dr. Bourgeois Coronary artery disease, Mild disease nonobstructive disease: 40-50 percent LAD in April 2017 Chronic anticoagulation with dabigatran Hypertension Obesity with obesity-hypovent and CHLOE, treated with CPAP Pulmonary hypertension secondary to COPD and sleep apnea Mild carotid stenosis on u/s of Jun 2018 Chief Complaint/HPI Chief Complaint/HPI HPI: Please refer to Dr Bourgeois's H&P Hosp course: Please refer to my progress note of today's date (02/10/19) Discharge Summary Procedures None. Discussion & Recommendations Home Medications Reviewed patient Home Medication Reconciliation performed by pharmacy medication reconciliations civil technician and/or nursing. Patients Allergies have been reviewed. Discharge Home Medications: Reviewed and agree with Discharge Medication list on patient's Discharge Instruction sheet Clinical Quality Measures DVT/VTE Risk/Contraindication: Risk Factor Score Per Nursin RFS Level Per Nursing on Admit: 4+=Very High SHELLEY ALVARADO MD FACP FAC CCDS February 10, 2019 11:42
[2019-02-10] MEDS ORDERED: AMIO200T4 PO (11:53)
--- NOTE | 2019-02-10 11:54 | Discharge Inst-Cardiology ---
Discharge Inst-Cardiac Discharge Medications New Medications: Amiodarone HCl (Amiodarone HCl) 200 Mg Tablet 200 MG PO BID for 30 Days, #60 TAB 5 Refills Continued Medications: [Allergy Shots] () INJ UD PRN for ALLERGIES Atorvastatin Calcium (Atorvastatin Calcium) 10 Mg Tablet 10 MG PO DAILY, TAB Dabigatran Etexilate Mesylate (Pradaxa) 150 Mg Capsule 150 MG PO BID, CAP Diltiazem HCl (Cartia Xt) 180 Mg Cap.er.24h 180 MG PO DAILY, CAP Enalapril Maleate (Enalapril Maleate) 10 Mg Tablet 10 MG PO DAILY, TAB Furosemide (Furosemide) 20 Mg Tablet 20 MG PO DAILY, TAB Loratadine (Loratadine) 10 Mg Tablet 10 MG PO DAILY PRN for ALLERGIES, TAB Montelukast Sodium (Montelukast Sodium) 10 Mg Tablet 10 MG PO HS, TAB Potassium Chloride (Potassium Chloride) 10 Meq Tablet.er 10 MEQ PO DAILY, TAB Discontinued Medications: Dronedarone HCl (Multaq) 400 Mg Tablet 400 MG PO BID, TAB Hydrochlorothiazide (Hydrochlorothiazide) 25 Mg Tablet 25 MG PO DAILY, TAB Ibuprofen (Advil) 200 Mg Tablet 400 MG PO TID PRN for PAIN-MILD, TAB Naproxen Sodium (Aleve) 220 Mg Tablet 440 MG PO Q8H PRN for PAIN-MILD, TAB Patient Instructions Patient Instructions: F/u with Dr Layne before 02/25/19 F/u with Dr Bourgeois in 6 weeks SHELLEY ALVARADO MD [facility] CCDS February 10, 2019 11:54
[2019-02-10 12:00] VITALS: BP 129/81
[2019-02-10] MEDS: DOFETILIDE 125 MCG (TIKOSYN) CAPSULE PO SCH (12:00)
[2019-02-10 12:35] VITALS: BP 129/81
== END 2019-02-10 12:35 | disposition home or self-care (01) | DRG 309 ==
LOC: ICU 02-08 07:43 → INTOOBSV 02-08 07:43 → UNDOADMOB 02-08 07:43 → ICU 02-08 07:45 → OBSVTOIN 02-09 12:09 → INTOOBSV 02-09 14:20 → OBSVTOIN 02-09 14:20 → UNDODISIN 02-10 12:35
PROVIDERS: ADMIT Internal Medicine Interventional Cardiology; ATTEND Internal Medicine Interventional Cardiology
DX: I48.0 Paroxysmal atrial fibrillation (principal); I48.92 Unspecified atrial flutter; I25.10 Atherosclerotic heart disease of native coronary artery without angina pectoris; I10 Essential (primary) hypertension; E66.2 Morbid (severe) obesity with alveolar hypoventilation; Z68.39 Body mass index [BMI] 39.0-39.9, adult; I27.20 Pulmonary hypertension, unspecified; J44.9 Chronic obstructive pulmonary disease, unspecified; Z95.0 Presence of cardiac pacemaker; Z79.01 Long term (current) use of anticoagulants
CPT/HCPCS: 36415; 80053; 85025; 93005; 99211

== ENCOUNTER → 2019-02-20 | Day surgery (SDC) | payer MEDICARE, OTHER ==
[~2019-02-20] VITALS: Ht 170.2 cm; Wt 113.6 kg
[~2019-02-20] MED LIST changes: +ALLERGY SHOTS INJ; +AMIO200T4 PO; +DRON400T2 PO; +LIDOCAINE 2% VISCOUS 15 ML UDC ONE; +LIDOCAINE 2% VISCOUS 15 ML UDC PO ONE; +MIDAZOLAM 2 MG/2 ML (VERSED) VIAL IVP ONE; +MIDAZOLAM 5 MG/5 ML (VERSED) VIAL ONE; +NS IV 1000 ML 1,000 ML IV SCH; +NS IV 1000 ML 1,000 ML ONE; +[UNRECOGNIZED DRUG - OTHER] PO; +fentaNYL INJECTION 100 MCG/2 ML AMP ONE; +proPOfol 200 MG/20 ML (DIPRIVAN) VIAL IV ONE
[2019-02-20 09:04] VITALS: BP 128/94
[2019-02-20 09:05] LABS: HEMOGLOBIN 15.5 G/DL (13.3-17.7); MEAN PLATELET VOLUME 9.4 FL (7.4-10.4); RED CELL DISTRIBUTION WIDTH 14.4 % (10.0-14.5); WHITE BLOOD COUNT 6.1 10^3/uL (4.3-11.0)
--- NOTE | 2019-02-20 09:11 | Diagnostic Imaging Report ---
EXAMINATION: Chest radiograph, portable AP view. DATE: February 20, 2019 at 0850 hours. INDICATION: 68-year-old male, preoperative exam. COMPARISON: January 08, 2019. FINDINGS: There is a left-sided cardiac assist device with leads. There are limitations of the exam relating to difficulties with exposure. Stable cardiomegaly and overall appearance of the cardiomediastinal silhouette. There is no identified pneumothorax. There is nonspecific left basilar airspace consolidation with blunting of the left lateral costophrenic angle which is unchanged since the comparison exam. The right lung appears grossly clear. IMPRESSION: 1. Unchanged nonspecific left basilar airspace consolidation which may relate to small effusion, atelectasis, and/or infiltrate. 2. Stable cardiomegaly. Dictated by: Dictated on workstation # [id number]
[2019-02-20 09:21] LABS: INR 1.4 (0.8-1.4); PROTHROMBIN TIME PATIENT 17.2 SEC (12.2-14.7)
[2019-02-20 09:26] LABS: ALANINE AMINOTRANSFERASE 39 U/L (0-55); ALBUMIN 3.9 GM/DL (3.2-4.5); ALKALINE PHOSPHATASE 97 U/L (40-136); BILIRUBIN,TOTAL 0.5 MG/DL (0.1-1.0); BUN/CREATININE RATIO 21; CALCIUM 9.4 MG/DL (8.5-10.1); CARBON DIOXIDE 27 MMOL/L (21-32); CHLORIDE 104 MMOL/L (98-107); GFR ESTIMATED > 60; GLUCOSE 119 MG/DL (70-105); POTASSIUM 4.3 MMOL/L (3.6-5.0); SODIUM 141 MMOL/L (135-145); TOTAL PROTEIN 6.6 GM/DL (6.4-8.2)
--- NOTE | 2019-02-20 10:54 | Cardiac Procedure Note-CS/ASA ---
Pre-Procedure Note Pre-Op Procedure Note H&P Reviewed The H&P was reviewed, patient examined and no changes noted. Date H&P Reviewed: February 20, 2019 Time H&P Reviewed: 10:53 Conscious Sedation Pre-Proced Time 10:53 ASA Score 3 For ASA 3 and 4: Consider anesthesia and medical clearance. Also, for patients with a history of failed moderate sedation consider anesthesia. Airway Lungs Heart ASA score ASA 1: a normal healthy patient ASA 2: a patient with a mild systemic disease (mid diabetes, controlled hypertension, obesity x ASA 3: a patient with a severe systemic disease that limits activity (angina, COPD, prior Myocardial infarction) ASA 4: a patient with an incapacitating disease that is a constant threat to life (CHF, renal failure) ASA 5: a moribund patient not expected to survive 24 hrs. (ruptured aneurysm) ASA 6: a declared brain- patient whose organs are being harvested. For emergent operations, add the letter E after the classification Mallampati Classification Grade 3 Sedation Plan Analgesia, Amnesia, Plan communicated to team members, Discussed options with patient/fam, Discussed risks with patient/fam The patient is an appropriate candidate to undergo the planned procedure, sedation, and anesthesia. The patient immediately re-assessed prior to indication. JASVIR MELGOZA MD February 20, 2019 10:54
--- NOTE | 2019-02-20 11:00 | NUR ---
Anesthesia here for sedation. Pt received 2 mg Versed and 60 mcg propofol for JUSTIN and cardioversion.
--- NOTE | 2019-02-20 11:11 | Clinic Account Progress/Dx ---
Clinic Account Progress/Dx DIAGNOSIS: Date Seen by Provider: February 20, 2019 Time Seen by Provider: 11:11 chronic atrial fibrillation Sinus node dysfunction Cardiac pacemaker Hypertension Hyperlipidemia JASVIR MELGOZA MD February 20, 2019 11:11
[2019-02-20 11:30] VITALS: BP 131/81
--- NOTE | 2019-02-20 11:46 | NUR ---
Pt has gag reflex back at this time. Pt is sitting up without complaints. Pt was given morning medications per Dr. Garay request. Pt received 450cc normal saline through IV. Will continue to monitor until discharge
[2019-02-20 11:57] VITALS: BP 124/88
--- NOTE | 2019-02-20 12:03 | Cardioversion ---
Cardioversion PROCEDURE PHYSICIAN: Jasvir Layne DATE OF PROCEDURE: 02/20/19 DIRECT EXTERNAL ELECTRICAL CARDIOVERSION: Indications: Atrial Fibrillation with rapid ventricular rate Preoperative diagnoses: Atrial Fibrillation Postoperative diagnosis: Sinus rhythm, Successful Electrical Cardioversion Anesthesia: By Anesthesia services Complications: None Specimen: None Contrast: 0 Flouroscopy: none Procedure Details: The patient was brought the microbiological laboratory technician after informed consent was taken, all the risks and complications were explained including the risk of stroke. Electrical cardioversion was carried out with anesthesia support with propofol. 200 joules of synchronized shock was delivered through external patches which promptly restored sinus rhythm. The patient tolerated the procedure well. Conclusions: 1. Successful electrical cardioversion with no complication Final Diagnosis: Paroxysmal atrial fibrillation Paroxysmal atrial flutter Sinus node dysfunction Hypertension Cardiac pacemaker JASVIR LAYNE MD February 20, 2019 12:03
--- NOTE | 2019-02-20 12:44 | Anesthesia-Procedure Note ---
Procedures/Interventions Procedure Start/Stop/Diagnosis Date of Procedure: February 20, 2019 Start Time: 10:55 Referring Physician: Dr Layne Preprocedural Diagnosis: A-fib Brief History Anesthesia Note Called to [employer] for sedation for JUSTIN/Cardioversion. Brief history obtained from patient and Dr Layne, NPO status verified. Midazolam 2 mg IV and propofol 60 mg IV in divided doses for sedation. Pt maintained spontaneous ventilation and stable VS throughout. He tolerated the procedure well and returned to SR after cardioversion times one. Will be available if needed. Stop Time: 11:05 Postprocedural Diagnosis: Sinus Rhythm JUSTIN/Cardioversion Anesthesia Type: MAC ASA Class: 3 Medications Midazolam 2 mg IV and Propofol 60 mg IV Monitors and Equipment: BP Cuff - Right, Continuous EKG, End Tidal CO2, IV, Pulse Oximeter, V Lead EKG DYLAN CHAIDEZ DO February 20, 2019 12:44
--- NOTE | 2019-02-20 12:46 | Anesthesia-General Post-Op ---
MAC Patient Condition Mental Status/LOC: Same as Preop Cardiovascular: Satisfactory Nausea/Vomiting: Absent Respiratory: Satisfactory Pain: Controlled Complications: Absent Post Op Complications Complications None Follow Up Care/Instructions Patient Instructions None needed. Anesthesiology Discharge Order Discharge Order Patient is doing well, no complaints, stable vital signs, no apparent adverse anesthesia problems. DYLAN CHAIDEZ DO February 20, 2019 12:46
== END ==
LOC: CATH 08:03
PROVIDERS: ATTEND Internal Medicine Cardiovascular Disease
DX: I48.0 Paroxysmal atrial fibrillation (principal); I48.92 Unspecified atrial flutter; I49.5 Sick sinus syndrome; I10 Essential (primary) hypertension; E78.5 Hyperlipidemia, unspecified; I44.2 Atrioventricular block, complete; Z95.0 Presence of cardiac pacemaker; Z88.7 Allergy status to serum and vaccine; Z79.899 Other long term (current) drug therapy; I25.10 Atherosclerotic heart disease of native coronary artery without angina pectoris; N40.0 Benign prostatic hyperplasia without lower urinary tract symptoms; I65.23 Occlusion and stenosis of bilateral carotid arteries; I27.20 Pulmonary hypertension, unspecified; G47.33 Obstructive sleep apnea (adult) (pediatric); J30.2 Other seasonal allergic rhinitis; E66.01 Morbid (severe) obesity due to excess calories; J44.9 Chronic obstructive pulmonary disease, unspecified; Z68.41 Body mass index [BMI] 40.0-44.9, adult
CPT/HCPCS: 36415; 71045; 80053; 85027; 85610; 85730; 87081; 90471; 92960; 93005; 93312; 93320; 93325

== ENCOUNTER → 2019-07-22 | Outpatient (CLI) | payer MEDICARE, OTHER ==
[~2019-07-22] MED LIST changes: -LIDOCAINE 2% VISCOUS 15 ML UDC ONE; -LIDOCAINE 2% VISCOUS 15 ML UDC PO ONE; -MIDAZOLAM 2 MG/2 ML (VERSED) VIAL IVP ONE; -MIDAZOLAM 5 MG/5 ML (VERSED) VIAL ONE; -NS IV 1000 ML 1,000 ML IV SCH; -NS IV 1000 ML 1,000 ML ONE; -fentaNYL INJECTION 100 MCG/2 ML AMP ONE; -proPOfol 200 MG/20 ML (DIPRIVAN) VIAL IV ONE
--- NOTE | 2019-07-22 14:39 | Diagnostic Imaging Report ---
INDICATION: Left medial knee pain. TIME OF EXAMINATION: 2:13 PM. TECHNIQUE: Three views of the left knee were obtained. FINDINGS: The alignment is normal. The joint spaces are well maintained. The articular surfaces are smooth. No fracture, dislocation, or effusion is seen. IMPRESSION: No acute bony abnormality is detected. Dictated by: Dictated on workstation # [id number]
== END ==
LOC: RAD 14:01
PROVIDERS: ATTEND Family Medicine
DX: M25.562 Pain in left knee (principal)
CPT/HCPCS: 73562

== ENCOUNTER → 2020-07-31 | Outpatient (CLI) | payer MEDICARE, OTHER ==
[~2020-07-31] MED LIST changes: -AMIO200T4 PO; +AMIO200T6 PO; -ENAL10TA PO; +ENAL10TA16 PO; -ENAL5TAB PO; +ENLP5T PO; -MONT10TA24 PO; +MONT10TA26 PO
== END ==
LOC: CARD 10:00
PROVIDERS: ATTEND Internal Medicine Cardiovascular Disease
DX: I48.4 Atypical atrial flutter (principal); I25.10 Atherosclerotic heart disease of native coronary artery without angina pectoris; I08.0 Rheumatic disorders of both mitral and aortic valves; I49.5 Sick sinus syndrome; E78.2 Mixed hyperlipidemia
CPT/HCPCS: 93306

== ENCOUNTER → 2020-08-03 | Outpatient (CLI) | payer MEDICARE, OTHER ==
[~2020-08-03] VITALS: Ht 170 cm; Wt 96.0 kg
[~2020-08-03] MED LIST changes: +CATHETER FLUSH 10 ML SYR IV PRN; +REGADENOSON 0.4 MG/5 ML SYR (LEXISCAN) IV ONE
[2020-08-03 09:05] VITALS: BP 146/87
--- NOTE | 2020-08-04 08:25 | Cardiology Stress Test Report ---
Stress Test Report Date of Procedure/Referring: Date of Procedure: Aug 03, 2020 PCP Jasvir Layne MD Admitting Physician Oc Dixon MD Indications: Coronary artery disease Baseline Heart Rate: 81 Baseline Blood Pressure: Blood Pressure Systolic: 146 Blood Pressure Diastolic: 87 Baseline Vitals Vital Signs Date Time Temp Pulse Resp B/P (MAP) Pulse Ox O2 Delivery O2 Flow Rate FiO2 08/03/20 09:05 81 146/87 (106) 98 Baseline EKG: Baseline EKG: normal sinus rhythm, T-wave inversion in V3V6 Summary After explaining the procedure to the patient, he signed a consent and then brought to the stress nuclear laboratory. Patient received 0.4 mg Lexiscan for stress test, ECG, heart rate and blood pressure were monitored continuously. Resting and stress dose of radio tracer were injected, imaging was acquired and reviewed in short axis, horizontal long axis and vertical long axis views. TID: 1.16 SSS: 16 SDS: 12 EF: 33 1. Patient tolerated Lexiscan well 2. Abnormal EKG with T-wave inversion in V3V6 persisted during test 3. Reversible ischemia involving the mid to apical anterior wall, true apex, the whole inferior wall 4. Dilated left ventricle with diffuse left ventricular hypokinesia, EF 33 percent JASVIR LAYNE MD Aug 04, 2020 08:25
== END ==
LOC: CARD 08:00
PROVIDERS: ATTEND Internal Medicine Cardiovascular Disease
DX: I48.4 Atypical atrial flutter (principal); I25.10 Atherosclerotic heart disease of native coronary artery without angina pectoris; I49.5 Sick sinus syndrome; E78.2 Mixed hyperlipidemia
CPT/HCPCS: 78452; 93017; A9502

== ENCOUNTER 2020-08-19 11:00 | Day surgery (SDC) | payer MEDICARE, OTHER ==
[2020-08-19] VITALS (10 sets, daily range): BP systolic 112–151; BP diastolic 56–92
[~2020-08-19] VITALS: Ht 170 cm; Wt 95.0 kg
[2020-08-19] MEDS: NS IV 1000 ML 1,000 ML IV SCH ×3 (08:53→19:00)
[2020-08-19 09:07] LABS: BILIRUBIN,URINE NEGATIVE (NEGATIVE); CLARITY,URINE CLEAR; COLOR,URINE YELLOW; GLUCOSE, URINE (UA) 1+ (NEGATIVE); KETONES,URINE NEGATIVE (NEGATIVE); LEUKOCYTE ESTERASE ,URINE 1+ (NEGATIVE); NITRITE,URINE NEGATIVE (NEGATIVE); PH,URINE 5.5 (5-9); PROTEIN,URINE NEGATIVE (NEGATIVE)
[2020-08-19 09:07] LABS: HEMOGLOBIN 15.6 g/dL (13.3-17.7); MEAN PLATELET VOLUME 9.2 fL (9.0-12.2); WHITE BLOOD COUNT 4.7 10^3/uL (4.3-11.0)
--- NOTE | 2020-08-19 09:13 | Diagnostic Imaging Report ---
EXAMINATION: Chest 1 view HISTORY: ABN STRESS TEST, CP, SOB WITH EXERTION, HTN COMPARISON: Chest radiograph 02/20/2019. FINDINGS: Stable mild enlargement cardiac silhouette. Unchanged loop recorder overlying the left lung. Left cardiac pacemaker is unchanged. The lungs are clear without consolidation, pleural effusion, or pneumothorax. The osseous structures are intact. IMPRESSION: 1. No acute radiographic abnormality in the chest. Dictated by: Dictated on workstation # [id number]
[2020-08-19 09:18] LABS: BACTERIA,URINE MODERATE /HPF; WBC,URINE >100 /HPF
[2020-08-19 09:22] LABS: PROTHROMBIN TIME PATIENT 13.7 SEC (12.2-14.7)
[2020-08-19 09:27] LABS: ALANINE AMINOTRANSFERASE 74 U/L (0-55); ALBUMIN 4.1 GM/DL (3.2-4.5); ALKALINE PHOSPHATASE 102 U/L (40-136); BILIRUBIN,TOTAL 0.5 MG/DL (0.1-1.0); BUN/CREATININE RATIO 19; CALCIUM 9.5 MG/DL (8.5-10.1); CARBON DIOXIDE 25 MMOL/L (21-32); CHLORIDE 102 MMOL/L (98-107); CHOLESTEROL 249 MG/DL (< 200); CREATININE SERUM 1.01 MG/DL (0.60-1.30); GFR ESTIMATED > 60; GLUCOSE 166 MG/DL (70-105); HDL CHOLESTEROL 35 MG/DL (40-60); POTASSIUM 4.3 MMOL/L (3.6-5.0); SODIUM 137 MMOL/L (135-145); TOTAL PROTEIN 7.2 GM/DL (6.4-8.2); TRIGLYCERIDES 271 MG/DL (<150); VLDL CHOLESTEROL 54 MG/DL (5-40)
--- NOTE | 2020-08-19 09:31 | NUR ---
I SPOKE WITH THE PATIENT, WENT THROUGH THE MEDS BROUGHT FROM HOME AND CALLED [facility] TO COMPLETE THIS MED REC. 07/21/2020 DILTIAZEM 240MG ER #30/30DS 07/23/2020 AMIODARONE 200MG #30/30DS 07/23/2020 MONTELUKAST 10MG #30/30DS 07/23/2020 GEMFIBROZIL 600MG #60/30DS 07/23/2020 POTASSIUM CHLORIDE #30/30DS 07/23/2020 ENALAPRIL 5MG #30/30DS 07/23/2020 DIGOXIN 0.125MG #30/30DS 07/30/2020 PRADAXA 150MG #60/30DS 08/15/2020 LORATADINE 10MG #30/30DS OTC: ADVIL ICJesse HOT
[~2020-08-19 11:00] MED LIST changes: -CATHETER FLUSH 10 ML SYR IV PRN; +DIGO125T3 PO; +DILT240C53 PO; +GEMF600T8 PO; +HEParin (CATH LAB) 2,000 ML IV ONE; +IBUP200C11 PO; +LIDOCAINE 1% INJ 20 ML 20 ML VIAL ONE; +METH35.42 TP; +NS IV 1000 ML 1,000 ML ONE; -REGADENOSON 0.4 MG/5 ML SYR (LEXISCAN) IV ONE
[2020-08-19] MEDS ORDERED: methylPREDNISolone 125 MG (Solu-MEDROL) VIAL ONE (13:19)
[2020-08-19] MEDS ORDERED: MIDAZOLAM 5 MG/5 ML (VERSED) VIAL ONE (13:55)
[2020-08-19] MEDS ORDERED: fentaNYL INJECTION 100 MCG/2 ML AMP ONE (13:55)
[2020-08-19] MEDS ORDERED: diphenhydrAMINE 50 MG/ML INJ (BENADRYL) ONE (13:55)
[2020-08-19] MEDS ORDERED: NITRO DRIP 25000 MCG/D5W 250 ML IV ONE (14:33)
[2020-08-19] MEDS ORDERED: HEParin 1000 UNIT/ML (10ML VIAL) FOR BOLUS ONE (14:33)
[2020-08-19] MEDS ORDERED: ASPIRIN 325 MG (5 GR) TABLET ONE (14:57)
[2020-08-19] MEDS ORDERED: TICAGRELOR 90 MG TABLET (BRILINTA) PO ONE (14:57)
--- NOTE | 2020-08-19 14:57 | Cardiac Procedure Note-CS/ASA ---
Pre-Procedure Note Pre-Op Procedure Note H&P Reviewed The H&P was reviewed, patient examined and no changes noted. Date H&P Reviewed: Aug 19, 2020 Time H&P Reviewed: 12:00 Conscious Sedation Pre-Proced Time 12:00 ASA Score 3 For ASA 3 and 4: Consider anesthesia and medical clearance. Also, for patients with a history of failed moderate sedation consider anesthesia. Airway Lungs Heart ASA score ASA 1: a normal healthy patient ASA 2: a patient with a mild systemic disease (mid diabetes, controlled hypertension, obesity ASA 3: a patient with a severe systemic disease that limits activity (angina, COPD, prior Myocardial infarction) x ASA 4: a patient with an incapacitating disease that is a constant threat to life (CHF, renal failure) ASA 5: a moribund patient not expected to survive 24 hrs. (ruptured aneurysm) ASA 6: a declared brain- patient whose organs are being harvested. For emergent operations, add the letter E after the classification Mallampati Classification Grade 3 Sedation Plan Analgesia, Amnesia, Plan communicated to team members, Discussed options with patient/fam, Discussed risks with patient/fam The patient is an appropriate candidate to undergo the planned procedure, sedation, and anesthesia. The patient immediately re-assessed prior to indication. JASVIR MELGOZA MD Aug 19, 2020 14:57
[2020-08-19] MEDS ORDERED: METHYL SALICYLATE TP PRN (15:00)
[2020-08-19] MEDS ORDERED: MENTHOL TP PRN (15:00)
[2020-08-19] MEDS ORDERED: PATIENT MAY USE OWN MEDS, ALL PO SCH (15:00)
[2020-08-19] MEDS ORDERED: NON-FORMULARY MEDICATION 1 EA EA (Ibuprofen (Advil) 400 MG) PO PRN (15:00)
[2020-08-19] MEDS ORDERED: CLOPIDOGREL 300 MG (PLAVIX) TABLET PO ONE (15:02)
--- NOTE | 2020-08-19 15:04 | Cardiac Cath Report ---
Cardiac Cath Report Physician (s)/Live In Companion (s) Physician JASVIR MELGOZA MD Pre-Procedure Diagnosis Pre-Procedure Diagnosis: coronary artery disease Post-Procedure Note Procedure Start Date: Aug 19, 2020 Name of Procedure: Left heart catheterization Stent to the LAD Findings/Procedure Note PROCEDURE NOTE: 70 years old gentleman with history of coronary artery disease paroxysmal atrial fibrillation had an abnormal stress test, scheduled for cardiac catheterization possible PTCA. After explaining the procedure to the patient, all pros and cons were explained, all questions were answered. The patient signed the consent and then he was placed on the cardiac catheterization laboratory. Groin was prepped SL fashion local anesthesia was used. Sheath placed in the right femoral artery. Juan C right and left catheter were used to access the coronary system. Pigtail was used to access the left ventricular cavity. Left ventriculogram was done next Patient was given 6000 units of heparin, FL guide was used and advanced to the left coronary system, patient has 80-90 percent stenosis in the mid LAD. BMW wire was advanced through the LAD part distally then primary stenting using Tegan 2.5 x 23 mm deployed under high pressure with up to 15 mmHg pressure resulting in expansion of the stent to 2.83 with excellent results. At the end of the procedure the sheath was removed. Closure device was used FINDINGS: Hemodynamics LV 144/23, end-diastolic pressure of 23 Aorta 144/70 mean of 99 ANATOMY: Left Main is free of obstructive disease Left Anterior Descending has progressed to 80-90 percent stenosis in the mid LAD, successful primary stenting using Tegan 2.5 x 23 mm expanded to 2.83 with excellent results Left Circumflex is moderate in size dominant artery with no significant obstructive disease Right Coronory Artery is moderate in size with no significant obstructive disease LV Gram is prominent with hypokinesia at ant wall estimated ejection fraction 35 percent CONCLUSION: 1. Severe mid LAD stenosis with 80-90 percent stenosis progress compared to the previous study of 2019, successful primary stenting using Tegan 2.5 x 23 expanded to 2.85 mm 2. Otherwise mild coronary artery disease, nonobstructive disease 3. Prominent left ventricle hypokinesia at the anterior wall ejection fraction 35 percent DISCUSSION AND RECOMMENDATION: Patient will receive aspirin and Plavix in addition to Pradaxa. Maximize medical therapy at this point Anesthesia Type: Conscious Sedation Estimated blood loss (mL): 35 ml Contrast Amount: 85 ml Total Radiation Dose: 865 mGy Post-Procedure Diagnosis Post-operative diagnosis: Chest pain Coronary artery disease Paroxysmal atrial fibrillation Hypertension Hyperlipidemia JASVIR MELGOZA MD Aug 19, 2020 15:04
[2020-08-19] MEDS ORDERED: IBUPROFEN TABLET 200 MG TAB PO PRN (16:15)
[2020-08-19] MEDS ORDERED: METHYL SALICYLATE/MENTHOL (BENGAY, MUSCLE RUB) 3 OZ TUBE TP PRN (16:15)
[2020-08-19] MEDS: DABIGATRAN 150 MG (PRADAXA) CAPSULE PO SCH (19:29)
[2020-08-19] MEDS: TICAGRELOR 90 MG TABLET (BRILINTA) PO SCH (20:28)
[2020-08-19] MEDS: GEMFIBROZIL 600 MG (LOPID) TAB PO SCH (20:28)
[2020-08-19] MEDS ORDERED: MONTELUKAST 10 MG (SINGULAIR) TAB PO SCH (21:00)
[2020-08-20] VITALS: BP 152/75
[2020-08-20] MEDS: NS IV 1000 ML 1,000 ML IV SCH ×3 (01:41→11:58)
[2020-08-20 03:32] LABS: HEMOGLOBIN 14.3 g/dL (13.3-17.7); MEAN PLATELET VOLUME 9.5 fL (9.0-12.2); WHITE BLOOD COUNT 6.7 10^3/uL (4.3-11.0)
[2020-08-20 03:43] LABS: POTASSIUM 4.4 MMOL/L (3.6-5.0)
[2020-08-20 03:44] LABS: CALCIUM 8.9 MG/DL (8.5-10.1)
[2020-08-20 03:48] LABS: CREATININE SERUM 1.3 MG/DL (0.60-1.30)
[2020-08-20 04:00] VITALS: BP 124/64
[2020-08-20 08:00] VITALS: BP 136/71
[2020-08-20] MEDS ORDERED: KCL 10 MEQ TAB (MICRO K) PO SCH (08:00)
[2020-08-20] MEDS ORDERED: ENALAPRIL 5 MG (VASOTEC) TAB PO SCH (09:00)
[2020-08-20] MEDS ORDERED: AMIODARONE 200 MG (CORDARONE) TAB PO SCH (09:00)
[2020-08-20] MEDS ORDERED: DIGOXIN 0.125 MG (LANOXIN) TAB PO SCH (09:00)
[2020-08-20] MEDS ORDERED: NON-FORMULARY MEDICATION 1 EA EA (Potassium Chloride 10 MEQ) PO SCH (09:00)
[2020-08-20] MEDS ORDERED: ASPIRIN E.C. 81 MG (ECOTRIN) TAB PO SCH (09:00)
[2020-08-20] MEDS ORDERED: LORATADINE (CLARITIN) 10 MG TAB PO SCH (09:00)
[2020-08-20] MEDS ORDERED: ASPI-1238 PO (09:08)
[2020-08-20] MEDS ORDERED: TICA90TA PO (09:08)
--- NOTE | 2020-08-20 09:08 | Discharge Inst-Post CATH ---
Discharge Inst-CATH/EP Problems Reviewed?: Yes Post Cardiac Cath/EP D/C Inst Follow Up/Plan Appointment with Dr. MELGOZA's office in 2 weeks <b>CARDIAC CATH/EP PROCEDURE DISCHARGE INSTRUCTIONS</b> ACTIVITY * Go Home directly and rest. * Limit activity of the leg (or wrist if it was used) for 7 days including aerobics, swimming, jogging, bicycling, etc. * Restrict stair-climbing for 7 days if possible, if not, climb up with your non-cath leg, then bring together on the same step. * Avoid lifting, pushing, pulling or excessive movement of the affected extremity for 7 days. * Customary sexual activity may be resumed after 2 days-use caution not to use a position that strains or causes pain to the affected extremity. * No driving for 24 hours. * NO SMOKING. * Avoid straining for bowel movements for 7 days. * Gentle walking on level ground is allowed. * Returning to work will depend on the type of procedure and the results. Your doctor will discuss this with you. CALL YOUR DOCTOR FOR ANY OF THE FOLLOWING: *If bleeding from the puncture site occurs- Apply gentle pressure to site with clean cloth and call your doctor or EMS. * If a knot or lump forms under the skin, increases in size, or causes pain. * If bruising appears to be worsening or moving further down your leg instead of disappearing. * Temperature above 101 F. CARE OF YOUR GROIN INCISION; * Bruising or purple discoloration of the skin near the puncture site is common. * You may shower only, no bathtub bathing for 5 days. Be careful to avoid slipping as your leg may feel stiff. * If a closure device was used on your femoral artery, please see the attached guide regarding care of the device and your leg. * Leave dressing on FOR 24 hours. CARE OF YOUR WRIST INCISION; * Bruising or purple discoloration of the skin near the puncture site is common. * You may shower. * DO NOT submerge wrist. * Leave dressing on FOR 24 hours. JASVIR MELGOZA MD Aug 20, 2020 09:08
--- NOTE | 2020-08-20 09:10 | Cardiology Progress Note ---
Subjective Date Seen by Provider: Aug 20, 2020 Time Seen by Provider: 09:44 Subjective/Events-last exam Patient was seen at bedside laying down comfortably, no new complaint, educated in length about the changes on his medication and compliance with medication Review of Systems General: No Chills, No Night Sweats, No Fatigue, No Malaise, No Appetite, No Other HEENT: No Head Aches, No Visual Changes, No Eye Pain, No Ear Pain, No Dysphasia, No Sinus Congestion, No Post Nasal Drip, No Sore Throat, No Other Pulmonary: No Dyspnea, No Cough, No Pleuritic Chest Pain, No Other Cardiovascular: No: Chest Pain, Palpitations, Orthopnea, Paroxysmal Noc. Dyspnea, Edema, Lt Headedness, Other Objective-Cardiology Exam Last Set of Vital Signs Vital Signs 08/20/20 08:00 Temp 36.6 Pulse 68 Resp 20 B/P (MAP) 136/71 (92) Pulse Ox 95 O2 Delivery Room Air Capillary Refill : Less Than 3 Seconds I&O Intake and Output 08/20/20 00:00 Intake Total 400 ml Balance 400 ml Intake Oral 400 ml # Voids 2 General: Alert, Oriented X3, Cooperative HEENT: Atraumatic, PERRLA Neck: Supple, No JVD, No Thyromegaly Lungs: Clear to Auscultation, Normal Air Movement Heart: Regular Rate, Normal S1, Normal S2, No Murmurs Abdomen: Normal Bowel Sounds, Soft, No Tenderness, No Hepatosplenomegaly, No Masses Extremities: No Clubbing, No Cyanosis, No Edema, Normal Pulses, No Tenderness/Swelling Skin: No Rashes, No Breakdown, No Significant Lesion Neuro: Normal Gait, Normal Speech, Strength at 5/5 X4 Ext, Normal Tone, Sensation Intact Psych/Mental Status: Mental Status NL, Mood NL Results Lab Laboratory Tests 08/20/20 03:04 A/P-Cardiology Admission Diagnosis Coronary artery disease Hypertension Hyperlipidemia Paroxysmal atrial fibrillation Assessment/Plan Coronary artery disease, status post stenting to the LAD, educated in length compliance with medication, 1. Severe mid LAD stenosis with 80-90 percent stenosis progress compared to the previous study of 2018, successful primary stenting using Tegan 2.5 x 23 expanded to 2.85 mm 2. Otherwise mild coronary artery disease, nonobstructive disease 3. Prominent left ventricle hypokinesia at the anterior wall ejection fraction 35 percent Hypertension, continue current medication monitor blood pressure Hyperlipidemia, add statin. Monitor lipids Paroxysmal atrial fibrillation, continue on JASVIR Ventura MD Aug 20, 2020 9:10 am
[2020-08-20] MEDS ORDERED: PANT40SU PO (09:13)
[2020-08-20] MEDS ORDERED: ATOR10TA PO (09:13)
[2020-08-20] MEDS: DABIGATRAN 150 MG (PRADAXA) CAPSULE PO SCH (09:24)
[2020-08-20] MEDS: TICAGRELOR 90 MG TABLET (BRILINTA) PO SCH ×2 (09:24→10:47)
[2020-08-20] MEDS: GEMFIBROZIL 600 MG (LOPID) TAB PO SCH (09:26)
== END 2020-08-20 11:30 ==
LOC: CSD 15:20 → CATH 08-20 11:30
PROVIDERS: ATTEND Internal Medicine Cardiovascular Disease
DX: I25.10 Atherosclerotic heart disease of native coronary artery without angina pectoris (principal); I48.0 Paroxysmal atrial fibrillation; I10 Essential (primary) hypertension; E78.2 Mixed hyperlipidemia; I44.2 Atrioventricular block, complete; I48.92 Unspecified atrial flutter; J44.9 Chronic obstructive pulmonary disease, unspecified; E66.01 Morbid (severe) obesity due to excess calories; I49.8 Other specified cardiac arrhythmias; Z68.32 Body mass index [BMI] 32.0-32.9, adult; Z79.899 Other long term (current) drug therapy; Z88.7 Allergy status to serum and vaccine; Z91.041 Radiographic dye allergy status
CPT/HCPCS: 71045; 80048; 80053; 80061; 81000; 85027 ×2; 85347; 85610; 85730; 87077; 87081; 87088; 87186; 93458; C1760; C1769; C1874; C1887; C1894; C9600; 36415; 93005

== ENCOUNTER 2021-06-07 07:59 | Emergency (ER) | payer MEDICARE, OTHER ==
[~2021-06-07] VITALS: Ht 170.1 cm; Wt 98.4 kg
[~2021-06-07 07:59] MED LIST changes: +ASPI-1238 PO; -DRON400T2 PO; +DRON400T6 PO; -GEMF600T8 PO; +GEMF600T88 PO; -HEParin (CATH LAB) 2,000 ML IV ONE; -LIDOCAINE 1% INJ 20 ML 20 ML VIAL ONE; +LORA-53 PO; -LORA-714 PO; -MONT10TA26 PO; +MONT10TA32 PO; -NS IV 1000 ML 1,000 ML ONE; +PANT40SU PO; +TICA90TA PO
[2021-06-07 08:09] VITALS: BP 142/84
--- NOTE | 2021-06-07 08:45 | ED Back Pain ---
General Chief Complaint: Back Problems Stated Complaint: BACK PAIN Nursing Triage Note: PATIENT STATES HE STARTED HAVING BACK PAIN YESTERDAY WHILE GETTING OUT OF THE VAN. SINCE THEN PAIN HAS BECOME INCREASINGLY WORSE AND THIS AM HE IS HAVING DIFFICULTY STANDING AND SITTING. Source of Information: Patient (YEN EDMONDSONTAVARES HUYNH) History of Present Illness Date Seen by Provider: Jun 07, 2021 Time Seen by Provider: 08:20 Initial Comments CC: Back Pain 71 yo male presents to the ED with 1 day history of back pain. The pain started yesterday when he was lying in his sofa and noticed a left sided, sharp pain that he rates as a 7 out of 10. The pain does not travel, is constant, and did not get better with Tylenol. However, Pain does get better after walking a few steps or sitting in certain chairs. Does state he has had some constipation that has been going on for 1 week that could be related to a change in his diet. Denies numbness, or tingling. Location: Paraspinous Muscles (along L-spine) Timing/Duration: 1 Day Severity: Moderate Pain/Injury Location: Back Method of Injury: Unknown Modifying Factors: Improves With Movement Associated Symptoms: No fever, No numbness in legs/feet, No tingling in legs/feet, No sensory/motor loss; lower back pain (JOSE J EDMONDSON) Allergies and Home Medications Allergies Coded Allergies: Tetanus Vaccines and Toxoid (Verified Allergy, Unknown, 11/01/18) EDEMA Uncoded Allergies: IVP DYE FOR HEART CATHS (Allergy, Severe, HIVES, 07/10/15) WAS TREATED TODAY WITH BENADRYL AND SOLUMEDROL PRE CARDIAC CATH Patient Home Medication List Home Medication List Reviewed: Yes (SUNDEEP HWANG) Amiodarone HCl (Amiodarone HCl) 200 Mg Tablet, 200 MG PO DAILY, (Reported) Entered as Reported by: FLACO KRAMER on 08/19/20 09 Aspirin (Aspirin EC) 81 Mg Tablet.dr, 81 MG PO DAILY Prescribed by: JASVIR MELGOZA on 08/20/20 0908 Atorvastatin Calcium (Lipitor) 10 Mg Tablet, 10 MG PO DAILY Prescribed by: JASVIR MELGOZA on 08/20/20 0913 Dabigatran Etexilate Mesylate (Pradaxa) 150 Mg Capsule, 150 MG PO BID, (Rep orted) Entered as Reported by: VERÓNICA COLMENARES on 08/24/18 0705 Digoxin (Digoxin) 125 Mcg Tablet, 125 MCG PO DAILY, (Reported) Entered as Reported by: FLACO KRAMER on 08/19/20927 Diltiazem HCl (Cartia Xt) 240 Mg Cap.er.24h, 240 MG PO DAILY, (Reported) Entered as Reported by: FLACO KRAMER on 08/19/20927 Enalapril Maleate (Enalapril Maleate) 5 Mg Tablet, 5 MG PO DAILY, (Reported) Entered as Reported by: FLACO KRAMER on 08/19/20927 Gemfibrozil (Gemfibrozil) 600 Mg Tablet, 600 MG PO BID, (Reported) Entered as Reported by: FLACO KRAMER on 08/19/20927 Loratadine (Loratadine) 10 Mg Tablet, 10 MG PO DAILY, (Reported) Entered as Reported by: TASHA MENG on 06/17/15 09 Montelukast Sodium (Montelukast Sodium) 10 Mg Tablet, 10 MG PO HS, (Reported) Entered as Reported by: TASHA MENG on 06/17/15 09 Pantoprazole Sodium (Protonix) 40 Mg Granpkt.dr, 40 MG PO DAILY Prescribed by: JASVIR MELGOZA on 08/20/20 09 Potassium Chloride (Potassium Chloride) 10 Meq Tab.er.prt, 10 MEQ PO DAILY, (Reported) Entered as Reported by: FLACO KRAMER on 08/19/20927 Ticagrelor (Brilinta) 90 Mg Tablet, 90 MG PO BID Prescribed by: JASVIR MELGOZA on 08/20/20 09 Review of Systems Constitutional: No chills; dizziness (chronic); No fever; weight loss (70 lbs in 1 year) Respiratory: No cough, No short of breath Cardiovascular: No chest pain, No palpitations Gastrointestinal: No abdominal pain; constipation; No nausea, No vomiting Musculoskeletal: back pain, muscle weakness (Upper extremity) Skin: No lesions, No rash Psychiatric/Neurological: Denies Numbness, Denies Tingling (JOSE J EDMONDSON) Past Besdusa-Xsomdo-Bhieuc Hx Patient Social History Tobacco Use?: No Use of E-Cig and/or Vaping dev: No Substance use?: No Alcohol Use?: No Pt feels they are or have been: No (JOSE J EDMONDSON) Immunizations Up To Date Influenza Vaccine Up-to-Date: Yes; Up-to-Date First/Initial COVID19 Vaccinat: NOVEMBER 2020 Second COVID19 Vaccination Derek: DECEMBER 2020 COVID19 Vaccine Set Designer: JOSE (JOSE J EDMONDSON) Seasonal Allergies Seasonal Allergies: No (JOSE J EDMONDSON) Past Medical History Surgeries: Yes (aflutter ablation) Pacemaker Respiratory: Yes Sleep Apnea Currently Using CPAP: Yes Currently Using BIPAP: No Cardiac: Yes Atrial Fibrillation, Hypertension, Irregular Heartbeat Neurological: Yes (possible TIA ) TIA Reproductive Disorders: No Genitourinary: No Prostate Problems Gastrointestinal: No Gastroesophageal Reflux Musculoskeletal: No Endocrine: No HEENT: No Loss of Vision: Denies Hearing Impairment: Denies Cancer: No Did You Recieve Any Treatments: No Psychosocial: Yes Anxiety Integumentary: No Blood Disorders: No Adverse Reaction/Blood Tranf: No (JOSE J EDMONDSON) Family Medical History Completed stroke 19 MOTHER Myocardial infarction 19 FATHER Physical Exam Vital Signs Vital Signs - First Documented 06/07/21 08:09 Temp 36.8 Pulse 92 Resp 18 B/P (MAP) 142/84 (103) Pulse Ox 97 O2 Delivery Room Air (SUNDEEP HWANG) Vital Signs Capillary Refill : (JOSE J EDMONDSON) Height, Weight, BMI Height: 5'7.00" Weight: 250lbs. 6.0oz. [id number]; 34.00 BMI Method:Stated General Appearance: No Apparent Distress, WD/WN, Obese (Central adiposity) Respiratory: Chest Non Tender, Lungs Clear, Normal Breath Sounds, No Accessory Muscle Use, No Respiratory Distress Peripheral Pulses: 2+ Dorsalis Pedis (R), 2+ Left Dors-Pedis (L), 2+ Radial Pu lses (R), 2+ Radial Pulses (L) Gastrointestinal: Soft, Distended, Tenderness Back: Other (Left paraspinal muscle hypertonicity on the left side) (JOSE J EDMONDSON) Progress/Results/Core Measures Results/Orders Vital Signs/I&O 06/07/21 08:09 Temp 36.8 Pulse 92 Resp 18 B/P (MAP) 142/84 (103) Pulse Ox 97 O2 Delivery Room Air (SUNDEEP HWANG) Blood Pressure Mean: 103 Progress Progress Note : Time: 09:05 Progress Note I attest that I saw this patient alongside the medical student and agree with his documented history, physical exam and review of systems except as otherwise noted. (SUNDEEP HWANG) Departure Impression Primary Impression: Lumbago Qualified Codes: M54.5 - Low back pain Additional Impression: Constipation Qualified Codes: K59.00 - Constipation, unspecified Disposition: HOME, SELF-CARE Condition: Stable Departure-Patient Inst. Decision time for Depature: 09:06 (SUNDEEP HWANG) Referrals: JEANNE NUNEZ MD (PCP/Family) Primary Care Physician Patient Instructions: Low Back Pain (DC), Constipation, Adult ED Add. Discharge Instructions: Make sure you are drinking plenty of fluids. Use ice for the first couple days for 20 minutes every 2 hours while awake. Warm moist heat and topical creams such as icy hot or creams with capsaicin oil are often helpful. Tylenol 650 mg every 8 hours as necessary for pain. If you have severe pain keeping you from being functional then you may utilize 1 tablet of hydrocodone every 6 hours as necessary. If you have muscle spasms again in your back then you may take cyclobenzaprine/Flexeril 1 tablet every 8 hours as necessary. Flexeril will cause drowsiness and you should be cautious when combining this with hydrocodone which will also cause drowsiness. Stay active moving around the house and doing your stretching exercises. Do not lift, push or pull greater than 20 pounds until cleared by a doctor. Obtain a back brace and wear it on the days that you need it. Follow the stretching exercises and consider engaging in a course of physical therapy. You may follow-up with [facility] physical therapy by calling for a no upfront cost evaluation at [phone]. You should also seek help through your primary care office and managing your symptoms. Promptly return to the ER if you experience numbness in your saddle region, inability to urinate, or falls caused by weakness or numbness in your legs. 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 All discharge instructions reviewed with patient and/or family. Voiced und erstanding. Scripts Hydrocodone/Acetaminophen (Hydrocodone-Acetamin 5-325 mg) 1 Each Tablet 1 TAB PO Q6H PRN for PAIN-MODERATE (5-7), #12 TAB 0 Refills Prov: SUNDEEP HWANG 06/07/21 Cyclobenzaprine HCl (Cyclobenzaprine HCl) 10 Mg Tablet 10 MG PO Q8H PRN for SPASMS, #15 TAB 0 Refills Prov: SUNDEEP HWANG 06/07/21 [facility] Jun 07, 2021 08:45 SUNDEEP HWANG Jun 07, 2021 09:10
[2021-06-07] MEDS ORDERED: CYCL10TA9 PO (09:09)
[2021-06-07] MEDS ORDERED: ACHD5005 PO (09:09)
== END 2021-06-07 09:13 | disposition home or self-care (01) ==
LOC: EDUNIT# 07:59 → ER 08:00
DX: M54.5 Low back pain (principal); K59.00 Constipation, unspecified; G47.30 Sleep apnea, unspecified; I10 Essential (primary) hypertension; E66.9 Obesity, unspecified; I48.91 Unspecified atrial fibrillation; K21.9 Gastro-esophageal reflux disease without esophagitis; Z68.34 Body mass index [BMI] 34.0-34.9, adult; Z86.73 Personal history of transient ischemic attack (TIA), and cerebral infarction without residual deficits; Z79.82 Long term (current) use of aspirin; Z79.899 Other long term (current) drug therapy
CPT/HCPCS: 99281

== ENCOUNTER 2021-11-17 14:00 | Day surgery (SDC) | payer MEDICARE, OTHER ==
[~2021-11-17] VITALS: Ht 170.2 cm; Wt 100.6 kg
[2021-11-17] VITALS (13 sets, daily range): BP systolic 110–126; BP diastolic 59–78
[2021-11-17 08:42] LABS: BILIRUBIN,URINE NEGATIVE (NEGATIVE); CLARITY,URINE CLEAR; COLOR,URINE YELLOW; GLUCOSE, URINE (UA) TRACE (NEGATIVE); KETONES,URINE NEGATIVE (NEGATIVE); LEUKOCYTE ESTERASE ,URINE NEGATIVE (NEGATIVE); NITRITE,URINE NEGATIVE (NEGATIVE); PH,URINE 5.5 (5-9); PROTEIN,URINE NEGATIVE (NEGATIVE)
[2021-11-17 08:52] LABS: AMORPHOUS SEDIMENT,UR FEW AMOR URATES /LPF; BACTERIA,URINE NEGATIVE /HPF; SQUAMOUS EPITHELIAL CELL,UR 0-2 /HPF; WBC,URINE 0-2 /HPF
[2021-11-17 08:52] LABS: INR 2.5 (0.8-1.4); PROTHROMBIN TIME PATIENT 27.1 SEC (12.2-14.7)
--- NOTE | 2021-11-17 08:57 | Conscious Sedation/ASA ---
Conscious Sedation Pre-Proced Time 08:00 ASA Score 3 For ASA 3 and 4: Consider anesthesia and medical clearance. Also, for patients with a history of failed moderate sedation consider anesthesia. Airway Lungs Heart ASA score ASA 1: a normal healthy patient ASA 2: a patient with a mild systemic disease (mid diabetes, controlled hypertension, obesity x ASA 3: a patient with a severe systemic disease that limits activity (angina, COPD, prior Myocardial infarction) ASA 4: a patient with an incapacitating disease that is a constant threat to life (CHF, renal failure) ASA 5: a moribund patient not expected to survive 24 hrs. (ruptured aneurysm) ASA 6: a declared brain- patient whose organs are being harvested. For emergent operations, add the letter E after the classification Mallampati Classification Grade 3 Sedation Plan Analgesia, Amnesia, Plan communicated to team members, Discussed options with patient/fam, Discussed risks with patient/fam The patient is an appropriate candidate to undergo the planned procedure, sedation, and anesthesia. The patient immediately re-assessed prior to indication. JASVIR MELGOZA MD Nov 17, 2021 08:57
--- NOTE | 2021-11-17 08:58 | Discharge Inst-Post CATH ---
Discharge Inst-CATH/EP Problems Reviewed?: Yes Post Cardiac Cath/EP D/C Inst Follow Up/Plan Appointment with Dr. Layne's office next week <b>CARDIAC CATH/EP PROCEDURE DISCHARGE INSTRUCTIONS</b> ACTIVITY * Go Home directly and rest. * Limit activity of the leg (or wrist if it was used) for 7 days including aerobics, swimming, jogging, bicycling, etc. * Restrict stair-climbing for 7 days if possible, if not, climb up with your non-cath leg, then bring together on the same step. * Avoid lifting, pushing, pulling or excessive movement of the affected extremity for 7 days. * Customary sexual activity may be resumed after 2 days-use caution not to use a position that strains or causes pain to the affected extremity. * No driving for 24 hours. * NO SMOKING. * Avoid straining for bowel movements for 7 days. * Gentle walking on level ground is allowed. * Returning to work will depend on the type of procedure and the results. Your doctor will discuss this with you. CALL YOUR DOCTOR FOR ANY OF THE FOLLOWING: *If bleeding from the puncture site occurs- Apply gentle pressure to site with clean cloth and call your doctor or EMS. * If a knot or lump forms under the skin, increases in size, or causes pain. * If bruising appears to be worsening or moving further down your leg instead of disappearing. * Temperature above 101 F. CARE OF YOUR GROIN INCISION; * Bruising or purple discoloration of the skin near the puncture site is common. * You may shower only, no bathtub bathing for 5 days. Be careful to avoid slipping as your leg may feel stiff. * If a closure device was used on your femoral artery, please see the attached guide regarding care of the device and your leg. * Leave dressing on FOR 24 hours. CARE OF YOUR WRIST INCISION; * Bruising or purple discoloration of the skin near the puncture site is common. * You may shower. * DO NOT submerge wrist. * Leave dressing on FOR 24 hours. JASVIR LAYNE MD Nov 17, 2021 08:58
[2021-11-17 08:59] LABS: ALBUMIN 3.9 GM/DL (3.2-4.5); BILIRUBIN,TOTAL 0.4 MG/DL (0.1-1.0); CALCIUM 9.4 MG/DL (8.5-10.1); CREATININE SERUM 1.03 MG/DL (0.60-1.30); POTASSIUM 4.3 MMOL/L (3.6-5.0); TOTAL PROTEIN 6.7 GM/DL (6.4-8.2)
--- NOTE | 2021-11-17 08:59 | Cardioversion ---
Cardioversion PROCEDURE PHYSICIAN: Jasvir Layne DATE OF PROCEDURE: 11/17/21 DIRECT EXTERNAL ELECTRICAL CARDIOVERSION: Indications: Atrial Fibrillation Preoperative diagnoses: Atrial Fibrillation Postoperative diagnosis: Sinus rhythm, Successful Electrical Cardioversion Anesthesia: By Anesthesia services Complications: None Specimen: None Contrast: 0 Flouroscopy: none Procedure Details: The patient was brought the manager cardiac cath after informed consent was taken, all the risks and complications were explained including the risk of stroke. Electrical cardioversion was carried out with anesthesia support with propofol. 200 joules of synchronized shock was delivered through external patches which promptly restored sinus rhythm. The patient tolerated the procedure well. Conclusions: Successful electrical cardioversion in terminating atrial fibrillation Final Diagnosis: Paroxysmal atrial fibrillation Permanent pacemaker Hypertension Hyperlipidemia ABAD,JASVIR Odonnell MD Nov 17, 2021 08:59
--- NOTE | 2021-11-17 09:11 | Anesthesia-General Post-Op ---
MAC Patient Condition Mental Status/LOC: Same as Preop Cardiovascular: Satisfactory Nausea/Vomiting: Absent Respiratory: Satisfactory Pain: Controlled Complications: Absent Post Op Complications Complications None Follow Up Care/Instructions Patient Instructions None needed. Anesthesiology Discharge Order Discharge Order Patient is doing well, no complaints, stable vital signs, no apparent adverse anesthesia problems. No complications reported per nursing. POP COFFEY CRNA Nov 17, 2021 09:11
--- NOTE | 2021-11-17 09:11 | Diagnostic Imaging Report ---
INDICATION: Atrial fibrillation/flutter. TECHNIQUE: Single view chest at 8:29 AM. CORRELATION STUDY: 08/19/2020. FINDINGS: Left-sided pacemaker. Electronic recorder device over the left heart border. Heart size is enlarged but stable. Vasculature overall is within normal limits. The lungs are clear with no consolidating infiltrate. There is no significant effusion or pneumothorax. IMPRESSION: Stable chest. Mild cardiac enlargement without failure. Dictated by: Dictated on workstation # [id number]
[~2021-11-17 14:00] MED LIST changes: +ACHD5005 PO; -AMIO200T6 PO; +AMIO200T65 PO; +CYCL10TA25 PO; +GLIP5TAB13 PO; +LIDOCAINE 2% VISCOUS 15 ML UDC ONE; +LIDOCAINE 2% VISCOUS 15 ML UDC PO ONE; +METF-397 PO; +MONT-40 PO; -MONT10TA32 PO; +NS IV 1000 ML 1,000 ML IV SCH; +NS IV 1000 ML 1,000 ML ONE; -POTA10TA36 PO; +POTA10TA37 PO; +RIVA20TA2 PO; +proPOfol 200 MG/20 ML (DIPRIVAN) VIAL IV ONE
[2021-11-17 15:38] LABS: BASOPHILS # (AUTO) 0.1 10^3/uL (0.0-0.1); BASOPHILS % (AUTO) 1 % (0-10); EOSINOPHILS # (AUTO) 0.2 10^3/uL (0.0-0.3); EOSINOPHILS % (AUTO) 4 % (0-10); HEMATOCRIT 38 % (40-54); HEMOGLOBIN 11.4 g/dL (13.3-17.7); LYMPHOCYTES # (AUTO) 1.4 10^3/uL (1.0-4.0); LYMPHOCYTES % (AUTO) 23 % (12-44); MEAN CORPUSCULAR HEMOGLOBIN 23 pg (25-34); MEAN CORPUSCULAR HGB CONC 30 g/dL (32-36); MEAN CORPUSCULAR VOLUME 78 fL (80-99); MEAN PLATELET VOLUME 9.5 fL (9.0-12.2); MONOCYTES # (AUTO) 0.8 10^3/uL (0.0-1.0); MONOCYTES % (AUTO) 13 % (0-12); NEUTROPHILS # (AUTO) 3.6 10^3/uL (1.8-7.8); NEUTROPHILS % (AUTO) 60 % (42-75); PLATELET COUNT 357 10^3/uL (130-400); WHITE BLOOD COUNT 6.1 10^3/uL (4.3-11.0)
== END 2021-11-17 14:01 | disposition home or self-care (01) ==
LOC: CATH 14:00
PROVIDERS: ATTEND Internal Medicine Cardiovascular Disease
DX: I48.0 Paroxysmal atrial fibrillation (principal); I10 Essential (primary) hypertension; Z95.0 Presence of cardiac pacemaker; E78.2 Mixed hyperlipidemia; I25.10 Atherosclerotic heart disease of native coronary artery without angina pectoris; Z79.01 Long term (current) use of anticoagulants; I49.5 Sick sinus syndrome; I48.3 Typical atrial flutter; E11.9 Type 2 diabetes mellitus without complications; G47.33 Obstructive sleep apnea (adult) (pediatric); I27.20 Pulmonary hypertension, unspecified; J44.9 Chronic obstructive pulmonary disease, unspecified; E66.01 Morbid (severe) obesity due to excess calories; Z68.34 Body mass index [BMI] 34.0-34.9, adult; I65.23 Occlusion and stenosis of bilateral carotid arteries; Z79.84 Long term (current) use of oral hypoglycemic drugs; Z79.899 Other long term (current) drug therapy; Z79.02 Long term (current) use of antithrombotics/antiplatelets
CPT/HCPCS: 36415; 71045; 80053; 80061; 81000; 85025; 85610; 85730; 87081; 92960; 93005

== ENCOUNTER → 2021-12-20 | Outpatient (CLI) | payer MEDICARE, OTHER ==
[~2021-12-20] VITALS: Ht 170 cm; Wt 96.0 kg
[~2021-12-20] MED LIST changes: -LIDOCAINE 2% VISCOUS 15 ML UDC ONE; -LIDOCAINE 2% VISCOUS 15 ML UDC PO ONE; -NS IV 1000 ML 1,000 ML IV SCH; -NS IV 1000 ML 1,000 ML ONE; +REGADENOSON 0.4 MG/5 ML SYR (LEXISCAN) IV ONE; +meTOprolol 5 MG/5 ML (LOPRESSOR) VIAL IV ONE; -proPOfol 200 MG/20 ML (DIPRIVAN) VIAL IV ONE
[2021-12-20] MEDS: CATHETER FLUSH 10 ML SYR IVP PRN ×2 (08:01→09:29)
[2021-12-20 09:18] VITALS: BP 117/78
--- NOTE | 2021-12-20 11:37 | Cardiology Stress Test Report ---
Stress Test Report Date of Procedure/Referring: Date of Procedure: Dec 20, 2021 Svetlana Martínez Admitting Physician Oc Dixon MD Indications: A fib Baseline Heart Rate: 127 Baseline Blood Pressure: Blood Pressure Systolic: 117 Blood Pressure Diastolic: 78 Baseline Vitals Vital Signs Date Time Temp Pulse Resp B/P (MAP) Pulse Ox O2 Delivery O2 Flow Rate FiO2 12/20/21 09:18 127 16 117/78 (91) 98 Room Air Baseline EKG: Baseline EKG: LBBB Summary After explaining the procedure to the patient, he signed a consent and then brought to the stress nuclear laboratory. Patient received 0.4 mg Lexiscan for stress test, ECG, heart rate and blood pressure were monitored continuously. Resting and stress dose of radio tracer were injected, imaging was acquired and reviewed in short axis, horizontal long axis and vertical long axis views. TID: 1.12 SSS: 13 SDS: 2 EF: 34 1. Patient tolerated Lexiscan well 2. Baseline left bundle branch block with a heart rate 120. 3. Fixed defect involving the inferior wall and inferior apex, mild reversible ischemia involving the mid to apical anterior wall and true apex 4. Dilated left ventricle with diffuse left ventricular hypokinesia more pronounced at the apex EF 34% JASVIR MELGOZA MD Dec 20, 2021 11:37
== END ==
LOC: CARD 08:00
PROVIDERS: ATTEND Physician Assistant
DX: I48.0 Paroxysmal atrial fibrillation (principal)
CPT/HCPCS: 78452; 93017; A9502

== ENCOUNTER 2021-12-29 11:35 | Day surgery (SDC) | payer MEDICARE, OTHER ==
[~2021-12-29] VITALS: Ht 170.2 cm; Wt 100.8 kg
[2021-12-29] VITALS (11 sets, daily range): BP systolic 106–142; BP diastolic 53–98
[~2021-12-29 11:35] MED LIST changes: -REGADENOSON 0.4 MG/5 ML SYR (LEXISCAN) IV ONE; -meTOprolol 5 MG/5 ML (LOPRESSOR) VIAL IV ONE
[2021-12-29] MEDS ORDERED: LIDOCAINE 1% INJ 50 ML (XYLOCAINE) VIAL ONE (11:50)
[2021-12-29] MEDS ORDERED: NS IV 1000 ML 1,000 ML ONE (11:51)
[2021-12-29] MEDS ORDERED: HEParin (CATH LAB) 2,000 ML IV ONE (11:51)
[2021-12-29] MEDS ORDERED: NS IV 1000 ML 1,000 ML IV SCH ×2 (12:00→15:15)
[2021-12-29 12:15] LABS: HEMATOCRIT 39 % (40-54); HEMOGLOBIN 11.1 g/dL (13.3-17.7); MEAN CORPUSCULAR HEMOGLOBIN 21 pg (25-34); MEAN CORPUSCULAR HGB CONC 28 g/dL (32-36); MEAN CORPUSCULAR VOLUME 74 fL (80-99); MEAN PLATELET VOLUME 9.3 fL (9.0-12.2); PLATELET COUNT 380 10^3/uL (130-400); WHITE BLOOD COUNT 7.4 10^3/uL (4.3-11.0)
--- NOTE | 2021-12-29 12:24 | Diagnostic Imaging Report ---
INDICATION: Pre heart catheterization. Patient had abnormal stress test. TIME OF EXAM: 12:21 p.m. COMPARISON: Correlation is made with prior chest of 11/17/2021. FINDINGS: Heart is enlarged but stable. Dual-lead left subclavian cardiac pacer remains in place. Cardiac loop recorder overlies the left chest. The lungs are clear. The pulmonary vascularity is normal. No infiltrate, effusion or pneumothorax is detected. IMPRESSION: No acute cardiopulmonary process is detected. Dictated by: Dictated on workstation # [id number]
[2021-12-29 12:28] LABS: INR 1.1 (0.8-1.4); PROTHROMBIN TIME PATIENT 14.1 SEC (12.2-14.7)
[2021-12-29 12:33] LABS: ALBUMIN 4.3 GM/DL (3.2-4.5); BILIRUBIN,TOTAL 0.3 MG/DL (0.1-1.0); CALCIUM 9.8 MG/DL (8.5-10.1); CREATININE SERUM 0.89 MG/DL (0.60-1.30); POTASSIUM 4.1 MMOL/L (3.6-5.0); TOTAL PROTEIN 7.3 GM/DL (6.4-8.2)
[2021-12-29] MEDS ORDERED: ASPI-1238 PO (12:43)
[2021-12-29] MEDS ORDERED: DILT180C84 PO (12:43)
[2021-12-29] MEDS ORDERED: ATOR40TA70 PO (12:43)
[2021-12-29] MEDS ORDERED: CLOP75TA28 PO (12:43)
[2021-12-29] MEDS ORDERED: MIDAZOLAM 5 MG/5 ML (VERSED) VIAL ONE (13:33)
[2021-12-29] MEDS ORDERED: HEParin 1000 UNIT/ML (10ML VIAL) FOR BOLUS ONE (13:33)
[2021-12-29] MEDS ORDERED: NITRO DRIP 25000 MCG/D5W 250 ML IV ONE (13:33)
[2021-12-29] MEDS ORDERED: diphenhydrAMINE 50 MG/ML INJ (BENADRYL) ONE (13:33)
[2021-12-29] MEDS ORDERED: VERAPAMIL 5 MG/2 ML (CALAN) VIAL IV ONE (13:33)
[2021-12-29] MEDS ORDERED: methylPREDNISolone 125 MG (Solu-MEDROL) VIAL ONE (13:33)
[2021-12-29] MEDS ORDERED: fentaNYL INJ 100 MCG/2 ML AMP ONE (13:33)
[2021-12-29] MEDS ORDERED: ADENOSINE 90 MG/30 ML (ADENOSCAN) VIAL IV ONE (14:20)
[2021-12-29] MEDS ORDERED: ASPIRIN 325 MG (5 GR) TABLET ONE ×2 (14:59→15:06)
[2021-12-29] MEDS ORDERED: CLOPIDOGREL 300 MG (PLAVIX) TABLET PO ONE (14:59)
--- NOTE | 2021-12-29 15:10 | Conscious Sedation/ASA ---
Conscious Sedation Pre-Proced Time 15:09 ASA Score 3 For ASA 3 and 4: Consider anesthesia and medical clearance. Also, for patients with a history of failed moderate sedation consider anesthesia. Airway Lungs Heart ASA score ASA 1: a normal healthy patient ASA 2: a patient with a mild systemic disease (mid diabetes, controlled hypertension, obesity x ASA 3: a patient with a severe systemic disease that limits activity (angina, COPD, prior Myocardial infarction) ASA 4: a patient with an incapacitating disease that is a constant threat to life (CHF, renal failure) ASA 5: a moribund patient not expected to survive 24 hrs. (ruptured aneurysm) ASA 6: a declared brain- patient whose organs are being harvested. For emergent operations, add the letter E after the classification Mallampati Classification Grade 3 Sedation Plan Analgesia, Amnesia, Plan communicated to team members, Discussed options with patient/fam, Discussed risks with patient/fam The patient is an appropriate candidate to undergo the planned procedure, sedation, and anesthesia. The patient immediately re-assessed prior to indication. JASVIR MELGOZA MD Dec 29, 2021 15:10
--- NOTE | 2021-12-29 15:15 | Cardiac Cath Report ---
Cardiac Cath Report Physician (s)/Batt Machine Operator (s) Physician JASVIR MELGOZA MD Pre-Procedure Diagnosis Pre-Procedure Diagnosis: coronary artery disease Post-Procedure Note Procedure Start Date: Dec 29, 2021 Name of Procedure: Left heart catheterization FFR to the LAD Primary stenting to the LAD Findings/Procedure Note PROCEDURE NOTE: 71 years old gentleman with paroxysmal atrial fibrillation, coronary artery disease, had an abnormal stress test, scheduled for cardiac catheterization possible PTCA. After explaining the procedure to the patient, all pros and cons were explained, all questions were answered. The patient signed the consent and then he was placed on the cardiac catheterization laboratory. Groin was prepped SL fashion local anesthesia was used. Sheath placed in the right radial artery, Keldron catheter was prolapsed to the left ventricular cavity, engaged the right and left coronary system, angiogram was done, pullback LV to aorta was done. Patient had moderate to severe stenosis at the distal LAD. I attempted to do FFR. I used multiple different guides and finally I was successful with the Juan C left 3.5. I was unable to selectively advanced the pressure wire. I was able to advance a BMW wire and parked it distally then I used the BMW as a radial to advance the pressure wire to the distal LAD. FFR was measured and it was 0.9 after adenosine challenge it was 0.82. I decided to proceed with primary stenting due to his history and comparing his study in [address] it progressed over 3 years into subtotal occlusion. Primary stenting was done with adilia point 2.5 x 23 expanded to 2.71 mm with excellent results At the end of the procedure the sheath was removed. Vascular band was used FINDINGS: Hemodynamics LV 122/20, end-diastolic pressure of 20 Aorta 118/90 mean of 100 ANATOMY: Left Main is free of obstructive disease Left Anterior Descending has patent stent in the midportion, severe stenosis distally with FFR 0.82. Due to his known rapid progression of disease I decided to primary stenting using adilia point 2.5 x 23 mm expanded to 2.71 with excellent results Left Circumflex is dominant artery with mild disease nonobstructive disease Right Coronary Artery is small nondominant artery with no obstructive disease LV Gram was not done, pressure was measured CONCLUSION: 1. Severe stenosis at the distal LAD, successful FFR evaluation and then deployment of adilia point 2.5 x 23 expanded to 2.71 distal to the previously placed stent in 2019. 2. Dominant circumflex artery with mild disease nonobstructive disease 3. Moderately elevated left ventricular end-diastolic pressure DISCUSSION AND RECOMMENDATION: Continue to maximize medical therapy Anesthesia Type: Conscious Sedation Estimated blood loss (mL): 35 ml Contrast Amount: 124 ml Total Radiation Dose: 1559 mGy Post-Procedure Diagnosis Post-operative diagnosis: Coronary artery disease Paroxysmal atrial fibrillation Hypertension Hyperlipidemia JASVIR MELGOZA MD Dec 29, 2021 15:15
[2021-12-29] MEDS ORDERED: METF-397 PO (15:18)
--- NOTE | 2021-12-29 15:18 | Discharge Inst-Post CATH ---
Discharge Inst-CATH/EP Problems Reviewed?: Yes Post Cardiac Cath/EP D/C Inst Follow Up/Plan Appointment with Dr. Layne's office in 2 to 4 weeks <b>CARDIAC CATH/EP PROCEDURE DISCHARGE INSTRUCTIONS</b> ACTIVITY * Go Home directly and rest. * Limit activity of the leg (or wrist if it was used) for 7 days including aer obics, swimming, jogging, bicycling, etc. * Restrict stair-climbing for 7 days if possible, if not, climb up with your non-cath leg, then bring together on the same step. * Avoid lifting, pushing, pulling or excessive movement of the affected extremi ty for 7 days. * Customary sexual activity may be resumed after 2 days-use caution not to use a position that strains or causes pain to the affected extremity. * No driving for 24 hours. * NO SMOKING. * Avoid straining for bowel movements for 7 days. * Gentle walking on level ground is allowed. * Returning to work will depend on the type of procedure and the results. Your doctor will discuss this with you. CALL YOUR DOCTOR FOR ANY OF THE FOLLOWING: *If bleeding from the puncture site occurs- Apply gentle pressure to site with clean cloth and call your doctor or EMS. * If a knot or lump forms under the skin, increases in size, or causes pain. * If bruising appears to be worsening or moving further down your leg instead of disappearing. * Temperature above 101 F. CARE OF YOUR GROIN INCISION; * Bruising or purple discoloration of the skin near the puncture site is common. * You may shower only, no bathtub bathing for 5 days. Be careful to avoid slipping as your leg may feel stiff. * If a closure device was used on your femoral artery, please see the attached guide regarding care of the device and your leg. * Leave dressing on FOR 24 hours. CARE OF YOUR WRIST INCISION; * Bruising or purple discoloration of the skin near the puncture site is common. * You may shower. * DO NOT submerge wrist. * Leave dressing on FOR 24 hours. JASVIR LAYNE MD Dec 29, 2021 15:18
[2021-12-29] MEDS ORDERED: RIVAROXABAN 20 MG TABLET (XARELTO) PO SCH (21:00)
[2021-12-29] MEDS ORDERED: GEMFIBROZIL 600 MG (LOPID) TAB PO SCH (21:00)
[2021-12-29] MEDS ORDERED: MONTELUKAST 10 MG (SINGULAIR) TAB PO SCH (21:00)
[2021-12-30] MEDS ORDERED: glipiZIDE 5 MG (GLUCOTROL) TAB PO SCH (07:00)
[2021-12-30] MEDS ORDERED: KCL 10 MEQ TAB (MICRO K) PO SCH (08:00)
[2021-12-30] MEDS ORDERED: NON-FORMULARY MEDICATION 1 EA EA (Potassium Chloride 10 MEQ) PO SCH (09:00)
[2021-12-30] MEDS ORDERED: ROSUVASTATIN 10 MG (CRESTOR) TABLET PO SCH (09:00)
[2021-12-30] MEDS ORDERED: CLOPIDOGREL 75 MG (PLAVIX) TABLET PO SCH ×2 (09:00)
[2021-12-30] MEDS ORDERED: LORATADINE (CLARITIN) 10 MG TAB PO SCH (09:00)
[2021-12-30] MEDS ORDERED: DIGOXIN 0.125 MG (LANOXIN) TAB PO SCH (09:00)
[2021-12-30] MEDS ORDERED: ENALAPRIL 5 MG (VASOTEC) TAB PO SCH (09:00)
[2021-12-30] MEDS ORDERED: ASPIRIN E.C. 81 MG (ECOTRIN) TAB PO SCH (09:00)
[2021-12-30] MEDS ORDERED: AMIODARONE 200 MG (CORDARONE) TAB PO SCH (09:00)
== END 2021-12-29 19:00 | disposition home or self-care (01) ==
LOC: CATH 11:35 → CSD 15:35 → CATH 19:00
PROVIDERS: ATTEND Internal Medicine Cardiovascular Disease
DX: I25.10 Atherosclerotic heart disease of native coronary artery without angina pectoris (principal); I48.0 Paroxysmal atrial fibrillation; I10 Essential (primary) hypertension; I49.5 Sick sinus syndrome; I27.20 Pulmonary hypertension, unspecified; I65.23 Occlusion and stenosis of bilateral carotid arteries; I49.8 Other specified cardiac arrhythmias; G47.33 Obstructive sleep apnea (adult) (pediatric); E11.9 Type 2 diabetes mellitus without complications; J44.9 Chronic obstructive pulmonary disease, unspecified; J30.2 Other seasonal allergic rhinitis; R00.0 Tachycardia, unspecified; E78.2 Mixed hyperlipidemia; E66.01 Morbid (severe) obesity due to excess calories; Z79.899 Other long term (current) drug therapy; Z79.01 Long term (current) use of anticoagulants; Z68.34 Body mass index [BMI] 34.0-34.9, adult; Z99.89 Dependence on other enabling machines and devices; Z79.84 Long term (current) use of oral hypoglycemic drugs
CPT/HCPCS: 71045; 80053; 84443; 85610; 85730; 87081; 93005; 93458; 93571; C1769 ×2; C1874; C1887 ×2; C1894; C9600; 36415; 85027

== ENCOUNTER 2022-02-16 10:17 | Outpatient (RCR) | payer MEDICARE, OTHER ==
[~2022-02-16 10:17] MED LIST changes: +ATOR40TA70 PO; +CLOP75TA28 PO; +DILT180C84 PO
== END 2022-02-22 | disposition home or self-care (01) ==
LOC: CR 10:17
PROVIDERS: ATTEND Internal Medicine Cardiovascular Disease
DX: Z29.8 Encounter for other specified prophylactic measures (principal); Z95.5 Presence of coronary angioplasty implant and graft
CPT/HCPCS: 93798

== ENCOUNTER 2022-03-09 14:41 | Outpatient (RCR) | payer MEDICARE, OTHER | END 2022-03-24 | disposition home or self-care (01) | LOC: CR 14:41 | PROVIDERS: ATTEND Internal Medicine Cardiovascular Disease | DX: Z29.8 Encounter for other specified prophylactic measures (principal); Z95.5 Presence of coronary angioplasty implant and graft | CPT/HCPCS: 93798 ==

== ENCOUNTER 2022-04-18 09:44 | Outpatient (RCR) | payer MEDICARE, OTHER | END 2022-04-24 | disposition home or self-care (01) | LOC: CR 09:44 | PROVIDERS: ATTEND Internal Medicine Cardiovascular Disease | DX: Z29.8 Encounter for other specified prophylactic measures (principal); Z95.5 Presence of coronary angioplasty implant and graft | CPT/HCPCS: 93798 ==

== ENCOUNTER 2022-04-25 06:35 | Outpatient (RCR) | payer MEDICARE, OTHER ==
[~2022-04-25 06:35] MED LIST changes: +POTA-177 PO; -POTA10TA37 PO
== END 2022-05-25 ==
LOC: CR 06:35
PROVIDERS: ATTEND Internal Medicine Cardiovascular Disease
DX: Z29.8 Encounter for other specified prophylactic measures (principal); Z95.5 Presence of coronary angioplasty implant and graft

== ENCOUNTER 2022-07-12 15:17 | Emergency (ER) | payer MEDICARE, OTHER ==
[~2022-07-12] VITALS: Ht 170.2 cm; Wt 95.7 kg
[~2022-07-12 15:17] MED LIST changes: +LORA-1389 PO; -LORA-53 PO
[2022-07-12 15:43] LABS: BASOPHILS # (AUTO) 0.1 10^3/uL (0.0-0.1); BASOPHILS % (AUTO) 1 % (0-10); EOSINOPHILS # (AUTO) 0.2 10^3/uL (0.0-0.3); EOSINOPHILS % (AUTO) 3 % (0-10); HEMATOCRIT 33 % (40-54); HEMOGLOBIN 8.3 g/dL (13.3-17.7); LYMPHOCYTES # (AUTO) 1.6 X 10^3 (1.0-4.0); LYMPHOCYTES % (AUTO) 23 % (12-44); MEAN CORPUSCULAR HEMOGLOBIN 15 pg (25-34); MEAN CORPUSCULAR HGB CONC 26 g/dL (32-36); MEAN CORPUSCULAR VOLUME 57 fL (80-99); MEAN PLATELET VOLUME 9.2 fL (9.0-12.2); MONOCYTES # (AUTO) 0.6 X 10^3 (0.0-1.0); MONOCYTES % (AUTO) 9 % (0-12); NEUTROPHILS # (AUTO) 4.3 X 10^3 (1.8-7.8); NEUTROPHILS % (AUTO) 63 % (42-75); PLATELET COUNT 505 10^3/uL (130-400); WHITE BLOOD COUNT 6.8 10^3/uL (4.3-11.0)
[2022-07-12 15:54] LABS: ALBUMIN 4.2 GM/DL (3.2-4.5)
--- NOTE | 2022-07-12 15:54 | Diagnostic Imaging Report ---
INDICATION: Chest pain. COMPARISON: 12/29/2021. TECHNIQUE: Single radiograph of the chest dated 07/12/2022. FINDINGS: Pacer device is present with the battery pack overlying the left chest. Loop recorder is again seen overlying the left chest. The cardiac silhouette is mildly enlarged, though stable. No significant pulmonary vascular congestion. The lungs are clear. No pleural effusion. No pneumothorax. No acute osseous abnormality. IMPRESSION: Stable mild cardiomegaly and postsurgical changes without superimposed acute cardiopulmonary abnormality. Dictated by: Dictated on workstation # [id number]
[2022-07-12 15:55] LABS: POTASSIUM 4.7 MMOL/L (3.6-5.0)
[2022-07-12 15:56] LABS: CALCIUM 9.5 MG/DL (8.5-10.1)
[2022-07-12 15:57] LABS: INR 1.2 (0.8-1.4); PROTHROMBIN TIME PATIENT 15.4 SEC (12.2-14.7); TOTAL PROTEIN 7.7 GM/DL (6.4-8.2)
[2022-07-12 15:59] LABS: BILIRUBIN,TOTAL 0.7 MG/DL (0.1-1.0)
[2022-07-12 16:01] LABS: CREATININE SERUM 1.07 MG/DL (0.60-1.30)
[2022-07-12 16:04] LABS: MAGNESIUM 2.1 MG/DL (1.6-2.4)
--- NOTE | 2022-07-12 16:45 | ED Cardiac General ---
History of Present Illness General Chief Complaint: Cardiac/General Problems Stated Complaint: HIGH HEART RATE, LOW BLOOD PRESSURE Nursing Triage Note: PT AMB TO RM 2 WITH COMPLAINT OF RACING HEART, SOA. STATES SYMPTOMS STARTED MONDAY. STATES HR HAS NOT GONE BELOW 115 AT HOME. HX OF AFIB. PACEMAKER. PT OF DR LAYNE. Source: patient, old records Exam Limitations: no limitations History of Present Illness Date Seen by Provider: Jul 12, 2022 Time Seen by Provider: 15:29 Initial Comments This is 72-year-old gentleman with known paroxysmal atrial fibrillation and coronary artery disease presents to the emergency room with 3 days of concerns about dizziness, rapid heart rate, low blood pressure, backache, and shortness of air with exertion. He has a pacemaker and is anticoagulated on Xarelto. He denies any chest pain. He contacted the cardiology office and was directed to the emergency room. Allergies and Home Medications Allergies Coded Allergies: Tetanus Vaccines and Toxoid (Verified Allergy, Unknown, 11/01/18) EDEMA Uncoded Allergies: IVP DYE FOR HEART CATHS (Allergy, Severe, HIVES, 07/10/15) WAS TREATED TODAY WITH BENADRYL AND SOLUMEDROL PRE CARDIAC CATH Patient Home Medication List Home Medication List Reviewed: Yes Amiodarone HCl (Amiodarone HCl) 200 Mg Tablet, 200 MG PO DAILY, (Reported) Entered as Reported by: FLACO KRAMER on 08/19/20927 Aspirin (Aspirin EC) 81 Mg Tablet.dr, 81 MG PO DAILY PRN for CHEST PAIN (ANGINA), (Reported) Entered as Reported by: FLACO KRAMER on 12/29/211242 Atorvastatin Calcium (Atorvastatin Calcium) 40 Mg Tablet, 40 MG PO DAILY, (Reported) Entered as Reported by: FLACO KRAMER on 12/29/211242 Clopidogrel Bisulfate (Clopidogrel) 75 Mg Tablet, 75 MG PO DAILY, (Reported) Entered as Reported by: FLACO KRAMER on 12/29/211242 Digoxin (Digoxin) 125 Mcg Tablet, 125 MCG PO DAILY, (Reported) Entered as Reported by: FLACO KRAMER on 08/19/20927 Diltiazem HCl (Cartia Xt) 240 Mg Cap.er.24h, 240 MG PO DAILY, (Reported) Entered as Reported by: FLACO KRAMER on 08/19/20927 Diltiazem HCl (Diltiazem 24Hr Cd) 180 Mg Cap.er.24h, 180 MG PO DAILY, (Reported) Entered as Reported by: FLACO KRAMER on 12/29/21 1243 Enalapril Maleate (Enalapril Maleate) 5 Mg Tablet, 5 MG PO DAILY, (Reported) Entered as Reported by: FLACO KRAMER on 08/19/20927 Gemfibrozil (Gemfibrozil) 600 Mg Tablet, 600 MG PO BID, (Reported) Entered as Reported by: FLACO KRAMER on 08/19/20927 Glipizide (Glipizide) 5 Mg Tablet, 5 MG PO DAILY, (Reported) Entered as Reported by: BERYL MCKINNEY on 11/17/21 08 Loratadine (Loratadine) 10 Mg Tablet, 10 MG PO DAILY, (Reported) Entered as Reported by: TASHA MENG on 06/17/15 0956 Metformin HCl (Metformin HCl) 500 Mg Tablet, 500 MG PO BID Prescribed by: JASVIR LAYNE on 12/29/21 1518 Montelukast Sodium (Montelukast Sodium) 10 Mg Tablet, 10 MG PO HS, (Reported) Entered as Reported by: TASHA MENG on 06/17/15 0951 Potassium Chloride (Potassium Chloride) 10 Meq Tab.er.prt, 10 MEQ PO DAILY, (Reported) Entered as Reported by: FLACO KRAMER on 08/19/20927 Rivaroxaban (Xarelto Tablet) 20 Mg Tablet, 20 MG PO HS, (Reported) Entered as Reported by: BERYL MCKINNEY on 11/17/21 0845 Review of Systems Review of Systems Constitutional: dizziness, other (Fatigue) EENTM: No Symptoms Reported Respiratory: See HPI Cardiovascular: See HPI Gastrointestinal: No Symptoms Reported Genitourinary: No Symptoms Reported Musculoskeletal: no symptoms reported Skin: no symptoms reported Psychiatric/Neurological: No Symptoms Reported Endocrine: No Symptoms Reported Hematologic/Lymphatic: No Symptoms Reported Past Mydpqpk-Ivgvei-Skuxdi Hx Patient Social History Tobacco Use?: No Use of E-Cig and/or Vaping dev: No Substance use?: No Alcohol Use?: No Pt feels they are or have been: No Immunizations Up To Date First/Initial COVID19 Vaccinat: NOVEMBER 2020 Second COVID19 Vaccination Derek: DECEMBER 2020 Third COVID19 Vaccination Date: NOVEMBER 2020 Seasonal Allergies Seasonal Allergies: No Past Medical History Surgeries: Yes (aflutter ablation) Cardiac (Ablation, cardioversion), Coronary Stent, Pacemaker Respiratory: Yes Sleep Apnea Currently Using CPAP: Yes Currently Using BIPAP: No Cardiac: Yes Atrial Fibrillation, Hypertension, Irregular Heartbeat Neurological: Yes (possible TIA ) TIA Reproductive Disorders: No Genitourinary: Yes Prostate Problems Gastrointestinal: Yes Gastroesophageal Reflux Musculoskeletal: No Endocrine: No HEENT: No Loss of Vision: Denies Hearing Impairment: Denies Cancer: No Did You Recieve Any Treatments: No Psychosocial: Yes Anxiety Integumentary: No Blood Disorders: No Adverse Reaction/Blood Tranf: No Family Medical History Completed stroke 19 MOTHER Myocardial infarction 19 FATHER Physical Exam Vital Signs Vital Signs - First Documented 07/12/22 15:21 Pulse 108 Resp 25 B/P (MAP) 133/77 (95) Pulse Ox 100 O2 Delivery Room Air Capillary Refill : Less Than 3 Seconds Height, Weight, BMI Height: 5'7.00" Weight: 250lbs. 6.0oz. 113.844524kj; 33.00 BMI Method:Stated General Appearance: No Apparent Distress, WD/WN HEENT: PERRL/EOMI, Normal ENT Inspection Neck: Normal Inspection; No JVD Respiratory: No Accessory Muscle Use, No Respiratory Distress, Crackles (You b asilar crackles) Cardiovascular: No Edema, No Murmur, Tachycardia (Regular) Gastrointestinal: Normal Bowel Sounds, Non Tender, Soft Extremity: Normal Inspection, No Pedal Edema Neurologic/Psychiatric: Alert, Oriented x3, No Motor/Sensory Deficits, Normal Mood/Affect, [employer] II-XII Norm as Tested Skin: Normal Color, Warm/Dry, Other (Numerous skin tags) Progress/Results/Core Measures Results/Orders Lab Results Laboratory Tests Test 07/12/22 15:29 Range/Units White Blood Count 6.8 4.3-11.0 10^3/uL Red Blood Count 5.68 H 4.30-5.52 10^6/uL Hemoglobin 8.3 L 13.3-17.7 g/dL Hematocrit 33 L 40-54 % Mean Corpuscular Volume 57 L 80-99 fL Mean Corpuscular Hemoglobin 15 L 25-34 pg Mean Corpuscular Hemoglobin Concent 26 L 32-36 g/dL Red Cell Distribution Width 21.2 H 10.0-14.5 % Platelet Count 505 H 130-400 10^3/uL Mean Platelet Volume 9.2 9.0-12.2 fL Immature Granulocyte % (Auto) 0 % Neutrophils (%) (Auto) 63 42-75 % Lymphocytes (%) (Auto) 23 12-44 % Monocytes (%) (Auto) 9 0-12 % Eosinophils (%) (Auto) 3 0-10 % Basophils (%) (Auto) 1 0-10 % Neutrophils # (Auto) 4.3 1.8-7.8 X 10^3 Lymphocytes # (Auto) 1.6 1.0-4.0 X 10^3 Monocytes # (Auto) 0.6 0.0-1.0 X 10^3 Eosinophils # (Auto) 0.2 0.0-0.3 10^3/uL Basophils # (Auto) 0.1 0.0-0.1 10^3/uL Immature Granulocyte # (Auto) 0.0 0.0-0.1 10^3/uL Prothrombin Time 15.4 H 12.2-14.7 SEC INR Comment 1.2 0.8-1.4 Activated Partial Thromboplast Time 35 24-35 SEC Sodium Level 136 135-145 MMOL/L Potassium Level 4.7 3.6-5.0 MMOL/L Chloride Level 103 98-107 MMOL/L Carbon Dioxide Level 19 L 21-32 MMOL/L Anion Gap 14 5-14 MMOL/L Blood Urea Nitrogen 18 7-18 MG/DL Creatinine 1.07 0.60-1.30 MG/DL Estimat Glomerular Filtration Rate 74 BUN/Creatinine Ratio 17 Glucose Level 202 H 70-105 MG/DL Calcium Level 9.5 8.5-10.1 MG/DL Corrected Calcium 9.3 8.5-10.1 MG/DL Magnesium Level 2.1 1.6-2.4 MG/DL Total Bilirubin 0.7 0.1-1.0 MG/DL Aspartate Amino Transf (AST/SGOT) 58 H 5-34 U/L Alanine Aminotransferase (ALT/SGPT) 66 H 0-55 U/L Alkaline Phosphatase 134 40-136 U/L Myoglobin 34.9 10.0-92.0 NG/ML Troponin I 0.125 H <0.028 NG/ML Total Protein 7.7 6.4-8.2 GM/DL Albumin 4.2 3.2-4.5 GM/DL My Orders Orders - JUDE TOWNSEND MD Ekg Tracing (07/12/22 15:28) Cbc With Automated Diff (07/12/22) Magnesium (07/12/22) Chest 1 View, Ap/Pa Only (07/12/22) Comprehensive Metabolic Panel (07/12/22) Myoglobin Serum (07/12/22) Protime With Inr (07/12/22) Partial Thromboplastin Time (07/12/22) O2 (07/12/22) Monitor-Rhythm Ecg Trace Only (07/12/22) Ed Iv/Invasive Line Start (07/12/22) Troponin I Garo (07/12/22) Vital Signs/I&O 07/12/22 07/12/22 15: 17:50 Pulse 108 63 Resp 25 25 B/P (MAP) 133/77 (95) 113/57 Pulse Ox 100 99 O2 Delivery Room Air Room Air Blood Pressure Mean: 95 Progress Progress Note : Progress Note Patient appeared to have pacemaker induced tachycardia. This was discussed with Dr. Layne who helped with interpretation of the EKG. At his recommendation the magnet was passed over the pacemaker which resulted in a decrease in rate to 85. The [employer] technical service representative presented to the ER to adjust the pacemaker. Underlying rhythm was a slow atrial tachycardia. The AV delay was altered to ignore every other atrial beat. The post ventricular atrial blanking was also adjusted. Patient was offered admission but he desired to return home as he has a dog that requires his care. Dr. Layne was agreeable to discharge if there was strict follow-up in 48 hours in the clinic. Patient felt comfortable returning home after the pacemaker adjustments were made. Troponin was elevated. Admission for the elevated troponin was not felt necessary due to lack of chest pain and evidence of persistent tachycardia for the past 4 days as the likely source. Patient was feeling much improved after his pacemaker was adjusted. He was discharged home in stable condition. Additional concern is patient's anemia. He reports history of GI bleeds. According to the chart he has not had colonoscopy since 2014. He reports having noted rectal bleed since his last colonoscopy. He has history of hyperplastic polypectomy. See discharge instructions for further discussion on these points. Initial ECG Impression Date: Jul 12, 2022 Initial ECG Impression Time: 15:46 Initial ECG Rate: 117 Comment Pacemaker induced tachycardia. Diagnostic Imaging Diagonstic Imaging: Xray Plain Films/CT/US/NM/MRI: chest Comments NAME: MARIXA UREÑA MED REC#: [id number] PT STATUS: REG ER : 1950 PHYSICIAN: JUDE TOWNSEND MD ADMIT DATE: 07/12/22/ER Signed Date of Exam:07/12/22 CHEST 1 VIEW, AP/PA ONLY INDICATION: Chest pain. COMPARISON: 12/29/2021. TECHNIQUE: Single radiograph of the chest dated 07/12/2022. FINDINGS: Pacer device is present with the battery pack overlying the left chest. Loop recorder is again seen overlying the left chest. The cardiac silhouette is mildly enlarged, though stable. No significant pulmonary vascular congestion. The lungs are clear. No pleural effusion. No pneumothorax. No acute osseous abnormality. IMPRESSION: Stable mild cardiomegaly and postsurgical changes without superimposed acute cardiopulmonary abnormality. Dictated by: Dictated on workstation # [id number] Dict: 07/12/22 1547 Trans: 07/12/221700 AS6 [id number] Interpreted by: PRERNA QUILES MD Electronically signed by: PRERNA QUILES MD 07/12/22 1701 Departure Impression Primary Impression: Atrial tachycardia Additional Impressions: Pacemaker malfunction Qualified Codes: T82.111A - Breakdown (mechanical) of cardiac pulse generator (battery), initial encounter Anemia Qualified Codes: D64.9 - Anemia, unspecified Colon polyp, hyperplastic Qualified Codes: K63.5 - Polyp of colon Disposition: HOME, SELF-CARE Condition: Improved Departure-Patient Inst. Decision time for Depature: 17:31 Referrals: JEANNE NUNEZ MD (PCP/Family) Primary Care Physician Patient Instructions: Pacemakers Add. Discharge Instructions: Follow-up with Dr. Layne in his clinic on . Please call the clinic [facility] morning to arrange an appointment time. Until then, continue all of your usual medications. Anemia with a hemoglobin of 8.3 was noted in your lab work today. This is a change from your baseline hemoglobin. This should be followed as you may be experiencing some blood loss that should be investigated. According to our records you last had a colonoscopy with Dr. Irene in 2014. This should be repeated as polyps were removed, and repeat colonoscopy should be performed 5 years after polyps are removed. Please call Dr. Irene's office to arrange a repeat colonoscopy. Return to care if you have worsening symptoms. All discharge instructions reviewed with patient and/or family. Voiced understanding. Copy Copies To 1: JASVIR LAYNE MD Copies To 2: RIVIN IRENE MD; JEANNE NUNEZ MD, JOSHUA T MD Jul 12, 2022 16:45
--- NOTE | 2022-07-12 17:25 | Consultation-Cardiology ---
HPI-Cardiology Cardiology Consultation Date of Consultation 07/12/22 Date of Admission Time Seen by Provider: 17:19 Indication: Palpitation, dyspnea HPI 72-year-old gentleman with history of paroxysmal atrial fibrillation, hypertension, palpitation. Has been having increasing dyspnea and palpitation for the past 2 to 3 days associated with back discomfort. He was sent to the emergency room today and noted to be in paced rhythm with a rate 120. Attempted to slow down his rate with a magnet on the pacemaker resulted in improvement to the heart rate 80. On my evaluation was feeling better after adjusting his pacemaker setting Home Medications & Allergies Allergies: Coded Allergies: Tetanus Vaccines and Toxoid (Verified Allergy, Unknown, 11/01/18) EDEMA Uncoded Allergies: IVP DYE FOR HEART CATHS (Allergy, Severe, HIVES, 07/10/15) WAS TREATED TODAY WITH BENADRYL AND SOLUMEDROL PRE CARDIAC CATH Home Medication List Reviewed: Yes OPT-[id number]-Dpatdm Hx Patient Social History Marital Status: single 2nd Hand Smoke Exposure: No Recent Hopitalizations: Yes (adjusting meds for afib ) Have you traveled recently?: No Alcohol Use?: No Immunizations Up To Date Date of Pneumonia Vaccine: Aug 10, 2018 Date of Influenza Vaccine: Jul 17, 2021 Past Medical History Discussed below Family Medical History Family History: Completed stroke 19 MOTHER Myocardial infarction 19 FATHER Review of Systems-General Review of Systems Constitutional: see HPI, dizziness, malaise, other (Fatigue) EENTM: see HPI, no symptoms reported Respiratory: see HPI; No cough; dyspnea on exertion; No hemoptysis, No orthopnea, No phlegm, No short of breath, No stridor, No wheezing, No other Cardiovascular: see HPI; No chest pain, No edema, No Hx of Intervention; palpitations; No syncope, No vascular heart diseas, No other Gastrointestinal: no symptoms reported, see HPI Genitourinary: no symptoms reported, see HPI Musculoskeletal: no symptoms reported Skin: no symptoms reported Psychiatric/Neurological: No Symptoms Reported Reviewed Test Results Reviewed Test Results Lab Laboratory Tests Test 07/12/22 15:29 Range/Units White Blood Count 6.8 4.3-11.0 10^3/uL Red Blood Count 5.68 H 4.30-5.52 10^6/uL Hemoglobin 8.3 L 13.3-17.7 g/dL Hematocrit 33 L 40-54 % Mean Corpuscular Volume 57 L 80-99 fL Mean Corpuscular Hemoglobin 15 L 25-34 pg Mean Corpuscular Hemoglobin Concent 26 L 32-36 g/dL Red Cell Distribution Width 21.2 H 10.0-14.5 % Platelet Count 505 H 130-400 10^3/uL Mean Platelet Volume 9.2 9.0-12.2 fL Immature Granulocyte % (Auto) 0 % Neutrophils (%) (Auto) 63 42-75 % Lymphocytes (%) (Auto) 23 12-44 % Monocytes (%) (Auto) 9 0-12 % Eosinophils (%) (Auto) 3 0-10 % Basophils (%) (Auto) 1 0-10 % Neutrophils # (Auto) 4.3 1.8-7.8 X 10^3 Lymphocytes # (Auto) 1.6 1.0-4.0 X 10^3 Monocytes # (Auto) 0.6 0.0-1.0 X 10^3 Eosinophils # (Auto) 0.2 0.0-0.3 10^3/uL Basophils # (Auto) 0.1 0.0-0.1 10^3/uL Immature Granulocyte # (Auto) 0.0 0.0-0.1 10^3/uL Prothrombin Time 15.4 H 12.2-14.7 SEC INR Comment 1.2 0.8-1.4 Activated Partial Thromboplast Time 35 24-35 SEC Sodium Level 136 135-145 MMOL/L Potassium Level 4.7 3.6-5.0 MMOL/L Chloride Level 103 98-107 MMOL/L Carbon Dioxide Level 19 L 21-32 MMOL/L Anion Gap 14 5-14 MMOL/L Blood Urea Nitrogen 18 7-18 MG/DL Creatinine 1.07 0.60-1.30 MG/DL Estimat Glomerular Filtration Rate 74 BUN/Creatinine Ratio 17 Glucose Level 202 H 70-105 MG/DL Calcium Level 9.5 8.5-10.1 MG/DL Corrected Calcium 9.3 8.5-10.1 MG/DL Magnesium Level 2.1 1.6-2.4 MG/DL Total Bilirubin 0.7 0.1-1.0 MG/DL Aspartate Amino Transf (AST/SGOT) 58 H 5-34 U/L Alanine Aminotransferase (ALT/SGPT) 66 H 0-55 U/L Alkaline Phosphatase 134 40-136 U/L Myoglobin 34.9 10.0-92.0 NG/ML Troponin I 0.125 H <0.028 NG/ML Total Protein 7.7 6.4-8.2 GM/DL Albumin 4.2 3.2-4.5 GM/DL Physical Exam Physical Exam Vital Signs Vital Signs - First Documented 07/12/22 15:21 Pulse 108 Resp 25 B/P (MAP) 133/77 (95) Pulse Ox 100 O2 Delivery Room Air Capillary Refill : Less Than 3 Seconds Height, Weight, BMI Height: 5'7.00" Weight: 250lbs. 6.0oz. 113.497072nm; 33.00 BMI Method:Stated General Appearance: No Apparent Distress, WD/WN Eyes: Bilateral Eye Normal Inspection, Bilateral Eye PERRL, Bilateral Eye EOMI HEENT: PERRL/EOMI, TMs Normal, Normal ENT Inspection, Pharynx Normal, Moist Mucous Membranes Neck: Full Range of Motion, Normal Inspection, Non Tender, Supple, Carotid Bruit Respiratory: Chest Non Tender, Normal Breath Sounds, No Accessory Muscle Use, No Respiratory Distress Cardiovascular: Regular Rate, Rhythm, No Edema, No Gallop, No JVD, No Murmur, Normal Peripheral Pulses Gastrointestinal: Normal Bowel Sounds, No Organomegaly, No Pulsatile Mass, Non Tender, Soft Back: Normal Inspection, No CVA Tenderness, No Vertebral Tenderness Extremity: Normal Capillary Refill, Normal Inspection, Normal Range of Motion, Non Tender, No Calf Tenderness, No Pedal Edema Neurologic/Psychiatric: Alert, Oriented x3, No Motor/Sensory Deficits, Normal Mood/Affect Skin: Normal Color, Warm/Dry Lymphatic: No Adenopathy A/P-Cardiology Admission Diagnosis Palpitation SVT Congestive heart failure, acute on chronic left ventricular systolic dysfunctio n, ischemic and nonischemic cardiomyopathy Coronary artery disease Type II TN Assessment/Plan Palpitation, recurrent episode of rapid ventricular pacing, after interrogation it appeared that patient is in slow atrial tachycardia with atrial rate around 120 being tracked with his pacemaker Pacemaker setting was adjusted and changed to increase PVARP and increase blanking period which resulted in intermittent pacing with a rate around 60. Patient started to feel better, we discussed possibility of monitoring him overnight but he prefers to go home and follow-up as an outpatient Mild troponin elevation, extensive history of coronary artery disease, probably secondary to the persistent tachycardia Congestive heart failure, acute on chronic left ventricular systolic dysfunction, combination of ischemic and nonischemic cardiomyopathy, dilated cardiomyopathy NYHA class II Maintained on diltiazem, enalapril. Will add beta-blockers and monitor tolerance and response Chest pain, nonspecific etiology, atypical pain with back pain. Mild elevation in troponin, type II TN. Coronary artery disease, Cardiac catheterization done April 28, 2017 revealing LAD with 40-50 percent proximal and mid vessel stenosis, nonobstructive disease. Cardiac catheterization on 08/19/2020 after abnormal stress test revealing severe mid LAD stenosis with 80-90% stenosis with primary stenting using Tegan 2.5x 23. EF 35%. Cardiac catheterization was done on December 29, 2021 showing severe stenosis at the distal end review successful FFR evaluation and then deployment of skypoint stent 3.5 x 23 expanded to 2.71 with excellent results, the stent is distal to the previous stent that was placed in 2019. Dominant circumflex artery with mild disease Currently on Plavix and Xarelto. Anemia, patient is maintained on Xarelto and Plavix, monitor H&H closely, may require upper and lower scope. Patient was in wide-complex tachycardia, probably underlying pacing rhythm tracking high atrial rate. I placed a magnet over the pacemaker which was underlying going down to the 80s. Paroxysmal atrial fibrillation/flutter, status post typical atrial flutter ablation done by Dr. Bourgeois December 10, 2018. Has failed sotalol and Multaq. Intolerance to Tikosyn with QT prolongation. Underwent cardioversion on January 02 and January 16, 2019, and again February 20, 2019. Underwent another electrical cardioversion on the 2021, still in sinus rhythm Maintained on amiodarone, mild elevation in liver enzymes, I will repeat CMP and monitor If patient continues to go back to atrial fibrillation we will consider accepting atrial fibrillation Dizziness, lightheadedness, chronic, reporting improvement at this time. Continue to monitor Sick sinus syndrome, paroxysmal atrial fibrillation/flutter, status post permanent pacemaker implantation July 2018. Continue to monitor [id number] score is 2, yearly risk of stroke without oral anticoagulation is 2.2 percent. He is maintained Xarelto Hypertension, continue to monitor blood pressure Hyperlipidemia, lipid profile was done on November 17, 2021 showing total cholesterol 153, triglyceride 170, HDL 38, LDL 100. Continue to monitor Diabetes mellitus, diagnosed incidentally earlier in April 2021, managed by primary care physician Peripheral edema-discussed limiting salt and fluid. Discussed weight loss. Continue Lasix as needed. Pulmonary hypertension, obstructive sleep apnea. PA pressure 35 to 40 mmHg per echo in July 2020. Continue to monitor COPD/obstructive sleep apnea, maintained on C Pap machine. Dyspnea on exertion, secondary to his comorbid condition. No change from baseline. Continue to monitor. Morbid obesity, BMI is 33, patient was educated on weight loss. Seasonal allergy. Allergy to IV contrast, tetanus. Nonobstructive carotid artery stenosis-most recent carotid duplex done in October 2021, continue to monitor JASVIR MELGOZA MD Jul 12, 2022 17:25
[2022-07-12 17:50] VITALS: BP 113/57
== END 2022-07-12 17:50 | disposition home or self-care (01) ==
LOC: EDUNIT# 15:17 → ER 15:19
DX: T82.111A Breakdown (mechanical) of cardiac pulse generator (battery), initial encounter (principal); D64.9 Anemia, unspecified; K63.5 Polyp of colon; R00.0 Tachycardia, unspecified; G47.30 Sleep apnea, unspecified; Z95.5 Presence of coronary angioplasty implant and graft; Z95.0 Presence of cardiac pacemaker; Z99.89 Dependence on other enabling machines and devices; Z79.01 Long term (current) use of anticoagulants
CPT/HCPCS: 36415; 71045; 80053; 83735; 83874; 84484; 85025; 85610; 85730; 93005; 93041

== ENCOUNTER 2022-07-18 07:47 | Day surgery (SDC) | payer MEDICARE, OTHER ==
[~2022-07-18] VITALS: Ht 170.2 cm; Wt 93.3 kg
[2022-07-18] VITALS (9 sets, daily range): BP systolic 98–130; BP diastolic 54–85
[2022-07-18] MEDS ORDERED: NS IV 1000 ML 1,000 ML ONE (07:53)
[2022-07-18] MEDS ORDERED: MIDAZOLAM 2 MG/2 ML (VERSED) VIAL ONE (07:53)
[2022-07-18] MEDS ORDERED: proPOfol 200 MG/20 ML (DIPRIVAN) VIAL IV ONE (07:54)
[2022-07-18] MEDS ORDERED: NS IV 1000 ML 1,000 ML IV SCH (08:00)
--- NOTE | 2022-07-18 08:14 | Cardiac Procedure Note-CS/ASA ---
Pre-Procedure Note Pre-Op Procedure Note Date of Available H&P: Jul 04, 2022 Date H&P Reviewed: Jul 18, 2022 Time H&P Reviewed: 08:14 History & Physical: H&P Reviewed, Patient Examed, No changes noted Pre-Operative Diagnosis: atrial flutter Conscious Sedation Pre-Proced Time 08:14 ASA Score 3 For ASA 3 and 4: Consider anesthesia and medical clearance. Also, for patients with a history of failed moderate sedation consider anesthesia. Airway Lungs Heart ASA score ASA 1: a normal healthy patient ASA 2: a patient with a mild systemic disease (mid diabetes, controlled hypertension, obesity x ASA 3: a patient with a severe systemic disease that limits activity (angina, COPD, prior Myocardial infarction) ASA 4: a patient with an incapacitating disease that is a constant threat to life (CHF, renal failure) ASA 5: a moribund patient not expected to survive 24 hrs. (ruptured aneurysm) ASA 6: a declared brain- patient whose organs are being harvested. For emergent operations, add the letter E after the classification Mallampati Classification Grade 3 Sedation Plan Analgesia, Amnesia, Plan communicated to team members, Discussed options with patient/fam, Discussed risks with patient/fam The patient is an appropriate candidate to undergo the planned procedure, sedation, and anesthesia. The patient immediately re-assessed prior to indication. JASVIR MELGOZA MD Jul 18, 2022 08:14
--- NOTE | 2022-07-18 09:01 | Cardioversion ---
Cardioversion PROCEDURE PHYSICIAN: Jasvir Layne DATE OF PROCEDURE: 07/18/22 DIRECT EXTERNAL ELECTRICAL CARDIOVERSION: Indications: Atrial Flutter Preoperative diagnoses: Atrial Flutter Postoperative diagnosis: Sinus rhythm, Successful Electrical Cardioversion Anesthesia: By Anesthesia services Complications: None Specimen: None Contrast: 0 Flouroscopy: none Procedure Details: The patient was brought the [facility] after informed consent was taken, all the risks and complications were explained including the risk of stroke. Electrical cardioversion was carried out with anesthesia support with propofol. 120 joules of synchronized shock was delivered through external patches which promptly restored sinus rhythm. The patient tolerated the procedure well. Conclusions: Successful Cardioversion in terminating atrial flutter Final Diagnosis: Paroxysmal atrial flutter Palpitation Cardiac pacemaker Coronary artery disease JASVIR LAYNE MD Jul 18, 2022 09:01
--- NOTE | 2022-07-18 09:03 | Discharge Inst-Post CATH ---
Discharge Inst-CATH/EP Problems Reviewed?: Yes Post Cardiac Cath/EP D/C Inst Follow Up/Plan Appointment with Dr Layne in one week <b>CARDIAC CATH/EP PROCEDURE DISCHARGE INSTRUCTIONS</b> ACTIVITY * Go Home directly and rest. * Limit activity of the leg (or wrist if it was used) for 7 days including aerobics, swimming, jogging, bicycling, etc. * Restrict stair-climbing for 7 days if possible, if not, climb up with your non-cath leg, then bring together on the same step. * Avoid lifting, pushing, pulling or excessive movement of the affected extremity for 7 days. * Customary sexual activity may be resumed after 2 days-use caution not to use a position that strains or causes pain to the affected extremity. * No driving for 24 hours. * NO SMOKING. * Avoid straining for bowel movements for 7 days. * Gentle walking on level ground is allowed. * Returning to work will depend on the type of procedure and the results. Your doctor will discuss this with you. CALL YOUR DOCTOR FOR ANY OF THE FOLLOWING: *If bleeding from the puncture site occurs- Apply gentle pressure to site with clean cloth and call your doctor or EMS. * If a knot or lump forms under the skin, increases in size, or causes pain. * If bruising appears to be worsening or moving further down your leg instead of disappearing. * Temperature above 101 F. CARE OF YOUR GROIN INCISION; * Bruising or purple discoloration of the skin near the puncture site is common. * You may shower only, no bathtub bathing for 5 days. Be careful to avoid slipping as your leg may feel stiff. * If a closure device was used on your femoral artery, please see the attached guide regarding care of the device and your leg. * Leave dressing on FOR 24 hours. CARE OF YOUR WRIST INCISION; * Bruising or purple discoloration of the skin near the puncture site is common. * You may shower. * DO NOT submerge wrist. * Leave dressing on FOR 24 hours. JASVIR LAYNE MD Jul 18, 2022 09:02
--- NOTE | 2022-07-18 10:58 | Anesthesia-General Post-Op ---
MAC Patient Condition Mental Status/LOC: Same as Preop Cardiovascular: Satisfactory Nausea/Vomiting: Absent Respiratory: Satisfactory Pain: Controlled Complications: Absent Post Op Complications Complications None Follow Up Care/Instructions Patient Instructions None needed. Anesthesiology Discharge Order Discharge Order Patient is doing well, no complaints, stable vital signs, no apparent adverse anesthesia problems. No complications reported per nursing. KERI CASTANON CRNA Jul 18, 2022 10:58
== END 2022-07-18 10:09 | disposition home or self-care (01) ==
LOC: SDC 07:47 → CATH 10:09
PROVIDERS: ATTEND Internal Medicine Cardiovascular Disease
DX: I48.92 Unspecified atrial flutter (principal); I25.10 Atherosclerotic heart disease of native coronary artery without angina pectoris; E66.9 Obesity, unspecified; R74.8 Abnormal levels of other serum enzymes; I49.5 Sick sinus syndrome; I10 Essential (primary) hypertension; E11.9 Type 2 diabetes mellitus without complications; R60.0 Localized edema; I27.20 Pulmonary hypertension, unspecified; G47.33 Obstructive sleep apnea (adult) (pediatric); E78.2 Mixed hyperlipidemia; I48.0 Paroxysmal atrial fibrillation; I65.23 Occlusion and stenosis of bilateral carotid arteries; Z95.0 Presence of cardiac pacemaker; Z68.32 Body mass index [BMI] 32.0-32.9, adult; Z79.899 Other long term (current) drug therapy; Z79.02 Long term (current) use of antithrombotics/antiplatelets; Z79.01 Long term (current) use of anticoagulants; Z79.84 Long term (current) use of oral hypoglycemic drugs
CPT/HCPCS: 92960; 93005

== ENCOUNTER 2023-01-04 13:33 | Emergency (ER) | payer MEDICARE, OTHER ==
[~2023-01-04] VITALS: Ht 167 cm; Wt 82.0 kg
[~2023-01-04 13:33] MED LIST changes: +ENAL-66 PO; -ENAL10TA16 PO; +ENLP10T PO; -ENLP5T PO
--- NOTE | 2023-01-04 14:16 | ED General ---
General Chief Complaint: General Problems/Pain Stated Complaint: LABS INDICATE ER VISIT Nursing Triage Note: WAS TOLD BY HIS DR TO COME TO THE ER DUE TO ABNORMAL LIVER FUNCTION, HMG, STATIN LEVELS. PT DENIES SX. LABS WERE DONE HERE. Source of Information: Patient Exam Limitations: No Limitations History of Present Illness Date Seen by Provider: Jan 04, 2023 Time Seen by Provider: 14:10 Initial Comments Patient presents with elevated liver function tests. Call his primary doctor but they want to the office today so he came here. He is asymptomatic. All other systems reviewed and negative except documented per HPI. Voice recognition software was used to help create this chart Allergies and Home Medications Allergies Coded Allergies: Tetanus Vaccines and Toxoid (Verified Allergy, Unknown, 11/01/18) EDEMA Uncoded Allergies: IVP DYE FOR HEART CATHS (Allergy, Severe, HIVES, 07/10/15) WAS TREATED TODAY WITH BENADRYL AND SOLUMEDROL PRE CARDIAC CATH Patient Home Medication List Home Medication List Reviewed: Yes Amiodarone HCl (Amiodarone HCl) 200 Mg Tablet, 200 MG PO DAILY, (Reported) Entered as Reported by: FLACO KRAMER on 08/19/20927 Aspirin (Aspirin EC) 81 Mg Tablet.dr, 81 MG PO DAILY PRN for CHEST PAIN (ANGINA), (Reported) Entered as Reported by: FLACO KRAMER on 12/29/211242 Atorvastatin Calcium (Atorvastatin Calcium) 40 Mg Tablet, 40 MG PO DAILY, (Reported) Entered as Reported by: FLACO KRAMER on 12/29/211242 Clopidogrel Bisulfate (Clopidogrel) 75 Mg Tablet, 75 MG PO DAILY, (Reported) Entered as Reported by: FLACO KRAMER on 12/29/211242 Digoxin (Digoxin) 125 Mcg Tablet, 125 MCG PO DAILY, (Reported) Entered as Reported by: FLACO KRAMER on 08/19/20927 Diltiazem HCl (Cartia Xt) 240 Mg Cap.er.24h, 240 MG PO DAILY, (Reported) Entered as Reported by: FLACO KRAMER on 08/19/20927 Diltiazem HCl (Diltiazem 24Hr Cd) 180 Mg Cap.er.24h, 180 MG PO DAILY, (Reported) Entered as Reported by: FLACO KRAMER on 12/29/211242 Enalapril Maleate (Enalapril Maleate) 5 Mg Tablet, 5 MG PO DAILY, (Reported) Entered as Reported by: FLACO KRAMER on 08/19/20927 Gemfibrozil (Gemfibrozil) 600 Mg Tablet, 600 MG PO BID, (Reported) Entered as Reported by: FLACO KRAMER on 08/19/20927 Glipizide (Glipizide) 5 Mg Tablet, 5 MG PO DAILY, (Reported) Entered as Reported by: BERYL MCKINNEY on 11/17/21 0845 Loratadine (Loratadine) 10 Mg Tablet, 10 MG PO DAILY, (Reported) Entered as Reported by: TASHA MENG on 06/17/15 0956 Metformin HCl (Metformin HCl) 500 Mg Tablet, 500 MG PO BID Prescribed by: JASVIR MELGOZA on 12/29/21 1518 Montelukast Sodium (Montelukast Sodium) 10 Mg Tablet, 10 MG PO HS, (Reported) Entered as Reported by: TASHA MENG on 06/17/15 0951 Potassium Chloride (Potassium Chloride) 10 Meq Tab.er.prt, 10 MEQ PO DAILY, (Reported) Entered as Reported by: FLACO KRAMER on 08/19/20927 Rivaroxaban (Xarelto Tablet) 20 Mg Tablet, 20 MG PO HS, (Reported) Entered as Reported by: BERYL MCKINNEY on 11/17/21 0845 Review of Systems Review of Systems Constitutional: see HPI Past Brskjkp-[id number]-Xfnfox Hx Patient Social History Tobacco Use?: No Substance use?: No Alcohol Use?: No Immunizations Up To Date First/Initial COVID19 Vaccinat: NOVEMBER 2020 Second COVID19 Vaccination Derek: DECEMBER 2020 Third COVID19 Vaccination Date: NOVEMBER 2020 COVID19 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 Seasonal Allergies Seasonal Allergies: No Past Medical History Surgeries: Yes (aflutter ablation) Cardiac, Coronary Stent, Pacemaker Respiratory: Yes COPD Currently Using CPAP: No (has one does not use) Currently Using BIPAP: No Cardiac: Yes Atrial Fibrillation, Heart Attack, High Cholesterol, Hypertension, Irregular Heartbeat, Palpitations Neurological: Yes (possible TIA ) TIA Reproductive Disorders: No Genitourinary: Yes Prostate Problems Gastrointestinal: Yes Gastroesophageal Reflux Musculoskeletal: No Endocrine: No HEENT: No Loss of Vision: Denies Hearing Impairment: Denies Cancer: No Did You Recieve Any Treatments: No Psychosocial: Yes Anxiety Integumentary: No Blood Disorders: No Adverse Reaction/Blood Tranf: No Family Medical History Completed stroke 19 MOTHER Myocardial infarction 19 FATHER Physical Exam Vital Signs Vital Signs - First Documented 01/04/23 13:45 Temp 36.5 Pulse 73 Resp 16 B/P (MAP) 132/69 (90) Pulse Ox 99 O2 Delivery Room Air Capillary Refill : Less Than 3 Seconds Height, Weight, BMI Height: 5'7.00" Weight: 250lbs. 6.0oz. 113.881697wf; 29.00 BMI Method:Stated General Appearance: No Apparent Distress, WD/WN HEENT: Normal ENT Inspection, Pharynx Normal Neck: Full Range of Motion, Normal Inspection, Non Tender, Supple Respiratory: Chest Non Tender, Lungs Clear, Normal Breath Sounds, No Accessory Muscle Use, No Respiratory Distress Cardiovascular: Regular Rate, Rhythm, No Murmur, Normal Peripheral Pulses Gastrointestinal: Normal Bowel Sounds, No Organomegaly, No Pulsatile Mass, Non Tender, Soft Extremity: Normal Capillary Refill, Normal Inspection, Normal Range of Motion, Non Tender Neurologic/Psychiatric: Alert, Oriented x3, No Motor/Sensory Deficits Progress/Results/Core Measures Suspected Sepsis SIRS Temperature: Pulse: 73 Respiratory Rate: 16 Laboratory Tests 01/04/23 14:24: White Blood Count 5.0 Blood Pressure 132 /69 Mean: 90 Laboratory Tests 01/04/23 14:24: Creatinine 0.86, Platelet Count 327, Total Bilirubin 1.2H Results/Orders Lab Results Laboratory Tests Test 01/04/23 14:24 Range/Units White Blood Count 5.0 4.3-11.0 10^3/uL Red Blood Count 4.81 4.30-5.52 10^6/uL Hemoglobin 6.7 *L 13.3-17.7 g/dL Hematocrit 28 L 40-54 % Mean Corpuscular Volume 59 L 80-99 fL Mean Corpuscular Hemoglobin 14 L 25-34 pg Mean Corpuscular Hemoglobin Concent 24 L 32-36 g/dL Red Cell Distribution Width 22.0 H 10.0-14.5 % Platelet Count 327 130-400 10^3/uL Mean Platelet Volume 9.3 9.0-12.2 fL Immature Granulocyte % (Auto) 0 % Neutrophils (%) (Auto) 69 42-75 % Lymphocytes (%) (Auto) 18 12-44 % Monocytes (%) (Auto) 9 0-12 % Eosinophils (%) (Auto) 3 0-10 % Basophils (%) (Auto) 1 0-10 % Neutrophils # (Auto) 3.5 1.8-7.8 10^3/uL Lymphocytes # (Auto) 0.9 L 1.0-4.0 10^3/uL Monocytes # (Auto) 0.5 0.0-1.0 10^3/uL Eosinophils # (Auto) 0.1 0.0-0.3 10^3/uL Basophils # (Auto) 0.0 0.0-0.1 10^3/uL Immature Granulocyte # (Auto) 0.0 0.0-0.1 10^3/uL Percent Immature Platelet Fraction 3.1 0.0-7.6 % Sodium Level 136 135-145 MMOL/L Potassium Level 4.2 3.6-5.0 MMOL/L Chloride Level 106 98-107 MMOL/L Carbon Dioxide Level 19 L 21-32 MMOL/L Anion Gap 11 5-14 MMOL/L Blood Urea Nitrogen 15 7-18 MG/DL Creatinine 0.86 0.60-1.30 MG/DL Estimat Glomerular Filtration Rate 92 BUN/Creatinine Ratio 17 Glucose Level 89 70-105 MG/DL Calcium Level 9.3 8.5-10.1 MG/DL Corrected Calcium 9.5 8.5-10.1 MG/DL Total Bilirubin 1.2 H 0.1-1.0 MG/DL Aspartate Amino Transf (AST/SGOT) 56 H 5-34 U/L Alanine Aminotransferase (ALT/SGPT) 66 H 0-55 U/L Alkaline Phosphatase 120 40-136 U/L Total Protein 6.3 L 6.4-8.2 GM/DL Albumin 3.7 3.2-4.5 GM/DL Smear Scan YES My Orders Orders - AGUSTIN ESTRADA DO Comprehensive Metabolic Panel (01/04/23 14:14) Cbc With Automated Diff (01/04/23 14:14) Type And Screen (01/04/23 15:08) Blood Products Transfusion: Re (01/04/23 15:08) Vital Signs/I&O 01/04/23 13:45 Temp 36.5 Pulse 73 Resp 16 B/P (MAP) 132/69 (90) Pulse Ox 99 O2 Delivery Room Air Capillary Refill : Less Than 3 Seconds Blood Pressure Mean: 90 Departure Communication (Admissions) Patient is hemodynamically stable however his hemoglobin is 6.7. He describes some dizziness if he walks 2 or 3 steps or especially if he goes from lying to sitting or sitting to standing. That would have been given 1 unit of packed red blood cells. His vital signs remained stable and he tolerated the transfusion well without complication. Discharged home with recommendation to follow-up with primary doctor in 2 days for recheck hemoglobin. Denies any bloody or dark tarry stools. Has had a colonoscopy within the last 5 years which was normal. Does have a history of hemorrhoids but denies any bleeding with these lately. He is on Xarelto Impression Primary Impression: Anemia Qualified Codes: D64.9 - Anemia, unspecified Disposition: 01 HOME, SELF-CARE Condition: Stable Departure-Patient Inst. Referrals: JEANNE NUNEZ MD (PCP/Family) Primary Care Physician Patient Instructions: Anemia, Possibly From Low Iron, Adult ED Add. Discharge Instructions: Call your primary doctor in 2 days for recheck of your hemoglobin. Return to the emergency department for any severe shortness of breath, dizziness lightheadedness or chest pain. All discharge instructions reviewed with patient and/or family. Voiced understanding. AGUSTIN ESTRADA DO Jan 04, 2023 14:16
[2023-01-04 14:27] LABS: MEAN CORPUSCULAR VOLUME 59 fL (80-99); MONOCYTES % (AUTO) 9 % (0-12)
[2023-01-04 14:29] LABS: BASOPHILS % (AUTO) 1 % (0-10); EOSINOPHILS # (AUTO) 0.1 10^3/uL (0.0-0.3); EOSINOPHILS % (AUTO) 3 % (0-10); HEMATOCRIT 28 % (40-54); LYMPHOCYTES # (AUTO) 0.9 10^3/uL (1.0-4.0); LYMPHOCYTES % (AUTO) 18 % (12-44); MEAN CORPUSCULAR HEMOGLOBIN 14 pg (25-34); MEAN CORPUSCULAR HGB CONC 24 g/dL (32-36); MEAN PLATELET VOLUME 9.3 fL (9.0-12.2); MONOCYTES # (AUTO) 0.5 10^3/uL (0.0-1.0); NEUTROPHILS # (AUTO) 3.5 10^3/uL (1.8-7.8); NEUTROPHILS % (AUTO) 69 % (42-75); PLATELET COUNT 327 10^3/uL (130-400)
[2023-01-04 14:32] LABS: HEMOGLOBIN 6.7 g/dL (13.3-17.7)
[2023-01-04 14:40] LABS: ALBUMIN 3.7 GM/DL (3.2-4.5); POTASSIUM 4.2 MMOL/L (3.6-5.0)
[2023-01-04 14:41] LABS: CALCIUM 9.3 MG/DL (8.5-10.1)
[2023-01-04 14:42] LABS: TOTAL PROTEIN 6.3 GM/DL (6.4-8.2)
[2023-01-04 14:44] LABS: BILIRUBIN,TOTAL 1.2 MG/DL (0.1-1.0); SMEAR SCAN COMMENT YES
[2023-01-04 14:46] LABS: CREATININE SERUM 0.86 MG/DL (0.60-1.30)
[2023-01-04] MEDS ORDERED: NS IV 500 ML 500 ML ONE (17:39)
[2023-01-04 17:57] VITALS: BP 103/48
[2023-01-04 18:12] VITALS: BP 109/54
[2023-01-04 19:29] VITALS: BP 119/96
== END 2023-01-04 19:29 | disposition home or self-care (01) ==
LOC: EDUNIT# 13:33 → ER 13:36
DX: D64.9 Anemia, unspecified (principal); Z79.01 Long term (current) use of anticoagulants
CPT/HCPCS: 80053; 85025; 86850; 86900; 86901; 86920; 99284; P9016; 36415

== ENCOUNTER → 2023-03-16 | Outpatient (CLI) | payer MEDICARE, OTHER | LOC: CARD 10:11 | PROVIDERS: ATTEND Internal Medicine Cardiovascular Disease | DX: I11.9 Hypertensive heart disease without heart failure (principal); I08.0 Rheumatic disorders of both mitral and aortic valves | CPT/HCPCS: 93306 ==

== ENCOUNTER 2023-03-20 14:50 | Outpatient (RCR) | payer MEDICARE, OTHER ==
[~2023-03-20 14:50] MED LIST changes: +POTA-185 PO; -POTA10TA PO
== END 2023-03-24 | disposition home or self-care (01) ==
PROVIDERS: ATTEND Physician Assistant
DX: M54.41 Lumbago with sciatica, right side (principal); M54.42 Lumbago with sciatica, left side; G89.29 Other chronic pain

== ENCOUNTER 2023-04-05 12:52 | Outpatient (RCR) | payer MEDICARE, OTHER ==
[~2023-04-05 12:52] MED LIST changes: -POTA-185 PO; +POTA10TA PO
== END 2023-04-05 13:40 | disposition home or self-care (01) ==
PROVIDERS: ATTEND Physician Assistant
DX: M54.41 Lumbago with sciatica, right side (principal); M54.42 Lumbago with sciatica, left side; G89.29 Other chronic pain; I10 Essential (primary) hypertension; E11.9 Type 2 diabetes mellitus without complications